=== PATIENT | male | born 1975 | race Two or more races ===

== ENCOUNTER 2021-08-13 11:48 | Inpatient (IN) | payer OTHER, SELFPAY ==
[2021-08-13] VITALS (29 sets, daily range): BP systolic 121–220; BP diastolic 54–121; PULSE 60–122; RESP 12–40; TEMP 36.2–36.4; O2SAT 60–96; BMI 37.0; BMI 37.4
--- NOTE | 2021-08-13 | ECG_ITS ---
Test Reason : AFIB? Blood Pressure : / mmHG Vent. Rate : 108 BPM Atrial Rate : 000 BPM P-R Int : 000 ms QRS Dur : 140 ms QT Int : 388 ms P-R-T Axes : 000 085 -80 degrees QTc Int : 519 ms Atrial fibrillation with rapid ventricular response Non-specific intra-ventricular conduction block Minimal voltage criteria for LVH, may be normal variant ( [place] product ) Nonspecific T wave abnormality Abnormal ECG No previous ECGs available Referred By: Kwan Richter Electronically Signed By:Madi Corado
--- NOTE | ~2021-08-13 | XR_ITS ---
EXAMINATION: XR CHEST CLINICAL INFORMATION: Desaturation. Shortness of breath. COMPARISON: 08/13/2021 chest radiograph. TECHNIQUE: Frontal view of the chest was obtained. FINDINGS: Support devices: Right-sided central venous catheter with tip terminating at the cavoatrial junction. There are persistent bilateral patchy opacities with mild pulmonary vascular prominence. The heart is mildly enlarged. The mediastinal structures are unremarkable. XR/XR chest 1V IMPRESSION: Mild pulmonary vascular prominence with similar appearance, but mild interval improvement in bilateral patchy opacities suggesting improving congestion.
--- NOTE | ~2021-08-13 | XR_ITS ---
EXAMINATION: PORTABLE CHEST 1 VIEW CLINICAL INFORMATION: sob, missed dialysis . COMPARISON: No recent pertinent prior studies are available for comparison. TECHNIQUE: Portable frontal view of the chest was obtained. FINDINGS: Lungs well-expanded. There is central vascular prominence with some indistinctness to the vessels. No significant effusion or pneumothorax. Cardiac silhouette is enlarged with vascular calcification in aorta. Right IJ dialysis catheter tip near the cavoatrial junction. XR/XR chest 1V IMPRESSION: Enlarged cardiac silhouette with central vascular prominence may reflect component of fluid overload in this setting.
[2021-08-13] MEDS: Furosemide 100 MG/10 ML VIAL 80 MG IVPUSH (12:10)
[2021-08-13] MEDS: Nitroglycerin 2 % Oint 1 GM Packet 1 INCH TRANSDERMA (12:11)
--- NOTE | 2021-08-13 12:14 | ED_ITS ---
HPI - Chest Pain General Chief Complaint: Chest Pain Stated Complaint: CP,ABD PAIN,DIZZY,MISSED DIALYSIS THIS AM PER EMS Time Seen by Provider: 08/13/21 12:05 Source: patient and EMS Mode of arrival: EMS Limitations: no limitations History of Present Illness HPI narrative: Patient comes to the emergency room complaining of severe shortness of breath. It started last night. Patient states that he was supposed to go to dialysis today at 06:00. Patient did not go because his transportation right does not have his new cellphone number, and they were unable to coordinate transport. Patient's cousin called EMS, on arrival patient's oxygen saturation was 54% on room air. Patient was put on non-rebreather, oxygen on 15 L approximately 90%. He was also given 325 mg of aspirin. On arrival to the emergency room, patient talking in one-word sentences, significant shortness of breath. Unable to provide much history at this time. Patient complaining of mild chest pressure. Related Data Allergies Allergy/AdvReac Type Severity Reaction Status Date / Time PHILLY Inhibitors Allergy Anaphylaxis Verified 08/13/21 12:19 shellfish derived Allergy Anaphylaxis Verified 08/13/21 12:19 Sulfa (Sulfonamide Allergy Anaphylaxis Verified 08/13/21 12:19 Antibiotics) Review of Systems Review of Systems: Constitutional : No Weight loss, No Fever, No Chills, No Night Sweats, No Fatigue, No Malaise ENT/Mouth : No Hearing loss, No Ear Pain, No Nasal Congestion, No Sinus Pain, No Hoarseness, No sore throat, No Rhinorrhea, No Swallowing Difficulty Eyes: No Eye Pain, No Swelling, No Redness, No Foreign Body, No Discharge, No Vision Changes Cardiovascular : Complaining of chest pressure Respiratory : Complaining of severe shortness of breath, unable to catch breath Gastrointestinal : No Nausea, No Vomiting, No Diarrhea, No Constipation, No abdominal Pain, No Hematochezia, No Melena Genitourinary : no irregular bleeding, No Dysuria, No Urinary Frequency, No Hematuria, No Urinary Incontinence, No Urgency, No Flank Pain, No Urinary Flow Changes, No Hesitancy Musculoskeletal : No joint pain, No Myalgias, No Joint Swelling Skin : No Skin Lesions, No rash Neuro : No Weakness, No Numbness, No Paresthesias, No Loss of Consciousness, No Dizziness, No Headache Psych : No Anxiety/Panic, No Depression, No SI/HI/AH/VH, No Social Issues, Heme/Lymph: No Bruising, No Bleeding,No Lymphadenopathy Endocrine : No Polyuria, No Polydipsia, No Temperature Intolerance [facility] Past Medical History Medical History (Updated 08/13/21 @ 13:07 by Naty Lanza MD) Diabetes End stage renal disease Hypertension Social History Social History Advance Directives: No Advance Directives Information Provided: Yes Physical Exam Vital Signs: Vital Signs: Last Vital Signs Temp 97.2 F 08/13/21 12:00 Pulse 68 08/13/21 12:27 Resp 20 08/13/21 12:27 BP 220/119 H 08/13/21 12:27 Pulse Ox 96 08/13/21 12:27 O2 Del Method 08/13/21 12:27 BMI result Body Mass Index 37.4 Const: Other: Appearance: Alert. Oriented X3. In respiratory distress Eyes: Pupils equal, round and reactive to light. ENT: Pharynx normal. Neck: Normal inspection. Neck supple. No lymph nodes noted. No crepitus CVS: Normal heart rate and rhythm. Pulses normal. Normal S1 and S2 Respiratory: In respiratory distress, saturating 58% on room air, bilateral crackles Abdomen: Soft and nontender. No rigidity. No distention. Skin: Skin warm and dry. Normal skin color. Normal skin turgor. Extremities: +2 pitting edema Neuro: Oriented X 3. No motor deficit. No sensory deficit. Moving all extremities. No slurred speech. CN 2 through 12 grossly intact Psych: calm, cooperative, normal affect Course Course Course Narrative: On arrival, patient was put on CPAP, 60% O2, patient's oxygen saturation 92%. Patient was also given 80 mg of Lasix, patient states he produces small amount of urine, 1 in of nitropaste. Patient feels that slowly he is starting to feel better. We have contacted [facility] for dialysis today. Callback Pending. All the labs are pending I discussed the patient with Dr. Kerr, at this time, all of the labs are pending, but patient needs emergent dialysis. Dr. Tanner has access to the [facility]'s medical records in [facility], patient is known to be noncompliant with dialysis and drink plenty of fluids. I discussed the patient with Dr. Freeman, patient will be admitted to the ICU, dialysis will be done there. Once patient is stable, he will be transferred to the floor Patient's potassium is elevated, patient was given calcium gluconate, albuterol neb treatment. No EKG changes. Patient is currently doing better on CPAP, however his blood pressure is still very elevated, 220 systolic despite having received Lasix and nitro paste and being on CPAP. Patient will be started on nicardipine drip MDM - Chest Pain Lab Data Result diagrams: 08/13/21 12:17 08/13/21 12:17 Labs: Lab Results 08/13/21 08/13/21 08/13/21 Range/Units 12:17 12:17 12:17 WBC 7.9 (4.8-10.8) X10*3/uL RBC 3.03 L (4.60-5.80) X10*6/uL Hgb 9.0 L (14.0-18.0) g/dl Hct 28.8 L (42.0-52.0) % MCV 95.0 (80.0-98.0) fL MCH 29.7 (27.0-33.0) pg MCHC 31.3 (31.0-36.0) g/dl RDW 16.7 H (11.0-16.0) % Plt Count 160 (160-400) X10*3/uL MPV 8.8 L (9.4-12.4) fL Immature Gran % (Auto) 0.9 H (0.0-0.4) % Neut % (Auto) 80.2 H (45-73) % Lymph % (Auto) 8.7 L (20-40) % [place] % (Auto) 6.6 (2-11) % Eos % (Auto) 3.1 (0-4) % Baso % (Auto) 0.5 (0-2) % Lymph # (Auto) 0.7 L (1.2-4.9) X10*3/uL [place] # (Auto) 0.5 (0.1-1.2) X10*3/uL Eos # (Auto) 0.2 (0.0-0.4) X10*3/uL Baso # (Auto) 0.0 (0.0-0.2) X10*3/uL Abs Immat Gran (auto) 0.07 H (0.00-0.03) X10*3/uL Absolute Neuts (auto) 6.3 (2.0-8.3) x10*3/uL Absolute Nucleated RBC 0.020 H (0.0-0.012) X10*3/uL Nucleated RBC % (auto) 0.3 H (0.0-0.2) /100WBC PT (10.0-13.1) SEC INR (0.9-1.1) VBG pH (7.32-7.43) VBG pCO2 mmHg VBG pO2 mmHg VBG HCO3 (22-26) mmol/L VBG O2 Saturation % VBG Base Excess mmol/L Sodium 135 (135-145) mmol/L Potassium 5.5 H (3.3-5.1) mmol/L Chloride 93 L (96-108) mmol/L Carbon Dioxide 27 (22-29) mmol/L Anion Gap 21 H (12-20) BUN 71 H (9-16) mg/dL Creatinine 11.98 H* (0.5-1.4) mg/dL Estim Creat Clear Calc 11.2 Estimated GFR 5 Random Glucose 135 H (60-115) mg/dL Lactic Acid (0.5-2.0) mmol/L Calcium 9.3 (8.4-10.2) mg/dL Magnesium 2.4 (1.6-2.6) mg/dL Total Bilirubin 0.9 (0.0-1.0) mg/dL Direct Bilirubin 0.3 (0.0-0.5) mg/dL AST 20 (5-37) U/L ALT 15 (0-40) U/L Alkaline Phosphatase 89 (39-117) U/L Troponin I High Sens 245.0 H* (<3.5-35.0) ng/L B-Natriuretic Peptide (<100) pg/mL Total Protein 7.5 (6.5-8.0) g/dL Albumin 4.5 (3.5-5.0) g/dL COVID-19 (FREDI) (Negative) COVID-19 Clin Com 08/13/21 08/13/21 08/13/21 Range/Units 12:17 12:17 12:18 WBC (4.8-10.8) X10*3/uL RBC (4.60-5.80) X10*6/uL Hgb (14.0-18.0) g/dl Hct (42.0-52.0) % MCV (80.0-98.0) fL MCH (27.0-33.0) pg MCHC (31.0-36.0) g/dl RDW (11.0-16.0) % Plt Count (160-400) X10*3/uL MPV (9.4-12.4) fL Immature Gran % (Auto) (0.0-0.4) % Neut % (Auto) (45-73) % Lymph % (Auto) (20-40) % [place] % (Auto) (2-11) % Eos % (Auto) (0-4) % Baso % (Auto) (0-2) % Lymph # (Auto) (1.2-4.9) X10*3/uL [place] # (Auto) (0.1-1.2) X10*3/uL Eos # (Auto) (0.0-0.4) X10*3/uL Baso # (Auto) (0.0-0.2) X10*3/uL Abs Immat Gran (auto) (0.00-0.03) X10*3/uL Absolute Neuts (auto) (2.0-8.3) x10*3/uL Absolute Nucleated RBC (0.0-0.012) X10*3/uL Nucleated RBC % (auto) (0.0-0.2) /100WBC PT 16.4 H (10.0-13.1) SEC INR 1.4 H (0.9-1.1) VBG pH (7.32-7.43) VBG pCO2 mmHg VBG pO2 mmHg VBG HCO3 (22-26) mmol/L VBG O2 Saturation % VBG Base Excess mmol/L Sodium (135-145) mmol/L Potassium (3.3-5.1) mmol/L Chloride (96-108) mmol/L Carbon Dioxide (22-29) mmol/L Anion Gap (12-20) BUN (9-16) mg/dL Creatinine (0.5-1.4) mg/dL Estim Creat Clear Calc Estimated GFR Random Glucose (60-115) mg/dL Lactic Acid (0.5-2.0) mmol/L Calcium (8.4-10.2) mg/dL Magnesium (1.6-2.6) mg/dL Total Bilirubin (0.0-1.0) mg/dL Direct Bilirubin (0.0-0.5) mg/dL AST (5-37) U/L ALT (0-40) U/L Alkaline Phosphatase (39-117) U/L Troponin I High Sens (<3.5-35.0) ng/L B-Natriuretic Peptide 3055 H (<100) pg/mL Total Protein (6.5-8.0) g/dL Albumin (3.5-5.0) g/dL COVID-19 (FREDI) Negative (Negative) COVID-19 Clin Com See Note 08/13/21 08/13/21 Range/Units 12:18 12:22 WBC (4.8-10.8) X10*3/uL RBC (4.60-5.80) X10*6/uL Hgb (14.0-18.0) g/dl Hct (42.0-52.0) % MCV (80.0-98.0) fL MCH (27.0-33.0) pg MCHC (31.0-36.0) g/dl RDW (11.0-16.0) % Plt Count (160-400) X10*3/uL MPV (9.4-12.4) fL Immature Gran % (Auto) (0.0-0.4) % Neut % (Auto) (45-73) % Lymph % (Auto) (20-40) % [place] % (Auto) (2-11) % Eos % (Auto) (0-4) % Baso % (Auto) (0-2) % Lymph # (Auto) (1.2-4.9) X10*3/uL [place] # (Auto) (0.1-1.2) X10*3/uL Eos # (Auto) (0.0-0.4) X10*3/uL Baso # (Auto) (0.0-0.2) X10*3/uL Abs Immat Gran (auto) (0.00-0.03) X10*3/uL Absolute Neuts (auto) (2.0-8.3) x10*3/uL Absolute Nucleated RBC (0.0-0.012) X10*3/uL Nucleated RBC % (auto) (0.0-0.2) /100WBC PT (10.0-13.1) SEC INR (0.9-1.1) VBG pH 7.34 (7.32-7.43) VBG pCO2 36 mmHg VBG pO2 174 mmHg VBG HCO3 20 L (22-26) mmol/L VBG O2 Saturation 99.0 % VBG Base Excess -4.8 mmol/L Sodium (135-145) mmol/L Potassium (3.3-5.1) mmol/L Chloride (96-108) mmol/L Carbon Dioxide (22-29) mmol/L Anion Gap (12-20) BUN (9-16) mg/dL Creatinine (0.5-1.4) mg/dL Estim Creat Clear Calc Estimated GFR Random Glucose (60-115) mg/dL Lactic Acid 0.8 (0.5-2.0) mmol/L Calcium (8.4-10.2) mg/dL Magnesium (1.6-2.6) mg/dL Total Bilirubin (0.0-1.0) mg/dL Direct Bilirubin (0.0-0.5) mg/dL AST (5-37) U/L ALT (0-40) U/L Alkaline Phosphatase (39-117) U/L Troponin I High Sens (<3.5-35.0) ng/L B-Natriuretic Peptide (<100) pg/mL Total Protein (6.5-8.0) g/dL Albumin (3.5-5.0) g/dL COVID-19 (FREDI) (Negative) COVID-19 Clin Com Imaging Data Chest x-ray: Radiologist's impression: FINDINGS: Lungs well-expanded. There is central vascular prominence with some indistinctness to the vessels. No significant effusion or pneumothorax. Cardiac silhouette is enlarged with vascular calcification in aorta. Right IJ dialysis catheter tip near the cavoatrial junction. XR/XR chest 1V IMPRESSION: Enlarged cardiac silhouette with central vascular prominence may reflect component of fluid overload in this setting. ? Critical Care Time Critical Care Time Critical Care Time: Yes Total Critical Care Time: 60 Attestation: I have personally provided critical care time. Time includes review of lab data, radiology results, discussion with consultants, and monitoring for potential decompensation. Intervention performed as documented. Discharge Plan Discharge Clinical Impression: Pulmonary edema, End stage renal disease Patient Disposition: Admitted As Inpatient
[2021-08-13] MEDS: Morphine Sulfate 2 MG/ML CARTRIDGE IVPUSH (12:23)
[2021-08-13 12:24] LABS: MANUAL DIFF FLAG NO
[2021-08-13 12:25] LABS: Venous Blood Gas Refer to POC result
[2021-08-13 12:27] LABS: Basophils Percent Auto 0.5 % (0-2); Eosinophils Absolute Auto 0.2 X10*3/uL (0.0-0.4); Eosinophils Percent Auto 3.1 % (0-4); Hematocrit 28.8 % (42.0-52.0); Imm Gran Abs Auto 0.07 X10*3/uL (0.00-0.03); Imm Gran Pct Auto 0.9 % (0.0-0.4); Lymphocytes Absolute Auto 0.7 X10*3/uL (1.2-4.9); Lymphocytes Percent Auto 8.7 % (20-40); Mean Corpuscular HGB Conc 31.3 g/dl (31.0-36.0); Mean Corpuscular Hemoglobin 29.7 pg (27.0-33.0); Mean Platelet Volume 8.8 fL (9.4-12.4); Monocytes Absolute Auto 0.5 X10*3/uL (0.1-1.2); Monocytes Percent Auto 6.6 % (2-11); NRBC Pct Auto 0.3 /100WBC (0.0-0.2); Neutrophils Absolute Auto 6.3 x10*3/uL (2.0-8.3); Neutrophils Percent Auto 80.2 % (45-73); Platelet Count 160 X10*3/uL (160-400); Red Blood Count 3.03 X10*6/uL (4.60-5.80); Red Cell Distribution Width 16.7 % (11.0-16.0); White Blood Count 7.9 X10*3/uL (4.8-10.8)
[2021-08-13 12:28] LABS: VBG Base Excess -4.8 mmol/L; VBG HCO3 20 mmol/L (22-26); VBG pCO2 36 mmHg; VBG pH 7.34 (7.32-7.43); VBG pO2 174 mmHg
[2021-08-13 12:31] LABS: INTERNATIONAL NORM RATIO 1.4 (0.9-1.1); Prothrombin Time 16.4 SEC (10.0-13.1)
[2021-08-13 12:36] LABS: Lactic Acid 0.8 mmol/L (0.5-2.0)
[2021-08-13 12:40] LABS: COVID-19 Test Negative (Negative); IDNOW Serial# 16C4AD1C
[2021-08-13 12:46] LABS: B Type Natriuretic Peptide 3055 pg/mL (<100)
[2021-08-13 12:53] LABS: Alanine Aminotransferase 15 U/L (0-40); Albumin Level 4.5 g/dL (3.5-5.0); Alkaline Phosphatase 89 U/L (39-117); Anion Gap 21 (12-20); Aspartate Amino Transferase 20 U/L (5-37); Bilirubin Direct 0.3 mg/dL (0.0-0.5); Bilirubin Total 0.9 mg/dL (0.0-1.0); Blood Urea Nitrogen 71 mg/dL (9-16); Calcium 9.3 mg/dL (8.4-10.2); Carbon Dioxide 27 mmol/L (22-29); Chloride 93 mmol/L (96-108); Creatinine Clr Calc Pharmacy 11.2; Estimated Glomerular Filt Rate 5; Glucose Random 135 mg/dL (60-115); Magnesium 2.4 mg/dL (1.6-2.6); Potassium 5.5 mmol/L (3.3-5.1); Sodium 135 mmol/L (135-145); Total Protein 7.5 g/dL (6.5-8.0)
[2021-08-13] MEDS: Albuterol Sulfate (0.083%) 2.5 MG/3 ML VIAL.NEB 10 MG INHALE (13:09)
[2021-08-13] MEDS: Calcium Gluconate/NaCl,Iso-Osm 2 GM/100 ML PLAST..BAG IV (13:11)
--- NOTE | 2021-08-13 13:12 | PM.CCHP ---
History of Present Illness Date of Service: 08/13/21 Chief Complaint: Difficulty breathing 46-year-old gentleman with underlying obesity, end-stage renal disease on hemodialysis, hypertension Mrs. Dialysis session today and arrived complain of short of breath in abdominal discomfort. Patient was noted to be in pulmonary edema with significant hypoxia requiring initiation of CPAP support. Also, in hypertensive emergency with mildly elevated troponin level requiring Cardene drip for blood pressure control. Nephrology service was consulted patient will be dialyzed. Patient has been admitted to intensive care unit. Review of Systems Constitutional: Constitutional: Denies daytime sleepiness, Denies excessive sweating, Denies fatigue, Denies fever(s), Denies lethargy, Denies malaise, Denies night sweats, Denies snoring and Denies weight loss Eyes: Eyes: Denies blurry vision and Denies itchy eyes ENT: Denies nasal congestion, Denies post nasal drip, Denies sinus pain, Denies sinus pressure and Denies other ( Thrush) Cardiovascular: Cardiovascular: Denies chest pain, Reports pedal edema, Reports dyspnea, Reports dyspnea on exertion, Denies orthopnea and Denies paroxysmal nocturnal dyspnea Respiratory: Respiratory: Denies cough, Denies hemoptysis, Denies excessive phlegm production, Reports dyspnea, Reports dyspnea on exertion, Denies snoring and Denies wheezing Gastrointestinal: Gastrointestinal: Denies abdominal pain and Denies heartburn Musculoskeletal: Musculoskeletal: Denies myalgias, Denies arthralgias and Denies joint swelling Integumentary/Breasts: Skin/Breast: Denies rash Neurologic: Denies memory loss and Denies seizure-like activity Psychiatric: Psychiatric: Denies abnormal sleep pattern, Denies anxiety and Denies memory loss Endocrine: Endocrine: Denies excessive sweating, Denies fatigue and Denies heat intolerance Hematologic/Lymphatic: Hematologic/Lymphatic: Denies easy bruising Allergic/Immunologic: Allergic/Immunologic: Denies itchy eyes, Denies seasonal rhinorrhea and Denies wheezing PMFSH Past Medical History Medical History (Updated 08/13/21 @ 13:17 by Ryan Villeda MD) Diabetes End stage renal disease Hypertension Social History Social History Advance Directives: No Advance Directives Information Provided: Yes Meds Allergies Allergy/AdvReac Type Severity Reaction Status Date / Time PHILLY Inhibitors Allergy Anaphylaxis Verified 08/13/21 12:19 shellfish derived Allergy Anaphylaxis Verified 08/13/21 12:19 Sulfa (Sulfonamide Allergy Anaphylaxis Verified 08/13/21 12:19 Antibiotics) Active Medications: Current Medications Heparin Sodium (Porcine) (Heparin Sodium,Porcine 5,000 Unit/Ml Vial) 5,000 unit SUBCUT Q8H [facility] Calcium Gluconate (Calcium Gluconate) 2 gm in 100 mls @ 50 mls/hr IV ONCE ONE Stop: 08/13/21 14:57 Nicardipine HCl 25 mg/ Sodium (Chloride) 260 mls @ 0 mls/hr IVCONT .Q0M LEIGH; Protocol Physical Exam Vital Signs: Vital Signs: Last Vital Signs Temp 97.2 F 08/13/21 12:00 Pulse 68 08/13/21 13:09 Resp 17 08/13/21 13:09 BP 220/119 H 08/13/21 12:27 Pulse Ox 96 08/13/21 12:27 O2 Del Method 08/13/21 12:27 BMI result Body Mass Index 37.4 Const: General: no acute distress, alert and awake Nutritional Appearance: obese HEENT: Head: Yes atraumatic Mouth: no other ( thrush) Throat: No postnasal drainage Eyes: General: appearance normal, both eyes and all related structures Sclerae: sclerae normal EOM: EOMs intact bilaterally Neck: Neck: Yes no lymphadenopathy, Yes trachea midline and Yes supple Lymphatic: no lymphadenopathy noted Resp: Effort & Inspection: normal respiratory effort and no respiratory distress Auscultation: clear to auscultation bilaterally Cardio: Rate: regular rate Rhythm: regular rhythm Heart sounds: no gallops, no murmurs and no rubs GI: Palpation (GI): Soft to palpation and Other GI palpation findings present ( Nontender) Auscultation: normal bowel sounds Skin: General skin exam: other ( warm) Rashes: no rashes Extrem: General: No clubbing, No cyanosis and Yes pedal edema (1+ bilateral) Results Labs CBC and Chem 7: 08/13/21 12:17 08/13/21 12:17 Labs: Laboratory Results - last 24 hr 08/13/21 08/13/21 08/13/21 12:17 12:17 12:17 MCV 95.0 MCH 29.7 MCHC 31.3 RDW 16.7 H Plt Count 160 MPV 8.8 L Immature Gran % (Auto) 0.9 H Neut % (Auto) 80.2 H Lymph % (Auto) 8.7 L [place] % (Auto) 6.6 Eos % (Auto) 3.1 Baso % (Auto) 0.5 Lymph # (Auto) 0.7 L [place] # (Auto) 0.5 Eos # (Auto) 0.2 Baso # (Auto) 0.0 Abs Immat Gran (auto) 0.07 H Absolute Neuts (auto) 6.3 Absolute Nucleated RBC 0.020 H Nucleated RBC % (auto) 0.3 H PT INR VBG pH VBG pCO2 VBG pO2 VBG HCO3 VBG O2 Saturation VBG Base Excess Anion Gap 21 H Estim Creat Clear Calc 11.2 Estimated GFR 5 Random Glucose 135 H Lactic Acid Calcium 9.3 Magnesium 2.4 Total Bilirubin 0.9 Direct Bilirubin 0.3 AST 20 ALT 15 Alkaline Phosphatase 89 Troponin I High Sens 245.0 H* B-Natriuretic Peptide Total Protein 7.5 Albumin 4.5 COVID-19 (FREDI) COVID-[employer] 08/13/21 08/13/21 08/13/21 12:17 12:17 12:18 MCV MCH MCHC RDW Plt Count MPV Immature Gran % (Auto) Neut % (Auto) Lymph % (Auto) [place] % (Auto) Eos % (Auto) Baso % (Auto) Lymph # (Auto) [place] # (Auto) Eos # (Auto) Baso # (Auto) Abs Immat Gran (auto) Absolute Neuts (auto) Absolute Nucleated RBC Nucleated RBC % (auto) PT 16.4 H INR 1.4 H VBG pH VBG pCO2 VBG pO2 VBG HCO3 VBG O2 Saturation VBG Base Excess Anion Gap Estim Creat Clear Calc Estimated GFR Random Glucose Lactic Acid Calcium Magnesium Total Bilirubin Direct Bilirubin AST ALT Alkaline Phosphatase Troponin I High Sens B-Natriuretic Peptide 3055 H Total Protein Albumin COVID-19 (FREDI) Negative COVID-[employer] See Note 08/13/21 08/13/21 12:18 12:22 MCV MCH MCHC RDW Plt Count MPV Immature Gran % (Auto) Neut % (Auto) Lymph % (Auto) [place] % (Auto) Eos % (Auto) Baso % (Auto) Lymph # (Auto) [place] # (Auto) Eos # (Auto) Baso # (Auto) Abs Immat Gran (auto) Absolute Neuts (auto) Absolute Nucleated RBC Nucleated RBC % (auto) PT INR VBG pH 7.34 VBG pCO2 36 VBG pO2 174 VBG HCO3 20 L VBG O2 Saturation 99.0 VBG Base Excess -4.8 Anion Gap Estim Creat Clear Calc Estimated GFR Random Glucose Lactic Acid 0.8 Calcium Magnesium Total Bilirubin Direct Bilirubin AST ALT Alkaline Phosphatase Troponin I High Sens B-Natriuretic Peptide Total Protein Albumin COVID-19 (FREDI) COVID-19 Clin Com Imaging Radiologist's Impressions: Impressions Chest X-Ray 08/13/21 12:13 IMPRESSION: Enlarged cardiac silhouette with central vascular prominence may reflect component of fluid overload in this setting. Assessment and Plan (1) Acute respiratory failure with hypoxia: Status: Acute (2) Pulmonary edema: Status: Acute (3) End stage renal disease: Status: Acute (4) Diabetes: Status: Acute (5) Hypertensive emergency: Status: Acute (6) Hyperkalemia: Status: Acute Plan Assessment: 46-year-old gentleman with underlying diabetes mellitus, end-stage renal disease on hemodialysis, hypertension admitted with flash pulmonary edema resulting in acute hypoxic respiratory failure and also hypertensive emergency, now requiring CPAP support. Plan: Neuro: No acute issues. Cardiac: Hypertensive emergency, blood pressure improved on Cardene. Blood pressure goal under 160 systolic. Pulmonary: Acute hypoxic respiratory failure secondary to flash pulmonary edema now requiring CPAP support, continue to titrate off as tolerated, expect to improve after hemodialysis. Renal: End-stage renal disease on hemodialysis patient missing his recent hemodialysis session. Nephrology consulted. Patient to start hemodialysis today. Endo: No acute issues. Underlying diabetes mellitus. GI: No acute issues. ID: No acute issues Heme/Onc: No acute issues. Psych: No acute issues. Miscellaneous: No acute issues. Prophylaxis: Heparin Diet: Diabetic Critical care time spent: 45 minutes
[2021-08-13] MEDS: niCARdipine HCL 25 MG in 0.9 % Sodium Chloride 250 ML 52 MG IVCONT (13:20)
[2021-08-13] MEDS: Heparin Sodium,Porcine 5,000 UNIT/ML VIAL 5000 UNIT SUBCUT ×2 (13:34→21:34)
--- NOTE | 2021-08-13 14:33 | PHA.MEDREC ---
Addendum entered by Kristan Hernandez RPh 08/16/21 16:03: Contact Dr. Marie's office. There medication list had multiple medications that have no been filled recently which included: - Clonidine 0.3 mg patch qweek - Ergocalicerfol 50,000 units Qweek - Hydralaziune 25 mg take 4 tablets TID - Labetalol 200 mg take 2 talet BID - cinacelet 60 mg daily - atorvastatin 80 mg daily - sevelamer 800 mg TID - Lantus 10 units bedtime - bumentatdine 2mg take 2 tab BID The most recently filled meds that were not on provider list include: - carvedilol 12.5 take 2 tab BID Attempted to contact [facility] Medical records to see if patient had a recent discharge summary were medication were updated Original Note: Pharmacy Consult ? Medication Reconciliation Patient could only confirm some of his medications. He stated the only one that would know what medications he is taking is Dr. Marie. Will F/U with provider's office in the AM. Kristan Hernandez, CarlosD
[2021-08-13] MEDS: fentaNYL citrate/PF 100 MCG/2 ML VIAL IVPUSH ×5 (14:44→23:36)
[2021-08-13] MEDS: niCARdipine HCL 25 MG in 0.9 % Sodium Chloride 250 ML 156 MG IVCONT ×2 (16:15→17:53)
--- NOTE | 2021-08-13 16:16 | PM.CNNEP ---
History of Present Illness Reason for Consult Consult date: 08/13/21 Reason for consult: Need for urgent dialysis Chief Complaint Chief complaint: acute hypoxic respiratory failure History of Present Illness Narrative: Forest is a 46 yo AA male well known to our practice with ESRD due to DKD who has had frequent hospitalizations for noncompliance with fluid restriction and dialysis leading to volume overload and accelerated HTN. He is usually hospitalized about 2 times per month at [facility]. He was brought here by his relative for SOB and found to be hypoxic with accelerated HTN. He was brought to the ICU on bipap. Review of Systems Review of Systems Constitutional : No Weight loss, No Fever, No Chills, No Night Sweats, No Fatigue, No Malaise ENT/Mouth : No Hearing loss, No Ear Pain, No Nasal Congestion, No Sinus Pain, No Hoarseness, No sore throat, No Rhinorrhea, No Swallowing Difficulty Eyes: No Eye Pain, No Swelling, No Redness, No Foreign Body, No Discharge, No Vision Changes Cardiovascular : Complaining of chest pressure Respiratory : Complaining of severe shortness of breath, unable to catch breath Gastrointestinal : No Nausea, No Vomiting, No Diarrhea, No Constipation, No abdominal Pain, No Hematochezia, No Melena Genitourinary : no irregular bleeding, No Dysuria, No Urinary Frequency, No Hematuria, No Urinary Incontinence, No Urgency, No Flank Pain, No Urinary Flow Changes, No Hesitancy Musculoskeletal : No joint pain, No Myalgias, No Joint Swelling Skin : No Skin Lesions, No rash Neuro : No Weakness, No Numbness, No Paresthesias, No Loss of Consciousness, No Dizziness, No Headache Psych : No Anxiety/Panic, No Depression, No SI/HI/AH/VH, No Social Issues, Heme/Lymph: No Bruising, No Bleeding,No Lymphadenopathy Endocrine : No Polyuria, No Polydipsia, No Temperature Intolerance Constitutional: Denies daytime sleepiness, Denies excessive sweating, Denies fatigue, Denies fever(s), Denies lethargy, Denies malaise, Denies night sweats, Denies snoring and Denies weight loss Eyes: Denies blurry vision and Denies itchy eyes Denies nasal congestion, Denies post nasal drip, Denies sinus pain, Denies sinus pressure and Denies other ( Thrush) Cardiovascular: Denies chest pain, Reports pedal edema, Reports dyspnea, Reports dyspnea on exertion, Denies orthopnea and Denies paroxysmal nocturnal dyspnea Respiratory: Denies cough, Denies hemoptysis, Denies excessive phlegm production, Reports dyspnea, Reports dyspnea on exertion, Denies snoring and Denies wheezing Gastrointestinal: Denies abdominal pain and Denies heartburn Musculoskeletal: Denies myalgias, Denies arthralgias and Denies joint swelling Skin/Breast: Denies rash Denies memory loss and Denies seizure-like activity Psychiatric: Denies abnormal sleep pattern, Denies anxiety and Denies memory loss Endocrine: Denies excessive sweating, Denies fatigue and Denies heat intolerance Hematologic/Lymphatic: Denies easy bruising Allergic/Immunologic: Denies itchy eyes, Denies seasonal rhinorrhea and Denies wheezing PMFSH Past Medical History Medical History Diabetes End stage renal disease Hypertension Social History Social History Household Members: None Housing: Apartment Do you presently have visiting nurse or other home services: Yes Patient Tobacco Use Status: Current everyday Tobacco user Tobacco use type: Cigarette Cigarettes Per Day: 1 Use of substances other than those prescribed or required for medical reasons: Yes Substance Use Type: Crack/Cocaine and Marijuana Substance Use Frequency: Occasionally Last Used Substance: Weeks (ago) Currently Displaying Signs/Symptoms of Drug Intoxication Withdrawal: No Any prior treatment program specific to substance use: No Advance Directives: No Advance Directives Information Provided: Yes Advance Directives on File: No Do you have thoughts of harming others: None Do you have a plan to hurt others: No Plan Recently lost weight without trying: Unsure Nutrition Risks: No Nutritional Risk Meds Allergies Allergy/AdvReac Type Severity Reaction Status Date / Time PHILLY Inhibitors Allergy Anaphylaxis Verified 08/13/21 12:19 shellfish derived Allergy Anaphylaxis Verified 08/13/21 12:19 Sulfa (Sulfonamide Allergy Anaphylaxis Verified 08/13/21 12:19 Antibiotics) Active Medications: Current Medications Fentanyl (Fentanyl Citrate/Pf 100 Mcg/2 Ml Vial) 100 mcg IVPUSH Q2H PRN; Protocol PRN Reason: Pain, Severe (Pain Scale 7-10) Last Admin: 08/13/21 14:44 Dose: 100 mcg Heparin Sodium (Porcine) (Heparin Sodium,Porcine 5,000 Unit/Ml Vial) 5,000 unit SUBCUT Q8H [facility] Last Admin: 08/13/21 13:34 Dose: 5,000 unit Nicardipine HCl 25 mg/ Sodium (Chloride) 260 mls @ 0 mls/hr IVCONT .Q0M [facility]; Protocol Last Titration: 08/13/21 15:24 Dose: 12.5 mg/hr, 130 mls/hr Insulin Human Lispro (Insulin Lispro 100 Unit/Ml 3 Ml Vial) 0 unit SUBCUT QIDACHS [facility]; Protocol Home Medications Medication Instructions Recorded Confirmed Last Taken Type amiodarone 200 mg tablet 1 tab PO DAILY 08/13/21 08/13/21 Unknown History apixaban 5 mg tablet (Eliquis) 1 tab PO BID 08/13/21 08/13/21 Unknown History budesonide-formoterol HFA 80 2 puff inhalation BID 08/13/21 08/13/21 Unknown History mcg-4.5 mcg/actuation aerosol inhaler (Symbicort) bumetanide 2 mg tablet 2 tab PO BID 08/13/21 Unknown History carvedilol 12.5 mg tablet 2 tab PO BID 08/13/21 Unknown History diphenhydramine HCl 25 mg capsule 1 cap PO TID PRN itch 08/13/21 08/13/21 Unknown History (Banophen) gabapentin 300 mg capsule 1 cap PO TID 08/13/21 08/13/21 Unknown History isosorbide mononitrate 30 mg 3 tab PO QAM 08/13/21 Unknown History tablet,extended release 24 hr nifedipine 90 mg tablet,extended 1 tab PO DAILY 08/13/21 Unknown History release spironolactone 25 mg tablet 1 tab PO DAILY 08/13/21 Unknown History Physical Exam Vital Signs: Last Vital Signs Temp 97.2 F 08/13/21 12:00 Pulse 61 08/13/21 16:00 Resp 12 08/13/21 16:00 BP 158/70 H 08/13/21 16:00 Pulse Ox 91 L 08/13/21 16:00 O2 Del Method 08/13/21 16:00 FiO2 70 08/13/21 16:00 BMI result Body Mass Index 37.0 Const Other: Appearance: Alert. Oriented X3. In respiratory distress Eyes: Pupils equal, round and reactive to light. ENT: Pharynx normal. Neck: Normal inspection. Neck supple. No lymph nodes noted. No crepitus CVS: Normal heart rate and rhythm. Pulses normal. Normal S1 and S2 Respiratory: In respiratory distress, saturating 58% on room air, bilateral crackles Abdomen: Soft and nontender. No rigidity. No distention. Skin: Skin warm and dry. Normal skin color. Normal skin turgor. Extremities: +2 pitting edema Neuro: Oriented X 3. No motor deficit. No sensory deficit. Moving all extremities. No slurred speech. CN 2 through 12 grossly intact Psych: calm, cooperative, normal affect General: no acute distress, alert and awake Nutritional Appearance: obese HEENT Head: Yes atraumatic Mouth: no other ( thrush) Throat: No postnasal drainage Eyes General: appearance normal, both eyes and all related structures Sclerae: sclerae normal EOM: EOMs intact bilaterally Neck Neck: Yes no lymphadenopathy, Yes trachea midline and Yes supple Lymphatic: no lymphadenopathy noted Resp Effort & Inspection: normal respiratory effort and no respiratory distress Auscultation: clear to auscultation bilaterally Cardio Rate: regular rate Rhythm: regular rhythm Heart sounds: no gallops, no murmurs and no rubs GI Palpation (GI): Soft to palpation and Other GI palpation findings present ( Nontender) Auscultation: normal bowel sounds Skin General skin exam: other ( warm) Rashes: no rashes Extrem General: No clubbing, No cyanosis and Yes pedal edema (1+ bilateral) Results Lab Results Result Diagrams: 08/13/21 12:17 08/13/21 12:17 Lab results: Chemistry 08/13/21 12:17 Sodium 135 Potassium 5.5 H Carbon Dioxide 27 BUN 71 H Creatinine 11.98 H* Calcium 9.3 Hematology 08/13/21 12:17 WBC 7.9 Hgb 9.0 L Plt Count 160 Assessment and Plan (1) Acute respiratory failure with hypoxia: Status: Acute (2) Pulmonary edema: Status: Acute (3) End stage renal disease: Status: Acute (4) Diabetes: Status: Acute (5) Hypertensive emergency: Status: Acute (6) Hyperkalemia: Status: Acute Plan Assessment: 46-year-old gentleman with underlying diabetes mellitus, end-stage renal disease on hemodialysis, hypertension admitted with vol overload, pulm edema and accelerated HTN. He needs urgent HD/ultrafiltration. His K is up as well. He is noncompliant with dietary and fluid restrictions despite multiple similar episodes and freq hospitalizations. Plan: Dialysis now with 5 L vol removal goal on 2 K bath Resume all oral antihypertensives and titrate IV nicardipine -bp will improve with vol removal Low K diet instruction Low sodium and fluid restriction instruction Procedures Date of Service Date of Service: 08/13/21
[2021-08-13 16:41] LABS: Troponin-I High Sensitivity 237.2 ng/L (<3.5-35.0)
[2021-08-13 16:57] LABS: Glucose, Whole Blood 83 mg/dL (60-115)
[2021-08-13] MEDS: Dextrose 50 % 25 GM/50 ML SYRINGE IVPUSH (17:13)
--- NOTE | 2021-08-13 18:34 | PC.NURSE ---
ARRIVED FROM ED AT 1353 VIA STRETCHER ON CPAP. CPAP 10 ON 60% - TITRATED BY RT TO 70% FOR 02 > 90%. NICARDIPINE GTT TITRATED TO MAX RATE TO ACHIEVE GOAL OF SPB < 160 - SEE EMAR. CURRENTLY RECEIVING DIALYSIS. PER MD TO REMAIN ON CPAP AND NPO UNTIL POST DIALYSIS. DINNER POC 83 - MD NOTIFIED, ORDERED AND ADMINISTERED D50. PATIENT C/O CHRONIC PAIN TO LOWER BACK 11/19 - TREATED WITH PRN FENTANYL - SEE EMAR.
[2021-08-13] MEDS: niCARdipine HCL 25 MG in 0.9 % Sodium Chloride 250 ML 78 MG IVCONT ×2 (19:47→22:48)
[2021-08-13 21:34] LABS: Glucose, Whole Blood 84 mg/dL (60-115)
[2021-08-13 21:53] LABS: VBG Base Excess 8.5 mmol/L; VBG HCO3 33 mmol/L (22-26); VBG pCO2 49 mmHg; VBG pH 7.44 (7.32-7.43); VBG pO2 54 mmHg
[2021-08-13 22:03] LABS: Venous Blood Gas Refer to POC result
[2021-08-13 22:34] LABS: Anion Gap 17 (12-20); Blood Urea Nitrogen 32 mg/dL (9-16); Calcium 9.2 mg/dL (8.4-10.2); Carbon Dioxide 29 mmol/L (22-29); Chloride 98 mmol/L (96-108); Creatinine Clr Calc Pharmacy 20.6; Estimated Glomerular Filt Rate 9; Glucose Random 87 mg/dL (60-115); Potassium 3.6 mmol/L (3.3-5.1); Sodium 140 mmol/L (135-145)
[2021-08-14] VITALS (31 sets, daily range): BP systolic 114–175; BP diastolic 63–149; PULSE 63–127; RESP 11–22; TEMP 36.7–37.2; O2SAT 88–100; BMI 35.8
[2021-08-14] MEDS: niCARdipine HCL 25 MG in 0.9 % Sodium Chloride 250 ML 104 MG IVCONT ×2 (01:23→04:22)
[2021-08-14] MEDS: fentaNYL citrate/PF 100 MCG/2 ML VIAL IVPUSH ×3 (01:23→07:22)
[2021-08-14] MEDS: Gabapentin 300 MG CAPSULE PO ×4 (01:23→20:43)
[2021-08-14] MEDS: Heparin Sodium,Porcine 5,000 UNIT/ML VIAL 5000 UNIT SUBCUT (04:25)
[2021-08-14 05:23] LABS: MANUAL DIFF FLAG NO
[2021-08-14 05:25] LABS: Basophils Percent Auto 0.3 % (0-2); Eosinophils Absolute Auto 0.4 X10*3/uL (0.0-0.4); Eosinophils Percent Auto 3.9 % (0-4); Hematocrit 27.2 % (42.0-52.0); Hemoglobin 8.4 g/dl (14.0-18.0); Imm Gran Abs Auto 0.03 X10*3/uL (0.00-0.03); Imm Gran Pct Auto 0.3 % (0.0-0.4); Lymphocytes Absolute Auto 0.7 X10*3/uL (1.2-4.9); Lymphocytes Percent Auto 7.7 % (20-40); Mean Corpuscular HGB Conc 30.9 g/dl (31.0-36.0); Mean Corpuscular Hemoglobin 29.7 pg (27.0-33.0); Mean Corpuscular Volume 96.1 fL (80.0-98.0); Mean Platelet Volume 9.2 fL (9.4-12.4); Monocytes Absolute Auto 0.5 X10*3/uL (0.1-1.2); Monocytes Percent Auto 5.3 % (2-11); Neutrophils Absolute Auto 7.6 x10*3/uL (2.0-8.3); Neutrophils Percent Auto 82.5 % (45-73); Platelet Count 151 X10*3/uL (160-400); Red Blood Count 2.83 X10*6/uL (4.60-5.80); Red Cell Distribution Width 16.8 % (11.0-16.0); White Blood Count 9.2 X10*3/uL (4.8-10.8)
[2021-08-14 05:26] LABS: VBG Base Excess 6.2 mmol/L; VBG HCO3 32 mmol/L (22-26); VBG pCO2 53 mmHg; VBG pH 7.38 (7.32-7.43); VBG pO2 68 mmHg
[2021-08-14 05:34] LABS: Venous Blood Gas Refer to POC result
[2021-08-14 06:01] LABS: Anion Gap 15 (12-20); Blood Urea Nitrogen 37 mg/dL (9-16); Calcium 8.9 mg/dL (8.4-10.2); Carbon Dioxide 30 mmol/L (22-29); Chloride 97 mmol/L (96-108); Creatinine Clr Calc Pharmacy 17.5; Estimated Glomerular Filt Rate 8; Glucose Random 106 mg/dL (60-115); Magnesium 2.1 mg/dL (1.6-2.6); Phosphorus 5.4 mg/dL (2.7-4.5); Potassium 4.5 mmol/L (3.3-5.1); Sodium 137 mmol/L (135-145)
[2021-08-14 07:09] LABS: Glucose, Whole Blood 89 mg/dL (60-115)
[2021-08-14] MEDS: niCARdipine HCL 25 MG in 0.9 % Sodium Chloride 250 ML 52 MG IVCONT (07:22)
--- NOTE | 2021-08-14 09:46 | PM.PNNEP ---
Subjective Subjective Date of Service: 08/15/21 Physical Exam Vital Signs: Vital Signs: Last Vital Signs Temp 98.9 F 08/14/21 08:00 Pulse 121 H 08/14/21 09:00 Resp 13 08/14/21 09:00 BP 116/63 08/14/21 09:37 Pulse Ox 93 08/14/21 09:00 O2 Del Method 08/14/21 09:00 O2 Flow Rate 55 08/14/21 09:00 FiO2 80 08/14/21 09:00 BMI result Body Mass Index 35.8 Const: General: alert HEENT: Head: Yes atraumatic Mouth: no other ( thrush) Throat: No postnasal drainage Eyes: General: appearance normal, both eyes and all related structures Sclerae: sclerae normal EOM: EOMs intact bilaterally Neck: Neck: Yes no lymphadenopathy, Yes trachea midline and Yes supple Lymphatic: no lymphadenopathy noted Resp: Effort & Inspection: normal respiratory effort and no respiratory distress Auscultation: clear to auscultation bilaterally Cardio: Rate: regular rate Rhythm: regular rhythm Heart sounds: no gallops, no murmurs and no rubs GI: Palpation (GI): Soft to palpation and Other GI palpation findings present ( Nontender) Auscultation: normal bowel sounds Skin: General skin exam: other ( warm) Rashes: no rashes Extrem: General: No clubbing, No cyanosis and Yes pedal edema (1+ bilateral) Objective Data Labs CBC & Chem 7: 08/15/21 06:00 08/15/21 06:00 Labs: Laboratory Results - last 24 hr 08/13/21 08/13/21 08/13/21 12:17 12:17 12:17 WBC 7.9 RBC 3.03 L Hgb 9.0 L Hct 28.8 L MCV 95.0 MCH 29.7 MCHC 31.3 RDW 16.7 H Plt Count 160 MPV 8.8 L Immature Gran % (Auto) 0.9 H Neut % (Auto) 80.2 H Lymph % (Auto) 8.7 L Butts % (Auto) 6.6 Eos % (Auto) 3.1 Baso % (Auto) 0.5 Lymph # (Auto) 0.7 L Butts # (Auto) 0.5 Eos # (Auto) 0.2 Baso # (Auto) 0.0 Abs Immat Gran (auto) 0.07 H Absolute Neuts (auto) 6.3 Absolute Nucleated RBC 0.020 H Nucleated RBC % (auto) 0.3 H PT INR VBG pH VBG pCO2 VBG pO2 VBG HCO3 VBG O2 Saturation VBG Base Excess Sodium 135 Potassium 5.5 H Chloride 93 L Carbon Dioxide 27 Anion Gap 21 H BUN 71 H Creatinine 11.98 H* Estim Creat Clear Calc 11.2 Estimated GFR 5 POC Glucose Random Glucose 135 H Lactic Acid Calcium 9.3 Phosphorus Magnesium 2.4 Total Bilirubin 0.9 Direct Bilirubin 0.3 AST 20 ALT 15 Alkaline Phosphatase 89 Troponin I High Sens 245.0 H* B-Natriuretic Peptide Total Protein 7.5 Albumin 4.5 COVID-19 (FREDI) COVID-19 [employer] 08/13/21 08/13/21 08/13/21 12:17 12:17 12:18 WBC RBC Hgb Hct MCV MCH MCHC RDW Plt Count MPV Immature Gran % (Auto) Neut % (Auto) Lymph % (Auto) Butts % (Auto) Eos % (Auto) Baso % (Auto) Lymph # (Auto) Butts # (Auto) Eos # (Auto) Baso # (Auto) Abs Immat Gran (auto) Absolute Neuts (auto) Absolute Nucleated RBC Nucleated RBC % (auto) PT 16.4 H INR 1.4 H VBG pH VBG pCO2 VBG pO2 VBG HCO3 VBG O2 Saturation VBG Base Excess Sodium Potassium Chloride Carbon Dioxide Anion Gap BUN Creatinine Estim Creat Clear Calc Estimated GFR POC Glucose Random Glucose Lactic Acid Calcium Phosphorus Magnesium Total Bilirubin Direct Bilirubin AST ALT Alkaline Phosphatase Troponin I High Sens B-Natriuretic Peptide 3055 H Total Protein Albumin COVID-19 (FREDI) Negative COVID-19 [employer] See Note 08/13/21 08/13/21 08/13/21 12:18 12:22 16:05 WBC RBC Hgb Hct MCV MCH MCHC RDW Plt Count MPV Immature Gran % (Auto) Neut % (Auto) Lymph % (Auto) Butts % (Auto) Eos % (Auto) Baso % (Auto) Lymph # (Auto) Butts # (Auto) Eos # (Auto) Baso # (Auto) Abs Immat Gran (auto) Absolute Neuts (auto) Absolute Nucleated RBC Nucleated RBC % (auto) PT INR VBG pH 7.34 VBG pCO2 36 VBG pO2 174 VBG HCO3 20 L VBG O2 Saturation 99.0 VBG Base Excess -4.8 Sodium Potassium Chloride Carbon Dioxide Anion Gap BUN Creatinine Estim Creat Clear Calc Estimated GFR POC Glucose Random Glucose Lactic Acid 0.8 Calcium Phosphorus Magnesium Total Bilirubin Direct Bilirubin AST ALT Alkaline Phosphatase Troponin I High Sens 237.2 H* B-Natriuretic Peptide Total Protein Albumin COVID-19 (FREDI) COVID-19 Clin Com 08/13/21 08/13/21 08/13/21 16:53 21:30 21:45 WBC RBC Hgb Hct MCV MCH MCHC RDW Plt Count MPV Immature Gran % (Auto) Neut % (Auto) Lymph % (Auto) Butts % (Auto) Eos % (Auto) Baso % (Auto) Lymph # (Auto) Butts # (Auto) Eos # (Auto) Baso # (Auto) Abs Immat Gran (auto) Absolute Neuts (auto) Absolute Nucleated RBC Nucleated RBC % (auto) PT INR VBG pH VBG pCO2 VBG pO2 VBG HCO3 VBG O2 Saturation VBG Base Excess Sodium 140 Potassium 3.6 D Chloride 98 Carbon Dioxide 29 Anion Gap 17 BUN 32 H D Creatinine 6.51 H* Estim Creat Clear Calc 20.6 Estimated GFR 9 POC Glucose 83 84 Random Glucose 87 D Lactic Acid Calcium 9.2 Phosphorus Magnesium Total Bilirubin Direct Bilirubin AST ALT Alkaline Phosphatase Troponin I High Sens B-Natriuretic Peptide Total Protein Albumin COVID-19 (FREDI) COVID-19 Clin Com 08/13/21 08/14/21 08/14/21 21:48 05:17 05:17 WBC 9.2 RBC 2.83 L Hgb 8.4 L Hct 27.2 L MCV 96.1 MCH 29.7 MCHC 30.9 L RDW 16.8 H Plt Count 151 L MPV 9.2 L Immature Gran % (Auto) 0.3 Neut % (Auto) 82.5 H Lymph % (Auto) 7.7 L Butts % (Auto) 5.3 Eos % (Auto) 3.9 Baso % (Auto) 0.3 Lymph # (Auto) 0.7 L Butts # (Auto) 0.5 Eos # (Auto) 0.4 Baso # (Auto) 0.0 Abs Immat Gran (auto) 0.03 Absolute Neuts (auto) 7.6 Absolute Nucleated RBC 0.000 Nucleated RBC % (auto) 0.0 PT INR VBG pH 7.44 H VBG pCO2 49 VBG pO2 54 VBG HCO3 33 H VBG O2 Saturation 83.0 VBG Base Excess 8.5 Sodium 137 Potassium 4.5 D Chloride 97 Carbon Dioxide 30 H Anion Gap 15 BUN 37 H Creatinine 7.66 H* Estim Creat Clear Calc 17.5 Estimated GFR 8 POC Glucose Random Glucose 106 Lactic Acid Calcium 8.9 Phosphorus 5.4 H Magnesium 2.1 Total Bilirubin Direct Bilirubin AST ALT Alkaline Phosphatase Troponin I High Sens B-Natriuretic Peptide Total Protein Albumin COVID-19 (FREDI) COVID-19 [employer] 08/14/21 08/14/21 05:22 07:06 WBC RBC Hgb Hct MCV MCH MCHC RDW Plt Count MPV Immature Gran % (Auto) Neut % (Auto) Lymph % (Auto) Butts % (Auto) Eos % (Auto) Baso % (Auto) Lymph # (Auto) Butts # (Auto) Eos # (Auto) Baso # (Auto) Abs Immat Gran (auto) Absolute Neuts (auto) Absolute Nucleated RBC Nucleated RBC % (auto) PT INR VBG pH 7.38 VBG pCO2 53 VBG pO2 68 VBG HCO3 32 H VBG O2 Saturation 91.0 VBG Base Excess 6.2 Sodium Potassium Chloride Carbon Dioxide Anion Gap BUN Creatinine Estim Creat Clear Calc Estimated GFR POC Glucose 89 Random Glucose Lactic Acid Calcium Phosphorus Magnesium Total Bilirubin Direct Bilirubin AST ALT Alkaline Phosphatase Troponin I High Sens B-Natriuretic Peptide Total Protein Albumin COVID-19 (FREDI) COVID-19 [employer] Procedures Date of Service Date of Service: 08/14/21 Assessment & Plan Assessment and plan (1) Acute respiratory failure with hypoxia: Status: Acute (2) Pulmonary edema: Status: Acute (3) End stage renal disease: Status: Acute (4) Diabetes: Status: Acute (5) Hypertensive emergency: Status: Acute (6) Hyperkalemia: Status: Acute Plan 46-year-old gentleman with underlying diabetes mellitus, end-stage renal disease on hemodialysis, hypertension admitted with vol overload, pulm edema and accelerated HTN. He needs urgent HD/ultrafiltration. Plan: UF today HD tomorrow Resume all oral antihypertensives and titrate IV nicardipine -bp will improve with vol removal Low K diet instruction Low sodium and fluid restriction instruction Time Spent With Patient Time: Total time spent is greater than 50% in coordination of care (as documented) at patient's floor/unit and/or counseling patient:
--- NOTE | 2021-08-14 09:47 | MHC.CM.PN ---
Addendum entered by Grace Moreland 08/14/21 13:22: Pt is not active with [facility]: reapproached pt with information. Pt is not certain who his VNA service is but is receptive to broad referrals which have been placed. CM to follow. Original Note: Met with pt to discuss d/c planning: pt resides alone, attends HD M, W, F at [facility] and has [facility] VNA skilled RN visits. HD shuttle transports pt to sessions. Pt sees Dr. Marie and uses a cane and DM management supplies. Pt has a PT-1 transportation contract but has friends that can assist him if needed. Pt states that he will need transportation to his home upon d/c however. HCP reportedly on file with [facility] (where pt usually seeks care) CM to contact for copy. Ute x3: D/C plan: return to home with existing [facility] visits and HD M, W, F
[2021-08-14] MEDS: fentaNYL 50 MCG PATCH.TD72 TRANSDERMA (10:10)
--- NOTE | 2021-08-14 11:15 | P.PNCC_ITS ---
Subjective Subjective Date of Service: 08/14/21 Interval History: 46-year-old gentleman with underlying obesity, end-stage renal disease on hemodialysis, hypertension Mrs. Dialysis session today and arrived complain of short of breath in abdominal discomfort. Patient was noted to be in pulmonary edema with significant hypoxia requiring initiation of CPAP support. Also, in hypertensive emergency with mildly elevated troponin level requiring Cardene drip for blood pressure control. Nephrology service was consulted patient will be dialyzed. Patient has been admitted to intensive care unit. No events overnight. Pulmonary edema and hypoxia improved with dialysis. Titrated off Cardene drip. Critical Care Time (minutes): 0 Physical Exam Vital Signs: Vital Signs: Last Vital Signs Temp 98.9 F 08/14/21 08:00 Pulse 66 08/14/21 10:00 Resp 13 08/14/21 10:00 BP 114/67 08/14/21 10:00 Pulse Ox 100 08/14/21 10:00 O2 Del Method 08/14/21 10:00 O2 Flow Rate 55 08/14/21 10:00 FiO2 80 08/14/21 10:00 BMI result Body Mass Index 35.8 Const: General: no acute distress, alert and awake Nutritional Appearance: obese Eyes: Sclerae: sclerae normal EOM: EOMs intact bilaterally Neck: Neck: Yes no lymphadenopathy, Yes trachea midline and Yes supple Resp: Effort & Inspection: normal respiratory effort and no respiratory distress Auscultation: clear to auscultation bilaterally Cardio: Rate: regular rate Rhythm: regular rhythm Heart sounds: no gallops, no murmurs and no rubs GI: Palpation (GI): Soft to palpation and Other GI palpation findings present ( Nontender) Auscultation: normal bowel sounds Extrem: General: No clubbing, No cyanosis and Yes pedal edema ( Trace bilateral) Objective Data Labs CBC & Chem 7: 08/14/21 05:17 08/14/21 05:17 Labs: Laboratory Results - last 24 hr 08/13/21 08/13/21 08/13/21 12:17 12:17 12:17 WBC 7.9 RBC 3.03 L Hgb 9.0 L Hct 28.8 L MCV 95.0 MCH 29.7 MCHC 31.3 RDW 16.7 H Plt Count 160 MPV 8.8 L Immature Gran % (Auto) 0.9 H Neut % (Auto) 80.2 H Lymph % (Auto) 8.7 L [place] % (Auto) 6.6 Eos % (Auto) 3.1 Baso % (Auto) 0.5 Lymph # (Auto) 0.7 L [place] # (Auto) 0.5 Eos # (Auto) 0.2 Baso # (Auto) 0.0 Abs Immat Gran (auto) 0.07 H Absolute Neuts (auto) 6.3 Absolute Nucleated RBC 0.020 H Nucleated RBC % (auto) 0.3 H PT INR VBG pH VBG pCO2 VBG pO2 VBG HCO3 VBG O2 Saturation VBG Base Excess Sodium 135 Potassium 5.5 H Chloride 93 L Carbon Dioxide 27 Anion Gap 21 H BUN 71 H Creatinine 11.98 H* Estim Creat Clear Calc 11.2 Estimated GFR 5 POC Glucose Random Glucose 135 H Lactic Acid Calcium 9.3 Phosphorus Magnesium 2.4 Total Bilirubin 0.9 Direct Bilirubin 0.3 AST 20 ALT 15 Alkaline Phosphatase 89 Troponin I High Sens 245.0 H* B-Natriuretic Peptide Total Protein 7.5 Albumin 4.5 COVID-19 (FREDI) COVID-19 Clin Com 08/13/21 08/13/21 08/13/21 12:17 12:17 12:18 WBC RBC Hgb Hct MCV MCH MCHC RDW Plt Count MPV Immature Gran % (Auto) Neut % (Auto) Lymph % (Auto) [place] % (Auto) Eos % (Auto) Baso % (Auto) Lymph # (Auto) [place] # (Auto) Eos # (Auto) Baso # (Auto) Abs Immat Gran (auto) Absolute Neuts (auto) Absolute Nucleated RBC Nucleated RBC % (auto) PT 16.4 H INR 1.4 H VBG pH VBG pCO2 VBG pO2 VBG HCO3 VBG O2 Saturation VBG Base Excess Sodium Potassium Chloride Carbon Dioxide Anion Gap BUN Creatinine Estim Creat Clear Calc Estimated GFR POC Glucose Random Glucose Lactic Acid Calcium Phosphorus Magnesium Total Bilirubin Direct Bilirubin AST ALT Alkaline Phosphatase Troponin I High Sens B-Natriuretic Peptide 3055 H Total Protein Albumin COVID-19 ([facility]EDI) Negative COVID-19 [facility] Com See Note 08/13/21 08/13/21 08/13/21 12:18 12:22 16:05 WBC RBC Hgb Hct MCV MCH MCHC RDW Plt Count MPV Immature Gran % (Auto) Neut % (Auto) Lymph % (Auto) [place] % (Auto) Eos % (Auto) Baso % (Auto) Lymph # (Auto) [place] # (Auto) Eos # (Auto) Baso # (Auto) Abs Immat Gran (auto) Absolute Neuts (auto) Absolute Nucleated RBC Nucleated RBC % (auto) PT INR VBG pH 7.34 VBG pCO2 36 VBG pO2 174 VBG HCO3 20 L VBG O2 Saturation 99.0 VBG Base Excess -4.8 Sodium Potassium Chloride Carbon Dioxide Anion Gap BUN Creatinine Estim Creat Clear Calc Estimated GFR POC Glucose Random Glucose Lactic Acid 0.8 Calcium Phosphorus Magnesium Total Bilirubin Direct Bilirubin AST ALT Alkaline Phosphatase Troponin I High Sens 237.2 H* B-Natriuretic Peptide Total Protein Albumin COVID-19 (FREDI) COVID-19 [facility] 08/13/21 08/13/21 08/13/21 16:53 21:30 21:45 WBC RBC Hgb Hct MCV MCH MCHC RDW Plt Count MPV Immature Gran % (Auto) Neut % (Auto) Lymph % (Auto) [place] % (Auto) Eos % (Auto) Baso % (Auto) Lymph # (Auto) [place] # (Auto) Eos # (Auto) Baso # (Auto) Abs Immat Gran (auto) Absolute Neuts (auto) Absolute Nucleated RBC Nucleated RBC % (auto) PT INR VBG pH VBG pCO2 VBG pO2 VBG HCO3 VBG O2 Saturation VBG Base Excess Sodium 140 Potassium 3.6 D Chloride 98 Carbon Dioxide 29 Anion Gap 17 BUN 32 H D Creatinine 6.51 H* Estim Creat Clear Calc 20.6 Estimated GFR 9 POC Glucose 83 84 Random Glucose 87 D Lactic Acid Calcium 9.2 Phosphorus Magnesium Total Bilirubin Direct Bilirubin AST ALT Alkaline Phosphatase Troponin I High Sens B-Natriuretic Peptide Total Protein Albumin COVID-19 (FREDI) COVID-19 Megathread 08/13/21 08/14/21 08/14/21 21:48 05:17 05:17 WBC 9.2 RBC 2.83 L Hgb 8.4 L Hct 27.2 L MCV 96.1 MCH 29.7 MCHC 30.9 L RDW 16.8 H Plt Count 151 L MPV 9.2 L Immature Gran % (Auto) 0.3 Neut % (Auto) 82.5 H Lymph % (Auto) 7.7 L [place] % (Auto) 5.3 Eos % (Auto) 3.9 Baso % (Auto) 0.3 Lymph # (Auto) 0.7 L [place] # (Auto) 0.5 Eos # (Auto) 0.4 Baso # (Auto) 0.0 Abs Immat Gran (auto) 0.03 Absolute Neuts (auto) 7.6 Absolute Nucleated RBC 0.000 Nucleated RBC % (auto) 0.0 PT INR VBG pH 7.44 H VBG pCO2 49 VBG pO2 54 VBG HCO3 33 H VBG O2 Saturation 83.0 VBG Base Excess 8.5 Sodium 137 Potassium 4.5 D Chloride 97 Carbon Dioxide 30 H Anion Gap 15 BUN 37 H Creatinine 7.66 H* Estim Creat Clear Calc 17.5 Estimated GFR 8 POC Glucose Random Glucose 106 Lactic Acid Calcium 8.9 Phosphorus 5.4 H Magnesium 2.1 Total Bilirubin Direct Bilirubin AST ALT Alkaline Phosphatase Troponin I High Sens B-Natriuretic Peptide Total Protein Albumin COVID-19 (FREDI) COVID-19 Megathread 08/14/21 08/14/21 05:22 07:06 WBC RBC Hgb Hct MCV MCH MCHC RDW Plt Count MPV Immature Gran % (Auto) Neut % (Auto) Lymph % (Auto) [place] % (Auto) Eos % (Auto) Baso % (Auto) Lymph # (Auto) [place] # (Auto) Eos # (Auto) Baso # (Auto) Abs Immat Gran (auto) Absolute Neuts (auto) Absolute Nucleated RBC Nucleated RBC % (auto) PT INR VBG pH 7.38 VBG pCO2 53 VBG pO2 68 VBG HCO3 32 H VBG O2 Saturation 91.0 VBG Base Excess 6.2 Sodium Potassium Chloride Carbon Dioxide Anion Gap BUN Creatinine Estim Creat Clear Calc Estimated GFR POC Glucose 89 Random Glucose Lactic Acid Calcium Phosphorus Magnesium Total Bilirubin Direct Bilirubin AST ALT Alkaline Phosphatase Troponin I High Sens B-Natriuretic Peptide Total Protein Albumin COVID-19 (FREDI) COVID-19 Megathread Progress Note: A&P Assessment and plan (1) Afib: Status: Acute (2) Pulmonary edema: Status: Acute (3) Acute respiratory failure with hypoxia: Status: Acute (4) Hypertensive emergency: Status: Acute (5) Hyperkalemia: Status: Acute (6) Diabetes: Status: Acute (7) End stage renal disease: Status: Acute Plan Assessment: 46-year-old gentleman with underlying diabetes mellitus, end-stage renal disease on hemodialysis, hypertension admitted with flash pulmonary edema resulting in acute hypoxic respiratory failure and also hypertensive emergency, now requiring CPAP support. Plan: Neuro: No acute issues. Cardiac: Hypertensive emergency, resolved. Titrated off Cardene. Continue patient home regimen. underlying AFib, continue on anticoagulation and rate control. Pulmonary: Acute hypoxic respiratory failure secondary to flash pulmonary edema initially requiring CPAP support, improved after hemodialysis. Renal: End-stage renal disease on hemodialysis. Nephrology service care appreciated. Endo: No acute issues. Underlying diabetes mellitus. GI: No acute issues. ID: No acute issues Heme/Onc: No acute issues. Psych: No acute issues. Miscellaneous: No acute issues. Prophylaxis: Eliquis Diet: Diabetic Quality Stroke Does the patient have a stroke diagnosis?: No VTE Prior VTE?: No VTE Risk Level:: Medical - moderate - high VTE Device Contraindication: Treatment Not Indicated VTE Drug Contraindication: N/A - Med Ordered
[2021-08-14 11:23] LABS: Glucose, Whole Blood 179 mg/dL (60-115)
[2021-08-14 13:21] LABS: Glucose, Whole Blood 105 mg/dL (60-115)
[2021-08-14] MEDS: Isosorbide Mononitrate 60 MG TAB.ER.24H PO (13:46)
[2021-08-14] MEDS: NIFEdipine ER 30 MG TAB.ER.24 60 MG PO (13:47)
[2021-08-14] MEDS: Amiodarone HCL 200 MG TABLET PO (13:47)
[2021-08-14] MEDS: fentaNYL citrate/PF 100 MCG/2 ML VIAL 50 MCG IVPUSH (16:18)
[2021-08-14 17:01] LABS: Glucose, Whole Blood 102 mg/dL (60-115)
[2021-08-14 20:35] LABS: Glucose, Whole Blood 102 mg/dL (60-115)
[2021-08-14] MEDS: Apixaban 5 MG TABLET PO (20:41)
[2021-08-14] MEDS: diphenhydrAMINE HCL 50 MG/ML VIAL 25 MG IVPUSH (22:31)
[2021-08-14] MEDS: HYDROmorphone HCl 0.5 MG/0.5 ML SYRINGE IVPUSH (22:32)
[2021-08-15] VITALS (11 sets, daily range): BP systolic 161–198; BP diastolic 92–160; PULSE 66–125; RESP 13–26; TEMP 36.6–37.2; O2SAT 89–97; BMI 35.9
[2021-08-15 03:19] LABS: Glucose, Whole Blood 102 mg/dL (60-115)
[2021-08-15] MEDS: NIFEdipine ER 30 MG TAB.ER.24 60 MG PO ×2 (03:47→13:04)
--- NOTE | 2021-08-15 03:56 | PC.NURSE ---
Addendum entered by Grant Kirk RN 08/15/21 06:51: BP REMAINS 198/107..MD UPDATED..PER MD GIVEN ADDITIONAL/REPEAT HYDRALAZINE 5 MG IV Addendum entered by Grant Kirk RN 08/15/21 06:03: BP 198/115--193/104....MD UPDATED...PRN IV HYDRALAZINE ORDERED AND GIVEN 05:58 Addendum entered by Grant Kirk RN 08/15/21 04:14: REMAINS HI JOEL 55% FIO2....SAO2 72% WHEN OFF O2 ALTHOUGH ASYMPTOMATIC...SAO2 95-96% WITH HI JOEL CANNULA IN PLACE Original Note: CARE ASSUMED 23:15...AWAKE..ALERT..VAGUE RESPONSES AT TIMES BUT CO-OPERATIVE..BP 182/106 CURRENTLY..ASYMPTOMATIC..RESPIRATIONS EASY ON HI JOEL CANNULA..DR HOLLINS UPDATED..AM PROCARDIA XL GIVEN NOW PER MD..PATIENT DENIES/OFFERS NO COMPLAINTS
[2021-08-15] MEDS: hydrALAZINE HCl 20 MG/ML VIAL 5 MG IVPUSH ×4 (05:58→23:48)
[2021-08-15 06:29] LABS: MANUAL DIFF FLAG NO
[2021-08-15 06:45] LABS: Basophils Absolute Auto 0.1 X10*3/uL (0.0-0.2); Basophils Percent Auto 0.8 % (0-2); Eosinophils Absolute Auto 0.4 X10*3/uL (0.0-0.4); Eosinophils Percent Auto 6.6 % (0-4); Hematocrit 26.2 % (42.0-52.0); Hemoglobin 8.1 g/dl (14.0-18.0); Imm Gran Abs Auto 0.03 X10*3/uL (0.00-0.03); Imm Gran Pct Auto 0.5 % (0.0-0.4); Lymphocytes Absolute Auto 0.7 X10*3/uL (1.2-4.9); Mean Corpuscular HGB Conc 30.9 g/dl (31.0-36.0); Mean Corpuscular Hemoglobin 29.9 pg (27.0-33.0); Mean Corpuscular Volume 96.7 fL (80.0-98.0); Mean Platelet Volume 9.6 fL (9.4-12.4); Monocytes Absolute Auto 0.5 X10*3/uL (0.1-1.2); Monocytes Percent Auto 7.3 % (2-11); Neutrophils Absolute Auto 4.8 x10*3/uL (2.0-8.3); Neutrophils Percent Auto 73.8 % (45-73); Platelet Count 168 X10*3/uL (160-400); Red Blood Count 2.71 X10*6/uL (4.60-5.80); Red Cell Distribution Width 17.3 % (11.0-16.0); White Blood Count 6.5 X10*3/uL (4.8-10.8)
[2021-08-15 07:04] LABS: Anion Gap 18 (12-20); Blood Urea Nitrogen 52 mg/dL (9-16); Carbon Dioxide 27 mmol/L (22-29); Chloride 93 mmol/L (96-108); Creatinine Clr Calc Pharmacy 13.4; Estimated Glomerular Filt Rate 6; Glucose Random 144 mg/dL (60-115); Magnesium 2.2 mg/dL (1.6-2.6); Phosphorus 7.7 mg/dL (2.7-4.5); Potassium 5.1 mmol/L (3.3-5.1); Sodium 133 mmol/L (135-145)
[2021-08-15 07:21] LABS: Glucose, Whole Blood 113 mg/dL (60-115)
--- NOTE | 2021-08-15 09:35 | P.PNNPD_ITS ---
Subjective Subjective This patient was seen during dialysis. Interval history: 46-year-old gentleman with underlying obesity, end-stage renal disease on hemodialysis, hypertension Mrs. Dialysis session today and arrived complain of short of breath in abdominal discomfort. Patient was noted to be in pulmonary edema with significant hypoxia requiring initiation of CPAP support. Also, in hypertensive emergency with mildly elevated troponin level requiring Cardene drip for blood pressure control. Nephrology service was consulted patient will be dialyzed. Patient has been admitted to intensive care unit. No events overnight. Pulmonary edema and hypoxia improved with dialysis. Titrated off Cardene drip. Physical Exam Vital Signs: Vital Signs: Last Vital Signs Temp 98.8 F 08/15/21 08:00 Pulse 76 08/15/21 08:00 Resp 13 08/15/21 08:00 BP 189/160 H 08/15/21 08:00 Pulse Ox 89 L 08/15/21 08:00 O2 Del Method 08/15/21 08:00 O2 Flow Rate 8 08/14/21 20:00 FiO2 55 08/15/21 05:42 BMI result Body Mass Index 35.9 Const: General: alert HEENT: Head: Yes atraumatic Mouth: no other ( thrush) Throat: No postnasal drainage Eyes: General: appearance normal, both eyes and all related structures Sclerae: sclerae normal EOM: EOMs intact bilaterally Neck: Neck: Yes no lymphadenopathy, Yes trachea midline and Yes supple Lymphatic: no lymphadenopathy noted Resp: Effort & Inspection: normal respiratory effort and no respiratory distress Auscultation: clear to auscultation bilaterally Cardio: Rate: regular rate Rhythm: regular rhythm Heart sounds: no gall ops, no murmurs and no rubs GI: Palpation (GI): Soft to palpation and Other GI palpation findings present ( Nontender) Auscultation: normal bowel sounds Skin: General skin exam: other ( warm) Rashes: no rashes Extrem: General: No clubbing, No cyanosis and Yes pedal edema (1+ bilateral) Assessment & Plan Assessment and plan (1) Acute respiratory failure with hypoxia: Status: Acute (2) Pulmonary edema: Status: Acute (3) End stage renal disease: Status: Acute (4) Diabetes: Status: Acute (5) Hypertensive emergency: Status: Acute (6) Hyperkalemia: Status: Acute Plan 46-year-old gentleman with underlying diabetes mellitus, end-stage renal disease on hemodialysis, hypertension admitted with vol overload, pulm edema and accelerated HTN. He needs urgent HD/ultrafiltration. Plan: HD today goal to remoe 5 L Resume all oral antihypertensives and titrate IV nicardipine -bp will improve with vol removal Low K diet instruction Low sodium and fluid restriction instruction Time Spent With Patient Time: Total time spent is greater than 50% in coordination of care (as documented) at patient's floor/unit and/or counseling patient: Procedures Date of Service Date of Service: 08/15/21
[2021-08-15 11:03] LABS: Glucose, Whole Blood 131 mg/dL (60-115)
--- NOTE | 2021-08-15 11:22 | HO.PM.IMPN ---
Subjective Subjective Date of Service: 08/15/21 Interval History: Stepped down to hospitalist service 08/14/21 Short of breath HD again today No chest pain No headache Review of Systems Review of Systems: Yes all other systems are reviewed and are negative Physical Exam Vital Signs: Vital Signs: Last Vital Signs Temp 98.8 F 08/15/21 08:00 Pulse 76 08/15/21 08:00 Resp 13 08/15/21 08:00 BP 189/160 H 08/15/21 08:00 Pulse Ox 89 L 08/15/21 08:00 O2 Del Method 08/15/21 08:00 O2 Flow Rate 8 08/14/21 20:00 FiO2 55 08/15/21 05:42 BMI result Body Mass Index 35.9 Gen: in no acute distress HEENT: sclera anicteric, moist mucus membranes Neck: supple Lungs: diminished bilaterally Heart: regular rate and rhythm, no murmurs Abd: soft, non-tender, non-distended, obese Ext: 1+ bilateral edema Skin: warm/well-perfused Neuro: alert and oriented x3, no focal findings Psych: appropriate affect Objective Data Active Medications Amiodarone HCl (Amiodarone Hcl 200 Mg Tablet) 200 mg PO DAILY [facility] Last Admin: 08/14/21 13:47 Dose: 200 mg Documented By: DOTTY Apixaban (Apixaban 5 Mg Tablet) 5 mg PO BID [facility] Last Admin: 08/14/21 20:41 Dose: 5 mg Documented By: EVA Dextrose (Dextrose 50 % 25 Gm/50 Ml Syringe) 25 gm IVPUSH Q15M PRN; Protocol PRN Reason: per Hypoglycemia Standing Ord. Last Admin: 08/13/21 17:13 Dose: 25 gm Documented By: PRANAV Comments: POC 83, ON CPAP AND RECEIVING DIALYSIS, GIVEN PER Gabapentin (Gabapentin 300 Mg Capsule) 300 mg PO TID [facility] Last Admin: 08/14/21 20:43 Dose: 300 mg Documented By: EVA Hydralazine HCl (Hydralazine Hcl 20 Mg/Ml Vial) 5 mg IVPUSH Q4H PRN; Protocol PRN Reason: SBP > 160 Last Admin: 08/15/21 06:50 Dose: 5 mg Documented By: NANCY Hydralazine HCl (Hydralazine Hcl 25 Mg Tablet) 25 mg PO TID [facility]; Protocol Insulin Human Lispro (Insulin Lispro 100 Unit/Ml 3 Ml Vial) 0 unit SUBCUT QIDACHS [facility]; Protocol Last Admin: 08/15/21 11:21 Dose: Not Given Documented By: NIKI Non-Admin Reason: No Insulin Coverage Isosorbide Mononitrate (Isosorbide Mononitrate 30 Mg Tab.Er.24h) 90 mg PO DAILY [facility]; Protocol Nifedipine (Nifedipine Er 30 Mg Tab.Er.24) 60 mg PO DAILY [facility]; Protocol Last Admin: 08/15/21 03:47 Dose: 60 mg Documented By: NANCY Labs CBC & Chem 7: 08/15/21 06:00 08/15/21 06:00 Labs: Laboratory Results - last 24 hr 08/14/21 08/14/21 08/14/21 11:19 13:18 16:58 MCV MCH MCHC RDW Plt Count MPV Immature Gran % (Auto) Neut % (Auto) Lymph % (Auto) [place] % (Auto) Eos % (Auto) Baso % (Auto) Lymph # (Auto) [place] # (Auto) Eos # (Auto) Baso # (Auto) Abs Immat Gran (auto) Absolute Neuts (auto) Absolute Nucleated RBC Nucleated RBC % (auto) Anion Gap Estim Creat Clear Calc Estimated GFR POC Glucose 179 H 105 102 Random Glucose Calcium Phosphorus Magnesium 08/14/21 08/15/21 08/15/21 20:32 03:15 06:00 MCV 96.7 MCH 29.9 MCHC 30.9 L RDW 17.3 H Plt Count 168 MPV 9.6 Immature Gran % (Auto) 0.5 H Neut % (Auto) 73.8 H Lymph % (Auto) 11.0 L [place] % (Auto) 7.3 Eos % (Auto) 6.6 H Baso % (Auto) 0.8 Lymph # (Auto) 0.7 L [place] # (Auto) 0.5 Eos # (Auto) 0.4 Baso # (Auto) 0.1 Abs Immat Gran (auto) 0.03 Absolute Neuts (auto) 4.8 Absolute Nucleated RBC 0.000 Nucleated RBC % (auto) 0.0 Anion Gap Estim Creat Clear Calc Estimated GFR POC Glucose 102 102 Random Glucose Calcium Phosphorus Magnesium 08/15/21 08/15/21 08/15/21 06:00 07:17 11:00 MCV MCH MCHC RDW Plt Count MPV Immature Gran % (Auto) Neut % (Auto) Lymph % (Auto) [place] % (Auto) Eos % (Auto) Baso % (Auto) Lymph # (Auto) [place] # (Auto) Eos # (Auto) Baso # (Auto) Abs Immat Gran (auto) Absolute Neuts (auto) Absolute Nucleated RBC Nucleated RBC % (auto) Anion Gap 18 Estim Creat Clear Calc 13.4 Estimated GFR 6 POC Glucose 113 131 H Random Glucose 144 H D Calcium 9.0 Phosphorus 7.7 H Magnesium 2.2 Microbiology Microbiology Results: Microbiology 08/13/21 12:54 Blood Culture - Preliminary Blood - Venous No growth after 24 hours. 08/13/21 12:54 Blood Culture - Preliminary Blood - Venous No growth after 24 hours. Assessment and Plan (1) Pulmonary edema: Status: Acute (2) Acute respiratory failure with hypoxia: Status: Acute Plan hospital d#3 46yo M with ESRD on HD, obesity, DM2 admitted to ICU with acute hypoxic respiratory failure due to flash pulmonary edema requiring CPAP support and emergent HD, also HTN emergency requiring nicardipine gtt stepped down to hospitalist service 08/14/21 # acute hypoxic respiratory failure - suppl O2, wean as tolerated # flash pulmonary edema/volume overload - 5L removed 08/13 and again 08/14; further HD today # HTN emergency - resume nifedipine + Imdur; add hydralazine. HD today. # AF - amiodarone - apixaban # DM2 - denia-dose lispro # VTE ppx: apixaban # dispo: PT consult In my clinical judgment, the patient requires continued hospitalization for the following reasons: respiratory failure, hypervolemia requiring HD Quality Stroke Does the patient have a stroke diagnosis?: No VTE Prior VTE?: No VTE Risk Level:: Medical - moderate - high VTE Device Contraindication: Treatment Not Indicated VTE Drug Contraindication: N/A - Med Ordered
[2021-08-15] MEDS: Isosorbide Mononitrate 30 MG TAB.ER.24H 90 MG PO (13:03)
[2021-08-15] MEDS: Apixaban 5 MG TABLET PO ×2 (13:04→20:32)
[2021-08-15] MEDS: Amiodarone HCL 200 MG TABLET PO (13:04)
[2021-08-15] MEDS: Gabapentin 300 MG CAPSULE PO ×2 (13:04→20:32)
[2021-08-15] MEDS: hydrALAZINE HCl 25 MG TABLET PO ×3 (13:04→21:47)
[2021-08-15 16:22] LABS: Glucose, Whole Blood 93 mg/dL (60-115)
--- NOTE | 2021-08-15 16:42 | PC.NURSE ---
Patient c/o of 10/10 lower back pain. Patient walking around room with cane, playing music on phone. Patient describes pain as same pain he has at home which he takes gabapentin and tylenol for. Patient also report occasional weekly cocaine use, last time used was last week on friday. 50mcg Fentanyl patch in place to left shoulder/upper back. Hot pack placed to lower back without relief. Dr Ferrer notified and lidocaine patch ordered - patient refusing lidocaine patch stating they tried that at [facility] and it does not work . notified.
[2021-08-15 19:47] LABS: Glucose, Whole Blood 131 mg/dL (60-115)
--- NOTE | 2021-08-15 19:58 | PC.NURSE ---
Pt arrived to [facility] 471 17:15. Pt is alert, oriented, ambulates with a cane. Pt on 8L [place], RR 20. Pt provided a dinner tray and ate 100%.
[2021-08-15] MEDS: HYDROmorphone HCl 0.5 MG/0.5 ML SYRINGE IVPUSH (21:47)
[2021-08-16] VITALS (11 sets, daily range): BP systolic 147–201; BP diastolic 72–120; PULSE 70–128; RESP 18–20; TEMP 36.7–37.3; O2SAT 93–99
[2021-08-16] MEDS: carvediloL 3.125 MG TABLET PO ×3 (00:12→20:06)
--- NOTE | 2021-08-16 00:28 | PC.NURSE ---
Patient c/o 10/10 pain in back. Patient given warm pacs, offered lidocaine patch as ordred but denied reporting they don't work. Patient ambulating throughout the room SBP elevated 190's, Patient given bed time medication which included hydralazine. No improvements. MD Yusuf notified of patients symptoms. dialudid 0.5mg given as ordered as well as hydralazine 25mg one time dose. Patient up tp the bathroom around 2250 in Afib RVR in 130-140'. Dr. Corona notified and patient brought back to bed. Order to observe at this time. Patient back to bed reported to oncoming nurse to follow and update MD if there is no change in heart rate.
[2021-08-16] MEDS: Metoprolol Tartrate 5 MG/5 ML VIAL IVPUSH (02:09)
[2021-08-16] MEDS: HYDROmorphone HCl 0.5 MG/0.5 ML SYRINGE IVPUSH (02:12)
--- NOTE | 2021-08-16 02:19 | PC.NURSE ---
Addendum entered by Grant Kirk RN 08/16/21 04:04: HR REMAINED ELEVATED @120'S.. UPDATED..TO TREND...TO CALL MD FOR SUSTAINED HR >130...CONVERTED TO NSR HR 78-80 AT 03:11...BP DOWN TO 147/81... UPDATED Original Note: CARE ASSUMED 23:15...AWAKE..ALERT....RESPIRATIONS EASY WITH O2 9-10 L/M [place] CANNULA..SAO2 92-93%...REMAINS ATRIAL FIB HR 128-138..BP 169/114....PRN HYDRALAZINE 5MG IV 23:50..DR HOLLINS UPDATED R/T HR/BP....COREG 3.125 MG PO GIVEN 00:15 PER ...HR UNCHANGED...BP 157/110 01:50... UPDATED...LOPRESSOR 5MG IV X1 02:08...REMAINS CHRONIC BACK PAIN PER PATIENT..DILAUDID 5MG IV GIVEN PER APR...POULTRY CUTTER AND CLINICAL CO-ORDINATOR UPDATED R/T STATUS..TO MONITOR BP/HR RESPONSE
[2021-08-16 07:09] LABS: Glucose, Whole Blood 122 mg/dL (60-115)
[2021-08-16 07:10] LABS: VBG Base Excess -1.3 mmol/L; VBG HCO3 25 mmol/L (22-26); VBG pCO2 54 mmHg; VBG pH 7.28 (7.32-7.43); VBG pO2 44 mmHg
[2021-08-16 07:11] LABS: Venous Blood Gas Refer to POC result
[2021-08-16 07:34] LABS: B Type Natriuretic Peptide 1608 pg/mL (<100)
[2021-08-16 07:39] LABS: Anion Gap 18 (12-20); Blood Urea Nitrogen 44 mg/dL (9-16); Carbon Dioxide 21 mmol/L (22-29); Chloride 97 mmol/L (96-108); Estimated Glomerular Filt Rate 7; Glucose Random 114 mg/dL (60-115); Potassium 5.9 mmol/L (3.3-5.1); Sodium 130 mmol/L (135-145)
[2021-08-16] MEDS: Naloxone HCl 0.4 MG/ML VIAL IVPUSH (09:30)
[2021-08-16 09:35] LABS: ABG Base Excess -8.2 mmol/L; ABG HCO3 19 mmol/L (22-26); ABG pCO2 46 mmHg (32-45); ABG pH 7.22 (7.35-7.45); ABG pO2 64 mmHg (83-108)
--- NOTE | 2021-08-16 10:42 | PC.NURSE ---
Patient noted to have labored breathing, confusion, and difficulty staying awake when asking patient questions. Respiratory rate 12, 02 78-84% on 11L [facility]. BP 182/79 HR 85. MD notifed of change in respiratory and mental status. MD at bedside to evaluate patient. Respiratory at bedside. New orders for ABGS, CPAP, and chest xray. Removed fentanyl patch found on left upper shoulder. MD order to give 0.4mg IV narcan. After narcan administration patient alert and oriented, stating what are you doing to me . Chest x ray pending.
--- NOTE | 2021-08-16 11:12 | W.PM.DNNEP ---
Subjective Subjective This patient was seen during dialysis. Interval history: Still with Short of breath HD again today No chest pain No headache Physical Exam Vital Signs: Vital Signs: Last Vital Signs Temp 98.5 F 08/16/21 07:26 Pulse 75 08/16/21 07:26 Resp 20 08/16/21 07:26 BP 198/120 H 08/16/21 07:26 Pulse Ox 96 08/16/21 07:26 O2 Del Method 08/16/21 07:26 O2 Flow Rate 11 08/16/21 07:26 FiO2 55 08/15/21 05:42 BMI result Body Mass Index 35.9 Const: General: alert HEENT: Head: Yes atraumatic Mouth: no other ( thrush) Throat: No postnasal drainage Eyes: General: appearance normal, both eyes and all related structures Sclerae: sclerae normal EOM: EOMs intact bilaterally Neck: Neck: Yes no lymphadenopathy, Yes trachea midline and Yes supple Lymphatic: no lymphadenopathy noted Resp: Effort & Inspection: normal respiratory effort and no respiratory distress Auscultation: clear to auscultation bilaterally Cardio: Rate: regular rate Rhythm: regular rhythm Heart sounds: no gallops, no murmurs and no rubs GI: Palpation (GI): Soft to palpation and Other GI palpation findings present ( Nontender) Auscultation: normal bowel sounds Skin: General skin exam: other ( warm) Rashes: no rashes Extrem: General: No clubbing, No cyanosis and Yes pedal edema (1+ bilateral) Assessment & Plan Assessment and plan (1) Acute respiratory failure with hypoxia: Status: Acute (2) Pulmonary edema: Status: Acute (3) End stage renal disease: Status: Acute (4) Diabetes: Status: Acute (5) Hypertensive emergency: Status: Acute (6) Hyperkalemia: Status: Acute Plan 46-year-old gentleman with underlying diabetes mellitus, end-stage renal disease on hemodialysis, hypertension admitted with vol overload, pulm edema and accelerated HTN. He needs urgent HD/ultrafiltration. Plan: HD today goal to remove 5 L Optimize BP ;Agree with current meds. Increase Hydralazine to 100 mg TID Can increase Coreg Low K diet instruction Low sodium and fluid restriction instruction Time Spent With Patient Time: Total time spent is greater than 50% in coordination of care (as documented) at patient's floor/unit and/or counseling patient: Procedures Date of Service Date of Service: 08/16/21
[2021-08-16 11:15] LABS: Glucose, Whole Blood 116 mg/dL (60-115)
--- NOTE | 2021-08-16 11:50 | P.PNIM_ITS ---
Subjective Subjective Date of Service: 08/16/21 Interval History: Somnolent this AM. Had received IV hydromorphone overnight. Also had visitors yesterday. Woke up with naloxone. To HD today. Review of Systems Review of Systems: Yes Unobtainable due to mental status Physical Exam Vital Signs: Vital Signs: Last Vital Signs Temp 98.5 F 08/16/21 07:26 Pulse 75 08/16/21 07:26 Resp 20 08/16/21 07:26 BP 198/120 H 08/16/21 07:26 Pulse Ox 96 08/16/21 07:26 O2 Del Method 08/16/21 07:26 O2 Flow Rate 11 08/16/21 07:26 FiO2 55 08/15/21 05:42 BMI result Body Mass Index 35.9 Gen: somnolent but arousable HEENT: sclera anicteric, moist mucus membranes Neck: supple Lungs: diminished bilaterally Heart: regular rate and rhythm, no murmurs Abd: soft, non-tender, non-distended, obese Ext: 1+ bilateral edema Skin: warm/well-perfused Neuro: somnolent but arousable Objective Data Active Medications Amiodarone HCl (Amiodarone Hcl 200 Mg Tablet) 200 mg PO DAILY [facility] Last Admin: 08/15/21 13:04 Dose: 200 mg Documented By: NIKI Apixaban (Apixaban 5 Mg Tablet) 5 mg PO BID [facility] Last Admin: 08/15/21 20:32 Dose: 5 mg Documented By: ALBERTO Carvedilol (Carvedilol 3.125 Mg Tablet) 3.125 mg PO BID [facility]; Protocol Last Admin: 08/16/21 00:12 Dose: 3.125 mg Documented By: NANCY Dextrose (Dextrose 50 % 25 Gm/50 Ml Syringe) 25 gm IVPUSH Q15M PRN; Protocol PRN Reason: per Hypoglycemia Standing Ord. Last Admin: 08/13/21 17:13 Dose: 25 gm Documented By: PRANAV Comments: POC 83, ON CPAP AND RECEIVING DIALYSIS, GIVEN PER Gabapentin (Gabapentin 300 Mg Capsule) 300 mg PO TID [facility] Last Admin: 08/15/21 20:32 Dose: 300 mg Documented By: ALBERTO Hydralazine HCl (Hydralazine Hcl 20 Mg/Ml Vial) 5 mg IVPUSH Q4H PRN; Protocol PRN Reason: SBP > 160 Last Admin: 08/15/21 23:48 Dose: 5 mg Documented By: NANCY Hydralazine HCl (Hydralazine Hcl 50 Mg Tablet) 50 mg PO TID [facility]; Protocol Hydromorphone HCl (Hydromorphone Hcl 0.5 Mg/0.5 Ml Syringe) 0.5 mg IVPUSH Q4H PRN; Protocol PRN Reason: Breakthrough Pain Last Admin: 08/16/21 02:12 Dose: 0.5 mg Documented By: NANCY Diphenhydramine HCl 25 mg/ (Sodium Chloride) 50.5 mls @ 200 mls/hr IV ONCE [facility] Last Infusion: 08/16/21 02:06 Dose: 0 mls/hr Documented By: NANCY Insulin Human Lispro (Insulin Lispro 100 Unit/Ml 3 Ml Vial) 0 unit SUBCUT QIDACHS [facility]; Protocol Last Admin: 08/16/21 11:34 Dose: Not Given Documented By: DEYA Non-Admin Reason: No Insulin Coverage Isosorbide Mononitrate (Isosorbide Mononitrate 30 Mg Tab.Er.24h) 90 mg PO DAILY [facility]; Protocol Last Admin: 08/15/21 13:03 Dose: 90 mg Documented By: NIKI Lidocaine (Lidocaine 4 % Patch Adh..Patch) 1 patch TRANSDERMA DAILY [facility]; Protocol Last Admin: 08/15/21 16:42 Dose: Not Given Documented By: NIKI Non-Admin Reason: Patient Refused Nifedipine (Nifedipine Er 30 Mg Tab.Er.24) 90 mg PO DAILY [facility]; Protocol Labs CBC & Chem 7: 08/15/21 06:00 08/16/21 07:00 Labs: Laboratory Results - last 24 hr 08/15/21 08/15/21 08/16/21 16:19 19:44 07:00 O2 Saturation ABG pH at Pt Temp ABG pCO2 at Pt Temp ABG pO2 at Pt Temp ABG HCO3 ABG Base Excess (Actual) VBG pH VBG pCO2 VBG pO2 VBG HCO3 VBG O2 Saturation VBG Base Excess Anion Gap Estim Creat Clear Calc Estimated GFR POC Glucose 93 131 H Random Glucose Calcium B-Natriuretic Peptide 1608 H 08/16/21 08/16/21 08/16/21 07:00 07:01 07:06 O2 Saturation ABG pH at Pt Temp ABG pCO2 at Pt Temp ABG pO2 at Pt Temp ABG HCO3 ABG Base Excess (Actual) VBG pH 7.28 L VBG pCO2 54 VBG pO2 44 VBG HCO3 25 VBG O2 Saturation 68.0 VBG Base Excess -1.3 Anion Gap 18 Estim Creat Clear Calc 16.0 Estimated GFR 7 POC Glucose 122 H Random Glucose 114 Calcium 9.0 B-Natriuretic Peptide 08/16/21 08/16/21 09:31 11:10 O2 Saturation 87.0 ABG pH at Pt Temp 7.22 L ABG pCO2 at Pt Temp 46 H ABG pO2 at Pt Temp 64 L ABG HCO3 19 L ABG Base Excess (Actual) -8.2 VBG pH VBG pCO2 VBG pO2 VBG HCO3 VBG O2 Saturation VBG Base Excess Anion Gap Estim Creat Clear Calc Estimated GFR POC Glucose 116 H Random Glucose Calcium B-Natriuretic Peptide Microbiology Microbiology Results: Microbiology 08/13/21 12:54 Blood Culture - Preliminary Blood - Venous No growth after 48 hours. 08/13/21 12:54 Blood Culture - Preliminary Blood - Venous No growth after 48 hours. Assessment and Plan (1) Pulmonary edema: Status: Acute (2) Acute respiratory failure with hypoxia: Status: Acute Plan hospital d#4 46yo M with ESRD on HD, obesity, DM2 admitted to ICU with acute hypoxic respiratory failure due to flash pulmonary edema requiring CPAP support and emergent HD, also HTN emergency requiring nicardipine gtt stepped down to hospitalist service 08/14/21 # toxic-metabolic encephalopathy - suspected due to opioids- improved with naloxone. Addiction Medicine consult. # acute hypoxic respiratory failure - suppl O2, wean as tolerated # flash pulmonary edema/volume overload - 5L removed 08/13, 08/14, 08/15, and again today; Nepho following # hyperK - 1 dose Lokelma and HD today; recheck BMP tomorrow # HTN emergency - increase nifedipine, continue Imdur, increase hydralazine, started carvedilol; HD today # AF - amiodarone - apixaban # DM2 - denia-dose lispro # VTE ppx: apixaban # dispo: PT consult In my clinical judgment, the patient requires continued hospitalization for the following reasons: respiratory failure, hypervolemia requiring HD Quality Stroke Does the patient have a stroke diagnosis?: No VTE Prior VTE?: No VTE Risk Level:: Medical - moderate - high VTE Device Contraindication: Treatment Not Indicated VTE Drug Contraindication: N/A - Med Ordered
--- NOTE | 2021-08-16 12:54 | PC.NURSE ---
Addendum entered by Janice Mccullough RN 08/16/21 13:18: Patient alert and oriented x 3. Original Note: Patient refusing bed alarm, ambulating in room with cane. Patient refusing to keep NC in place. O2 desats to mid 70s on room air. Continuously educated and reminded of importance of 02. Camera at bedside.
[2021-08-16] MEDS: Apixaban 5 MG TABLET PO ×2 (13:01→20:06)
[2021-08-16] MEDS: Sodium Zirconium Cyclosilicate 10 GM POWD.PACK PO (13:01)
[2021-08-16] MEDS: Isosorbide Mononitrate 30 MG TAB.ER.24H 90 MG PO (13:01)
[2021-08-16] MEDS: hydrALAZINE HCl 50 MG TABLET PO (13:01)
[2021-08-16] MEDS: NIFEdipine ER 30 MG TAB.ER.24 90 MG PO (13:01)
[2021-08-16] MEDS: Amiodarone HCL 200 MG TABLET PO (13:02)
[2021-08-16] MEDS: Lidocaine 4 % Patch ADH..PATCH 1 PATCH TRANSDERMA (13:02)
[2021-08-16] MEDS: Gabapentin 300 MG CAPSULE PO ×2 (13:02→20:05)
--- NOTE | 2021-08-16 15:11 | MHC.RECOVRN ---
Met with pt in 471 after consult placed to Addiction Medicine to discuss substance use. Pt in bed, somnolent but arousable to voice. Pt was not aware he received Narcan this morning. Pt reports receiving Narcan in the past x 2, however, is unsure why. Pt reports he uses cocaine, 1 gram, [place], once in a blue. Reports hx occaisonal Percocet use, not current. Pt denies ever experiencing withdrawal from opiates. Pt has not been to [facility] tx other than in [facility]. Pt reports being incarcerated x 16 years and was released a few years ago. Pt reports using cocaine to feel alright prior to coming to the hospital. Pt denies opiate/fentanyl use. Pt was educated regarding prevalence of fentanyl in other substances including cocaine and pressed pills. Discussed risks associated with overdose, pt denies questions or concerns at this time. Pt has Narcan at home. Discussed with Katerine Mascorro APRN. Recovery Support available as needed.
[2021-08-16] MEDS: hydrALAZINE HCl 50 MG TABLET 100 MG PO ×2 (15:49→20:05)
[2021-08-16] MEDS: Cyclobenzaprine HCl 10 MG TABLET PO (15:49)
[2021-08-16 16:04] LABS: Glucose, Whole Blood 110 mg/dL (60-115)
--- NOTE | 2021-08-16 17:47 | PM.EVENT ---
Event Note Date of Service: 08/16/21 Event Note: Addiction consult Please see Recovery Support RN note
[2021-08-16 19:57] LABS: Glucose, Whole Blood 132 mg/dL (60-115)
[2021-08-16 20:43] LABS: ABG Refer to POC result
[2021-08-17] MEDS: hydrALAZINE HCl 20 MG/ML VIAL 5 MG IVPUSH (00:23)
[2021-08-17] MEDS: Cyclobenzaprine HCl 10 MG TABLET PO ×3 (00:24→18:46)
--- NOTE | 2021-08-17 01:22 | PC.NURSE ---
Patient not compliant with wearing oxygen continuously. Patient was educated on adequate oxygenation and given portable tank as well. Overnight hospitalist made aware
[2021-08-17] MEDS: oxyCODONE HCl Immed Release 5 MG TABLET PO ×2 (01:39→22:26)
[2021-08-17 04:00] VITALS: BP 157/104; PULSE 84; RESP 18; TEMP 36.4; O2SAT 92
[2021-08-17 07:42] LABS: Anion Gap 22 (12-20); Blood Urea Nitrogen 73 mg/dL (9-16); Calcium 9.1 mg/dL (8.4-10.2); Carbon Dioxide 18 mmol/L (22-29); Chloride 94 mmol/L (96-108); Creatinine Clr Calc Pharmacy 11.9; Estimated Glomerular Filt Rate 5; Glucose Random 113 mg/dL (60-115); Potassium 5.9 mmol/L (3.3-5.1); Sodium 128 mmol/L (135-145)
[2021-08-17 07:44] LABS: Glucose, Whole Blood 101 mg/dL (60-115)
[2021-08-17 08:00] VITALS: BP 197/97; PULSE 82; RESP 18; TEMP 37.1; O2SAT 97
[2021-08-17] MEDS: Isosorbide Mononitrate 30 MG TAB.ER.24H 90 MG PO (08:52)
[2021-08-17] MEDS: NIFEdipine ER 30 MG TAB.ER.24 90 MG PO (08:53)
[2021-08-17] MEDS: carvediloL 3.125 MG TABLET PO (08:53)
[2021-08-17] MEDS: Gabapentin 300 MG CAPSULE PO ×3 (08:53→20:37)
[2021-08-17] MEDS: Amiodarone HCL 200 MG TABLET PO (08:54)
[2021-08-17] MEDS: hydrALAZINE HCl 50 MG TABLET 100 MG PO ×3 (08:54→20:38)
[2021-08-17] MEDS: Apixaban 5 MG TABLET PO ×2 (08:54→20:38)
--- NOTE | 2021-08-17 09:23 | PM.PNNEP ---
Subjective Subjective Date of Service: 08/17/21 Interval history: Somnolent this AM. Had received IV hydromorphone overnight. Also had visitors yesterday. Woke up with naloxone. To HD today. Physical Exam Vital Signs: Vital Signs: Last Vital Signs Temp 98.7 F 08/17/21 08:00 Pulse 82 08/17/21 08:00 Resp 18 08/17/21 08:00 BP 197/97 H 08/17/21 08:00 Pulse Ox 97 08/17/21 08:00 O2 Del Method 08/17/21 08:00 O2 Flow Rate 10 08/17/21 08:00 FiO2 55 08/15/21 05:42 BMI result Body Mass Index 35.9 Const: Other: Appearance: Alert. Oriented X3. In respiratory distress Eyes: Pupils equal, round and reactive to light. ENT: Pharynx normal. Neck: Normal inspection. Neck supple. No lymph nodes noted. No crepitus CVS: Normal heart rate and rhythm. Pulses normal. Normal S1 and S2 Respiratory: In respiratory distress, saturating 58% on room air, bilateral crackles Abdomen: Soft and nontender. No rigidity. No distention. Skin: Skin warm and dry. Normal skin color. Normal skin turgor. Extremities: +2 pitting edema Neuro: Oriented X 3. No motor deficit. No sensory deficit. Moving all extremities. No slurred speech. CN 2 through 12 grossly intact Psych: calm, cooperative, normal affect General: no acute distress, alert and awake Nutritional Appearance: obese HEENT: Head: Yes atraumatic Mouth: no other ( thrush) Throat: No postnasal drainage Eyes: General: appearance normal, both eyes and all related structures Sclerae: sclerae normal EOM: EOMs intact bilaterally Neck: Neck: Yes no lymphadenopathy, Yes trachea midline and Yes supple Lymphatic: no lymphadenopathy noted Resp: Effort & Inspection: normal respiratory effort and no respiratory distress Auscultation: clear to auscultation bilaterally Cardio: Rate: regular rate Rhythm: regular rhythm Heart sounds: no gallops, no murmurs and no rubs GI: Palpation (GI): Soft to palpation and Other GI palpation findings present ( Nontender) Auscultation: normal bowel sounds Skin: General skin exam: other ( warm) Rashes: no rashes Extrem: General: No clubbing, No cyanosis and Yes pedal edema (1+ bilateral) Objective Data Labs CBC & Chem 7: 08/15/21 06:00 08/17/21 07:02 Labs: Laboratory Results - last 24 hr 08/16/21 08/16/21 08/16/21 09:31 11:10 16:01 O2 Saturation 87.0 ABG pH at Pt Temp 7.22 L ABG pCO2 at Pt Temp 46 H ABG pO2 at Pt Temp 64 L ABG HCO3 19 L ABG Base Excess (Actual) -8.2 Sodium Potassium Chloride Carbon Dioxide Anion Gap BUN Creatinine Estim Creat Clear Calc Estimated GFR POC Glucose 116 H 110 Random Glucose Calcium 08/16/21 08/17/21 08/17/21 19:51 07:02 07:35 O2 Saturation ABG pH at Pt Temp ABG pCO2 at Pt Temp ABG pO2 at Pt Temp ABG HCO3 ABG Base Excess (Actual) Sodium 128 L Potassium 5.9 H Chloride 94 L Carbon Dioxide 18 L Anion Gap 22 H BUN 73 H D Creatinine 11.08 H* Estim Creat Clear Calc 11.9 Estimated GFR 5 POC Glucose 132 H 101 Random Glucose 113 Calcium 9.1 Microbiology Microbiology Results: Microbiology 08/13/21 12:54 Blood - Venous Blood Culture - Preliminary No growth after 48 hours. 08/13/21 12:54 Blood - Venous Blood Culture - Preliminary No growth after 48 hours. Procedures Date of Service Date of Service: 08/17/21 Assessment & Plan Assessment and plan (1) Pulmonary edema: Status: Acute (2) Acute respiratory failure with hypoxia: Status: Acute Plan hospital d#4 46yo M with ESRD on HD, obesity, DM2 admitted to ICU with acute hypoxic respiratory failure due to flash pulmonary edema requiring CPAP support and emergent HD, also HTN emergency requiring nicardipine gtt stepped down to hospitalist service 08/14/21 # acute hypoxic respiratory failure - suppl O2, wean as tolerated # flash pulmonary edema/volume overload - 5L removed 08/13, 08/14, 08/15,08/16 k STILL HIGH WILL DO DIALYSIS AGAIN TODAY Time Spent With Patient Time: Total time spent is greater than 50% in coordination of care (as documented) at patient's floor/unit and/or counseling patient: Progress Note: Quality Stroke Does the patient have a stroke diagnosis?: No
--- NOTE | 2021-08-17 11:30 | P.PNIM_ITS ---
Subjective Subjective Date of Service: 08/17/21 Interval History: f/u on ESRD, High K Interval history: K is still high, BP very high Review of Systems no sob no fever no chest pain Physical Exam Vital Signs: Vital Signs: Last Vital Signs Temp 98.7 F 08/17/21 08:00 Pulse 82 08/17/21 08:00 Resp 18 08/17/21 08:00 BP 197/97 H 08/17/21 08:00 Pulse Ox 97 08/17/21 08:00 O2 Del Method 08/17/21 08:00 O2 Flow Rate 10 08/17/21 08:00 FiO2 55 08/15/21 05:42 BMI result Body Mass Index 35.9 Const: Other: Gen: somnolent but arousable HEENT: sclera anicteric, moist mucus membranes Neck: supple Lungs: diminished bilaterally Heart: regular rate and rhythm, no murmurs Abd: soft, non-tender, non-distended, obese Ext: 1+ bilateral edema Skin: warm/well-perfused Neuro: somnolent but arousable Objective Data Active Medications Amiodarone HCl (Amiodarone Hcl 200 Mg Tablet) 200 mg PO DAILY [facility] Last Admin: 08/17/21 08:54 Dose: 200 mg Documented By: STEPHEN Apixaban (Apixaban 5 Mg Tablet) 5 mg PO BID [facility] Last Admin: 08/17/21 08:54 Dose: 5 mg Documented By: STEPHEN Carvedilol (Carvedilol 3.125 Mg Tablet) 6.25 mg PO BID [facility]; Protocol Cyclobenzaprine HCl (Cyclobenzaprine Hcl 10 Mg Tablet) 10 mg PO TID PRN PRN Reason: back pain Last Admin: 08/17/21 08:54 Dose: 10 mg Documented By: STEPHEN Dextrose (Dextrose 50 % 25 Gm/50 Ml Syringe) 25 gm IVPUSH Q15M PRN; Protocol PRN Reason: per Hypoglycemia Standing Ord. Last Admin: 08/13/21 17:13 Dose: 25 gm Documented By: PRANAV Comments: POC 83, ON CPAP AND RECEIVING DIALYSIS, GIVEN PER Gabapentin (Gabapentin 300 Mg Capsule) 300 mg PO TID [facility] Last Admin: 08/17/21 08:53 Dose: 300 mg Documented By: STEPHEN Hydralazine HCl (Hydralazine Hcl 20 Mg/Ml Vial) 5 mg IVPUSH Q4H PRN; Protocol PRN Reason: SBP > 160 Last Admin: 08/17/21 00:23 Dose: 5 mg Documented By: PADMINI Hydralazine HCl (Hydralazine Hcl 50 Mg Tablet) 100 mg PO TID [facility]; Protocol Last Admin: 08/17/21 08:54 Dose: 100 mg Documented By: STEPHEN Diphenhydramine HCl 25 mg/ (Sodium Chloride) 50.5 mls @ 200 mls/hr IV ONCE [facility] Last Infusion: 08/16/21 02:06 Dose: 0 mls/hr Documented By: NANCY Insulin Human Lispro (Insulin Lispro 100 Unit/Ml 3 Ml Vial) 0 unit SUBCUT QIDACHS [facility]; Protocol Last Admin: 08/17/21 07:45 Dose: Not Given Documented By: STEPHEN Non-Admin Reason: No Insulin Coverage Isosorbide Mononitrate (Isosorbide Mononitrate 30 Mg Tab.Er.24h) 90 mg PO DAILY [facility]; Protocol Last Admin: 08/17/21 08:52 Dose: 90 mg Documented By: STEPHEN Lidocaine (Lidocaine 4 % Patch Adh..Patch) 1 patch TRANSDERMA DAILY [facility]; Protocol Last Admin: 08/17/21 08:57 Dose: Not Given Documented By: STEPHEN Non-Admin Reason: Patient Refused Nifedipine (Nifedipine Er 30 Mg Tab.Er.24) 90 mg PO DAILY [facility]; Protocol Last Admin: 08/17/21 08:53 Dose: 90 mg Documented By: STEPHEN Labs CBC & Chem 7: 08/15/21 06:00 08/17/21 07:02 Labs: Laboratory Results - last 24 hr 08/16/21 08/16/21 08/17/21 16:01 19:51 07:02 Anion Gap 22 H Estim Creat Clear Calc 11.9 Estimated GFR 5 POC Glucose 110 132 H Random Glucose 113 Calcium 9.1 08/17/21 07:35 Anion Gap Estim Creat Clear Calc Estimated GFR POC Glucose 101 Random Glucose Calcium Assessment and Plan (1) Pulmonary edema: Status: Acute (2) Acute respiratory failure with hypoxia: Status: Acute Plan hospital d#5 46yo M with ESRD on HD, obesity, DM2 admitted to ICU with acute hypoxic respiratory failure due to flash pulmonary edema requiring CPAP support and emergent HD, also HTN emergency requiring nicardipine gtt stepped down to hospitalist service 08/14/21 # toxic-metabolic encephalopathy - suspected due to opioids and possible uremia- improved with naloxone. Addiction Medicine following # acute hypoxic respiratory failure from fluid overload and possible hypoventilation - suppl O2, wean as tolerated # flash pulmonary edema/volume overload - 5L removed 08/13, 08/14, 08/15, 08/16 and again today; Nepho following # hyperK 5.9, dialysis today, Lokelma HD today; recheck BMP tomorrow # HTN emergency - increase nifedipine, continue Imdur, hydralazine, started carvedilol; Maybe minoxidil as last resort # AF, probable chronic - amiodarone - apixaban # DM2 - denia-dose lispro # VTE ppx: apixaban # dispo: PT consult In my clinical judgment, the patient requires continued hospitalization for the following reasons: respiratory failure, hypervolemia requiring HD Quality Stroke Does the patient have a stroke diagnosis?: No VTE Prior VTE?: No VTE Risk Level:: Medical - moderate - high VTE Device Contraindication: Treatment Not Indicated VTE Drug Contraindication: N/A - Med Ordered
--- NOTE | 2021-08-17 12:03 | MHC.CM.PN ---
pt not dcd ready due to respiratory failure hypovolemia,and hd
[2021-08-17 15:13] VITALS: BP 172/99; PULSE 125; RESP 18; TEMP 36.7; O2SAT 90
[2021-08-17 15:32] LABS: Glucose, Whole Blood 101 mg/dL (60-115)
[2021-08-17] MEDS: Sodium Zirconium Cyclosilicate 10 GM POWD.PACK PO (16:02)
[2021-08-17] MEDS: dilTIAZem HCL 50 MG/10 ML VIAL 10 MG IVPUSH (16:25)
[2021-08-17] MEDS: dilTIAZem HCL 125 MG in 0.9 % Sodium Chloride 100 ML 10 MG IVCONT (16:26)
--- NOTE | 2021-08-17 18:06 | PC.NURSE ---
Addendum entered by Loretta Poole RN 08/17/21 18:44: @ 1014 patient converted to sinus rhythm. Dr. Chase notified and stalin butler. Original Note: @ 1230, patient converted to Afib HR 130's. Patient in dialysis. Assessed patient. Dozing on and off but denies chest pain or other cardiac symptoms. Dr. Chase notified. No new orders. Patient returned from dialysis. BP 172/99. HR 120's-140's AFib. Dr. Chase ordered cardizem bolus and drip. Drip started at 10ml/hr per order. HR 100's-120's at present.
[2021-08-17 19:20] VITALS: BP 183/85; PULSE 78; RESP 18; TEMP 36.3; O2SAT 94
[2021-08-17 19:50] LABS: Glucose, Whole Blood 135 mg/dL (60-115)
[2021-08-17] MEDS: carvediloL 3.125 MG TABLET 6.25 MG PO (20:37)
[2021-08-17 22:59] VITALS: BP 127/87; PULSE 71; RESP 18; TEMP 36.7; O2SAT 90
[2021-08-18 03:42] VITALS: PULSE 75; RESP 17; TEMP 36.9; O2SAT 89
[2021-08-18] MEDS: hydrALAZINE HCl 20 MG/ML VIAL 5 MG IVPUSH ×2 (06:02→14:47)
[2021-08-18 07:25] VITALS: BP 198/100; PULSE 78; RESP 18; TEMP 36.4; O2SAT 95
[2021-08-18 07:39] LABS: Glucose, Whole Blood 96 mg/dL (60-115)
[2021-08-18] MEDS: NIFEdipine ER 30 MG TAB.ER.24 90 MG PO (08:10)
[2021-08-18] MEDS: Isosorbide Mononitrate 30 MG TAB.ER.24H 90 MG PO (08:10)
[2021-08-18] MEDS: Apixaban 5 MG TABLET PO (08:10)
[2021-08-18] MEDS: carvediloL 3.125 MG TABLET 6.25 MG PO (08:11)
[2021-08-18] MEDS: Amiodarone HCL 200 MG TABLET PO (08:11)
[2021-08-18] MEDS: hydrALAZINE HCl 50 MG TABLET 100 MG PO ×2 (08:11→14:47)
[2021-08-18] MEDS: Gabapentin 300 MG CAPSULE PO ×2 (08:12→14:47)
--- NOTE | 2021-08-18 08:13 | P.PNNP_ITS ---
Subjective Subjective Date of Service: 08/18/21 Interval history: f/u on ESRD, High K Interval history: K is still high, BP very high Physical Exam Vital Signs: Vital Signs: Last Vital Signs Temp 97.6 F 08/18/21 07:25 Pulse 78 08/18/21 07:25 Resp 18 08/18/21 07:25 BP 198/100 H 08/18/21 07:25 Pulse Ox 95 08/18/21 07:25 O2 Del Method 08/18/21 07:25 O2 Flow Rate 5 08/18/21 07:25 FiO2 55 08/15/21 05:42 BMI result Body Mass Index 35.9 Const: Other: Gen: somnolent but arousable HEENT: sclera anicteric, moist mucus membranes Neck: supple Lungs: diminished bilaterally Heart: regular rate and rhythm, no murmurs Abd: soft, non-tender, non-distended, obese Ext: 1+ bilateral edema Skin: warm/well-perfused Neuro: somnolent but arousable General: no acute distress, alert and awake Nutritional Appearance: obese HEENT: Head: Yes atraumatic Mouth: no other ( thrush) Throat: No postnasal drainage Eyes: General: appearance normal, both eyes and all related structures Sclerae: sclerae normal EOM: EOMs intact bilaterally Neck: Neck: Yes no lymphadenopathy, Yes trachea midline and Yes supple Lymphatic: no lymphadenopathy noted Resp: Effort & Inspection: normal respiratory effort and no respiratory distress Auscultation: clear to auscultation bilaterally Cardio: Rate: regular rate Rhythm: regular rhythm Heart sounds: no gallops, no murmurs and no rubs GI: Palpation (GI): Soft to palpation and Other GI palpation findings present ( Nontender) Auscultation: normal bowel sounds Skin: General skin exam: other ( warm) Rashes: no rashes Extrem: General: No clubbing, No cyanosis and Yes pedal edema (1+ bilateral) Objective Data Labs CBC & Chem 7: 08/15/21 06:00 08/17/21 07:02 Labs: Laboratory Results - last 24 hr 08/17/21 08/17/21 08/18/21 15:29 19:45 07:27 POC Glucose 101 135 H 96 Microbiology Microbiology Results: Microbiology 08/13/21 12:54 Blood - Venous Blood Culture - Preliminary No growth after 48 hours. 08/13/21 12:54 Blood - Venous Blood Culture - Preliminary No growth after 48 hours. Procedures Date of Service Date of Service: 08/18/21 Assessment & Plan Assessment and plan (1) Pulmonary edema: Status: Acute (2) Acute respiratory failure with hypoxia: Status: Acute Plan hospital d#5 46yo M with ESRD on HD, obesity, DM2 admitted to ICU with acute hypoxic respiratory failure due to flash pulmonary edema requiring CPAP support and emergent HD, also HTN emergency requiring nicardipine gtt stepped down to hospitalist service 08/14/21 # toxic-metabolic encephalopathy - suspected due to opioids and possible uremia- improved with naloxone. Addiction Medicine following # acute hypoxic respiratory failure from fluid overload and possible hypoventilation - suppl O2, wean as tolerated # flash pulmonary edema/volume overload - 5L removed 08/13, 08/14, 08/15, 08/16 and again today; Nepho following # hyperK 5.9, dialysis today, Lokelma HD today; recheck BMP tomorrow # HTN emergency - increase nifedipine, continue Imdur, hydralazine, started carvedilol; Maybe minoxidil as last resort # AF, probable chronic - amiodarone - apixaban # DM2 - denia-dose lispro # VTE ppx: apixaban # dispo: PT consult did well with dialysis yesterday ready to be d/c will go to his OP dialysis in [facility] friday Time Spent With Patient Time: Total time spent is greater than 50% in coordination of care (as documented) at patient's floor/unit and/or counseling patient: Progress Note: Quality Stroke Does the patient have a stroke diagnosis?: No
[2021-08-18] MEDS: Lidocaine 4 % Patch ADH..PATCH 1 PATCH TRANSDERMA (08:14)
[2021-08-18] MEDS: Cyclobenzaprine HCl 10 MG TABLET PO ×2 (08:17→17:54)
[2021-08-18 09:30] VITALS: BP 186/92
[2021-08-18 11:14] LABS: Glucose, Whole Blood 123 mg/dL (60-115)
[2021-08-18 11:15] VITALS: RESP 19
[2021-08-18] MEDS: oxyCODONE HCl Immed Release 5 MG TABLET PO ×2 (11:17→17:54)
[2021-08-18 11:24] VITALS: BP 189/84; PULSE 68; RESP 19; TEMP 36.6; O2SAT 98
--- NOTE | 2021-08-18 11:41 | PM.CNCAR ---
History of Present Illness History of Present Illness Date of Service: 08/18/21 Requesting physician: Bob Chase Chief complaint: acute hypoxic respiratory failure, PAF Narrative: 46-year-old gentleman who presented with flash pulmonary edema due to hypertensive emergency. This was in the setting of missing hemodialysis. He was in the intensive care unit and has been stepped down to enter care. He is denying chest pain or shortness of breath. His only complaint is lower back pain. He is asking for some pain medication or treatment for that. He had episode of atrial fibrillation while he was in the intensive care unit. He has converted back to sinus rhythm at this stage. He was started on amiodarone in the intensive care unit. He is also on Eliquis. Overall feeling good other than low back pain. [facility] Past Medical History Medical History (Updated 08/14/21 @ 11:22 by Ryan Villeda MD) Afib Diabetes End stage renal disease Hypertension Social History Social History Household Members: None Housing: Apartment Do you presently have visiting nurse or other home services: Yes Patient Tobacco Use Status: Current everyday Tobacco user Tobacco use type: Cigarette Cigarettes Per Day: 1 Use of substances other than those prescribed or required for medical reasons: Yes Substance Use Type: Crack/Cocaine and Marijuana Substance Use Frequency: Occasionally Last Used Substance: Weeks (ago) Currently Displaying Signs/Symptoms of Drug Intoxication Withdrawal: No Any prior treatment program specific to substance use: No Advance Directives: No Advance Directives Information Provided: Yes Advance Directives on File: No Do you have thoughts of harming others: None Do you have a plan to hurt others: No Plan Recently lost weight without trying: Unsure Nutrition Risks: No Nutritional Risk service: No Current occupational status: disabled Meds Allergies Allergy/AdvReac Type Severity Reaction Status Date / Time PHILLY Inhibitors Allergy Anaphylaxis Verified 08/13/21 12:19 shellfish derived Allergy Anaphylaxis Verified 08/13/21 12:19 Sulfa (Sulfonamide Allergy Anaphylaxis Verified 08/13/21 12:19 Antibiotics) Active Medications: Current Medications Amiodarone HCl (Amiodarone Hcl 200 Mg Tablet) 200 mg PO DAILY [facility] Last Admin: 08/18/21 08:11 Dose: 200 mg Apixaban (Apixaban 5 Mg Tablet) 5 mg PO BID [facility] Last Admin: 08/18/21 08:10 Dose: 5 mg Carvedilol (Carvedilol 3.125 Mg Tablet) 6.25 mg PO BID LEIGH; Protocol Last Admin: 08/18/21 08:11 Dose: 6.25 mg Cyclobenzaprine HCl (Cyclobenzaprine Hcl 10 Mg Tablet) 10 mg PO TID PRN PRN Reason: back pain Last Admin: 08/18/21 08:17 Dose: 10 mg Dextrose (Dextrose 50 % 25 Gm/50 Ml Syringe) 25 gm IVPUSH Q15M PRN; Protocol PRN Reason: per Hypoglycemia Standing Ord. Last Admin: 08/13/21 17:13 Dose: 25 gm Gabapentin (Gabapentin 300 Mg Capsule) 300 mg PO TID LEIGH Last Admin: 08/18/21 08:12 Dose: 300 mg Hydralazine HCl (Hydralazine Hcl 20 Mg/Ml Vial) 5 mg IVPUSH Q4H PRN; Protocol PRN Reason: SBP > 160 Last Admin: 08/18/21 06:02 Dose: 5 mg Hydralazine HCl (Hydralazine Hcl 50 Mg Tablet) 100 mg PO TID LEIGH; Protocol Last Admin: 08/18/21 08:11 Dose: 100 mg Diphenhydramine HCl 25 mg/ (Sodium Chloride) 50.5 mls @ 200 mls/hr IV ONCE LEIGH Last Infusion: 08/16/21 02:06 Dose: Infused Diltiazem HCl 125 mg/ Sodium (Chloride) 125 mls @ 0 mls/hr IVCONT .Q0M LEIGH; Protocol Last Titration: 08/17/21 18:44 Dose: Infused Insulin Human Lispro (Insulin Lispro 100 Unit/Ml 3 Ml Vial) 0 unit SUBCUT QIDACHS [facility]; Protocol Last Admin: 08/18/21 11:16 Dose: Not Given Isosorbide Mononitrate (Isosorbide Mononitrate 30 Mg Tab.Er.24h) 90 mg PO DAILY [facility]; Protocol Last Admin: 08/18/21 08:10 Dose: 90 mg Lidocaine (Lidocaine 4 % Patch Adh..Patch) 1 patch TRANSDERMA DAILY [facility]; Protocol Last Admin: 08/18/21 08:14 Dose: 1 patch Nifedipine (Nifedipine Er 30 Mg Tab.Er.24) 90 mg PO DAILY [facility]; Protocol Last Admin: 08/18/21 08:10 Dose: 90 mg Oxycodone HCl (Oxycodone Hcl Immed Release 5 Mg Tablet) 5 mg PO Q6H PRN PRN Reason: Pain, Moderate (Pain Scale 4-6 Last Admin: 08/18/21 11:17 Dose: 5 mg Home Medications Medication Instructions Recorded Confirmed Last Taken Type amiodarone 200 mg tablet 1 tab PO DAILY 08/13/21 08/13/21 Unknown History apixaban 5 mg tablet (Eliquis) 1 tab PO BID 08/13/21 08/13/21 Unknown History budesonide-formoterol HFA 80 2 puff inhalation BID 08/13/21 08/13/21 Unknown History mcg-4.5 mcg/actuation aerosol inhaler (Symbicort) bumetanide 2 mg tablet 2 tab PO BID 08/13/21 08/16/21 Unknown History carvedilol 12.5 mg tablet 2 tab PO BID 08/13/21 Unknown History diphenhydramine HCl 25 mg capsule 1 cap PO TID PRN itch 08/13/21 08/13/21 Unknown History (Banophen) gabapentin 300 mg capsule 1 cap PO TID 08/13/21 08/13/21 Unknown History isosorbide mononitrate 30 mg 3 tab PO QAM 08/13/21 08/16/21 Unknown History tablet,extended release 24 hr nifedipine 90 mg tablet,extended 1 tab PO DAILY 08/13/21 08/16/21 Unknown History release spironolactone 25 mg tablet 1 tab PO DAILY 08/13/21 08/16/21 Unknown History Physical Exam Vital Signs: Vital Signs: Last Vital Signs Temp 97.9 F 08/18/21 11:24 Pulse 68 08/18/21 11:24 Resp 19 08/18/21 11:24 BP 189/84 H 08/18/21 11:24 Pulse Ox 98 08/18/21 11:24 O2 Del Method 08/18/21 11:24 O2 Flow Rate 5 08/18/21 11:24 FiO2 55 08/15/21 05:42 BMI result Body Mass Index 35.9 GENERAL APPEARANCE: in no acute distress, pleasant. NECK: no carotid bruit, no jugular venous distention. SKIN: no suspicious lesions, warm and dry. HEART: no murmurs, regular rate and rhythm. LUNGS: clear to auscultation bilaterally. ABDOMEN: soft, nontender. EXTREMITIES: no edema. PERIPHERAL PULSES: equal. NEUROLOGIC: No gross deficits, AAO X 3 Objective Labs and Meds Result diagrams: 08/15/21 06:00 08/17/21 07:02 Lab results: Laboratory Results - last 24 hr 08/17/21 08/17/21 08/18/21 15:29 19:45 07:27 POC Glucose 101 135 H 96 08/18/21 10:55 POC Glucose 123 H Assessment and Plan (1) Afib: Status: Acute Plan 46-year-old gentleman with end-stage renal disease on hemodialysis who missed hemodialysis and presented with elevated blood pressures and pulmonary edema. He was dialyzed in the intensive care unit and has been transferred entry care. He had episodes of paroxysmal atrial fibrillation while he was in the intensive care unit. This was treated with amiodarone. He is on Eliquis. I think amiodarone can be discontinued. He will need echocardiography to assess LV for any structural issues due to uncontrolled blood pressure. Agree with anticoagulation. Blood pressure is elevated and will need medication titration. Thank you for allowing me to participate in the care of your patient. Please feel free to contact me if you have any questions. Procedures Date of Service Date of Service: 08/18/21
--- NOTE | 2021-08-18 12:00 | HO.PM.IMPN ---
Subjective Subjective Date of Service: 08/18/21 Interval History: f/u on ESRD, High K Interval history: BP remains very high, no headach, no sob, no confusion. Review of Systems no sob no fever no chest pain Physical Exam Vital Signs: Vital Signs: Last Vital Signs Temp 97.9 F 08/18/21 11:24 Pulse 68 08/18/21 11:24 Resp 19 08/18/21 11:24 BP 189/84 H 08/18/21 11:24 Pulse Ox 98 08/18/21 11:24 O2 Del Method 08/18/21 11:24 O2 Flow Rate 5 08/18/21 11:24 FiO2 55 08/15/21 05:42 BMI result Body Mass Index 35.9 Const: Other: Gen: somnolent but arousable HEENT: sclera anicteric, moist mucus membranes Neck: supple Lungs: diminished bilaterally Heart: regular rate and rhythm, no murmurs Abd: soft, non-tender, non-distended, obese Ext: 1+ bilateral edema Skin: warm/well-perfused Neuro: somnolent but arousable Objective Data Active Medications Amiodarone HCl (Amiodarone Hcl 200 Mg Tablet) 200 mg PO DAILY [facility] Last Admin: 08/18/21 08:11 Dose: 200 mg Documented By: ANNE Apixaban (Apixaban 5 Mg Tablet) 5 mg PO BID [facility] Last Admin: 08/18/21 08:10 Dose: 5 mg Documented By: ANNE Carvedilol (Carvedilol 3.125 Mg Tablet) 6.25 mg PO BID [facility]; Protocol Last Admin: 08/18/21 08:11 Dose: 6.25 mg Documented By: ANNE Cyclobenzaprine HCl (Cyclobenzaprine Hcl 10 Mg Tablet) 10 mg PO TID PRN PRN Reason: back pain Last Admin: 08/18/21 08:17 Dose: 10 mg Documented By: ANNE Dextrose (Dextrose 50 % 25 Gm/50 Ml Syringe) 25 gm IVPUSH Q15M PRN; Protocol PRN Reason: per Hypoglycemia Standing Ord. Last Admin: 08/13/21 17:13 Dose: 25 gm Documented By: PRANAV Comments: POC 83, ON CPAP AND RECEIVING DIALYSIS, GIVEN PER Gabapentin (Gabapentin 300 Mg Capsule) 300 mg PO TID [facility] Last Admin: 08/18/21 08:12 Dose: 300 mg Documented By: ANNE Hydralazine HCl (Hydralazine Hcl 20 Mg/Ml Vial) 5 mg IVPUSH Q4H PRN; Protocol PRN Reason: SBP > 160 Last Admin: 08/18/21 06:02 Dose: 5 mg Documented By: ANTOIC Hydralazine HCl (Hydralazine Hcl 50 Mg Tablet) 100 mg PO TID [facility]; Protocol Last Admin: 08/18/21 08:11 Dose: 100 mg Documented By: ANNE Diphenhydramine HCl 25 mg/ (Sodium Chloride) 50.5 mls @ 200 mls/hr IV ONCE LEIGH Last Infusion: 08/16/21 02:06 Dose: 0 mls/hr Documented By: NANCY Diltiazem HCl 125 mg/ Sodium (Chloride) 125 mls @ 0 mls/hr IVCONT .Q0M [facility]; Protocol Last Titration: 08/17/21 18:44 Dose: 0 mg/hr, 0 mls/hr Documented By: STEPHEN Insulin Human Lispro (Insulin Lispro 100 Unit/Ml 3 Ml Vial) 0 unit SUBCUT QIDACHS [facility]; Protocol Last Admin: 08/18/21 11:16 Dose: Not Given Documented By: TAMI Non-Admin Reason: No Insulin Coverage Isosorbide Mononitrate (Isosorbide Mononitrate 30 Mg Tab.Er.24h) 90 mg PO DAILY [facility]; Protocol Last Admin: 08/18/21 08:10 Dose: 90 mg Documented By: ANNE Lidocaine (Lidocaine 4 % Patch Adh..Patch) 1 patch TRANSDERMA DAILY [facility]; Protocol Last Admin: 08/18/21 08:14 Dose: 1 patch Documented By: ANNE Nifedipine (Nifedipine Er 30 Mg Tab.Er.24) 90 mg PO DAILY [facility]; Protocol Last Admin: 08/18/21 08:10 Dose: 90 mg Documented By: ANNE Oxycodone HCl (Oxycodone Hcl Immed Release 5 Mg Tablet) 5 mg PO Q6H PRN PRN Reason: Pain, Moderate (Pain Scale 4-6 Last Admin: 08/18/21 11:17 Dose: 5 mg Documented By: TAMI Labs CBC & Chem 7: 08/15/21 06:00 08/17/21 07:02 Labs: Laboratory Results - last 24 hr 08/17/21 08/17/21 08/18/21 15:29 19:45 07:27 POC Glucose 101 135 H 96 08/18/21 10:55 POC Glucose 123 H Assessment and Plan (1) Pulmonary edema: Status: Acute (2) Acute respiratory failure with hypoxia: Status: Acute Plan hospital d#6 46yo M with ESRD on HD, obesity, DM2 admitted to ICU with acute hypoxic respiratory failure due to flash pulmonary edema requiring CPAP support and emergent HD, also HTN emergency requiring nicardipine gtt stepped down to hospitalist service 08/14/21 # toxic-metabolic encephalopathy - suspected due to opioids and possible uremia--he is completly lucid now # acute hypoxic respiratory failure from fluid overload and possible hypoventilation - suppl O2, wean as tolerated--getting better # flash pulmonary edema/volume overload - 5L removed 08/13, 08/14, 08/15, 08/17 # hyperK 5.9 yesterday before dialysis -next dialysis friday # HTN emergency, BP remsins alexis despite multipel meds: nifedipine 90, continue Imdur 90 qd, hydralazine 100 tid, carvedilol 6.25 bid; Nephrology to assist in further management # AF, probable chronic - amiodarone - apixaban # DM2 - denia-dose lispro # VTE ppx: apixaban # dispo: PT consult In my clinical judgment, the patient requires continued hospitalization for the following reasons: respiratory failure, hypervolemia requiring HD Quality Stroke Does the patient have a stroke diagnosis?: No VTE Prior VTE?: No VTE Risk Level:: Medical - moderate - high VTE Device Contraindication: Treatment Not Indicated VTE Drug Contraindication: N/A - Med Ordered
--- NOTE | 2021-08-18 14:07 | PC.NURSE ---
Pt removed heart monitor 13:30 in bathroom. Pt told he cannot take a shower due to high K+ level and he must wear tele monitor per MD orders. Pt entered shower and is noncompliant. Pt uncooperative with RN and COUNTER [employer]. MD to bedside
[2021-08-18 14:46] VITALS: BP 174/92; RESP 17; O2SAT 92
--- NOTE | 2021-08-18 15:19 | P.DS_ITS ---
DS: Providers Provider Date of Service: 08/18/21 Date of admission: 08/13/21 13:04 Primary care physician: Unknown Physician Consults: 08/16/21 10:10 Addiction Medicine Routine Consulting Provider: Katerine Mascorro Reason for consultation: suspected occult opioid abuse 08/17/21 16:02 Consult to Cardiology Routine Consulting Provider: Madi Corado Reason for consultation: FIB with RVR DS: Diagnosis Discharge Diagnosis (1) Pulmonary edema: Status: Acute (2) Acute respiratory failure with hypoxia: Status: Acute DS: Summary Hospital Course Hospital Course: Chief Complaint: Difficulty breathing 46-year-old gentleman with underlying obesity, end-stage renal disease on hemodialysis, hypertension Mrs. Dialysis session today and arrived complain of short of breath in abdominal discomfort.? Patient was noted to be in pulmonary edema with significant hypoxia requiring initiation of CPAP support.? Also, in hypertensive emergency with mildly elevated troponin level requiring Cardene drip for blood pressure control.? Nephrology service was consulted patient will be dialyzed.? Patient has been admitted to intensive care unit. Hospital course: He presented with sob, confusion, hypertension emergency and pulmonary edema, acute hypoxic respiratory failure and hyperkalemia. He was initially admitted throught ICU where he required emergent dialysis and later transfer to the medical where had has continued to improved following multiple dialysis sections... He mental status has returned to baseline and is completly lucid, fluid overload with assocated acute hypoxic respariatory failure have much improved--he has been on as much as 10 liters by nasal canula and presently on room air 91 to 93 and breathing comofortable.. His blood pressure has continued to be mostly very high but has come down presently at 174/92 additional med adjustment have been sought through Nephrology but not yet resolved. Hydralazine 100 mg tid has been added to his med list. He had brief episodes of afib that have been resolved and presently in sinus. Cardiology saw him and recommends stopping amio. 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 He is adamant that he has no one else to get her daughter and that he feels fine and will go to his schedule on [address] He is aware that we do not wish for him to be discharge at this time.. He understands that by leave AMA he risks his health and can lead to premature . He accepts the risks and ..was able to repeat back in his own words..This conversation was witnessed by patient's RN..Case managment spoke to him separately as well and found that he was lucid Time Spent with Patient Time attestation: Total time spent providing and/or coordinating discharge services: Discharge coordination time: Greater than 30 minutes Quality: Safe Use of Opioids Does Pt have an Active Cancer Diagnosis on the Problem List?: No Quality: Stroke Does the patient have a stroke diagnosis?: No Physical Exam Vital Signs: Vital Signs: Last Vital Signs Temp 97.9 F 08/18/21 11:24 Pulse 68 08/18/21 11:24 Resp 17 08/18/21 14:46 BP 174/92 H 08/18/21 14:46 Pulse Ox 92 08/18/21 14:46 O2 Del Method 08/18/21 14:46 O2 Flow Rate 5 08/18/21 11:24 FiO2 55 08/15/21 05:42 BMI result Body Mass Index 35.9 DS: Data Data Completed and Pending Labs on day of discharge: Laboratory Results - last 24 hr 08/17/21 08/17/21 08/18/21 15:29 19:45 07:27 POC Glucose 101 135 H 96 08/18/21 10:55 POC Glucose 123 H Discharge Plan Discharge Anticipated Discharge Date/Time: 08/18/21 15:02 Patient Disposition: Left Against Medical Advice Discharge Diagnosis: Encephalopathy, Referrals: Physician,Unknown J [Primary Care Provider] - 1 Week Discharge Medications: New hydralazine 50 mg Tablet 100 mg PO TID Qty: 90 0RF Protocol: Hold for SBP< HOLD for SBP < : 90 Continued carvedilol 12.5 mg tablet 2 tab PO BID nifedipine 90 mg tablet extended release 1 tab PO DAILY isosorbide mononitrate 30 mg tablet extended release 24 hr 3 tab PO QAM diphenhydramine HCl [Banophen] 25 mg capsule 1 cap PO TID PRN (Reason: itch) gabapentin 300 mg capsule 1 cap PO TID budesonide-formoterol [Symbicort] 80-4.5 mcg/actuation HFA aerosol inhaler 2 puff inhalation BID Eliquis 5 mg tablet 1 tab PO BID Discontinued bumetanide 2 mg tablet 2 tab PO BID amiodarone 200 mg tablet 1 tab PO DAILY spironolactone 25 mg tablet 1 tab PO DAILY Discharge Orders: Discharge Order (Routine); Ordered 08/18/21 Ordered By: Bob Chase Diet: Advance to usual diet Care Plan Goals: prevent rehospitalization f Health Concerns: Difficult to control high blood pressure Plan of Treatment: Take all your medication as directed and follow up with your Doctor in a week stop taking Aldactone, amiodarone and Bumetadine Follow up with Dialysis on Friday You understand you are leaving against medical advise and asume full responsibility for your health. You may return to the hospital at any time, especially with any change in your condition. Assessment: As Discharge Date/Time: 08/18/21 18:00
--- NOTE | 2021-08-18 15:41 | MHC.CM.PN ---
per md pt may leave ama pts dgter that is 17 needs to be picked up at [facility] at 9 pm pt goes to [facility] per pt he has a vna he could not remember thge name of warren mccain he has made arrangements with a friend to drive him to the airport to get his dgter taxi voucher given to silvana pts nurse in case he does leave [place] considering a psych eval for competencey
[2021-08-18 15:56] LABS: Anion Gap 21 (12-20); Blood Urea Nitrogen 63 mg/dL (9-16); Calcium 9.2 mg/dL (8.4-10.2); Carbon Dioxide 20 mmol/L (22-29); Chloride 93 mmol/L (96-108); Creatinine Clr Calc Pharmacy 13.4; Estimated Glomerular Filt Rate 6; Glucose Random 115 mg/dL (60-115); Potassium 5.3 mmol/L (3.3-5.1); Sodium 129 mmol/L (135-145)
[2021-08-18 16:14] LABS: Glucose, Whole Blood 119 mg/dL (60-115)
--- NOTE | 2021-08-18 20:02 | PC.NURSE ---
Pt states he is leaving AMA to cotton picker daughter from the airport. MD made aware and spoke to patient at bedside. Pt deemed A+Ox4, can make decisions. Pt given instructions and explained risk of leaving AMA. Pt provided taxi voucher by case aide. Pt ambulated to front door of building with all personal belongings. Pt states he will go to dialysis on Friday and take BP control medications.
== END 2021-08-18 18:00 | disposition left against medical advice (07) | DRG 470 ==
LOC: HO.ED 13:09 → HO.EDOVER 13:29 → HO.ICU 13:45 → HO.IMC 08-15 15:41
PROVIDERS: Family Medicine; Internal Medicine; Registered Nurse Community Health; Admitting Provider Internal Medicine Pulmonary Disease; Emergency Provider Emergency Medicine; PCP Internal Medicine Endocrinology, Diabetes & Metabolism; Visit Provider Internal Medicine
DX: I12.0 Hypertensive chronic kidney disease with stage 5 chronic kidney disease or end stage renal disease (principal); J96.01 Acute respiratory failure with hypoxia; G92.8 Other toxic encephalopathy; N18.6 End stage renal disease; I48.20 Chronic atrial fibrillation, unspecified; E11.22 Type 2 diabetes mellitus with diabetic chronic kidney disease; F17.210 Nicotine dependence, cigarettes, uncomplicated; I16.1 Hypertensive emergency; Z71.6 Tobacco abuse counseling; E87.5 Hyperkalemia; Z91.19 Patient's noncompliance with other medical treatment and regimen; Z20.822 Contact with and (suspected) exposure to COVID-19; Z99.2 Dependence on renal dialysis; Z91.013 Allergy to seafood; Z88.2 Allergy status to sulfonamides; Z88.8 Allergy status to other drugs, medicaments and biological substances; Z79.01 Long term (current) use of anticoagulants; Z79.899 Other long term (current) drug therapy
CPT/HCPCS: 36415; 36600; 71045; 80048; 80076; 82803; 82947; 83605; 83735; 83880; 84100; 84484; 85025; 85610; 87040; 87635; 90999; 93005; 94640; 94660; 94664; 96365; 96366; 96375; 99285; J0610; J1170; J1200; J1940; J2270; J3010

== ENCOUNTER 2022-04-07 21:32 | Inpatient (IN) | payer OTHER, SELFPAY ==
--- NOTE | 2022-04-07 | ECG_ITS ---
Test Reason : CHEST PAIN Blood Pressure : / mmHG Vent. Rate : 089 BPM Atrial Rate : 214 BPM P-R Int : 000 ms QRS Dur : 126 ms QT Int : 428 ms P-R-T Axes : 000 010 186 degrees QTc Int : 520 ms Atrial flutter with variable A-V block Left ventricular hypertrophy with QRS widening and repolarization abnormality ( Edwardo product ) Abnormal ECG When compared with ECG of 13-AUG-2021 23:35, Atrial flutter has replaced Atrial fibrillation QRS duration has decreased ST elevation has replaced ST depression in Inferior leads Inverted T waves have replaced nonspecific T wave abnormality in Inferior leads Referred By: Generic ED Physician Electronically Signed By:REMBERTO TILLMAN MD
--- NOTE | ~2022-04-07 | CT_ITS ---
EXAMINATION: CT ABDOMEN AND PELVIS WITHOUT CONTRAST CLINICAL INFORMATION: Right upper quadrant pain. Cholecystostomy catheter in place COMPARISON: None TECHNIQUE: Multidetector volumetric imaging was performed from the superior aspect of the liver through the pubic symphysis. Sagittal and coronal reformatted images were obtained on the technologist's workstation. This CT examination was performed using dose optimization techniques as appropriate, variously including the following: *Automated exposure control *Adjustment of mA and/or kV according to patient size (this includes techniques or standardized protocols for targeted exams where dose is matched to indication/reason for exam; i.e. extremities or head) *Use of iterative reconstruction technique DLP: 723 mGy-cm FINDINGS: LUNG BASES: The heart is enlarged. Lung bases are clear without infiltrates or effusions. LIVER, GALLBLADDER, AND BILIARY TREE: The liver is enlarged measuring 22.5 cm in cephalocaudad dimension and demonstrates attenuation consistent with hepatic steatosis. Scattered punctate calcifications are seen in the liver, possibly granulomas. No focal hepatic lesion or biliary ductal dilatation is present. A cholecystostomy tube is in place. The gallbladder is contracted without obvious pericholecystic inflammatory changes. PANCREAS: Unremarkable. SPLEEN: Spleen is enlarged at 15.5 cm. ADRENAL GLANDS: Unremarkable. KIDNEYS AND URETERS: The kidneys are normal in size, shape, and attenuation. No hydronephrosis, hydroureter, or calculi seen. No perinephric stranding. BLADDER: Unremarkable. GASTROINTESTINAL TRACT: The small and large bowel are unremarkable. The appendix is unremarkable. ABDOMINAL WALL: Moderate sized periumbilical hernia seen containing only fat. There is some mild inflammatory changes seen within the fat. LYMPH NODES: No retroperitoneal lymphadenopathy. VASCULAR: Marked vascular calcifications are seen in nearly all vessels. There is a aneurysm/pseudoaneurysm involving the right common femoral artery measuring 3.4 x 2.2 x 4.2 cm. PELVIC VISCERA: Unremarkable. OSSEOUS STRUCTURES: Unremarkable. CT/CT abdomen pelvis wo IV con IMPRESSION: 1. Cholecystostomy tube in place with no evidence of leak or malfunction. 2. Enlarged fatty liver with associated splenomegaly. 3. Umbilical hernia containing only fat. 4. 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 Vascular consultation is recommended. 5. Other incidental findings as described above. Fleischner guidelines were followed.
--- NOTE | ~2022-04-07 | FL_ITS ---
EXAMINATION: XR FLUOROSCOPY CLINICAL INFORMATION: Percutaneous cholecystostomy tube. Check cystic duct patency. COMPARISON: None TECHNIQUE: Following explaining fluoroscopy-guided cholecystostomy tube check procedure, benefits and risk a written consent was obtained. The right upper quadrant cholecystostomy tube was accessed. The catheter site was cleaned in antiseptic manner. 20 mL of nonionic contrast was then injected under fluoroscopy and dynamic images were obtained. Patient tolerated procedure extremely well. FINDINGS: There are multiple filling defects seen in the gallbladder consistent with stones. The cystic duct is patent however there is a stone sitting in the neck of the gallbladder and likely in the proximal cystic duct. The CBD is opacified without any distention or intraluminal filling defect. FLUOROSCOPY TIME: 1.1 minute DOSE AREA PRODUCT: 29.034 uGy-m2 (microgray-meter squared) FL/FL fluoroscopy <1hr IMPRESSION: Multiple filling defects consistent with gallstones. There is impacted stone in neck of the gallbladder and proximal cystic duct. The cystic duct is patent. The CBD is patent and normal caliber.
--- NOTE | ~2022-04-07 | US_ITS ---
EXAMINATION: ULTRASOUND ARTERIAL DUPLEX, RIGHT LOWER EXTREMITY CLINICAL INFORMATION: Right common femoral artery pseudoaneurysm COMPARISON: Noncontrast CT of the abdomen pelvis from 04/07/2022 TECHNIQUE: Duplex Doppler ultrasound evaluation of the right lower extremity FINDINGS: The right common femoral artery demonstrates diffuse atherosclerotic wall calcifications. There is a focal [place] pseudoaneurysm arising from the right common femoral artery. The neck of the pseudoaneurysm measures a diameter of 0.9 cm. The pseudoaneurysm sac measures 2.2 x 2.0 cm. Patent color flow seen within the pseudoaneurysm sac with antegrade and retrograde flow. The hopi common femoral artery is dilated measuring diameter 1.8 cm above the pseudoaneurysm and a 1.4 cm below the pseudoaneurysm US/US arterial duplex LE RT IMPRESSION: [place] pseudoaneurysm sac arising from the right common femoral artery as described above
--- NOTE | ~2022-04-07 | XR_ITS ---
EXAMINATION: XR CHEST CLINICAL INFORMATION: Cough COMPARISON: 08/16/2021 TECHNIQUE: 2 views of the chest were obtained. FINDINGS: Lung volumes are symmetric. There is prominence of the central vasculature suggesting a degree of congestion, without overt edema. Subtle patchy left lower lobe opacity cannot be excluded. No evidence of pneumothorax or pleural effusion. Cardiac silhouette appears mildly enlarged for technique. Calcification is present at the aortic arch. No acute osseous findings are seen. XR/XR chest 2V IMPRESSION: Central vascular congestion without overt edema. Subtle patchy left lower lobe opacity cannot be excluded. Enlarged cardiac silhouette.
[2022-04-07 21:43] VITALS: BP 180/128; PULSE 100; O2SAT 96; BMI 30.8
[2022-04-07 21:46] VITALS: BP 177/128; PULSE 93; RESP 28; TEMP 36.4; O2SAT 96
[2022-04-07 22:14] LABS: MANUAL DIFF FLAG NO
[2022-04-07 22:16] LABS: Basophils Absolute Auto 0.1 X10*3/uL (0.0-0.2); Basophils Percent Auto 1.2 % (0-2); Eosinophils Absolute Auto 0.2 X10*3/uL (0.0-0.4); Eosinophils Percent Auto 4.1 % (0-4); Hematocrit 35.2 % (42.0-52.0); Imm Gran Abs Auto 0.02 X10*3/uL (0.00-0.03); Imm Gran Pct Auto 0.4 % (0.0-0.4); Lymphocytes Absolute Auto 0.9 X10*3/uL (1.2-4.9); Lymphocytes Percent Auto 17.5 % (20-40); Mean Corpuscular HGB Conc 31.3 g/dl (31.0-36.0); Mean Corpuscular Hemoglobin 27.8 pg (27.0-33.0); Mean Corpuscular Volume 88.9 fL (80.0-98.0); Mean Platelet Volume 10.6 fL (9.4-12.4); Monocytes Absolute Auto 0.4 X10*3/uL (0.1-1.2); Monocytes Percent Auto 8.3 % (2-11); Neutrophils Absolute Auto 3.4 x10*3/uL (2.0-8.3); Neutrophils Percent Auto 68.5 % (45-73); Platelet Count 162 X10*3/uL (160-400); Red Blood Count 3.96 X10*6/uL (4.60-5.80); Red Cell Distribution Width 19.5 % (11.0-16.0); White Blood Count 4.9 X10*3/uL (4.8-10.8)
[2022-04-07 22:23] LABS: INTERNATIONAL NORM RATIO 1.6 (0.9-1.1); Prothrombin Time 18.2 SEC (10.0-13.1)
--- NOTE | 2022-04-07 22:35 | ED_ITS ---
HPI - Chest Pain General Chief Complaint: Chest Pain Stated Complaint: cp Time Seen by Provider: 04/07/22 22:24 Source: patient Mode of arrival: EMS History of Present Illness HPI narrative: 46-year-old male ESR D, on anticoagulation, gets dialysis Friday/Friday/Friday/Friday, went to dialysis on Friday and now presents via EMS with complaints of multiple and consult episodes of nausea and vomiting that began with right upper quadrant pain for 3 days. He reports chills, an inability to sleep and an inability to take his regularly scheduled medications. He denies any alcohol or drug use and states that he was at [facility] and had a drain put in for an infection of his gallbladder. Related Data Home Medications Medication Instructions Recorded Confirmed amiodarone 200 mg tablet 1 tab PO DAILY 08/13/21 08/13/21 apixaban 5 mg tablet (Eliquis) 1 tab PO BID 08/13/21 08/13/21 budesonide-formoterol HFA 80 2 puff inhalation BID 08/13/21 08/13/21 mcg-4.5 mcg/actuation aerosol inhaler (Symbicort) bumetanide 2 mg tablet 2 tab PO BID 08/13/21 08/16/21 carvedilol 12.5 mg tablet 2 tab PO BID 08/13/21 diphenhydramine HCl 25 mg capsule 1 cap PO TID PRN itch 08/13/21 08/13/21 (Banophen) gabapentin 300 mg capsule 1 cap PO TID 08/13/21 08/13/21 isosorbide mononitrate 30 mg 3 tab PO QAM 08/13/21 08/16/21 tablet,extended release 24 hr nifedipine 90 mg tablet,extended 1 tab PO DAILY 08/13/21 08/16/21 release spironolactone 25 mg tablet 1 tab PO DAILY 08/13/21 08/16/21 Allergies Allergy/AdvReac Type Severity Reaction Status Date / Time PHILLY Inhibitors Allergy Anaphylaxis Verified 08/13/21 12:19 shellfish derived Allergy Anaphylaxis Verified 08/13/21 12:19 Sulfa (Sulfonamide Allergy Anaphylaxis Verified 08/13/21 12:19 Antibiotics) Review of Systems Review of Systems: Pertinent positives and negatives as stated in HPI PMFSH Past Medical History Source: nursing notes reviewed Medical History Afib Diabetes End stage renal disease Hyperkalemia Hypertension Social History Social History Household Members: None Housing: Apartment Do you presently have visiting nurse or other home services: Yes Alcohol intake: never Patient Tobacco Use Status: Current everyday Tobacco user Tobacco use type: Cigarette Cigarettes Per Day: 1 Smoked in Last 30 Days: Yes Use of substances other than those prescribed or required for medical reasons: No Substance Use Type: Crack/Cocaine and Marijuana Advance Directives: No Advance Directives Information Provided: Yes service: No Current occupational status: disabled Physical Exam Vital Signs: Vital Signs: Last Vital Signs Temp 97.9 F 04/08/22 00:00 Pulse 96 04/08/22 00:00 Resp 22 H 04/08/22 00:00 BP 144/102 H 04/08/22 00:00 Pulse Ox 95 04/08/22 00:00 O2 Del Method 04/08/22 00:00 BMI result Body Mass Index 30.8 VITAL SIGNS: Reviewed. GENERAL: Well developed, well nourished, in moderate distress. HEAD: Normocephalic/atraumatic EYES: PERRLA, EOMI LUNGS: Normal breath sounds, no tachypnea/wheeze/rhonchi/rales SpO2<96> CARDIOVASCULAR: Regular rate and rhythm without noted murmurs, no JVD or lower extremity edema. ABDOMEN: Soft, non-tender, non-distended with bowel sounds. Drain to right upper quadrant with yellowish effluent appears to be patent MUSCULOSKELETAL: No tenderness, deformities, or effusions noted on gross inspection. EXTREMITIES: No cyanosis, clubbing or edema;LUE: There is a fistula to the forearm with a thrill and bruit present. SKIN: Inspection of the skin reveals no rashes NEUROLOGIC: Alert and oriented x 4. Strength and sensation to light touch were grossly intact x 4. Medications Administered Discontinued Medications Generic Name Dose Route Start Last Admin Trade Name Freq PRN Reason Stop Dose Admin Amlodipine Besylate 10 mg 04/07/22 23:50 04/08/22 00:03 Amlodipine Besylate 10 Mg Tablet PO 04/07/22 23:51 10 mg ONCE ONE Administration Protocol Bumetanide 1 mg 04/07/22 22:48 04/07/22 23:03 Bumetanide 1 Mg/4 Ml Vial IVPUSH 04/07/22 22:49 1 mg ONCE ONE Administration Protocol Fentanyl 25 mcg 04/07/22 22:33 04/07/22 22:50 Fentanyl Citrate/Pf 100 Mcg/2 Ml Vial IVPUSH 04/07/22 22:34 25 mcg ONCE ONE Administration Protocol Hydromorphone HCl 0.25 mg 04/07/22 23:03 04/07/22 23:29 Hydromorphone Hcl 0.5 Mg/0.5 Ml Syringe IVPUSH 04/07/22 23:04 0.25 mg ONCE ONE Administration Protocol Cefepime HCl 2 gm/ Sodium 50 mls @ 100 mls/hr 04/07/22 22:49 04/07/22 23:35 Chloride IV 04/07/22 23:18 Infused ONCE ONE Infusion Ondansetron HCl 4 mg 04/07/22 22:09 04/07/22 22:51 Ondansetron Hcl 4 Mg/2 Ml Vial IVPUSH 04/07/22 22:10 4 mg ONCE ONE Administration Medical Decision Making Medical Decision Making MDM Narrative: 46-year-old male with suspected ongoing gallbladder issues that have precipitated multiple episodes of nausea and vomiting with an inability to take his medications for blood pressure, heart rate control. He denies any chest pain and is primarily concerned with the right upper quadrant pain with nausea and vomiting. [id number]: On review of patient's discharge paperwork from [facility] dated 03/28/2022 patient had VNA set up for home visits, also patient had an up size his cholecystostomy tube during that admission and it was exchanged on 03/26/2022 and has follow-up arranged with Interventional Radiology. In addition, patient is scheduled to complete 6 weeks of antibiotics as per Infectious Disease recommendations and these will be administered post dialysis session. On review of documentation it is documented that this was discussed with the nephrology team and they confirmed the vancomycin will be administered after dialysis sessions with an end date for antibiotics of 05/12/2022. After review of all investigations, patient continues to have pain despite being provided with pain medication and does have both clinical and objective findings to support CHF exacerbation. I did discuss this case with the inpatient hospitalist who accepts admission. Patient has been informed of all results and findings. Differential Diagnosis Differential Diagnoses: The differential diagnosis associated with the presentation includes Please see the discussion above Consult Healthcare Provider Management of the patient was discussed with: Hospitalist [id number]: I discussed the case with the inpatient hospitalist Lab Data MDM Lab Attestation statement: I reviewed the patient's lab results. Please see the discussion above 04/07/22 22:07 04/07/22 22:07 Labs: Lab Results 04/07/22 04/07/22 04/07/22 Range/Units 22:07 22:07 22:07 WBC 4.9 (4.8-10.8) X10*3/uL RBC 3.96 L D (4.60-5.80) X10*6/uL Hgb 11.0 L D (14.0-18.0) g/dl Hct 35.2 L D (42.0-52.0) % MCV 88.9 (80.0-98.0) fL MCH 27.8 (27.0-33.0) pg MCHC 31.3 (31.0-36.0) g/dl RDW 19.5 H (11.0-16.0) % Plt Count 162 (160-400) X10*3/uL MPV 10.6 (9.4-12.4) fL Immature Gran % (Auto) 0.4 (0.0-0.4) % Neut % (Auto) 68.5 (45-73) % Lymph % (Auto) 17.5 L (20-40) % Nance % (Auto) 8.3 (2-11) % Eos % (Auto) 4.1 H (0-4) % Baso % (Auto) 1.2 (0-2) % Lymph # (Auto) 0.9 L (1.2-4.9) X10*3/uL Nance # (Auto) 0.4 (0.1-1.2) X10*3/uL Eos # (Auto) 0.2 (0.0-0.4) X10*3/uL Baso # (Auto) 0.1 (0.0-0.2) X10*3/uL Abs Immat Gran (auto) 0.02 (0.00-0.03) X10*3/uL Absolute Neuts (auto) 3.4 (2.0-8.3) x10*3/uL Absolute Nucleated RBC 0.000 (0.0-0.012) X10*3/uL Nucleated RBC % (auto) 0.0 (0.0-0.2) /100WBC PT (10.0-13.1) SEC INR (0.9-1.1) Sodium 138 (135-145) mmol/L Potassium 4.8 (3.3-5.1) mmol/L Chloride 100 (96-108) mmol/L Carbon Dioxide 25 (22-29) mmol/L Anion Gap 18 (12-20) BUN 33 H (9-16) mg/dL Creatinine 7.92 H* (0.5-1.4) mg/dL Estim Creat Clear Calc 15.4 Estimated GFR 7 Random Glucose 115 (60-115) mg/dL Lactic Acid (0.5-2.0) mmol/L Calcium 9.5 (8.4-10.2) mg/dL Magnesium 2.4 (1.6-2.6) mg/dL Total Bilirubin 0.7 (0.0-1.0) mg/dL Direct Bilirubin < 0.2 (0.0-0.5) mg/dL AST 43 H (5-37) U/L ALT 22 (0-40) U/L Alkaline Phosphatase 164 H (39-117) U/L Troponin I High Sens 140.9 H* (<3.5-35.0) ng/L B-Natriuretic Peptide (<100) pg/mL Total Protein 7.3 (6.5-8.0) g/dL Albumin 4.0 (3.5-5.0) g/dL Lipase 60 (8-78) U/L Ethyl Alcohol < 10 mg/dL COVID-19 (FREDI) (Negative) COVID-19 Clin Com 04/07/22 04/07/22 04/07/22 Range/Units 22:07 22:10 22:10 WBC (4.8-10.8) X10*3/uL RBC (4.60-5.80) X10*6/uL Hgb (14.0-18.0) g/dl Hct (42.0-52.0) % MCV (80.0-98.0) fL MCH (27.0-33.0) pg MCHC (31.0-36.0) g/dl RDW (11.0-16.0) % Plt Count (160-400) X10*3/uL MPV (9.4-12.4) fL Immature Gran % (Auto) (0.0-0.4) % Neut % (Auto) (45-73) % Lymph % (Auto) (20-40) % Nance % (Auto) (2-11) % Eos % (Auto) (0-4) % Baso % (Auto) (0-2) % Lymph # (Auto) (1.2-4.9) X10*3/uL Nance # (Auto) (0.1-1.2) X10*3/uL Eos # (Auto) (0.0-0.4) X10*3/uL Baso # (Auto) (0.0-0.2) X10*3/uL Abs Immat Gran (auto) (0.00-0.03) X10*3/uL Absolute Neuts (auto) (2.0-8.3) x10*3/uL Absolute Nucleated RBC (0.0-0.012) X10*3/uL Nucleated RBC % (auto) (0.0-0.2) /100WBC PT 18.2 H (10.0-13.1) SEC INR 1.6 H (0.9-1.1) Sodium (135-145) mmol/L Potassium (3.3-5.1) mmol/L Chloride (96-108) mmol/L Carbon Dioxide (22-29) mmol/L Anion Gap (12-20) BUN (9-16) mg/dL Creatinine (0.5-1.4) mg/dL Estim Creat Clear Calc Estimated GFR Random Glucose (60-115) mg/dL Lactic Acid (0.5-2.0) mmol/L Calcium (8.4-10.2) mg/dL Magnesium (1.6-2.6) mg/dL Total Bilirubin (0.0-1.0) mg/dL Direct Bilirubin (0.0-0.5) mg/dL AST (5-37) U/L ALT (0-40) U/L Alkaline Phosphatase (39-117) U/L Troponin I High Sens (<3.5-35.0) ng/L B-Natriuretic Peptide 4120 H (<100) pg/mL Total Protein (6.5-8.0) g/dL Albumin (3.5-5.0) g/dL Lipase (8-78) U/L Ethyl Alcohol mg/dL COVID-19 (FREDI) Negative (Negative) COVID-19 Clin Com See Note 04/07/22 Range/Units 22:44 WBC (4.8-10.8) X10*3/uL RBC (4.60-5.80) X10*6/uL Hgb (14.0-18.0) g/dl Hct (42.0-52.0) % MCV (80.0-98.0) fL MCH (27.0-33.0) pg MCHC (31.0-36.0) g/dl RDW (11.0-16.0) % Plt Count (160-400) X10*3/uL MPV (9.4-12.4) fL Immature Gran % (Auto) (0.0-0.4) % Neut % (Auto) (45-73) % Lymph % (Auto) (20-40) % Nance % (Auto) (2-11) % Eos % (Auto) (0-4) % Baso % (Auto) (0-2) % Lymph # (Auto) (1.2-4.9) X10*3/uL Nance # (Auto) (0.1-1.2) X10*3/uL Eos # (Auto) (0.0-0.4) X10*3/uL Baso # (Auto) (0.0-0.2) X10*3/uL Abs Immat Gran (auto) (0.00-0.03) X10*3/uL Absolute Neuts (auto) (2.0-8.3) x10*3/uL Absolute Nucleated RBC (0.0-0.012) X10*3/uL Nucleated RBC % (auto) (0.0-0.2) /100WBC PT (10.0-13.1) SEC INR (0.9-1.1) Sodium (135-145) mmol/L Potassium (3.3-5.1) mmol/L Chloride (96-108) mmol/L Carbon Dioxide (22-29) mmol/L Anion Gap (12-20) BUN (9-16) mg/dL Creatinine (0.5-1.4) mg/dL Estim Creat Clear Calc Estimated GFR Random Glucose (60-115) mg/dL Lactic Acid 0.8 (0.5-2.0) mmol/L Calcium (8.4-10.2) mg/dL Magnesium (1.6-2.6) mg/dL Total Bilirubin (0.0-1.0) mg/dL Direct Bilirubin (0.0-0.5) mg/dL AST (5-37) U/L ALT (0-40) U/L Alkaline Phosphatase (39-117) U/L Troponin I High Sens (<3.5-35.0) ng/L B-Natriuretic Peptide (<100) pg/mL Total Protein (6.5-8.0) g/dL Albumin (3.5-5.0) g/dL Lipase (8-78) U/L Ethyl Alcohol mg/dL COVID-19 (FREDI) (Negative) COVID-19 Clin Com Independent Interpretation I performed an independent interpretation of an: EKG Interpretation: Atrial flutter with variable block, HR-89, no STEMI, but noted ST depressions in the lateral leads that are unable to be validated as baseline due to inability to access prior EKGs. Radiology Impression Radiologist Impression: My interpretation is in agreement with radiology's impression of the imaging study. External Record Review External record reviewed: Inpatient record, Outpatient record, Prior outpatient labs and Outside ED record Chronic Conditions Patient?s care impacted by: Hypertension and Other ESRD, atrial flutter Critical Care Time Critical Care Time Critical Care Time: Yes Total Critical Care Time: 60 Attestation: I personally attest to this time spent taking care of the patient. Discharge Plan Discharge Clinical Impression: Abdominal pain, CHF exacerbation Patient Disposition: Admitted As Inpatient Prescriptions: No Action carvedilol 12.5 mg tablet 2 tab PO BID bumetanide 2 mg tablet 2 tab PO BID nifedipine 90 mg tablet extended release 1 tab PO DAILY amiodarone 200 mg tablet 1 tab PO DAILY isosorbide mononitrate 30 mg tablet extended release 24 hr 3 tab PO QAM spironolactone 25 mg tablet 1 tab PO DAILY diphenhydramine HCl [Banophen] 25 mg capsule 1 cap PO TID PRN (Reason: itch) gabapentin 300 mg capsule 1 cap PO TID budesonide-formoterol [Symbicort] 80-4.5 mcg/actuation HFA aerosol inhaler 2 puff inhalation BID Eliquis 5 mg tablet 1 tab PO BID
[2022-04-07 22:44] VITALS: BP 164/123; PULSE 95; RESP 17; O2SAT 95
[2022-04-07 22:44] LABS: COVID-19 Test Negative (Negative); IDNOW Serial# 9DB6401D
[2022-04-07 22:45] LABS: B Type Natriuretic Peptide 4120 pg/mL (<100)
--- NOTE | 2022-04-07 22:45 | MHC.EDTECH ---
[facility] called at [phone] for records per ,awaiting fax at this time.
[2022-04-07 22:46] LABS: Troponin-I High Sensitivity 140.9 ng/L (<3.5-35.0)
[2022-04-07 22:48] LABS: Alanine Aminotransferase 22 U/L (0-40); Alkaline Phosphatase 164 U/L (39-117); Anion Gap 18 (12-20); Aspartate Amino Transferase 43 U/L (5-37); Bilirubin Direct < 0.2 mg/dL (0.0-0.5); Bilirubin Total 0.7 mg/dL (0.0-1.0); Blood Urea Nitrogen 33 mg/dL (9-16); Calcium 9.5 mg/dL (8.4-10.2); Carbon Dioxide 25 mmol/L (22-29); Chloride 100 mmol/L (96-108); Creatinine Clr Calc Pharmacy 15.4; Estimated Glomerular Filt Rate 7; Ethanol < 10 mg/dL; Glucose Random 115 mg/dL (60-115); Lipase 60 U/L (8-78); Potassium 4.8 mmol/L (3.3-5.1); Sodium 138 mmol/L (135-145); Total Protein 7.3 g/dL (6.5-8.0)
[2022-04-07 22:50] VITALS: RESP 16
[2022-04-07] MEDS: fentaNYL citrate/PF 100 MCG/2 ML VIAL 25 MCG IVPUSH (22:50)
[2022-04-07] MEDS: ondansetron HCL 4 MG/2 ML VIAL IVPUSH (22:51)
[2022-04-07 23:01] LABS: Lactic Acid 0.8 mmol/L (0.5-2.0)
[2022-04-07] MEDS: cefEPime HCl 2 GM in 0.9 % Sodium Chloride 50 ML IV (23:02)
[2022-04-07] MEDS: Bumetanide 1 MG/4 ML VIAL IVPUSH (23:03)
[2022-04-07 23:13] LABS: Magnesium 2.4 mg/dL (1.6-2.6)
[2022-04-07 23:29] VITALS: RESP 20
[2022-04-07] MEDS: HYDROmorphone HCl 0.5 MG/0.5 ML SYRINGE 0.25 MG IVPUSH (23:29)
[2022-04-07 23:32] VITALS: PULSE 98; RESP 20
--- NOTE | 2022-04-07 23:54 | MHC.EDTECH ---
lactic and blood cultures were drawn and a duplicate set ordered for both. RN aware.
[2022-04-08] VITALS (11 sets, daily range): BP systolic 144–178; BP diastolic 72–108; PULSE 91–99; RESP 13–22; TEMP 36.2–37; O2SAT 95–98; BMI 30.8
[2022-04-08] MEDS: amLODIPine Besylate 10 MG TABLET PO (00:03)
--- NOTE | 2022-04-08 00:07 | PC.NURSE ---
Nursing Assessment: Pt is hypertensive, afibrile, 95 % on room air. PT is connected to the monitor and it shows a-flutter HR 97, provider has been notified. Pt is standing up due to is in excruciating pain 9/10 while sitting. Pt's IV was inserted 20g, on his right hand due to pt has a Fistule on his left arm. This nurse posted a sign no BP or Blood drawn at his left arm. Pt's lung sound on his lower lobes were diminished and upper clear sound. PT bowel sound throughout bilaterally all quadrants hyperactive sound. Pt has diarrhea and vomiting for 4 days. Pt has a hernia on his umbilical. Pt has a gallbladder drainage and he reports that [place] [facility] [place] has pitting edema +2 bilaterally on his ankle. + skin turgor. Pt is a/o x4 and normal neuro assessment. This nurse did an EKG, IV, Labs were drawn and reported the finding to the MD. will continue to monitor.
--- NOTE | 2022-04-08 01:09 | PM.IMHP ---
History of Present Illness Date of Service: 04/08/22 Chief Complaint: abd pain This is a 46-year-old male past medical history of hypertension, diabetes, congestive heart failure, ESRD on dialysis Friday and Friday, status post cholecystostomy tube who comes into the hospital with complaints of severe right upper quadrant abdominal pain nausea and vomiting for the past 3 days. The pain is 10/10, constant, nonradiating, he ran out of his Dilaudid pain medication. Patient had a cholecystostomy placed at [facility] earlier in the month, he had an upsize of his cholecystostomy tube on 03/28, and VNA was set up for him at home. He has a follow-up arranged with Interventional Radiology at [facility], and he was given 6 weeks of antibiotics per Infectious Disease recommendation usually administers post dialysis. Patient to be on vancomycin administer after each dialysis session to be completed on 05/12/2022. Patient is also complaining of shortness of breath, orthopnea, PND, as well as lower extremity edema. Patient reports compliance with dialysis. Patient is on Bumex and reports taking it. He denies any urinary symptoms, no headache or change in vision, no weakness numbness or tingling. 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, Chest x-ray shows vascular congestion left lower lobe opacity cannot being excluded Review of Systems Review of Systems: Yes all other systems are reviewed and are negative [facility] Medical History Afib Diabetes End stage renal disease Hyperkalemia Hypertension Social History Household Members: None Housing: Apartment Do you presently have visiting nurse or other home services: Yes Alcohol intake: never Patient Tobacco Use Status: Current everyday Tobacco user Tobacco use type: Cigarette Cigarettes Per Day: 1 Smoked in Last 30 Days: Yes Use of substances other than those prescribed or required for medical reasons: No Substance Use Type: Crack/Cocaine and Marijuana Advance Directives: No Advance Directives Information Provided: Yes Nutrition Risks: Acute nausea or vomiting x1 week and Binging/Purging service: No Current occupational status: disabled Meds Allergies Allergy/AdvReac Type Severity Reaction Status Date / Time PHILLY Inhibitors Allergy Anaphylaxis Verified 08/13/21 12:19 shellfish derived Allergy Anaphylaxis Verified 08/13/21 12:19 Sulfa (Sulfonamide Allergy Anaphylaxis Verified 08/13/21 12:19 Antibiotics) Home Medications Medication Instructions Recorded Confirmed Last Taken Type amiodarone 200 mg tablet 1 tab PO DAILY 08/13/21 04/08/22 Unknown History apixaban 5 mg tablet (Eliquis) 1 tab PO BID 08/13/21 04/08/22 Unknown History budesonide-formoterol HFA 80 2 puff inhalation BID 08/13/21 04/08/22 Unknown History mcg-4.5 mcg/actuation aerosol inhaler (Symbicort) bumetanide 2 mg tablet 2 tab PO BID 08/13/21 04/08/22 Unknown History carvedilol 12.5 mg tablet 2 tab PO BID 08/13/21 04/08/22 Unknown History diphenhydramine HCl 25 mg capsule 1 cap PO TID PRN itch 08/13/21 04/08/22 Unknown History (Banophen) gabapentin 300 mg capsule 1 cap PO TID 08/13/21 04/08/22 Unknown History isosorbide mononitrate 30 mg 3 tab PO QAM 08/13/21 04/08/22 Unknown History tablet,extended release 24 hr nifedipine 90 mg tablet,extended 1 tab PO DAILY 08/13/21 04/08/22 Unknown History release spironolactone 25 mg tablet 1 tab PO DAILY 08/13/21 04/08/22 Unknown History Physical Exam Vital Signs and Narrative: Vital Signs: Last Vital Signs Temp 97.9 F 04/08/22 00:00 Pulse 96 04/08/22 00:00 Resp 22 H 04/08/22 00:00 BP 144/102 H 04/08/22 00:00 Pulse Ox 95 04/08/22 00:00 O2 Del Method 04/08/22 00:00 BMI result Body Mass Index 30.8 Const: Other: Patient sitting at the edge of the bed, appears ill, H2O over, General: cooperative and no acute distress Orientation/consciousness: patient oriented x3 Eyes: General: appearance normal, both eyes and all related structures Resp: Other: Crackles bilaterally Effort & Inspection: normal respiratory effort Auscultation: clear to auscultation bilaterally Cardio: Rate: regular rate Rhythm: regular rhythm GI: Palpation (GI): Soft to palpation Auscultation: normal bowel sounds Skin: General skin exam: no rashes or lesions noted Neuro: General: patient oriented x3 Cognition (Neuro): normal cognition Extrem: Other: 2+ lower extremity edema bilaterally General: Yes normal to inspection Results Labs 04/07/22 22:07 04/07/22 22:07 Labs: Laboratory Results - last 24 hr 04/07/22 04/07/22 04/07/22 22:07 22:07 22:07 MCV 88.9 MCH 27.8 MCHC 31.3 RDW 19.5 H Plt Count 162 MPV 10.6 Immature Gran % (Auto) 0.4 Neut % (Auto) 68.5 Lymph % (Auto) 17.5 L [place] % (Auto) 8.3 Eos % (Auto) 4.1 H Baso % (Auto) 1.2 Lymph # (Auto) 0.9 L [place] # (Auto) 0.4 Eos # (Auto) 0.2 Baso # (Auto) 0.1 Abs Immat Gran (auto) 0.02 Absolute Neuts (auto) 3.4 Absolute Nucleated RBC 0.000 Nucleated RBC % (auto) 0.0 PT INR Anion Gap 18 Estim Creat Clear Calc 15.4 Estimated GFR 7 Random Glucose 115 Lactic Acid Calcium 9.5 Magnesium 2.4 Total Bilirubin 0.7 Direct Bilirubin < 0.2 AST 43 H ALT 22 Alkaline Phosphatase 164 H Troponin I High Sens 140.9 H* B-Natriuretic Peptide Total Protein 7.3 Albumin 4.0 Lipase 60 Ethyl Alcohol < 10 COVID-19 (FREDI) COVID-19 Clin Com 04/07/22 04/07/22 04/07/22 22:07 22:10 22:10 MCV MCH MCHC RDW Plt Count MPV Immature Gran % (Auto) Neut % (Auto) Lymph % (Auto) [place] % (Auto) Eos % (Auto) Baso % (Auto) Lymph # (Auto) [place] # (Auto) Eos # (Auto) Baso # (Auto) Abs Immat Gran (auto) Absolute Neuts (auto) Absolute Nucleated RBC Nucleated RBC % (auto) PT 18.2 H INR 1.6 H Anion Gap Estim Creat Clear Calc Estimated GFR Random Glucose Lactic Acid Calcium Magnesium Total Bilirubin Direct Bilirubin AST ALT Alkaline Phosphatase Troponin I High Sens B-Natriuretic Peptide 4120 H Total Protein Albumin Lipase Ethyl Alcohol COVID-19 (FREDI) Negative COVID-19 Clin Com See Note 04/07/22 22:44 MCV MCH MCHC RDW Plt Count MPV Immature Gran % (Auto) Neut % (Auto) Lymph % (Auto) [place] % (Auto) Eos % (Auto) Baso % (Auto) Lymph # (Auto) [place] # (Auto) Eos # (Auto) Baso # (Auto) Abs Immat Gran (auto) Absolute Neuts (auto) Absolute Nucleated RBC Nucleated RBC % (auto) PT INR Anion Gap Estim Creat Clear Calc Estimated GFR Random Glucose Lactic Acid 0.8 Calcium Magnesium Total Bilirubin Direct Bilirubin AST ALT Alkaline Phosphatase Troponin I High Sens B-Natriuretic Peptide Total Protein Albumin Lipase Ethyl Alcohol COVID-19 (FREDI) COVID-19 Clin Com Imaging Radiologist's Impressions: Impressions Chest X-Ray 04/07/22 23:46 IMPRESSION: Central vascular congestion without overt edema. Subtle patchy left lower lobe opacity cannot be excluded. Enlarged cardiac silhouette. Abdomen/Pelvis CT 04/07/22 23:58 IMPRESSION: 1. Cholecystostomy tube in place with no evidence of leak or malfunction. 2. Enlarged fatty liver with associated splenomegaly. 3. Umbilical hernia containing only fat. 4. 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 Vascular consultation is recommended. 5. Other incidental findings as described above. Fleischner guidelines were followed. Assessment and Plan (1) Abdominal pain: Status: Acute (2) Acute cholecystitis: Status: Acute (3) CHF exacerbation: Status: Acute Plan This is a 46-year-old male past medical history of CHF unknown underlying cause, AFib, diabetes, hypertension with recent cholecystitis status post cholecystostomy tube comes to the hospital with complaints of severe abdominal pain as well as shortness of breath # abdominal pain - likely due to the cholecystostomy tube, patient ran out of his pain medication about 3 days ago - no evidence of blockage of the tube on abdominal CT or malfunction - will continue his schedule vancomycin with dialysis session, pain control # acute cholecystitis - status post cholecystostomy tube likely due to his high surgical risk - continue vancomycin with dialysis session # CHF exacerbation - has significantly elevated BNP - reports compliance with dialysis - will resume dialysis, switch Bumex to IV, - strict I&O, daily weight, low-sodium diet # left lobe infiltrate on CT - possibly pneumonia - will include Zosyn to cover - follow cultures # diabetes - diabetic diet - low-dose sliding scale insulin # hypertension - elevated - continue home antihypertensives # AFib - continue Eliquis, carvedilol DVT prophylaxis: Eliquis Given patient's extensive acute issues as above patient will require minimum 2 night inpatient hospital stay for further management and monitoring Time Spent With Patient Time: Total time managing care of this patient today ____ minutes. Quality Stroke Does the patient have a stroke diagnosis?: No VTE Prior VTE?: No VTE Risk Level:: Medical - moderate - high VTE Device Contraindication: Treatment Not Indicated VTE Drug Contraindication: N/A - Med Ordered
[2022-04-08] MEDS: Heparin Sodium,Porcine 5,000 UNIT/ML VIAL 5000 UNIT SUBCUT (01:43)
[2022-04-08] MEDS: Bumetanide 1 MG/4 ML VIAL IVPUSH ×3 (01:44→18:39)
[2022-04-08] MEDS: HYDROmorphone HCl 0.5 MG/0.5 ML SYRINGE IVPUSH ×6 (01:44→23:15)
[2022-04-08 01:47] LABS: Troponin-I High Sensitivity 120.1 ng/L (<3.5-35.0)
--- NOTE | 2022-04-08 02:16 | PC.NURSE ---
Pt' s re-assessment for pain and reports he still in pain 11/19, meds were given. This nurse placed 2L NC due to pt O2 was dropping to 89%. Med rec were completed. Will continue to monitor.
--- NOTE | 2022-04-08 02:40 | PC.NURSE ---
Pt went to the Ct Scan, pt was ambulating with steady gait. Pt did not appear to be in excruciating pain.
[2022-04-08] MEDS: Acetaminophen 325 MG TABLET 650 MG PO ×2 (04:23→13:22)
[2022-04-08] MEDS: ondansetron HCL 4 MG/2 ML VIAL IVPUSH (05:54)
[2022-04-08 06:00] LABS: MANUAL DIFF FLAG NO
[2022-04-08 06:25] LABS: Alanine Aminotransferase 20 U/L (0-40); Albumin Level 4.1 g/dL (3.5-5.0); Alkaline Phosphatase 157 U/L (39-117); Anion Gap 20 (12-20); Aspartate Amino Transferase 24 U/L (5-37); Bilirubin Total 0.8 mg/dL (0.0-1.0); Blood Urea Nitrogen 37 mg/dL (9-16); Calcium 9.7 mg/dL (8.4-10.2); Carbon Dioxide 26 mmol/L (22-29); Chloride 97 mmol/L (96-108); Estimated Glomerular Filt Rate 7; Glucose Random 92 mg/dL (60-115); Sodium 139 mmol/L (135-145); Total Protein 7.1 g/dL (6.5-8.0)
[2022-04-08 06:28] LABS: Basophils Absolute Auto 0.1 X10*3/uL (0.0-0.2); Basophils Percent Auto 1.3 % (0-2); Eosinophils Absolute Auto 0.3 X10*3/uL (0.0-0.4); Eosinophils Percent Auto 5.3 % (0-4); Hematocrit 35.5 % (42.0-52.0); Hemoglobin 10.9 g/dl (14.0-18.0); Imm Gran Abs Auto 0.01 X10*3/uL (0.00-0.03); Imm Gran Pct Auto 0.2 % (0.0-0.4); Lymphocytes Absolute Auto 1.1 X10*3/uL (1.2-4.9); Lymphocytes Percent Auto 20.7 % (20-40); Mean Corpuscular HGB Conc 30.7 g/dl (31.0-36.0); Mean Corpuscular Hemoglobin 26.7 pg (27.0-33.0); Mean Platelet Volume 10.6 fL (9.4-12.4); Monocytes Absolute Auto 0.4 X10*3/uL (0.1-1.2); Monocytes Percent Auto 7.7 % (2-11); Neutrophils Absolute Auto 3.4 x10*3/uL (2.0-8.3); Neutrophils Percent Auto 64.8 % (45-73); Platelet Count 155 X10*3/uL (160-400); Red Blood Count 4.08 X10*6/uL (4.60-5.80); Red Cell Distribution Width 19.6 % (11.0-16.0); White Blood Count 5.3 X10*3/uL (4.8-10.8)
--- NOTE | 2022-04-08 06:44 | PHA.PROG ---
Admission Date/Time: April 08, 2022 01:05 Indication: acute cholecystitis Weight in k.862 kg Adjusted body weight in K.685 KG [place] body weight in K.2 Obesity Dosing Indication % IBW: 132% Serum Creatinine - Last 168 Hours 04/07/22 04/08/22 22:07 05:55 Creatinine 7.92 H* 8.71 H* Estimated CrCl and GFR - Last 168 Hours 04/07/22 04/08/22 22:07 05:55 Estim Creat Clear Calc 15.4 14.0 Estimated GFR 7 7 Vancomycin Loading Dose: 1500 mg Current Vancomycin Dosing Regimen: dose by post diaylsis level Date and Time for next Vancomycin Level to be drawn: post next dialysis session Pharmacist Comments on Vancomycin Plan: Patient receives dialysis [facility] at home. Next dialysis time is not yet schedule. Will follow inpatient dialysis to schedule next level and dose Patient will received vanco 1500 mg loading dose now. Kristan Hernandez PharmD Vancomycin dosing will take advantage of [employer] as a clinical decision support tool that uses Bayesian modeling to calculate individual patient's pharmacokinetic parameters and forecast the patient's drug concentration time course with the target goal AUC 24 range of 400 - 600 mg/L/hr.
[2022-04-08] MEDS: Piperacillin Sodium/Tazobactam 3.375 GM in 0.9 % Sodium Chloride 50 ML IV ×3 (06:45→19:35)
--- NOTE | 2022-04-08 06:49 | PC.NURSE ---
Pt is hypertensive, a flutter on the monitor. Pt abx are running as order. Food has been given and clear diet only.
[2022-04-08] MEDS: vancomycin HCL 1,500 MG in 0.9 % Sodium Chloride 500 ML 333.33 MG IV (07:21)
[2022-04-08] MEDS: carvediloL 12.5 MG TABLET 25 MG PO ×2 (09:15→20:26)
[2022-04-08] MEDS: Amiodarone HCL 200 MG TABLET PO (09:16)
[2022-04-08] MEDS: Gabapentin 300 MG CAPSULE PO ×2 (09:16→20:26)
[2022-04-08] MEDS: Apixaban 5 MG TABLET PO (09:16)
[2022-04-08] MEDS: Spironolactone 25 MG TABLET PO (09:45)
--- NOTE | 2022-04-08 10:17 | MHC.CM.PN ---
Attempted to meet with patient in regards to discharge planning. Patient is currently sleeping. No family present. Will attempt to meet again. Continue to monitor for d/c needs.
[2022-04-08] MEDS: Digoxin 0.125 MG TABLET 0.0625 MG PO (10:46)
[2022-04-08] MEDS: Fluticasone/Vilanterol 100/25 BLST.W.DEV 1 PUFF INHALE (10:49)
[2022-04-08] MEDS: Sevelamer Carbonate Tablet 800 MG TABLET 2400 MG PO ×2 (10:50→20:26)
--- NOTE | 2022-04-08 11:18 | PM.EVENT ---
Event Note Date of Service: 04/08/22 Event Note: I personally saw and examined the patient this morning and reviewed meds, he presented with abdominal pain that is old related to cholecystitis s/p cholecystotomy with tube in place and repoertedly ran out of pain meds, no evidence of acute issues, he gets Abx following dialysis, A/P today as outlined in H and P from this morning, vascular consult for commom fem aneurysm Time Spent With Patient Time: Total time managing care of this patient today ____ minutes.
[2022-04-08] MEDS: cloNIDine 0.3 MG PATCH.TDWK TRANSDERMA (11:19)
--- NOTE | 2022-04-08 11:39 | P.CONGS_ITS ---
History of Present Illness Consult details Consult date: 04/08/22 Narrative: very pleasant 46-year-old gentleman with a history of end-stage renal disease, diabetes and hypertension presents for evaluation of abdominal pain. Upon workup and CT scan he was found to have a right femoral pseudoaneurysm. He reports that a few months back he had a Mahurkar catheter placed in that right f emoral region. He has no prior history of cardiac catheterization from that site. It was noted on CT scan. He denies any pain or discomfort. He did recall that he did have a fair amount of bruising around that site in the past. He is being maintained on Eliquis. He now presents for vascular evaluation. Review of Systems Review of Systems: Yes all other systems are reviewed and are negative Constitutional: Constitutional: Reports no additional constitutional complaints ENT: Reports Normal hearing present Cardiovascular: Cardiovascular: Denies chest pain, Denies chest pain at rest, Denies chest pain with activity and Denies pedal edema Respiratory: Respiratory: Denies cough Gastrointestinal: Gastrointestinal: Denies abdominal pain Musculoskeletal: Musculoskeletal: Denies abnormal gait, Denies muscle cramps and Denies radiating pain into limb Integumentary/Breasts: Skin/Breast: Denies skin ulcer and Denies wounds Neurologic: Reports Normal hearing present and Denies abnormal gait Psychiatric: Psychiatric: Reports no additional psychiatric complaints PMFSH Past Medical History Medical History Afib Diabetes End stage renal disease Hyperkalemia Hypertension Social History Social History Household Members: None Housing: Apartment Do you presently have visiting nurse or other home services: Yes Alcohol intake: never Patient Tobacco Use Status: Current everyday Tobacco user Tobacco use type: Cigarette Cigarettes Per Day: 1 Smoked in Last 30 Days: Yes Use of substances other than those prescribed or required for medical reasons: No Substance Use Type: Crack/Cocaine and Marijuana Advance Directives: Yes Advance Directives on File: Yes Advance Directives Date on File: 04/08/22 Nutrition Risks: Acute nausea or vomiting x1 week and Binging/Purging service: No Current occupational status: disabled Meds Allergies Allergy/AdvReac Type Severity Reaction Status Date / Time PHILLY Inhibitors Allergy Anaphylaxis Verified 08/13/21 12:19 shellfish derived Allergy Anaphylaxis Verified 08/13/21 12:19 Sulfa (Sulfonamide Allergy Anaphylaxis Verified 08/13/21 12:19 Antibiotics) Active Medications: Current Medications Acetaminophen (Acetaminophen 325 Mg Tablet) 650 mg PO Q6H PRN PRN Reason: Pain, Mild (Pain Scale 1-3) Last Admin: 04/08/22 04:23 Dose: 650 mg Amiodarone HCl (Amiodarone Hcl 200 Mg Tablet) 200 mg PO DAILY [facility] Last Admin: 04/08/22 09:16 Dose: 200 mg Apixaban (Apixaban 5 Mg Tablet) 5 mg PO BID [facility] Last Admin: 04/08/22 09:16 Dose: 5 mg Bumetanide (Bumetanide 1 Mg/4 Ml Vial) 1 mg IVPUSH BID@0900,1700 [facility]; Protocol Last Admin: 04/08/22 09:17 Dose: 1 mg Bumetanide (Bumetanide 1 Mg Tablet) 4 mg PO BID [facility]; Protocol Last Admin: 04/08/22 10:45 Dose: Not Given Carvedilol (Carvedilol 12.5 Mg Tablet) 25 mg PO BID [facility]; Protocol Last Admin: 04/08/22 09:15 Dose: 25 mg Clonidine (Clonidine 0.3 Mg Patch.Tdwk) 0.3 mg TRANSDERMA MO [facility]; Protocol Last Admin: 04/08/22 11:19 Dose: 0.3 mg Digoxin (Digoxin 0.125 Mg Tablet) 0.0625 mg PO DAILY [facility] Last Admin: 04/08/22 10:46 Dose: 0.0625 mg Diphenhydramine HCl (Diphenhydramine Hcl 25 Mg Capsule) 25 mg PO TID PRN PRN Reason: itch Docusate Sodium (Docusate Sodium 100 Mg Capsule) 100 mg PO DAILY PRN PRN Reason: Constipation Fluticasone/Vilanterol (Fluticasone/Vilanterol 100/25 Blst.W.Dev) 1 puff INHALE RDAILY [facility] Last Admin: 04/08/22 10:49 Dose: 1 puff Gabapentin (Gabapentin 300 Mg Capsule) 300 mg PO TID [facility] Last Admin: 04/08/22 09:16 Dose: 300 mg Hydromorphone HCl (Hydromorphone Hcl 0.5 Mg/0.5 Ml Syringe) 0.5 mg IVPUSH Q4H PRN; Protocol PRN Reason: Pain, Severe (Pain Scale 7-10) Last Admin: 04/08/22 09:45 Dose: 0.5 mg Piperacillin Sod/Tazobactam (Sod 3.375 gm/ Sodium Chloride) 50 mls @ 100 mls/hr IV Q6H [facility] Last Infusion: 04/08/22 07:20 Dose: Infused Vancomycin HCl 500 mg/ Sodium (Chloride) 110 mls @ 110 mls/hr IV MoWeFrSa@1800 ONE Stop: 04/08/22 18:59 Isosorbide Mononitrate (Isosorbide Mononitrate 30 Mg Tab.Er.24h) 90 mg PO DAILY [facility]; Protocol Ondansetron HCl (Ondansetron Hcl 4 Mg/2 Ml Vial) 4 mg IVPUSH Q8H PRN PRN Reason: Nausea and Vomiting Last Admin: 04/08/22 05:54 Dose: 4 mg Pharmacy Consult (Consult Rx Vancomycin Dosing) 1 each MISCELLANE DAILY PRN PRN Reason: Consult order Sevelamer Carbonate (Sevelamer Carbonate Tablet 800 Mg Tablet) 2,400 mg PO TID [facility] Last Admin: 04/08/22 10:50 Dose: 2,400 mg Sodium Chloride (0.9 % Sodium Chloride Flush 3 Ml Syringe) [facility] Admin: 04/08/22 07:27 Dose: Not Given Spironolactone (Spironolactone 25 Mg Tablet) 25 mg PO DAILY [facility]; Protocol Last Admin: 04/08/22 09:45 Dose: 25 mg Home Medications Medication Instructions Recorded Confirmed Last Taken Type amiodarone 200 mg tablet 1 tab PO DAILY 08/13/21 04/08/22 Unknown History apixaban 5 mg tablet (Eliquis) 1 tab PO BID 08/13/21 04/08/22 Unknown History budesonide-formoterol HFA 80 2 puff inhalation BID 08/13/21 04/08/22 Unknown Hi story mcg-4.5 mcg/actuation aerosol inhaler (Symbicort) bumetanide 2 mg tablet 2 tab PO BID 08/13/21 04/08/22 Unknown History carvedilol 12.5 mg tablet 2 tab PO BID 08/13/21 04/08/22 Unknown History diphenhydramine HCl 25 mg capsule 1 cap PO TID PRN itch 08/13/21 04/08/22 Unknown History (Banophen) gabapentin 300 mg capsule 1 cap PO TID 08/13/21 04/08/22 Unknown History isosorbide mononitrate 30 mg 3 tab PO QAM 08/13/21 04/08/22 Unknown History tablet,extended release 24 hr spironolactone 25 mg tablet 1 tab PO DAILY 08/13/21 04/08/22 Unknown History clonidine 0.3 mg/24 hr weekly 1 patch topical MO 04/08/22 04/08/22 Unknown History transdermal patch digoxin 125 mcg (0.125 mg) tablet 0.5 tab PO DAILY 04/08/22 04/08/22 Unknown History sevelamer carbonate 800 mg tablet 3 tab PO TID 04/08/22 04/08/22 Unknown History Physical Exam Vital Signs: Vital Signs: Last Vital Signs Temp 97.9 F 04/08/22 10:02 Pulse 92 04/08/22 10:02 Resp 19 04/08/22 10:02 BP 153/101 H 04/08/22 10:02 Pulse Ox 95 04/08/22 10:02 O2 Del Method 04/08/22 10:02 O2 Flow Rate 1.5 04/08/22 10:02 BMI result Body Mass Index 30.8 Const: General: cooperative, healthy appearing and comfortable Orientation/consciousness: oriented to person, oriented to place and oriented to time HEENT: Head: Yes normal to inspection Neck: Neck: Yes normal visual inspection Carotids: no bruits Chest: Chest palpation & inspection: normal inspection of the chest Resp: Effort & Inspection: normal respiratory effort and able to speak in c omplete sentences Auscultation: clear to auscultation bilaterally, no aircraft armorer ckles, no rales, no rhonchi and no wheezes Cardio: Other: Prominent right femoral pulse Rate: regular rate Rhythm: regular rhythm Heart sounds: S1 normal heart sound present and S2 normal heart sound present Bruits: no carotid bruits Peripheral pulses: Peripheral pulses 2+ throughout GI: Inspection: Yes normal to inspection Skin: Wounds: no wounds Hair: normal Neuro: General: oriented to person, oriented to place and oriented to time Cranial nerves: Yes CN's II-XII intact bilaterally and Yes Normal hearing present Cognition (Neuro): normal cognition Motor exam (neuro): 5/5 motor strength present throughout Extrem: Other: venous exam: No significant superficial varicosities or spider telangiectasias, minimal edema General: No clubbing, No cyanosis and No edema Psych: Appearance: grossly normal Mental Status: mental status grossly normal Speech and movement: Normal speech and movement present Results Labs 04/08/22 05:55 04/08/22 05:55 Labs: Abnormal lab results 04/07/22 04/07/22 04/07/22 Range/Units 22:07 22:07 22:07 RBC 3.96 L D (4.60-5.80) X10*6/uL Hgb 11.0 L D (14.0-18.0) g/dl Hct 35.2 L D (42.0-52.0) % MCH (27.0-33.0) pg MCHC (31.0-36.0) g/dl RDW 19.5 H (11.0-16.0) % Plt Count (160-400) X10*3/uL Lymph % (Auto) 17.5 L (20-40) % Eos % (Auto) 4.1 H (0-4) % Lymph # (Auto) 0.9 L (1.2-4.9) X10*3/uL PT (10.0-13.1) SEC INR (0.9-1.1) BUN 33 H (9-16) mg/dL Creatinine 7.92 H* (0.5-1.4) mg/dL AST 43 H (5-37) U/L Alkaline Phosphatase 164 H (39-117) U/L Troponin I High Sens 140.9 H* (<3.5-35.0) ng/L B-Natriuretic Peptide (<100) pg/mL 04/07/22 04/07/22 04/08/22 Range/Units 22:10 22:10 01:09 RBC (4.60-5.80) X10*6/uL Hgb (14.0-18.0) g/dl Hct (42.0-52.0) % MCH (27.0-33.0) pg MCHC (31.0-36.0) g/dl RDW (11.0-16.0) % Plt Count (160-400) X10*3/uL Lymph % (Auto) (20-40) % Eos % (Auto) (0-4) % Lymph # (Auto) (1.2-4.9) X10*3/uL PT 18.2 H (10.0-13.1) SEC INR 1.6 H (0.9-1.1) BUN (9-16) mg/dL Creatinine (0.5-1.4) mg/dL AST (5-37) U/L Alkaline Phosphatase (39-117) U/L Troponin I High Sens 120.1 H* (<3.5-35.0) ng/L B-Natriuretic Peptide 4120 H (<100) pg/mL 04/08/22 04/08/22 Range/Units 05:55 05:55 RBC 4.08 L (4.60-5.80) X10*6/uL Hgb 10.9 L (14.0-18.0) g/dl Hct 35.5 L (42.0-52.0) % MCH 26.7 L (27.0-33.0) pg MCHC 30.7 L (31.0-36.0) g/dl RDW 19.6 H (11.0-16.0) % Plt Count 155 L (160-400) X10*3/uL Lymph % (Auto) (20-40) % Eos % (Auto) 5.3 H (0-4) % Lymph # (Auto) 1.1 L (1.2-4.9) X10*3/uL PT (10.0-13.1) SEC INR (0.9-1.1) BUN 37 H (9-16) mg/dL Creatinine 8.71 H* (0.5-1.4) mg/dL AST (5-37) U/L Alkaline Phosphatase 157 H (39-117) U/L Troponin I High Sens (<3.5-35.0) ng/L B-Natriuretic Peptide (<100) pg/mL Short CBC 04/07/22 04/08/22 Range/Units 22:07 05:55 WBC 4.9 5.3 (4.8-10.8) X10*3/uL Hgb 11.0 L D 10.9 L (14.0-18.0) g/dl Hct 35.2 L D 35.5 L (42.0-52.0) % Plt Count 162 155 L (160-400) X10*3/uL BMP 04/07/22 04/08/22 22:07 05:55 Sodium 138 139 Potassium 4.8 4.0 Chloride 100 97 Carbon Dioxide 25 26 BUN 33 H 37 H Creatinine 7.92 H* 8.71 H* Calcium 9.5 9.7 Liver Function 04/07/22 04/08/22 Range/Units 22:07 05:55 Total Bilirubin 0.7 0.8 (0.0-1.0) mg/dL Direct Bilirubin < 0.2 (0.0-0.5) mg/dL AST 43 H 24 (5-37) U/L ALT 22 20 (0-40) U/L Alkaline Phosphatase 164 H 157 H (39-117) U/L Albumin 4.0 4.1 (3.5-5.0) g/dL All other labs normal. Assessment and Plan (1) Femoral artery pseudo-aneurysm, right: Status: Acute Plan in short patient has a right femoral pseudoaneurysm. It measures approximately 4.2 cm. Appears to be stable at the current time. I will obtain ultrasound imaging. The size of this does warrant repair. We will have to also obtain cardiac risk stratification prior to this. Will order this. Thank you for allowing us to assist in care. We will monitor closely with you. Time Spent With Patient Time: Total time managing care of this patient today ____ minutes. Procedures Date of Service Date of Service: 04/08/22
--- NOTE | 2022-04-08 13:02 | PC.NURSE ---
dr. curtis at bedside, pt aware of plan of care.
[2022-04-08] MEDS: diphenhydrAMINE HCL 25 MG CAPSULE PO (13:59)
--- NOTE | 2022-04-08 14:03 | PC.NURSE ---
pt placed on a telepack and transported to dialysis.
--- NOTE | 2022-04-08 14:18 | PC.NURSE ---
PT TO DIALYSIS
[2022-04-08] MEDS: 0.9 % Sodium Chloride Flush 3 ML SYRINGE IVFLUSH (18:42)
[2022-04-08 20:21] LABS: Glucose, Whole Blood 150 mg/dL (60-115)
[2022-04-08] MEDS: HYDROmorphone HCl 1 MG/ML SYRINGE IVPUSH (21:01)
[2022-04-08 21:34] LABS: Vancomycin Random 29.4 mcg/mL (15-20)
[2022-04-09] VITALS (9 sets, daily range): BP systolic 136–168; BP diastolic 72–97; PULSE 54–108; RESP 16–20; TEMP 36.6–37.1; O2SAT 93–98
[2022-04-09] MEDS: 0.9 % Sodium Chloride Flush 3 ML SYRINGE IVFLUSH ×3 (02:22→14:14)
[2022-04-09] MEDS: Piperacillin Sodium/Tazobactam 3.375 GM in 0.9 % Sodium Chloride 50 ML IV ×4 (02:22→18:14)
[2022-04-09] MEDS: HYDROmorphone HCl 0.5 MG/0.5 ML SYRINGE IVPUSH ×4 (04:44→21:48)
--- NOTE | 2022-04-09 05:35 | CONS_ITS ---
DATE OF SERVICE: REASON FOR CONSULTATION: Asked to see patient to assist in evaluation and management of patient's dialysis needs. HISTORY OF PRESENT ILLNESS: In summary, the patient is a 46-year-old ESRD patient, well known to me, gets dialysis at dialysis center and presented to the hospital with abdominal pain. He normally gets dialysis Friday, Friday, Friday via dialysis unit, occasional extra ultrafiltration . He has had multiple and multiple hospitalizations at [facility] with episodes of fluid overload as well as an episode of acute cholecystitis and had a cholecystostomy tube placed. The patient now presents to [place] [facility] complaining of abdominal pain, nausea, and vomiting. He has been getting IV vancomycin for an episode of I believe line sepsis. He currently has an AV fistula that is working. 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 He is being seen by Vascular to see if it needs to be surgically repaired. The patient has a history of fluid noncompliance with excessive weight gains at times. PAST MEDICAL HISTORY: Known for ESRD, diabetes, hyperlipidemia, hyperkalemia, hypertension, atrial fibrillation, the cholecystostomy tube in place and now pseudoaneurysm. He did have previous temporary dialysis catheters placed in the past. I believe [facility] Vascular Team knew he had a pseudoaneurysm records in details. Unclear what size of the pseudoaneurysm in the past and why he was not surgically treated by IR previously. MEDICATIONS: On admission noted in the admitting notes. Current medications in the APR. ALLERGIES: HE HAS MULTIPLE MEDICATION ALLERGIES LISTED. PHYSICAL EXAMINATION: VITAL SIGNS: Blood pressure 140/90 with a heart rate in the 90s, afebrile. HEENT: Head is atraumatic and normocephalic. NECK: Supple. Mucous membranes moist. LUNGS: Breath sounds bilaterally diminished at the bases. CARDIAC: Regular rate and rhythm. ABDOMEN: Tender diffusely. No rebound tenderness. EXTREMITIES: With trace edema. LABORATORY DATA: Hemoglobin 10.9, hematocrit 35.5, white blood cell count 5.3. Sodium 139, potassium 4, chloride 97, bicarb 26. IMPRESSION: THIS IS A 46-YEAR-OLD NONCOMPLIANT END-STAGE RENAL DISEASE PATIENT ADMITTED WITH ABDOMINAL PAIN, NOTED TO HAVE A PSEUDOANEURYSM IN THE FEMORAL ARTERY. 1. End-stage renal disease with dialysis today, keep him on Friday, Friday, Friday schedule. 2. Abdominal pain. This could be further evaluated and controlled with pain medications. 3. Pseudoaneurysm. He is being evaluated by Vascular, see about surgical intervention. 4. History of fluid overload and noncompliance. Actually, his fluid status looks pretty good today. RECOMMENDATION: At this time include dialysis today, keep him on Friday, Friday, Friday schedule. Vascular evaluation for severe aneurysm. Continued treatment and evaluation of his ongoing abdominal pain. We will follow the patient with the team. MD KIRK Mobley/THIAGO / [id number]
--- NOTE | 2022-04-09 05:40 | MHC.PIE ---
P.PAIN I.PT COMPLAIN OF RIGHT QUAD PAIN AFTER RECEIVING PRN IV DILAUDID 0.5MG.STATES IT'S NOT ENOUGH PAIN MED.DR AMIN NOTIFIED.ORDER FOR DILAUDID 1MG IV X 1 GIVEN.PT UPDATED AND MED GIVEN. E.PT STATES EXTRA PAIN MED WAS EFFECTIVE,WILL CONT TO MONITOR.
[2022-04-09] MEDS: HYDROmorphone HCl 1 MG/ML SYRINGE IVPUSH (06:10)
[2022-04-09 07:23] LABS: Glucose, Whole Blood 115 mg/dL (60-115)
[2022-04-09] MEDS: Fluticasone/Vilanterol 100/25 BLST.W.DEV 1 PUFF INHALE (07:57)
[2022-04-09] MEDS: Bumetanide 1 MG/4 ML VIAL IVPUSH ×2 (08:55→16:33)
[2022-04-09] MEDS: Isosorbide Mononitrate 30 MG TAB.ER.24H 90 MG PO (08:55)
[2022-04-09] MEDS: Gabapentin 300 MG CAPSULE PO ×3 (08:56→21:42)
[2022-04-09] MEDS: carvediloL 12.5 MG TABLET 25 MG PO ×2 (08:56→21:42)
[2022-04-09] MEDS: Sevelamer Carbonate Tablet 800 MG TABLET 2400 MG PO ×3 (08:56→21:42)
[2022-04-09] MEDS: Digoxin 0.125 MG TABLET 0.0625 MG PO (08:56)
[2022-04-09] MEDS: Spironolactone 25 MG TABLET PO (08:56)
[2022-04-09] MEDS: Amiodarone HCL 200 MG TABLET PO (08:56)
[2022-04-09 11:03] LABS: Glucose, Whole Blood 96 mg/dL (60-115)
--- NOTE | 2022-04-09 11:04 | PM.CNCAR ---
History of Present Illness History of Present Illness Date of Service: 04/09/22 Requesting physician: [facility] Consult reason: other (Elevated BNP) Chief complaint: CHF, intractable pain Narrative: I was consulted to see Derek in cardiology consultation today for possible congestive heart failure. Was admitted to the hospital with significant right upper quadrant discomfort with recent hospitalization at [facility] for acute cholecystitis for which she underwent percutaneous cholecystostomy. He ran out of his Dilaudid as per the chart and came in with intractable pain and right upper quadrant. He had no cardiac symptoms. He was dialyzed yesterday. Was noted to have significantly elevated BNP in the 4000 range and was given IV diuretics. He denies any clear orthopnea, abdominal distention, leg edema. Denies any shortness of breath. He said he had in the last year and half admission to the hospital with pulmonary edema at [facility]. Echocardiogram done on March 26 had shown normal LV systolic function with severe LVH with echodensity on the posterior mitral leaflet with eccentric mitral regurgitation consistent with perforated leaflet. Patient said he had infection in his blood stream related to dialysis catheter in the last few months. Currently has no signs or symptoms of infection. He has been admitted for abdominal pain. He was also incidentally noted to have large pseudoaneurysm of the right femoral artery. He denies any chest pain. His blood pressure this morning is control but generally elevated. He has end-stage renal disease related to diabetes and hypertension and has family history of end-stage renal disease. He is on dialysis, Friday and Friday. Review of Systems Constitutional: Constitutional: Reports no additional constitutional complaints Cardiovascular: Cardiovascular: Reports no additional cardiovascular complaints Respiratory: Respiratory: Reports no additional respiratory complaints Gastrointestinal: Gastrointestinal: Reports abdominal pain Musculoskeletal: Musculoskeletal: Reports no additional musculoskeletal complaints Neurologic: Reports system reviewed and no additional complaints, except as documented Psychiatric: Psychiatric: Reports no additional psychiatric complaints Endocrine: Endocrine: Reports no additional endocrine complaints [facility] Past Medical History Medical History Afib Diabetes End stage renal disease Hyperkalemia Hypertension Social History Social History Household Members: None Housing: Other Housing Other:: motel Do you presently have visiting nurse or other home services: No Alcohol intake: never Patient Tobacco Use Status: Current someday Tobacco user Tobacco use type: Cigarette Cigarettes Per Day: 2 e-Cigarette/Vaping Use: Never Used Second Hand Smoke Exposure: No Substance Use Type: Crack/Cocaine and Marijuana Advance Directives Date on File: 04/08/22 service: No Current occupational status: disabled Meds Allergies Allergy/AdvReac Type Severity Reaction Status Date / Time PHILLY Inhibitors Allergy Anaphylaxis Verified 08/13/21 12:19 shellfish derived Allergy Anaphylaxis Verified 08/13/21 12:19 Sulfa (Sulfonamide Allergy Anaphylaxis Verified 08/13/21 12:19 Antibiotics) Active Medications: Current Medications Acetaminophen (Acetaminophen 325 Mg Tablet) 650 mg PO Q6H PRN PRN Reason: Pain, Mild (Pain Scale 1-3) Last Admin: 04/08/22 13:22 Dose: 650 mg Amiodarone HCl (Amiodarone Hcl 200 Mg Tablet) 200 mg PO DAILY [facility] Last Admin: 04/09/22 08:56 Dose: 200 mg Bumetanide (Bumetanide 1 Mg/4 Ml Vial) 1 mg IVPUSH BID@0900,1700 [facility]; Protocol Last Admin: 04/09/22 08:55 Dose: 1 mg Bumetanide (Bumetanide 1 Mg Tablet) 4 mg PO BID [facility]; Protocol Last Admin: 04/08/22 10:45 Dose: Not Given Carvedilol (Carvedilol 12.5 Mg Tablet) 25 mg PO BID [facility]; Protocol Last Admin: 04/09/22 08:56 Dose: 25 mg Clonidine (Clonidine 0.3 Mg Patch.Tdwk) 0.3 mg TRANSDERMA MO [facility]; Protocol Last Admin: 04/08/22 11:19 Dose: 0.3 mg Digoxin (Digoxin 0.125 Mg Tablet) 0.0625 mg PO DAILY [facility] Last Admin: 04/09/22 08:56 Dose: 0.0625 mg Diphenhydramine HCl (Diphenhydramine Hcl 25 Mg Capsule) 25 mg PO TID PRN PRN Reason: itch Last Admin: 04/08/22 13:59 Dose: 25 mg Docusate Sodium (Docusate Sodium 100 Mg Capsule) 100 mg PO DAILY PRN PRN Reason: Constipation Fluticasone/Vilanterol (Fluticasone/Vilanterol 100/25 Blst.W.Dev) 1 puff INHALE RDAILY [facility] Last Admin: 04/09/22 07:57 Dose: 1 puff Gabapentin (Gabapentin 300 Mg Capsule) 300 mg PO TID [facility] Last Admin: 04/09/22 08:56 Dose: 300 mg Hydromorphone HCl (Hydromorphone Hcl 0.5 Mg/0.5 Ml Syringe) 0.5 mg IVPUSH Q4H PRN; Protocol PRN Reason: Pain, Severe (Pain Scale 7-10) Last Admin: 04/09/22 04:44 Dose: 0.5 mg Piperacillin Sod/Tazobactam (Sod 3.375 gm/ Sodium Chloride) 50 mls @ 100 mls/hr IV Q6H [facility] Last Infusion: 04/09/22 07:27 Dose: Infused Vancomycin HCl 500 mg/ Sodium (Chloride) 110 mls @ 110 mls/hr IV MoWeFrSa@1800 ONE Stop: 04/08/22 18:59 Isosorbide Mononitrate (Isosorbide Mononitrate 30 Mg Tab.Er.24h) 90 mg PO DAILY [facility]; Protocol Last Admin: 04/09/22 08:55 Dose: 90 mg Ondansetron HCl (Ondansetron Hcl 4 Mg/2 Ml Vial) 4 mg IVPUSH Q8H PRN PRN Reason: Nausea and Vomiting Last Admin: 04/08/22 05:54 Dose: 4 mg Pharmacy Consult (Consult Rx Vancomycin Dosing) 1 each MISCELLANE DAILY PRN PRN Reason: Consult order Sevelamer Carbonate (Sevelamer Carbonate Tablet 800 Mg Tablet) 2,400 mg PO TID [facility] Last Admin: 04/09/22 08:56 Dose: 2,400 mg Sodium Chloride (0.9 % Sodium Chloride Flush 3 Ml Syringe) [facility] Last Admin: 04/09/22 09:00 Dose: 3 ml Spironolactone (Spironolactone 25 Mg Tablet) 25 mg PO DAILY [facility]; Protocol Last Admin: 04/09/22 08:56 Dose: 25 mg Home Medications Medication Instructions Recorded Confirmed Last Taken Type amiodarone 200 mg tablet 1 tab PO DAILY 08/13/21 04/08/22 Unknown History apixaban 5 mg tablet (Eliquis) 1 tab PO BID 08/13/21 04/08/22 Unknown History budesonide-formoterol HFA 80 2 puff inhalation BID 08/13/21 04/08/22 Unknown History mcg-4.5 mcg/actuation aerosol inhaler (Symbicort) bumetanide 2 mg tablet 2 tab PO BID 08/13/21 04/08/22 Unknown History carvedilol 12.5 mg tablet 2 tab PO BID 08/13/21 04/08/22 Unknown History diphenhydramine HCl 25 mg capsule 1 cap PO TID PRN itch 08/13/21 04/08/22 Unknown History (Banophen) gabapentin 300 mg capsule 1 cap PO TID 08/13/21 04/08/22 Unknown History isosorbide mononitrate 30 mg 3 tab PO QAM 08/13/21 04/08/22 Unknown History tablet,extended release 24 hr spironolactone 25 mg tablet 1 tab PO DAILY 08/13/21 04/08/22 Unknown History clonidine 0.3 mg/24 hr weekly 1 patch topical MO 04/08/22 04/08/22 Unknown History transdermal patch digoxin 125 mcg (0.125 mg) tablet 0.5 tab PO DAILY 04/08/22 04/08/22 Unknown History sevelamer carbonate 800 mg tablet 3 tab PO TID 04/08/22 04/08/22 Unknown History Physical Exam Vital Signs: Vital Signs: Last Vital Signs Temp 98.2 F 04/09/22 10:46 Pulse 108 H 04/09/22 10:46 Resp 20 04/09/22 10:46 BP 136/79 04/09/22 10:46 Pulse Ox 97 04/09/22 10:46 O2 Del Method 04/09/22 10:46 O2 Flow Rate 2 04/09/22 04:00 BMI result Body Mass Index 30.8 Const: General: cooperative, comfortable, no acute distress, alert and awake Nutritional Appearance: overweight Orientation/consciousness: patient oriented x3 Limitations: no limitations HEENT: Head: Yes normocephalic and Yes atraumatic Neck: Neck: Yes trachea midline, Yes supple and Yes no JVD Resp: Effort & Inspection: normal respiratory effort Auscultation: clear to auscultation bilaterally Cardio: Jugular venous distension: no JVD Rate: regular rate Rhythm: abnormal rhythm irregularly irregular Heart sounds: S1 normal heart sound present, S2 normal heart sound present, no click, no gallops and Murmur heart sound present systolic holo, harsh, at the apex and at the left sternal border GI: Auscultation: normal bowel sounds Skin: General skin exam: no rashes or lesions noted Neuro: General: patient oriented x3 and no focal motor deficits Extrem: General: Yes no clubbing, cyanosis or edema Objective Labs and Meds 04/08/22 05:55 04/08/22 05:55 Lab results: Laboratory Results - last 24 hr 04/08/22 04/08/22 04/09/22 20:18 20:36 07:15 POC Glucose 150 H 115 Random Vancomycin 29.4 H* 04/09/22 10:50 POC Glucose 96 Random Vancomycin Imaging Radiologist's impression: Impressions Duplex Scan Lower Extremity Artery 04/08/22 12:25 IMPRESSION: [place] pseudoaneurysm sac arising from the right common femoral artery as described above Assessment and Plan (1) Elevated brain natriuretic peptide (BNP) level: Status: Acute Patient with significant elevated BNP without any evidence of overt heart failure clinically at this point in time, most likely related to underlying structural heart disease severe LVH and significant left atrial enlargement, persistent atrial flutter and possible significant mitral regurgitation in the setting of reduced clearance due to end-stage renal disease. Her all think he requires IV diuretics. Will continue to maintain dry weight with hemodialysis sessions. He does appear to have significant mitral regurgitation by clinical exam possibly related to prior endocarditis and perforated leaflets. Would suggest an echocardiogram to assess for the same. He is on all cardiac medications including Aldactone therapy for heart failure. 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 Will continue to follow with them as well as Nephrology. Better control blood pressure is indicated. Will consider addition of hydralazine for better blood pressure control. (2) Atrial flutter: Status: Acute Persistent atrial flutter with rate control on triple therapy with carvedilol, amiodarone as well as digoxin. Not sure as to use of digoxin in him given and she renal disease as well as use of amiodarone with high likelihood of digoxin toxicity. Advised to follow-up with his landscaping and groundskeeping laborer. He should also be on oral anticoagulation therapy given his structural atrial fibrillation and high risk for thromboembolic complication. Will consider warfarin therapy with target INR between 2 and 3. He has significant left atrial enlargement by echocardiogram from [facility] are not sure of rhythm control would be possible. Advise as outpatient to follow-up with his own landscaping and groundskeeping laborer. (3) Hypertensive heart disease: Status: Acute Significant hypertensive heart disease by last echocardiogram from [facility]. Blood pressure is still appears to be not very well control. Will consider addition of hydralazine for blood pressure control. Discussed with the project about the same. Will review the echocardiogram if necessary will continue to follow with you. Time Spent With Patient Time: Total time managing care of this patient today ____ minutes. Procedures Date of Service Date of Service: 04/09/22
--- NOTE | 2022-04-09 11:28 | P.PNIM_ITS ---
Subjective Subjective Date of Service: 04/09/22 Interval History: f/u on some abdominal pain interval history still complaint of ain Physical Exam Vital Signs: Vital Signs: Last Vital Signs Temp 98.2 F 04/09/22 10:46 Pulse 108 H 04/09/22 10:46 Resp 16 04/09/22 11:07 BP 136/79 04/09/22 10:46 Pulse Ox 97 04/09/22 10:46 O2 Del Method 04/09/22 10:46 O2 Flow Rate 2 04/09/22 04:00 BMI result Body Mass Index 30.8 Objective Data Active Medications Acetaminophen (Acetaminophen 325 Mg Tablet) 650 mg PO Q6H PRN PRN Reason: Pain, Mild (Pain Scale 1-3) Last Admin: 04/08/22 13:22 Dose: 650 mg Documented By: MARYAM Amiodarone HCl (Amiodarone Hcl 200 Mg Tablet) 200 mg PO DAILY [facility] Last Admin: 04/09/22 08:56 Dose: 200 mg Documented By: SUJIT Bumetanide (Bumetanide 1 Mg/4 Ml Vial) 1 mg IVPUSH BID@0900,1700 [facility]; Protocol Last Admin: 04/09/22 08:55 Dose: 1 mg Documented By: SUJIT Bumetanide (Bumetanide 1 Mg Tablet) 4 mg PO BID [facility]; Protocol Last Admin: 04/08/22 10:45 Dose: Not Given Documented By: MARYAM Non-Admin Reason: Duplicate Order Carvedilol (Carvedilol 12.5 Mg Tablet) 25 mg PO BID [facility]; Protocol Last Admin: 04/09/22 08:56 Dose: 25 mg Documented By: SUJIT Clonidine (Clonidine 0.3 Mg Patch.Tdwk) 0.3 mg TRANSDERMA MO [facility]; Protocol Last Admin: 04/08/22 11:19 Dose: 0.3 mg Documented By: MARYAM Digoxin (Digoxin 0.125 Mg Tablet) 0.0625 mg PO DAILY [facility] Last Admin: 04/09/22 08:56 Dose: 0.0625 mg Documented By: SUJIT Diphenhydramine HCl (Diphenhydramine Hcl 25 Mg Capsule) 25 mg PO TID PRN PRN Reason: itch Last Admin: 04/08/22 13:59 Dose: 25 mg Documented By: MARYAM Docusate Sodium (Docusate Sodium 100 Mg Capsule) 100 mg PO DAILY PRN PRN Reason: Constipation Fluticasone/Vilanterol (Fluticasone/Vilanterol 100/25 Blst.W.Dev) 1 puff INHALE RDAILY [facility] Last Admin: 04/09/22 07:57 Dose: 1 puff Documented By: JOE Gabapentin (Gabapentin 300 Mg Capsule) 300 mg PO TID [facility] Last Admin: 04/09/22 08:56 Dose: 300 mg Documented By: SUJIT Hydromorphone HCl (Hydromorphone Hcl 0.5 Mg/0.5 Ml Syringe) 0.5 mg IVPUSH Q4H PRN; Protocol PRN Reason: Pain, Severe (Pain Scale 7-10) Last Admin: 04/09/22 11:07 Dose: 0.5 mg Documented By: SUJIT Piperacillin Sod/Tazobactam (Sod 3.375 gm/ Sodium Chloride) 50 mls @ 100 mls/hr IV Q6H [facility] Last Infusion: 04/09/22 07:27 Dose: 0 mls/hr Documented By: SHELL Vancomycin HCl 500 mg/ Sodium (Chloride) 110 mls @ 110 mls/hr IV MoWeFrSa@1800 ONE Stop: 04/08/22 18:59 Isosorbide Mononitrate (Isosorbide Mononitrate 30 Mg Tab.Er.24h) 90 mg PO DAILY [facility]; Protocol Last Admin: 04/09/22 08:55 Dose: 90 mg Documented By: SUJIT Ondansetron HCl (Ondansetron Hcl 4 Mg/2 Ml Vial) 4 mg IVPUSH Q8H PRN PRN Reason: Nausea and Vomiting Last Admin: 04/08/22 05:54 Dose: 4 mg Documented By: JOSEPH Pharmacy Consult (Consult Rx Vancomycin Dosing) 1 each MISCELLANE DAILY PRN PRN Reason: Consult order Sevelamer Carbonate (Sevelamer Carbonate Tablet 800 Mg Tablet) 2,400 mg PO TID [facility] Last Admin: 04/09/22 08:56 Dose: 2,400 mg Documented By: SUJIT Sodium Chloride (0.9 % Sodium Chloride Flush 3 Ml Syringe) 3 ml IVFLUSH QSHIFT [facility] Last Admin: 04/09/22 09:00 Dose: 3 ml Documented By: SUJIT Spironolactone (Spironolactone 25 Mg Tablet) 25 mg PO DAILY [facility]; Protocol Last Admin: 04/09/22 08:56 Dose: 25 mg Documented By: SUJIT Labs 04/08/22 05:55 04/08/22 05:55 Labs: Laboratory Results - last 24 hr 04/08/22 04/08/22 04/09/22 20:18 20:36 07:15 POC Glucose 150 H 115 Random Vancomycin 29.4 H* 04/09/22 10:50 POC Glucose 96 Random Vancomycin Microbiology Microbiology Results: Microbiology 04/07/22 22:44 Blood Culture - Preliminary Blood - Venous No growth after 24 hours. 04/07/22 22:44 Blood Culture - Preliminary Blood - Venous No growth after 24 hours. Assessment and Plan (1) Hypertensive heart disease: Status: Acute (2) Atrial flutter: Status: Acute Plan 46-year-old male past medical history of CHF unknown underlying cause, AFib, diabetes, hypertension with recent cholecystitis status post cholecystostomy tube comes to the hospital with complaints of severe abdominal pain as well as shortness of breath # abdominal pain - likely due to the cholecystostomy tube, patient ran out of his pain medication about 3 days ago - no evidence of blockage of the tube on abdominal CT or malfunction - will continue his schedule vancomycin with dialysis session, pain control # acute cholecystitis - status post cholecystostomy tube likely due to his high surgical risk - continue vancomycin with dialysis session # CHF exacerbation--no exacerbation # left lobe infiltrate on CT - possibly pneumonia - Zosyn to cover - follow cultures # diabetes - diabetic diet - low-dose sliding scale insulin # hypertension - elevated - continue home antihypertensives # AFib - continue Eliquis, carvedilol #?right femoral pseudoaneurysm--will need intervention, Dr. Monae will arrange it #chronic pain.. [employer] A[employer]LYST review show that patient get prescribed pain med rather frequent and raises concern of aberang drug seeking behavior ERSD--dialysis per neprho DVT prophylaxis: Eliquis Time Spent With Patient Time: Total time managing care of this patient today ____ minutes. Quality Stroke Does the patient have a stroke diagnosis?: No VTE Prior VTE?: No VTE Risk Level:: Medical - moderate - high VTE Device Contraindication: Treatment Not Indicated VTE Drug Contraindication: N/A - Med Ordered
--- NOTE | 2022-04-09 11:32 | PC.NURSE ---
Patient is refusing bed alarm. Red socks/ bracelet are in place. instructed pt to use call finch before getting out of bed. Patient agreed. Will continue to monitor
--- NOTE | 2022-04-09 12:11 | MHC.CM.PN ---
MALE 46 DX CHF INTRACTABLE PAIN. He lives alone. Independent with adls. He uses a cane. Vax x3. HCP on file. He states that his PCP is Marco Antonio Carreno. He believes that [facility] is the [facility] in place. A referral has been sent. Patient will need to take the [facility] shuttle home at discharge.
[2022-04-09] MEDS: ondansetron HCL 4 MG/2 ML VIAL IVPUSH (13:41)
--- NOTE | 2022-04-09 14:48 | HO.VASCPN ---
Subjective Subjective Date of Service: 04/09/22 Patient reports: still having pain Interval history: Complex 46-year-old gentleman presents for follow-up evaluation regarding right groin pseudoaneurysm. Apparently this is a known pseudoaneurysm. We have obtained CT imaging along with arterial ultrasound. Continues to report generalized pain more so on the right upper quadrant of the abdomen and right flank. He now presents for routine vascular follow-up. Physical Exam Vital Signs: Vital Signs: Last Vital Signs Temp 98.2 F 04/09/22 10:46 Pulse 108 H 04/09/22 10:46 Resp 16 04/09/22 11:07 BP 136/79 04/09/22 10:46 Pulse Ox 97 04/09/22 10:46 O2 Del Method 04/09/22 10:46 O2 Flow Rate 2 04/09/22 04:00 BMI result Body Mass Index 30.8 Const: General: cooperative, healthy appearing and comfortable Orientation/consciousness: oriented to person, oriented to place and oriented to time HEENT: Head: Yes normal to inspection Neck: Neck: Yes normal visual inspection Carotids: no bruits Chest: Chest palpation & inspection: normal inspection of the chest Resp: Effort & Inspection: normal respiratory effort and able to speak in complete sentences Auscultation: clear to auscultation bilaterally, no crackles, no rales, no rhonchi and no wheezes Cardio: Rate: regular rate Rhythm: regular rhythm Heart sounds: S1 normal heart sound present and S2 normal heart sound present Bruits: no carotid bruits Peripheral pulses: Peripheral pulses 2+ throughout GI: Inspection: Yes normal to inspection Skin: Wounds: no wounds Hair: normal Neuro: General: oriented to person, oriented to place and oriented to time Cranial nerves: Yes CN's II-XII intact bilaterally and Yes Normal hearing present Cognition (Neuro): normal cognition Motor exam (neuro): 5/5 motor strength present throughout Extrem: Other: venous exam: No significant superficial varicosities or spider telangiectasias, minimal edema General: No clubbing, No cyanosis and No edema Psych: Appearance: grossly normal Mental Status: mental status grossly normal Speech and movement: Normal speech and movement present Progress Note: A&P Assessment and plan (1) Femoral artery pseudo-aneurysm, right: Status: Acute Assessment and Plan: CT scan and ultrasound imaging was reviewed with the radiology team. It is a very calcified vessel with more of a 2.2 cm femoral pseudoaneurysm. It appears stable at the current time. We are waiting cardiac risk stratification and will discuss with the team in regards to repair. I have also reached out to [facility] vascular as he was apparently assessed at some point regarding this out there as well. We are awaiting reports from them as well. Thank you for allowing us to assist in his care. If there are any questions or concerns please do not hesitate to contact us. Time Spent With Patient Time: Total time managing care of this patient today ____ minutes. Procedures Date of Service Date of Service: 04/09/22 Quality Stroke Does the patient have a stroke diagnosis?: No VTE Prior VTE?: No VTE Risk Level:: Medical - moderate - high VTE Device Contraindication: Treatment Not Indicated VTE Drug Contraindication: N/A - Med Ordered
--- NOTE | 2022-04-09 15:19 | P.PNNP_ITS ---
Subjective Subjective Date of Service: 04/09/22 Interval history: Seen and examined, events noted C/O Abd pain and R groin thigh pulsating area outpt HD unit staes he was getting vanco 750 p HD unitl 05/12/22 d/t prior Staph line infection Physical Exam Vital Signs: Vital Signs: Last Vital Signs Temp 98.2 F 04/09/22 10:46 Pulse 108 H 04/09/22 10:46 Resp 16 04/09/22 11:07 BP 136/79 04/09/22 10:46 Pulse Ox 97 04/09/22 10:46 O2 Del Method 04/09/22 10:46 O2 Flow Rate 2 04/09/22 04:00 BMI result Body Mass Index 30.8 Const: General: cooperative, healthy appearing, comfortable, no acute di stress, alert and awake Nutritional Appearance: overweight Orientation/consciousness: oriented to person, oriented to place, oriented to time and patient oriented x3 Limitations: no limitations HEENT: Head: Yes normal to inspection, Yes normocephalic and Yes atraumatic Eyes: General: appearance normal, both eyes and all related structures Neck: Neck: Yes normal visual inspection, Yes trachea midline, Yes supple and Yes no JVD Carotids: no bruits Chest: Chest palpation & inspection: normal inspection of the chest Resp: Effort & Inspection: normal respiratory effort and able to speak in complete sentences Auscultation: clear to auscultation bilaterally, no crackles, no rales, no rhonchi and no wheezes Cardio: Jugular venous distension: no JVD Rate: regular rate Rhythm: regular rhythm and abnormal rhythm irregularly irregular Heart sounds: S1 normal heart sound present, S2 normal heart sound present, no click, no gallops and Murmur heart sound present systolic holo, harsh, at the apex and at the left sternal border Bruits: no carotid bruits Peripheral pulses: Peripheral pulses 2+ throughout GI: Inspection: Yes normal to inspection Palpation (GI): Soft to palpation Auscultation: normal bowel sounds Skin: General skin exam: no rashes or lesions noted Wounds: no wounds Hair: normal Neuro: General: oriented to person, oriented to place, oriented to time, patient oriented x3 and no focal motor deficits Cranial nerves: Yes CN's II- XII intact bilaterally and Yes Normal hearing present Cognition (Neuro): normal cognition Motor exam (neuro): 5/5 motor strength present throughout Extrem: Other: venous exam: No significant superficial varicosities or spider telangiectasias, minimal edema General: Yes normal to inspection, Yes no clubbi ng, cyanosis or edema, Yes no pedal edema, No clubbing, No cyanosis and No edema Psych: Appearance: grossly normal Mental Status: mental status grossly normal Speech and movement: Normal speech and movement present Objective Data Labs 04/08/22 05:55 04/08/22 05:55 Labs: Laboratory Results - last 24 hr 04/08/22 04/08/22 04/09/22 20:18 20:36 07:15 POC Glucose 150 H 115 Random Vancomycin 29.4 H* 04/09/22 10:50 POC Glucose 96 Random Vancomycin Microbiology Microbiology Results: Microbiology 04/07/22 22:44 Blood - Venous Blood Culture - Preliminary No growth after 24 hours. 04/07/22 22:44 Blood - Venous Blood Culture - Preliminary No growth after 24 hours. Procedures Date of Service Date of Service: 04/09/22 Assessment & Plan Assessment and plan (1) Femoral artery pseudo-aneurysm, right: Status: Acute Plan - ESRD : mwf - H/O staph line infection: cont vanco 750 p HD until 05/12 - R femoral pseudoanneuysm: vasc seeing and planning to fix -Card eval in progress REC: cont vanco as noted; vasc re Psuedo annerysm, Card eval in progress will follow with team Time Spent With Patient Time: Total time managing care of this patient today ____ minutes. Progress Note: Quality Stroke Does the patient have a stroke diagnosis?: No
--- NOTE | 2022-04-09 15:30 | P.CDIM_ITS ---
PROVIDER RESPONSE TEXT: To clarify, the appropriate diagnosis supported by the clinical indicators: Chronic or permanent atrial fibrillation QUERY TEXT: PHYSICIAN'S DOCUMENTATION REQUEST Date of Query: 04/09/2022 03:14 PM EST Patient Name: Derek Proctor Admit Date: 04/08/2022 Dear Bob Chase, A review of the medical record indicates additional documentation may be needed. Please review below and update the documentation accordingly. Clinical Indicators: Per ECG on 04/07: Atrial flutter with variable A-V block Per provider progress notes: PMH: AFIB AFib - continue Eliquis, carvedilol If possible, please provide further specificity regarding atrial fibrillation, such as: Paroxysmal atrial fibrillation Persistent atrial fibrillation Chronic or permanent atrial fibrillation Other (explain) Clinically unable to determine (explain) Thank you, Brigid Queen MS, RN, CCRN Use of terms such as suspected, likely, concern for, or probable (associated with a specific diagnosi s that is being evaluated, monitored, or treated as if it exists) are acceptable and can be coded in the inpatient se tting, when documented at the time of discharge. Please use your independent medical judgment in providing your response. THIS QUERY IS PART OF THE PERMANENT MEDICAL RECORD
--- NOTE | 2022-04-09 23:21 | PC.NURSE ---
p: Patient received prn dilaudid 0.5 mg at 2148, pt reports right abd pain, rating 9/10, bp elevated 168/72, hr 85 i: Dr. Antoine notified via RateSetter e: Order for one time dose dilaudid 1 mg, awating pharmacy approval
[2022-04-10 00:43] VITALS: RESP 18
[2022-04-10] MEDS: HYDROmorphone HCl 1 MG/ML SYRINGE IVPUSH (00:43)
[2022-04-10] MEDS: 0.9 % Sodium Chloride Flush 3 ML SYRINGE IVFLUSH ×3 (00:48→16:47)
[2022-04-10] MEDS: Piperacillin Sodium/Tazobactam 3.375 GM in 0.9 % Sodium Chloride 50 ML IV ×4 (00:48→23:29)
[2022-04-10 03:46] VITALS: BP 148/84; PULSE 105; RESP 20; TEMP 37.2; O2SAT 99
[2022-04-10] MEDS: HYDROmorphone HCl 0.5 MG/0.5 ML SYRINGE 1 MG IVPUSH ×2 (04:43→09:22)
--- NOTE | 2022-04-10 07:00 | CA_ITS ---
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 Normal LV systolic function with severe left ventricular hypertrophy with at least grade 2 diastolic dysfunction 2. Severely enlarged left atrium 3. Moderately thickened posterior mitral leaflet with mild-to moderate mitral regurgitation noted through the leaflet, could suggest perforated leaflet 4. At least moderate pulmonary regurgitation 5. Normal RV systolic pressure was significantly elevated right atrial pressures 6. No gross pericardial effusion Findings Left Ventricle Normal left ventricular size and systolic function. There is severely increased left ventricular wall thickness. The visually estimated ejection fraction is between 60-65%. Spectral Doppler is indicative of a pseudonormal filling pattern. E/E prime ratio is >15, consistent with elevated filling pressures. Evidence suggests grade II (moderate) diastolic dysfunction. Right Ventricle Mildly increased right ventricular cavity size. There is low normal right ventricular systolic function. Atria The left atrium is severely dilated. Interatrial shunt cannot be excluded. The right atrium is mildly dilated. Aortic Valve Normal aortic valve structure and function. There is no aortic valve stenosis. There is no aortic valve regurgitation. Mitral Valve There is severe posterior mitral leaflet thickening. There is mild to moderate mitral valve regurgitation. There is no mitral valve stenosis. Pulmonic Valve The pulmonic valve is likely normal. There is moderate pulmonic valve regurgitation. Tricuspid Valve Normal tricuspid valve structure. There is mild tricuspid valve regurgitation. Significantly elevated right atrial pressure. There is no evidence of pulmonary hypertension. Great Vessels The pulmonary artery was not well visualized. There is mild dilatation of the aortic arch. Venous The inferior vena cava is severely dilated and collapses less than 50% with inspiration. Pericardium/Pleural There is no evidence of pericardial effusion. Prior Study Comparison No prior study available for comparison. Measurements 2D Linear Measurements IVSd: 2.91 0.6-0.9/0.6-1.0 cm LVIDd: 4.12 3.9-5.3/4.2-5.9 cm LVIDd Index: 1.75 2.4-3.2/2.2-3.1 cm/m2 LVIDs: 2.80 2.0-3.6 cm LVPWd: 2.55 0.7-1.1 cm LA Diam: 5.70 2.7-3.8/3.0-4.0 cm LAIDs Index: 2.43 1.5-2.3 cm/m2 LV Mass: 841.65 67-162/88-224 g LV Mass Index: 358.15 43-95/49-115 g/m2 LVOT Diam: 2.60 3.0+(-)1.3 cm Mitral Valve E'Lateral: 6.96 E'Medial: 5.77 Aortic Valve AoV Pk Kevin: 1.36 AoV Pk Grad: 7.00 LVOT LVOT Pk Kevin: 1.02 LVOT Mn Kevin: 0.70 LVOT VTI: 0.15 LVOT Pk Grad: 4.00 LVOT Mn Grad: 2.00 LVOT Diam: 2.60 LVOT Area: 5.31 Diastolic Function E'Medial: 5.77 E' Laterial: 6.96 Right Ventricle TAPSE (mm): 16.00 TVS' Kevin: 7.00 Tricuspid Valve TR Pk Kevin: 2.24 TR Pk Grad: 20.00 RA Press: 15.00 RVSP: 35.00 Great Vessels Aorta Ao Asc: 4.10 2.1-3.4 cm Updated in Other Vendor System with Status of Final Eric Leblanc MD electronically signed on 04/10/2022 2:44:58 PM with status of Final
[2022-04-10 07:54] VITALS: BP 152/103; PULSE 106; RESP 20; TEMP 37; O2SAT 100
[2022-04-10] MEDS: Gabapentin 300 MG CAPSULE PO ×3 (09:13→20:17)
[2022-04-10] MEDS: Digoxin 0.125 MG TABLET 0.0625 MG PO (09:13)
[2022-04-10 11:07] VITALS: BP 148/83; PULSE 95; RESP 20; TEMP 36.8; O2SAT 96
[2022-04-10] MEDS: Sevelamer Carbonate Tablet 800 MG TABLET 2400 MG PO ×3 (11:21→20:17)
[2022-04-10] MEDS: Spironolactone 25 MG TABLET PO (11:22)
[2022-04-10] MEDS: Amiodarone HCL 200 MG TABLET PO (11:22)
[2022-04-10] MEDS: Bumetanide 1 MG/4 ML VIAL IVPUSH ×2 (11:22→16:47)
[2022-04-10] MEDS: carvediloL 12.5 MG TABLET 25 MG PO ×2 (11:22→20:17)
[2022-04-10] MEDS: Isosorbide Mononitrate 30 MG TAB.ER.24H 90 MG PO (11:22)
--- NOTE | 2022-04-10 11:39 | P.PNCA_ITS ---
Subjective Subjective Date of Service: 04/10/22 Principal diagnosis: Mitral regurgitation Interval history: No echocardiogram has been performed as yet. Patient denies any cardiac symptoms. Denies any shortness of breath. Underwent dialysis today and remove 6.5 L. Complains of cramps. Denies any chest pain, lightheadedness, syncope. No palpitations or irregular heartbeat. Review of Systems Constitutional: Reports no additional constitutional complaints Cardiovascular: Reports no additional cardiovascular complaints Gastrointestinal: Reports no additional gastrointestinal complaints Skin/Breast: Reports other (Cramps) Reports system reviewed and no additional complaints, except as documented Physical Exam Vital Signs: Last Vital Signs Temp 98.2 F 04/10/22 11:07 Pulse 95 04/10/22 11:07 Resp 20 04/10/22 11:07 BP 148/83 H 04/10/22 11:07 Pulse Ox 96 04/10/22 11:07 O2 Del Method 04/10/22 11:07 O2 Flow Rate 2 04/10/22 07:54 BMI result Body Mass Index 30.8 Const General: cooperative, comfortable, no acute distress, alert and awake Nutritional Appearance: overweight Orientation/consciousness: patient oriented x3 Neck Neck: Yes trachea midline, Yes supple and Yes no JVD Resp Effort & Inspection: normal respiratory effort Auscultation: clear to auscultation bilaterally Cardio Rhythm: abnormal rhythm irregularly irregular Heart sounds: S1 normal heart sound present, S2 normal heart sound present, no click, no gallops and Murmur heart sound present systolic holo and harsh Skin General skin exam: no rashes or lesions noted Neuro General: patient oriented x3 Extrem General: Yes no clubbing, cyanosis or edema Objective Labs and Meds 04/08/22 05:55 04/08/22 05:55 Progress Note: A&P Assessment and plan (1) Elevated brain natriuretic peptide (BNP) level: Status: Acute Assessment and Plan: Patient with significant elevated BNP related to underlying cardiovascular disease in setting of end-stage renal disease with reduced clearance. Currently does appear to be in overt heart failure. Currently being managed with dialysis. Will continue to manage dry weight as per Nephrology team. I do not think he requires additional diuretics at this point time. Continue to manage blood pressure aggressively. Consider addition of hydralazine for afterload reduction. Will require evaluation for mitral valve in details including DEEPA if required. Strongly recommend repeating another transthoracic echocardiogram. (2) Hypertensive heart disease: Status: Acute Assessment and Plan: Hypertensive heart disease with severe LVH and secondary left atrial enlargement. Patient requires aggressive blood pressure control. Consider addition of hydralazine as above. (3) Atrial flutter: Status: Acute Assessment and Plan: Persistent atrial flutter with prior history of atrial fibrillation, currently on triple agent with amiodarone, carvedilol as well as digoxin. Digoxin use okay with Nephrology team. Consider monitoring digoxin assay intermittently. For now continue amiodarone therapy. If he requires mitral valve intervention may consider biatrial Maze procedure at that point in time. Given his significant left atrial enlargement likelihood of maintaining rhythm without intervention is going to be low. Currently on full oral anticoagulation with Eliquis therapy which is being held for upcoming noncardiac surgery. (4) Mitral regurgitation: Status: Acute Assessment and Plan: Mitral regurgitation which appears significant clinically. Repeat echocardiogram. Further evaluation based on the finding of transthoracic echocardiogram. (5) Preoperative cardiovascular examination: Status: Acute Assessment and Plan: Preoperative cardiovascular risk stratification this gentleman for femoral edda ry pseudoaneurysm repair under general anesthesia, consider intermediate risk surgery. Patient is at intermediate to high risk for perioperative cardiovascular morbidity mortality most importantly being heart failure due to fluid shift and significant anemia. Replace blood loss aggressively. Manage strict intake and output charts. If rate becomes a issue can use IV esmolol or Cardizem in the perioperative time for better rate control. Will continue to follow with you Time Spent With Patient Time: Total time managing care of this patient today ____ minutes. Progress Note: Quality Stroke Does the patient have a stroke diagnosis?: No Procedures Date of Service Date of Service: 04/10/22
--- NOTE | 2022-04-10 11:51 | P.PNIM_ITS ---
Subjective Subjective Date of Service: 04/10/22 Interval History: f/u on some abdominal pain interval history still complaint of ain Physical Exam Vital Signs: Vital Signs: Last Vital Signs Temp 98.2 F 04/10/22 11:07 Pulse 95 04/10/22 11:07 Resp 20 04/10/22 11:07 BP 148/83 H 04/10/22 11:07 Pulse Ox 96 04/10/22 11:07 O2 Del Method 04/10/22 11:07 O2 Flow Rate 2 04/10/22 07:54 BMI result Body Mass Index 30.8 Const: Other: General: AO X 3, no acute distress Resp: CTA bilateral CVS: S1,S2,RRR GI: +BS, NT, no distention Skin: No rash Neuro: motor grossly intact Psych: appropriate affect Objective Data Active Medications Acetaminophen (Acetaminophen 325 Mg Tablet) 650 mg PO Q6H PRN PRN Reason: Pain, Mild (Pain Scale 1-3) Last Admin: 04/08/22 13:22 Dose: 650 mg Documented By: MARYAM Amiodarone HCl (Amiodarone Hcl 200 Mg Tablet) 200 mg PO DAILY [facility] Last Admin: 04/10/22 11:22 Dose: 200 mg Documented By: TRUPTI Bumetanide (Bumetanide 1 Mg/4 Ml Vial) 1 mg IVPUSH BID@0900,1700 [facility]; Protocol Last Admin: 04/10/22 11:22 Dose: 1 mg Documented By: TRUPTI Bumetanide (Bumetanide 1 Mg Tablet) 4 mg PO BID [facility]; Protocol Last Admin: 04/08/22 10:45 Dose: Not Given Documented By: MARYAM Non-Admin Reason: Duplicate Order Carvedilol (Carvedilol 12.5 Mg Tablet) 25 mg PO BID [facility]; Protocol Last Admin: 04/10/22 11:22 Dose: 25 mg Documented By: TRUPTI Clonidine (Clonidine 0.3 Mg Patch.Tdwk) 0.3 mg TRANSDERMA MO [facility]; Protocol Last Admin: 04/08/22 11:19 Dose: 0.3 mg Documented By: MARYAM Digoxin (Digoxin 0.125 Mg Tablet) 0.0625 mg PO DAILY [facility] Last Admin: 04/10/22 09:13 Dose: 0.0625 mg Documented By: TRUPTI Diphenhydramine HCl (Diphenhydramine Hcl 25 Mg Capsule) 25 mg PO TID PRN PRN Reason: itch Last Admin: 04/08/22 13:59 Dose: 25 mg Documented By: MARYAM Docusate Sodium (Docusate Sodium 100 Mg Capsule) 100 mg PO DAILY PRN PRN Reason: Constipation Fluticasone/Vilanterol (Fluticasone/Vilanterol 100/25 Blst.W.Dev) 1 puff INHALE RDAILY [facility] Last Admin: 04/10/22 07:54 Dose: Not Given Documented By: FITO Non-Admin Reason: pt receiving dialysis Gabapentin (Gabapentin 300 Mg Capsule) 300 mg PO TID [facility] Last Admin: 04/10/22 09:13 Dose: 300 mg Documented By: TRUPTI Hydromorphone HCl (Hydromorphone Hcl 0.5 Mg/0.5 Ml Syringe) 1 mg IVPUSH Q4H PRN; Protocol PRN Reason: Pain, Severe (Pain Scale 7-10) Last Admin: 04/10/22 09:22 Dose: 1 mg Documented By: TRUPTI Vancomycin HCl 500 mg/ Sodium (Chloride) 110 mls @ 110 mls/hr IV [id number]@1800 ONE Stop: 04/08/22 18:59 Piperacillin Sod/Tazobactam (Sod 3.375 gm/ Sodium Chloride) 50 mls @ 100 mls/hr IV Q6H [facility] Last Admin: 04/10/22 11:23 Dose: 100 mls/hr Documented By: TRUPTI Insulin Human Lispro (Insulin Lispro 100 Unit/Ml 3 Ml Vial) 0 unit SUBCUT QIDACHS [facility]; Protocol Isosorbide Mononitrate (Isosorbide Mononitrate 30 Mg Tab.Er.24h) 90 mg PO DAILY [facility]; Protocol Last Admin: 04/10/22 11:22 Dose: 90 mg Documented By: TRUPTI Ondansetron HCl (Ondansetron Hcl 4 Mg/2 Ml Vial) 4 mg IVPUSH Q8H PRN PRN Reason: Nausea and Vomiting Last Admin: 04/09/22 13:41 Dose: 4 mg Documented By: SUJIT Pharmacy Consult (Consult Rx Vancomycin Dosing) 1 each MISCELLANE DAILY PRN PRN Reason: Consult order Sevelamer Carbonate (Sevelamer Carbonate Tablet 800 Mg Tablet) 2,400 mg PO TID [facility] Last Admin: 04/10/22 11:21 Dose: 2,400 mg Documented By: TRUPTI Sodium Chloride (0.9 % Sodium Chloride Flush 3 Ml Syringe) 3 ml IVFLUSH QSHIFT [facility] Last Admin: 04/10/22 09:14 Dose: 3 ml Documented By: TRUPTI Spironolactone (Spironolactone 25 Mg Tablet) 25 mg PO DAILY [facility]; Protocol Last Admin: 04/10/22 11:22 Dose: 25 mg Documented By: TRUPTI Labs 04/08/22 05:55 04/08/22 05:55 Microbiology Microbiology Results: Microbiology 04/07/22 22:44 Blood Culture - Preliminary Blood - Venous No growth after 48 hours. 04/07/22 22:44 Blood Culture - Preliminary Blood - Venous No growth after 48 hours. Assessment and Plan (1) Hypertensive heart disease: Status: Acute (2) Atrial flutter: Status: Acute Plan 46-m w/ MRSA bacteremia, endocarditis, OM, paraspinal /epidural Phlegmon, ESRD with HD MWF, Sa, chronic diastolic chf, Cholecystitis (s/p Cholecystostomy d/t being poor danditate for surgery), COPD, HTN, HLD, permanent AFIB reent seen at [facility] and discharge for MRSA bacteremia and is supposed to be on 6 weeks of IV vanco after dialysis,m during that hospitalization Cholesystotomy tube originally placed in [facility] was assessd and exchanged. He presented here with with abdominal pain after running out of his pain med. CT of abdomen and pelvis showed no acute finding. He is also noted to have heart failure being managed at dialysis, and has a right femoral aneurysm that has been previously there Abdominal pain maybe related to chronic cholecystitis and chronic pain in general as has been getting pain medication on outpatient basis. CT of abdomen here showed no acute finding. Cultures have been negative pain has been treated with Dilaudid iv will be changed to PO dilaudid and should follow up with [facility] surgery for reassessment and eventual removal of tube #Chronic diastolic CHF (HFpEF) with with fluid overload. Fluid management has been done through dialysis. Seen by cardiology and recommend opitimazation of BP meds, repeat Echo pending # left lobe infiltrate on CT--Clinically doesn't have PNA # diabetes - diabetic diet - low-dose sliding scale insulin # hypertension--Overall BP better, if needed will add Hydralazine # Permanent of chronic AFib - continue Eliquis, carvedilol, digoxine, cardio input noted #?right femoral pseudoaneurysm--will need intervention, Dr. Monae will arrange it on outpatient basis. See cardioogy note for risk stratification #chronic pain.. [employer]UM[employer]ER review show that patient get prescribed pain med rather frequent and raises concern of aberang drug seeking behavior ERSD--dialysis per neprho DVT prophylaxis: Eliquis Time Spent With Patient Time: Total time managing care of this patient today ____ minutes. Quality Stroke Does the patient have a stroke diagnosis?: No VTE Prior VTE?: No VTE Risk Level:: Medical - moderate - high VTE Device Contraindication: Treatment Not Indicated VTE Drug Contraindication: N/A - Med Ordered
--- NOTE | 2022-04-10 12:11 | MHC.CM.PN ---
Per MD rounds Pt may dc tomorrow. Pt will require surgery for Aneurysm. Acute hospital transfer vs Outpatient surgical intervention. Discharge is anticipated tomorrow. [facility] resume [facility] services. [facility].
--- NOTE | 2022-04-10 12:17 | HO.VASCPN ---
Subjective Subjective Date of Service: 04/10/22 Patient reports: no new complaints and feels better Interval history: Patient seen and examined. No significant events. Has been evaluated by Cardiology. Now for routine follow-up. Physical Exam Vital Signs: Vital Signs: Last Vital Signs Temp 98.2 F 04/10/22 11:07 Pulse 95 04/10/22 11:07 Resp 20 04/10/22 11:07 BP 148/83 H 04/10/22 11:07 Pulse Ox 96 04/10/22 11:07 O2 Del Method 04/10/22 11:07 O2 Flow Rate 2 04/10/22 07:54 BMI result Body Mass Index 30.8 Const: General: cooperative, healthy appearing and comfortable Orientation/consciousness: oriented to person, oriented to place and oriented to time HEENT: Head: Yes normal to inspection Neck: Neck: Yes normal visual inspection Carotids: no bruits Chest: Chest palpation & inspection: normal inspection of the chest Resp: Effort & Inspection: normal respiratory effort and able to speak in complete sentences Auscultation: clear to auscultation bilaterally, no crackles, no rales, no rhonchi and no wheezes Cardio: Other: Right groin pulsatile mass Rate: regular rate Rhythm: regular rhythm Heart sounds: S1 normal heart sound present and S2 normal heart sound present Bruits: no carotid bruits Peripheral pulses: Peripheral pulses 2+ throughout GI: Inspection: Yes normal to inspection Skin: Wounds: no wounds Hair: normal Neuro: General: oriented to person, oriented to place and oriented to time Cranial nerves: Yes CN's II-XII intact bilaterally and Yes Normal hearing present Cognition (Neuro): normal cognition Motor exam (neuro): 5/5 motor strength present throughout Extrem: Other: venous exam: No significant superficial varicosities or spider telangiectasias, minimal edema General: No clubbing, No cyanosis and No edema Psych: Appearance: grossly normal Mental Status: mental status grossly normal Speech and movement: Normal speech and movement present Progress Note: A&P Assessment and plan (1) Femoral artery pseudo-aneurysm, right: Status: Acute Assessment and Plan: In short patient has right femoral pseudoaneurysm. Appears to be doing relatively well with it. It is stable as it has been there for at least 2-3 months. He can follow up with should and we can him as outpatient. Case discussed with hospitalist team. Thank you for allowing us to assist in his care. Time Spent With Patient Time: Total time managing care of this patient today ____ minutes. Procedures Date of Service Date of Service: 04/10/22 Quality Stroke Does the patient have a stroke diagnosis?: No VTE Prior VTE?: No VTE Risk Level:: Medical - moderate - high VTE Device Contraindication: Treatment Not Indicated VTE Drug Contraindication: N/A - Med Ordered
--- NOTE | 2022-04-10 12:24 | P.CDIM_ITS ---
PROVIDER RESPONSE TEXT: To clarify, the appropriate diagnosis supported by the clinical indicators: Diastolic: Acuet on chronic HFpEF QUERY TEXT: PHYSICIAN'S DOCUMENTATION REQUEST Date of Query: 04/10/2022 11:50 AM EST Patient Name: Derek Proctor Admit Date: 04/08/2022 Dear Bob Chase, A review of the medical record indicates additional documentation may be needed. Please review below and update the documentation accordingly. Clinical Indicators: POA/RESOLVED/TREAT/RULE OUT Per provider progress notes: PMH unspecified CHF Per cardiology consultation on 04/09: Echocardiogram done on March 26 had shown normal LV systolic function with severe LVH with echo density on the posterior mitral leaflet with eccentric mitral regurgitation consistent with perforated leaflet. He is on all cardiac medications including Aldactone therapy for heart failure. Labs: BNP on 04/07 - 4120 Other indicators: Patient receiving Bumex Patient receiving Aldactone Please provide further specificity regarding the most likely/suspected type and acuity of CHF you are evaluating, treating, or monitoring. Systolic Please specify if Acute, Chronic, or Acute on chronic, or Unable to determine Diastolic Please specify if Acute, Chronic, or Acute on chronic, or Unable to determine Combined Systolic/Diastolic Please specify if Acute, Chronic, or Acute on chronic, or Unable to determine Other (explain) Clinically unable to determine (explain) Thank you, Brigid Queen MS, RN, CCRN Use of terms such as suspected, likely, concern for, or probable (associated with a specific diagnosi s that is being evaluated, monitored, or treated as if it exists) are acceptable and can be coded in the inpatient se tting, when documented at the time of discharge. Please use your independent medical judgment in providing your response. THIS QUERY IS PART OF THE PERMANENT MEDICAL RECORD
[2022-04-10] MEDS: HYDROmorphone HCl 2 MG TABLET 4 MG PO ×2 (13:24→19:25)
[2022-04-10 13:29] LABS: Vancomycin Random 21.9 mcg/mL (15-20)
[2022-04-10 16:00] VITALS: BP 157/78; PULSE 89; RESP 18; TEMP 36.6; O2SAT 98
[2022-04-10 16:27] LABS: Glucose, Whole Blood 131 mg/dL (60-115)
[2022-04-10] MEDS: Acetaminophen 325 MG TABLET 650 MG PO (16:47)
--- NOTE | 2022-04-10 17:54 | P.PNNP_ITS ---
Subjective Subjective Date of Service: 04/10/22 Interval history: Seen and examined on HD, events noted Physical Exam Vital Signs: Vital Signs: Last Vital Signs Temp 97.8 F 04/10/22 16:00 Pulse 89 04/10/22 16:00 Resp 18 04/10/22 16:00 BP 157/78 H 04/10/22 16:00 Pulse Ox 98 04/10/22 16:00 O2 Del Method 04/10/22 16:00 O2 Flow Rate 2 04/10/22 07:54 BMI result Body Mass Index 30.8 Const: General: cooperative, healthy appearing, comfortable, no acute distress, alert and awake Nutritional Appearance: overweight Orientation/consciousness: oriented to person, oriented to place, oriented to time and patient oriented x3 Limitations: no limitations HEENT: Head: Yes normal to inspection, Yes normocephalic and Yes atraumatic Eyes: General: appearance normal, both eyes and all related structures Neck: Neck: Yes normal visual inspection, Yes trachea midline, Yes supple and Yes no JVD Carotids: no bruits Chest: Chest palpation & inspection: normal inspection of the chest Resp: Effort & Inspection: normal respiratory effort and able to speak in complete sentences Auscultation: clear to auscultation bilaterally, no crackles, no rales, no rhonchi and no wheezes Cardio: Jugular venous distension: no JVD Rate: regular rate Rhythm: regular rhythm and abnormal rhythm irregularly irregular Heart sounds: S1 normal heart sound present, S2 normal heart sound present, no click, no gallops and Murmur heart sound present systolic holo, harsh, at the apex and at the left sternal border Bruits: no carotid bruits Peripheral pulses: Peripheral pulses 2+ throughout GI: Inspection: Yes normal to inspection Palpation (GI): Soft to palpation Auscultation: normal bowel sounds Skin: General skin exam: no rashes or lesions noted Wounds: no wounds Hair: normal Neuro: General: oriented to person, oriented to place, oriented to time, p atient oriented x3 and no focal motor deficits Cranial nerves: Yes CN's II- XII intact bilaterally and Yes Normal hearing present Cognition (Neuro): normal cognition Motor exam (neuro): 5/5 motor strength present throughout Extrem: Other: venous exam: No significant superficial varicosities or spider telangiectasias, minimal edema General: Yes normal to inspection, Yes no clubbing, cyanosis or edema, Yes no pedal edema, No clubbing, No cyanosis and No edema Psych: Appearance: grossly normal Mental Status: mental status grossly no rmal Speech and movement: Normal speech and movement present Objective Data Labs 04/08/22 05:55 04/08/22 05:55 Labs: Laboratory Results - last 24 hr 04/10/22 04/10/22 12:47 16:24 POC Glucose 131 H Random Vancomycin 21.9 H Microbiology Microbiology Results: Microbiology 04/07/22 22:44 Blood - Venous Blood Culture - Preliminary No growth after 48 hours. 04/07/22 22:44 Blood - Venous Blood Culture - Preliminary No growth after 48 hours. Procedures Date of Service Date of Service: 04/10/22 Assessment & Plan Assessment and plan (1) Femoral artery pseudo-aneurysm, right: Status: Acute Plan - ESRD : mwf - H/O staph line infection: cont vanco 750 p HD until 05/12 - R femoral pseudoanneuysm: vasc seeing and planning to fix -Card eval in progress REC: cont vanco as noted; vasc re Psuedo annerysm, Card eval in progress;cont HD mwf will follow with team Time Spent With Patient Time: Total time managing care of this patient today ____ minutes. Progress Note: Quality Stroke Does the patient have a stroke diagnosis?: No
[2022-04-10 19:04] VITALS: BP 129/77; PULSE 107; RESP 20; TEMP 36.5; O2SAT 97
[2022-04-10 19:47] LABS: Glucose, Whole Blood 143 mg/dL (60-115)
[2022-04-10] MEDS: Morphine Sulfate 2 MG/ML CARTRIDGE IVPUSH (23:29)
[2022-04-11] VITALS (7 sets, daily range): BP systolic 145–172; BP diastolic 67–114; PULSE 72–104; RESP 16–20; TEMP 36.1–36.8; O2SAT 92–98
[2022-04-11] MEDS: 0.9 % Sodium Chloride Flush 3 ML SYRINGE IVFLUSH ×3 (00:38→15:32)
[2022-04-11] MEDS: HYDROmorphone HCl 2 MG TABLET 4 MG PO ×3 (01:58→17:32)
[2022-04-11] MEDS: Acetaminophen 325 MG TABLET 650 MG PO ×2 (03:48→13:10)
[2022-04-11] MEDS: Piperacillin Sodium/Tazobactam 3.375 GM in 0.9 % Sodium Chloride 50 ML IV ×3 (06:04→17:31)
[2022-04-11 07:27] LABS: Glucose, Whole Blood 106 mg/dL (60-115)
[2022-04-11] MEDS: Fluticasone/Vilanterol 100/25 BLST.W.DEV 1 PUFF INHALE (07:58)
[2022-04-11] MEDS: Bumetanide 1 MG/4 ML VIAL IVPUSH ×2 (08:04→17:32)
[2022-04-11] MEDS: Sevelamer Carbonate Tablet 800 MG TABLET 2400 MG PO ×2 (08:04→15:31)
[2022-04-11] MEDS: Gabapentin 300 MG CAPSULE PO ×2 (08:05→15:31)
[2022-04-11] MEDS: carvediloL 12.5 MG TABLET 25 MG PO (08:05)
[2022-04-11] MEDS: Isosorbide Mononitrate 30 MG TAB.ER.24H 90 MG PO (08:05)
[2022-04-11] MEDS: Spironolactone 25 MG TABLET PO (08:05)
[2022-04-11] MEDS: Digoxin 0.125 MG TABLET 0.0625 MG PO (08:05)
[2022-04-11] MEDS: Amiodarone HCL 200 MG TABLET PO (08:05)
[2022-04-11 11:20] LABS: Glucose, Whole Blood 106 mg/dL (60-115)
--- NOTE | 2022-04-11 12:33 | P.PNCA_ITS ---
Subjective Subjective Date of Service: 04/11/22 Principal diagnosis: Mitral regurgitation Interval history: No cardiovascular symptoms. Remains in atrial flutter. Echocardiogram does not show significant mitral regurgitation, will require ALEJANDRO to be performed as o utpatient by his own electric organ inspector and repairer. Review of Systems Review of Systems Yes all other systems are reviewed and are negative Physical Exam Vital Signs: Last Vital Signs Temp 98.0 F 04/11/22 11:50 Pulse 98 04/11/22 11:50 Resp 16 04/11/22 11:50 BP 147/67 H 04/11/22 11:50 Pulse Ox 98 04/11/22 11:50 O2 Del Method 04/11/22 11:50 O2 Flow Rate 2 04/10/22 07:54 BMI result Body Mass Index 30.8 Const General: cooperative, comfortable, no acute distress, alert and awake Nutritional Appearance: overweight Orientation/consciousness: patient oriented x3 Neck Neck: Yes trachea midline, Yes supple and Yes no JVD Resp Effort & Inspection: normal respiratory effort Auscultation: clear to auscultation bilaterally Cardio Rhythm: abnormal rhythm irregularly irregular Heart sounds: S1 normal heart sound present, S2 normal heart sound present, no click, no gallops and Murmur heart sound present systolic holo and harsh Skin General skin exam: no rashes or lesions noted Neuro General: patient oriented x3 Extrem General: Yes no clubbing, cyanosis or edema Objective Labs and Meds 04/08/22 05:55 04/08/22 05:55 Lab results: Laboratory Results - last 24 hr 04/10/22 04/10/22 04/10/22 12:47 16:24 19:42 POC Glucose 131 H 143 H Random Vancomycin 21.9 H 04/11/22 04/11/22 07:23 11:11 POC Glucose 106 106 Random Vancomycin Progress Note: A&P Assessment and plan (1) Mitral regurgitation: Status: Acute Assessment and Plan: Mitral regurgitation that appears on our echocardiogram to [id number] but agree with possible perforation of the posterior leaflet. Further evaluation outpatient by his own electric organ inspector and repairer at [facility]. Alejandro should be considered to evaluate for the mitral valve pathology. I do not think that this requires acute intervention at this point in time. (2) Hypertensive heart disease: Status: Acute Assessment and Plan: Hypertensive heart disease with severe LVH as well as significant left atrial enlargement most likely from longstanding poorly-controlled blood pressure. Has heart failure syndrome which is currently being managed with hemodialysis. Continue to follow hemodialysis session as outpatient. Follow-up with Nephrolog y. Continue maintain dry weight. Avoidance of salt loading was discussed. Continue aggressive control blood pressure. Continue maximize hydralazine as outpatient. (3) Atrial flutter: Status: Acute Assessment and Plan: Atrial flutter with significant left atrial enlargement. Currently on triple therapy with amiodarone, carvedilol and digoxin. Follow-up with his own electric organ inspector and repairer. Consider outpatient cardioversion to maintain rhythm which might help his overall heart failure syndrome. Although he appears asymptomatic from rate perspective. Consider digoxin assay more frequently given his end-stage renal disease. Currently on full oral anticoagulation that should be continued. Will sign of the case at this point time. Thank you for allowing me to partake in his care Time Spent With Patient Time: Total time managing care of this patient today ____ minutes. Progress Note: Quality Stroke Does the patient have a stroke diagnosis?: No Procedures Date of Service Date of Service: 04/11/22
--- NOTE | 2022-04-11 12:57 | P.CONGS_ITS ---
History of Present Illness Consult details Consult date: 04/11/22 Narrative: Patient is a 46-year-old male with a plethora of medical problems who also has had a percutaneous cholecystostomy tube in for approximately 3 months time. This was apparently replaced in January all of which occurred at an outside facility. At present, patient is tolerating a solid diet and having regular lonny wel movements. His main complaint is of cholecystostomy tube discomfort and pain. He also wishes to have this tube removed. Chart was reviewed and patient evaluated; Abdomen is benign with a right upper quadrant cholecystostomy tube with bilious drainage. A/P I discussed with his medical team that I am unclear as to why this tube has persisted for this duration. My current recommendation is to arrange for a cholecystostomy tube drain study to assess for patency of the cystic duct. If this is indeed open, his cholecystostomy tube should likely be able to be removed. Arrangements will be made for this study and further interventions directed by the results. Review of Systems Review of Systems: Noncontributory PMFSH Past Medical History Medical History Afib Diabetes End stage renal disease Hyperkalemia Hypertension Social History Social History Household Members: None [facility] Do you presently have visiting nurse or other home services: No Alcohol intake: never Patient Tobacco Use Status: Current someday Tobacco user Tobacco use type: Cigarette Cigarettes Per Day: 2 e-Cigarette/Vaping Use: Never Used Second Hand Smoke Exposure: No Substance Use Type: Crack/Cocaine and Marijuana Advance Directives Date on File: 04/08/22 service: No Current occupational status: disabled Meds Allergies Allergy/AdvReac Type Severity Reaction Status Date / Time PHILLY Inhibitors Allergy Anaphylaxis Verified 08/13/21 12:19 shellfish derived Allergy Anaphylaxis Verified 08/13/21 12:19 Sulfa (Sulfonamide Allergy Anaphylaxis Verified 08/13/21 12:19 Antibiotics) Active Medications: Current Medications Acetaminophen (Acetaminophen 325 Mg Tablet) 650 mg PO Q6H PRN PRN Reason: Pain, Mild (Pain Scale 1-3) Last Admin: 04/11/22 03:48 Dose: 650 mg Amiodarone HCl (Amiodarone Hcl 200 Mg Tablet) 200 mg PO DAILY LEIGH Last Admin: 04/11/22 08:05 Dose: 200 mg Bumetanide (Bumetanide 1 Mg/4 Ml Vial) 1 mg IVPUSH BID@0900,1700 [facility]; Protocol Last Admin: 04/11/22 08:04 Dose: 1 mg Bumetanide (Bumetanide 1 Mg Tablet) 4 mg PO BID [facility]; Protocol Last Admin: 04/08/22 10:45 Dose: Not Given Carvedilol (Carvedilol 12.5 Mg Tablet) 25 mg PO BID [facility]; Protocol Last Admin: 04/11/22 08:05 Dose: 25 mg Clonidine (Clonidine 0.3 Mg Patch.Tdwk) 0.3 mg TRANSDERMA MO [facility]; Protocol Last Admin: 04/08/22 11:19 Dose: 0.3 mg Digoxin (Digoxin 0.125 Mg Tablet) 0.0625 mg PO DAILY [facility] Last Admin: 04/11/22 08:05 Dose: 0.0625 mg Diphenhydramine HCl (Diphenhydramine Hcl 25 Mg Capsule) 25 mg PO TID PRN PRN Reason: itch Last Admin: 04/08/22 13:59 Dose: 25 mg Docusate Sodium (Docusate Sodium 100 Mg Capsule) 100 mg PO DAILY PRN PRN Reason: Constipation Fluticasone/Vilanterol (Fluticasone/Vilanterol 100/25 Blst.W.Dev) 1 puff INHALE RDAILY [facility] Last Admin: 04/11/22 07:58 Dose: 1 puff Gabapentin (Gabapentin 300 Mg Capsule) 300 mg PO TID [facility] Last Admin: 04/11/22 08:05 Dose: 300 mg Hydromorphone HCl (Hydromorphone Hcl 2 Mg Tablet) 4 mg PO Q6H PRN PRN Reason: Pain, Severe (Pain Scale 7-10) Last Admin: 04/11/22 09:08 Dose: 4 mg Vancomycin HCl 500 mg/ Sodium (Chloride) 110 mls @ 110 mls/hr IV [id number]@1800 ONE Stop: 04/08/22 18:59 Piperacillin Sod/Tazobactam (Sod 3.375 gm/ Sodium Chloride) 50 mls @ 100 mls/hr IV Q6H [facility] Last Infusion: 04/11/22 07:41 Dose: Infused Insulin Human Lispro (Insulin Lispro 100 Unit/Ml 3 Ml Vial) 0 unit SUBCUT QIDACHS [facility]; Protocol Last Admin: 04/11/22 11:56 Dose: Not Given Isosorbide Mononitrate (Isosorbide Mononitrate 30 Mg Tab.Er.24h) 90 mg PO DAILY [facility]; Protocol Last Admin: 04/11/22 08:05 Dose: 90 mg Ondansetron HCl (Ondansetron Hcl 4 Mg/2 Ml Vial) 4 mg IVPUSH Q8H PRN PRN Reason: Nausea and Vomiting Last Admin: 04/09/22 13:41 Dose: 4 mg Pharmacy Consult (Consult Rx Vancomycin Dosing) 1 each MISCELLANE DAILY PRN PRN Reason: Consult order Sevelamer Carbonate (Sevelamer Carbonate Tablet 800 Mg Tablet) 2,400 mg PO TID [facility] Last Admin: 04/11/22 08:04 Dose: 2,400 mg Sodium Chloride (0.9 % Sodium Chloride Flush 3 Ml Syringe) [facility] Last Admin: 04/11/22 08:04 Dose: 3 ml Spironolactone (Spironolactone 25 Mg Tablet) 25 mg PO DAILY [facility]; Protocol Last Admin: 04/11/22 08:05 Dose: 25 mg Home Medications Medication Instructions Recorded Confirmed Last Taken Type amiodarone 200 mg tablet 1 tab PO DAILY 08/13/21 04/08/22 Unknown History apixaban 5 mg tablet (Eliquis) 1 tab PO BID 08/13/21 04/08/22 Unknown History budesonide-formoterol HFA 80 2 puff inhalation BID 08/13/21 04/08/22 Unknown History mcg-4.5 mcg/actuation aerosol inhaler (Symbicort) bumetanide 2 mg tablet 2 tab PO BID 08/13/21 04/08/22 Unknown History carvedilol 12.5 mg tablet 2 tab PO BID 08/13/21 04/08/22 Unknown History diphenhydramine HCl 25 mg capsule 1 cap PO TID PRN itch 08/13/21 04/08/22 Unknown History (Banophen) gabapentin 300 mg capsule 1 cap PO TID 08/13/21 04/08/22 Unknown History isosorbide mononitrate 30 mg 3 tab PO QAM 08/13/21 04/08/22 Unknown History tablet,extended release 24 hr spironolactone 25 mg tablet 1 tab PO DAILY 08/13/21 04/08/22 Unknown History clonidine 0.3 mg/24 hr weekly 1 patch topical MO 04/08/22 04/08/22 Unknown History transdermal patch digoxin 125 mcg (0.125 mg) tablet 0.5 tab PO DAILY 04/08/22 04/08/22 Unknown History sevelamer carbonate 800 mg tablet 3 tab PO TID 04/08/22 04/08/22 Unknown History Physical Exam Vital Signs: Vital Signs: Last Vital Signs Temp 98.0 F 04/11/22 11:50 Pulse 98 04/11/22 11:50 Resp 16 04/11/22 11:50 BP 147/67 H 04/11/22 11:50 Pulse Ox 98 04/11/22 11:50 O2 Del Method 04/11/22 11:50 O2 Flow Rate 2 04/10/22 07:54 BMI result Body Mass Index 30.8 Results Labs 04/08/22 05:55 04/08/22 05:55 Labs: Abnormal lab results 04/10/22 04/10/22 04/10/22 Range/Units 12:47 16:24 19:42 POC Glucose 131 H 143 H (60-115) mg/dL Random Vancomycin 21.9 H (15-20) mcg/mL All other labs normal. Assessment and Plan (1) Cholecystostomy tube dysfunction: Status: Acute Plan See HPI Time Spent With Patient Time: Total time managing care of this patient today ___25_ minutes. Procedures Date of Service Date of Service: 04/11/22
--- NOTE | 2022-04-11 13:12 | P.PNIM_ITS ---
Subjective Subjective Date of Service: 04/11/22 Interval History: continues to c/o pain at the tub site Physical Exam Vital Signs: Vital Signs: Last Vital Signs Temp 98.0 F 04/11/22 11:50 Pulse 98 04/11/22 11:50 Resp 16 04/11/22 11:50 BP 147/67 H 04/11/22 11:50 Pulse Ox 98 04/11/22 11:50 O2 Del Method 04/11/22 11:50 O2 Flow Rate 2 04/10/22 07:54 BMI result Body Mass Index 30.8 Const: Other: General: AO X 3, no acute distress Resp: CTA bilateral CVS: S1,S2,RRR GI: +BS, NT, no distention Skin: No rash Neuro: motor grossly intact Psych: appropriate affect Objective Data Active Medications Acetaminophen (Acetaminophen 325 Mg Tablet) 650 mg PO Q6H PRN PRN Reason: Pain, Mild (Pain Scale 1-3) Last Admin: 04/11/22 03:48 Dose: 650 mg Documented By: LEXI Amiodarone HCl (Amiodarone Hcl 200 Mg Tablet) 200 mg PO DAILY [facility] Last Admin: 04/11/22 08:05 Dose: 200 mg Documented By: HU Bumetanide (Bumetanide 1 Mg/4 Ml Vial) 1 mg IVPUSH BID@0900,1700 [facility]; Protocol Last Admin: 04/11/22 08:04 Dose: 1 mg Documented By: HU Bumetanide (Bumetanide 1 Mg Tablet) 4 mg PO BID [facility]; Protocol Last Admin: 04/08/22 10:45 Dose: Not Given Documented By: MARYAM Non-Admin Reason: Duplicate Order Carvedilol (Carvedilol 12.5 Mg Tablet) 25 mg PO BID [facility]; Protocol Last Admin: 04/11/22 08:05 Dose: 25 mg Documented By: HU Clonidine (Clonidine 0.3 Mg Patch.Tdwk) 0.3 mg TRANSDERMA MO [facility]; Protocol Last Admin: 04/08/22 11:19 Dose: 0.3 mg Documented By: MARYAM Digoxin (Digoxin 0.125 Mg Tablet) 0.0625 mg PO DAILY [facility] Last Admin: 04/11/22 08:05 Dose: 0.0625 mg Documented By: HU Diphenhydramine HCl (Diphenhydramine Hcl 25 Mg Capsule) 25 mg PO TID PRN PRN Reason: itch Last Admin: 04/08/22 13:59 Dose: 25 mg Documented By: MARYAM Docusate Sodium (Docusate Sodium 100 Mg Capsule) 100 mg PO DAILY PRN PRN Reason: Constipation Fluticasone/Vilanterol (Fluticasone/Vilanterol 100/25 Blst.W.Dev) 1 puff INHALE RDAILY [facility] Last Admin: 04/11/22 07:58 Dose: 1 puff Documented By: JEN Gabapentin (Gabapentin 300 Mg Capsule) 300 mg PO TID [facility] Last Admin: 04/11/22 08:05 Dose: 300 mg Documented By: HU Hydromorphone HCl (Hydromorphone Hcl 2 Mg Tablet) 4 mg PO Q6H PRN PRN Reason: Pain, Severe (Pain Scale 7-10) Last Admin: 04/11/22 09:08 Dose: 4 mg Documented By: ANNE Vancomycin HCl 500 mg/ Sodium (Chloride) 110 mls @ 110 mls/hr IV MoWeFrSa@1800 ONE Stop: 04/08/22 18:59 Piperacillin Sod/Tazobactam (Sod 3.375 gm/ Sodium Chloride) 50 mls @ 100 mls/hr IV Q6H [facility] Last Infusion: 04/11/22 07:41 Dose: 100 mls/hr Documented By: LEXI Insulin Human Lispro (Insulin Lispro 100 Unit/Ml 3 Ml Vial) 0 unit SUBCUT QIDACHS [facility]; Protocol Last Admin: 04/11/22 11:56 Dose: Not Given Documented By: HU Non-Admin Reason: No Insulin Coverage Isosorbide Mononitrate (Isosorbide Mononitrate 30 Mg Tab.Er.24h) 90 mg PO DAILY [facility]; Protocol Last Admin: 04/11/22 08:05 Dose: 90 mg Documented By: HU Ondansetron HCl (Ondansetron Hcl 4 Mg/2 Ml Vial) 4 mg IVPUSH Q8H PRN PRN Reason: Nausea and Vomiting Last Admin: 04/09/22 13:41 Dose: 4 mg Documented By: SUJIT Pharmacy Consult (Consult Rx Vancomycin Dosing) 1 each MISCELLANE DAILY PRN PRN Reason: Consult order Sevelamer Carbonate (Sevelamer Carbonate Tablet 800 Mg Tablet) 2,400 mg PO TID [facility] Last Admin: 04/11/22 08:04 Dose: 2,400 mg Documented By: HU Sodium Chloride (0.9 % Sodium Chloride Flush 3 Ml Syringe) 3 ml IVFLUSH QSHIFT [facility] Last Admin: 04/11/22 08:04 Dose: 3 ml Documented By: HU Spironolactone (Spironolactone 25 Mg Tablet) 25 mg PO DAILY [facility]; Protocol Last Admin: 04/11/22 08:05 Dose: 25 mg Documented By: HU Labs 04/08/22 05:55 04/08/22 05:55 Labs: Laboratory Results - last 24 hr 04/10/22 04/10/22 04/10/22 12:47 16:24 19:42 POC Glucose 131 H 143 H Random Vancomycin 21.9 H 04/11/22 04/11/22 07:23 11:11 POC Glucose 106 106 Random Vancomycin Microbiology Microbiology Results: Microbiology 04/10/22 08:27 Blood Culture - Preliminary Blood - Venous No growth after 24 hours. 04/10/22 08:30 Blood Culture - Preliminary Blood - Venous No growth after 24 hours. Assessment and Plan (1) Hypertensive heart disease: Status: Acute (2) Atrial flutter: Status: Acute Plan 46-m w/ MRSA bacteremia, endocarditis, OM, paraspinal /epidural Phlegmon, ESRD with HD MWF, Sa, chronic diastolic chf, Cholecystitis (s/p Cholecystostomy d/t being poor danditate for surgery), COPD, HTN, HLD, permanent AFIB reent seen at [facility] and discharge for MRSA bacteremia and is supposed to be on 6 weeks of IV vanco after dialysis,m during that hospitalization Cholesystotomy tube originally placed in [facility] was assessd and exchanged. He presented here with with abdominal pain after running out of his pain med. CT of abdomen and pelvis showed no acute finding. He is also noted to have heart failure being managed at dialysis, and has a right femoral aneurysm that has been previously there Abdominal pain maybe related to chronic cholecystitis and chronic pain in general as has been getting pain medication on outpatient basis. CT of abdomen here showed no acute finding. Cultures have been negative pain has been treated with Dilaudid iv will be changed to PO dilaudid and should follow up with [facility] surgery for reassessment and eventual removal of tube. Getting to reassess here #Chronic diastolic CHF (HFpEF) with with fluid overload. Fluid management has been done through dialysis. Seen by cardiology and recommend opitimazation of BP meds, repeat Echo EF 60 to 65% # left lobe infiltrate on CT--Clinically doesn't have PNA # diabetes - diabetic diet - low-dose sliding scale insulin # hypertension--Overall BP better, if needed will add Hydralazine # Permanent of chronic AFib - continue Eliquis, carvedilol, digoxine, cardio input noted #?right femoral pseudoaneurysm--will need intervention, Dr. Monae will arrange it on outpatient basis. See cardioogy note for risk stratification #chronic pain.. [employer] review show that patient get prescribed pain med rather frequent and raises concern of aberang drug seeking behavior ERSD--dialysis per neprho DVT prophylaxis: Eliquis need for inpatient: ongoing work up for abdominal pain Time Spent With Patient Time: Total time managing care of this patient today ____ minutes. Quality Stroke Does the patient have a stroke diagnosis?: No VTE Prior VTE?: No VTE Risk Level:: Medical - moderate - high VTE Device Contraindication: Treatment Not Indicated VTE Drug Contraindication: N/A - Med Ordered
--- NOTE | 2022-04-11 14:53 | MHC.CM.PN ---
PER PT, HE GOES TO HD -- AT [facility]. HE HAS TRANSPORTATION THROUGH [facility] ([phone]). PER [facility] HE IS NO LONGER ACTIVE WITH THEM, REFERRALS PLACED FOR [facility].
[2022-04-11 16:09] LABS: Glucose, Whole Blood 140 mg/dL (60-115)
--- NOTE | 2022-04-11 17:44 | P.DS_ITS ---
DS: Providers Provider Date of Service: 04/11/22 Date of admission: 04/08/22 01:05 Primary care physician: Unknown Physician Consults: 04/08/22 01:03 Consult to Nephrology Routine Consulting Provider: [facility] Reason for consultation: dialysis Has provider been notified: No Consult to Vascular Surgery Routine Consulting Provider: Reese Monae Reason for consultation: right common fem artery aneurysm Has provider been notified: No 04/08/22 11:43 Consult to Cardiology Routine Consulting Provider: Felix Mathew Reason for consultation: Risk stratification for right femoral pseudoaneurysm repair Has provider been notified: No 04/11/22 08:21 Consult to General Surgery Routine Consulting Provider: Tino Jaquez Reason for consultation: Abominal pain. History cholecystitis Has provider been notified: No DS: Diagnosis Discharge Diagnosis (1) Cholecystostomy tube dysfunction: Status: Acute DS: Summary Hospital Course Hospital Course: 46-m w/ MRSA bacteremia, endocarditis, h/o paraspinal /epidural Phlegmon, ESRD with HD MWF, Sa, chronic diastolic chf, Cholecystitis (s/p Cholecystostomy d/t being poor danditate for surgery in Jan 2022), COPD, HTN, HLD,? permanent AFIB and history of DVT on eliquis, recently seen at [facility]? and discharge for MRSA bacteremia and is supposed to be on 6 weeks of IV vanco after dialysis, during that hospitalization Cholesystotomy tube originally placed in [facility] was assessd by surgery (Dr. Ibarra) and exchanged and was to follow up later. ? He presented to [facility] on 04/08 with? with increasing abdominal pain after running out of his pain med (Dilaudid). He has pain around the area of Cholecystocomy tube. CT of abdomen and pelvis showed no acute finding hoever, and there is no increase in WBC and no fever, however he has excruciating pain and is rather tender on exam. He was also noed to be fluid overload and and with hypertensive crisis with initial BP of 177/128. Hospital course by problem Abdominal pain likely relatedt related to chronic cholecystitis and with underlying chronic pain issues. Due to no clear evidence of sepsis, fever or increase in WBC the pain has been initially management with IV dialaudid, cultures have been negative. He continues to have pain despite maximizing his pain medications and continue to be tender on exam. A surgical consultation was requrested and he underwent a drain study and noted to have galbladder full of stones and an impacted stone at the cystic duct. Dr Lopez (Surgeon) thinks he likely needs galbladder removal given that the tube has been in [place] 6 weeks and he continues to have symptoms and given his complex medical nature and very high riks surgery, and initial evaulation done at [facility] the recommendatio is fo patient to be transfered to [facility] for evaluation and possible surgical intervention. Pain is being managed with IV dilaudid. The case was discussed with Dr. Nice over the phone and recommends admitting to medicine service with surgical consult #Chronic diastolic CHF (HFpEF) with with fluid overload probably related to hypertensive heart disease, underlying mitral regurgitation. Fluid managment has been done through dialyis and diuretics. He was evalated by Dr. Leblanc (tap builder) with recommendation to optimize his blood pressure meds and at this point his blood pressure is reasonably controlled. Echo here 04/10 showed : ? 1.? Normal LV systolic function with severe left ventricular? hypertrophy with at least grade 2 diastolic dysfunction? 2. Severely enlarged left atrium ? 3. Moderately thickened posterior mitral leaflet with mild-to? ? moderate mitral regurgitation noted through the leaflet, could ? suggest perforated leaflet ? 4. At least moderate pulmonary regurgitation ? 5. Normal RV systolic pressure was significantly elevated right? atrial pressures ? 6. No gross pericardial effusion ? med management include Bumex 4 mg bid, Coreg 25 bid, Aldactone 25 Imdur 90. He presently appear to be euvolemic # left lobe infiltrate on CT--Clinically doesn't have PNA, but has been on Vanco after dialysis for existing MRSA bacteremi and Zosyn, he has been afebrile, and WBC on low side, and clinically doesnt have pneumonia so no indication for further antibiotics # diabetes - diabetic diet - low-dose sliding scale insulin # hypertension--Overall BP better, with above meds and if needed Hydralazine maybe added for optimazation #History of MRSA bacteremia, Endocarditis is on Vanco after dialysis for 6 weeks, last vanco level on 04/10 was 21 # Permanent of chronic? AFib - continue Eliquis, carvedilol, digoxin and amio cardio. 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 Monae and he recommends outpatient follow up and ultimate repair #Chronic pain issues--there has been mention of pain referal and this can be pursuit on outpatient basis ERSD--dialysis per sita (Dr. Bailey) was managing here at [place]. Time Spent with Patient Time attestation: Total time managing care of this patient today ____ minutes. Discharge coordination time: Greater than 30 minutes Quality: Safe Use of Opioids Does Pt have an Active Cancer Diagnosis on the Problem List?: No Quality: Stroke Does the patient have a stroke diagnosis?: No Physical Exam Vital Signs: Vital Signs: Last Vital Signs Temp 96.9 F 04/11/22 15:36 Pulse 72 04/11/22 15:36 Resp 20 04/11/22 15:36 BP 165/97 H 04/11/22 15:36 Pulse Ox 92 04/11/22 15:36 O2 Del Method 04/11/22 15:36 O2 Flow Rate 2 04/10/22 07:54 BMI result Body Mass Index 30.8 Const: Other: General: AO X 3, no acute distress Resp: CTA bilateral CVS: S1,S2,RRR GI: +BS, tenderness and voluntary guarding in the area of cholecystoctomy tube Skin: No rash Neuro: motor grossly intact Psych: appropriate affect DS: Data Data Completed and Pending Completed studies during hospitalization [Text1]: Procedures Assistance with Respiratory Ventilation, Less than 24 Consecutive Hours, Continuous Positive Airway Pressure (08/13/21) Performance of Urinary Filtration, Intermittent, Less than 6 Hours Per Day (08/13/21) Labs on day of discharge: Laboratory Results - last 24 hr 04/10/22 04/11/22 04/11/22 19:42 07: 11:11 POC Glucose 143 H 106 106 04/11/22 16:04 POC Glucose 140 H Preliminary micro results at discharge 04/10/22 08:27 Blood Culture - Preliminary Blood - Venous No growth after 24 hours. 04/10/22 08:30 Blood Culture - Preliminary Blood - Venous No growth after 24 hours. 04/07/22 22:44 Blood Culture - Preliminary Blood - Venous No growth after 48 hours. 04/07/22 22:44 Blood Culture - Preliminary Blood - Venous No growth after 48 hours. Discharge Plan Discharge Anticipated Discharge Date/Time: 04/11/22 17:40 Patient Disposition: [facility] Discharge Diagnosis: Cholecystitis, cholecystoctomy malfunction Referrals: Physician,Unknown J [Primary Care Provider] - 1 Week Discharge Medications: New vancomycin 500 mg recon soln 500 mg PO MOWEFR Qty: 10 0RF Rx Instructions: after dialysis hydromorphone 1 mg/mL Syringe 1 mg IVPUSH Q6H PRN (Reason: Pain, Moderate (Pain Scale 4-6) Qty: 8 0RF Protocol: Hold for RR < HOLD and contact provider for RR < (bpm): 12 Rx Instructions: Partial Fill upon patient request. Continued carvedilol 12.5 mg tablet 2 tab PO BID bumetanide 2 mg tablet 2 tab PO BID amiodarone 200 mg tablet 1 tab PO DAILY isosorbide mononitrate 30 mg tablet extended release 24 hr 3 tab PO QAM spironolactone 25 mg tablet 1 tab PO DAILY diphenhydramine HCl [Banophen] 25 mg capsule 1 cap PO TID PRN (Reason: itch) gabapentin 300 mg capsule 1 cap PO TID budesonide-formoterol [Symbicort] 80-4.5 mcg/actuation HFA aerosol inhaler 2 puff inhalation BID Eliquis 5 mg tablet 1 tab PO BID clonidine 0.3 mg/24 hr patch weekly 1 patch topical MO digoxin 125 mcg (0.125 mg) tablet 0.5 tab PO DAILY sevelamer carbonate 800 mg tablet 3 tab PO TID Discharge Orders: Discharge Order (Routine); Ordered 04/11/22 Ordered By: Bob Chase Diet: Diabetic diet Activity on Discharge: As tolerated Stand Alone Forms: Patient Portal Discharge page Care Plan Goals: recovery from cholecystitis Health Concerns: chronic cholecystitis chronic heart failure hypertensive heart diseaes Pseudoaneurysm Plan of Treatment: Transfer to [facility] for further assessent and management Assessment: as above
[2022-04-11] MEDS: HYDROmorphone HCl 1 MG/ML SYRINGE IVPUSH (19:31)
== END 2022-04-11 19:50 | disposition short-term general hospital (02) | DRG 194 ==
LOC: HO.ED 04-08 01:05 → HO.EDOVER 04-08 01:11 → HO.IMC 04-08 14:20
PROVIDERS: Radiology Diagnostic Radiology; Admitting Provider Internal Medicine; Emergency Provider Student in an Organized Health Care Education/Training Program; Visit Provider Internal Medicine
DX: I13.0 Hypertensive heart and chronic kidney disease with heart failure and stage 1 through stage 4 chronic kidney disease, or unspecified chronic kidney disease (principal); J18.9 Pneumonia, unspecified organism; I48.19 Other persistent atrial fibrillation; E11.22 Type 2 diabetes mellitus with diabetic chronic kidney disease; K76.0 Fatty (change of) liver, not elsewhere classified; K81.1 Chronic cholecystitis; I48.92 Unspecified atrial flutter; Z79.01 Long term (current) use of anticoagulants; N18.30 Chronic kidney disease, stage 3 unspecified; T85.848A Pain due to other internal prosthetic devices, implants and grafts, initial encounter; Y82.8 Other medical devices associated with adverse incidents; I50.33 Acute on chronic diastolic (congestive) heart failure; I72.4 Aneurysm of artery of lower extremity; I34.0 Nonrheumatic mitral (valve) insufficiency; F17.210 Nicotine dependence, cigarettes, uncomplicated; Z99.2 Dependence on renal dialysis; Z71.6 Tobacco abuse counseling; Z76.5 Malingerer [conscious simulation]; Z86.14 Personal history of Methicillin resistant Staphylococcus aureus infection; Z20.822 Contact with and (suspected) exposure to COVID-19; Z88.2 Allergy status to sulfonamides; Z88.8 Allergy status to other drugs, medicaments and biological substances; Z79.899 Other long term (current) drug therapy
CPT/HCPCS: 36415; 71046; 74176; 76000; 80053; 80202; 82077; 82248; 82947; 83605; 83690; 83735; 83880; 84484; 85025; 85610; 87040; 87635; 90999; 93005; 93306; 93926; 96365; 96375; 99285; J0692; J1170; J1643; J2270; J2405; J2543; J3010; J3371

== ENCOUNTER 2022-05-11 01:59 | Inpatient (IN) | payer OTHER, SELFPAY ==
[2022-05-11] VITALS (42 sets, daily range): BP systolic 150–203; BP diastolic 94–126; PULSE 82–101; RESP 14–26; TEMP 36.3–37.4; O2SAT 26–99; BMI 33.3; BMI 33.1; BMI 32.3
--- NOTE | 2022-05-11 | ECG_ITS ---
Test Reason : SOB Blood Pressure : / mmHG Vent. Rate : 090 BPM Atrial Rate : 090 BPM P-R Int : 250 ms QRS Dur : 138 ms QT Int : 394 ms P-R-T Axes : 046 019 019 degrees QTc Int : 481 ms Sinus rhythm with 1st degree A-V block Possible Left atrial enlargement Left ventricular hypertrophy with QRS widening ( R in aVL , [place] product ) Abnormal ECG When compared with ECG of 07-APR-2022 22:20, Sinus rhythm has replaced Atrial flutter T wave inversion no longer evident in Lateral leads Referred By: Generic ED Physician Electronically Signed By:LISSETT GARG
--- NOTE | ~2022-05-11 | XR_ITS ---
EXAMINATION: XR CHEST CLINICAL INFORMATION: Shortness of breath COMPARISON: 04/07/2022 TECHNIQUE: Frontal view of the chest was obtained. FINDINGS: Cardiomegaly and pulmonary venous congestion without overt edema. Diffuse bronchial wall thickening. No pleural effusion or pneumothorax. Cardiomegaly is atherosclerotic. No acute osseous abnormalities. XR/XR chest 1V IMPRESSION: * Cardiomegaly and pulmonary venous congestion without overt edema. * Diffuse bronchial thickening. Represent bronchitis
--- NOTE | ~2022-05-11 | XR_ITS ---
EXAMINATION: XR CHEST CLINICAL INFORMATION: Shortness of breath COMPARISON: 05/12/2022 TECHNIQUE: Frontal view of the chest was obtained. FINDINGS: Compared to yesterday's exam there is been worsening of appearances with increase heart size and pulmonary vascular congestion with interstitial edema. No large pleural effusions are seen. The heart remains enlarged. There is a new area of linear atelectasis in the left mid lung laterally. XR/XR chest 1V IMPRESSION: CHF with interstitial edema.
--- NOTE | ~2022-05-11 | XR_ITS ---
EXAMINATION: XR CHEST CLINICAL INFORMATION: SOB COMPARISON: None available. TECHNIQUE: Frontal view of the chest was obtained. FINDINGS: There is mild cardiomegaly with increased pulmonary vascularity consistent with CHF no acute pneumonic consolidation seen. No pleural effusion. No gross bony abnormality. XR/XR chest 1V IMPRESSION: Cardiomegaly. Cardiomegaly with CHF.
--- NOTE | 2022-05-11 02:07 | ECG_ITS ---
Test Reason : SOB Blood Pressure : / mmHG Vent. Rate : 080 BPM Atrial Rate : 080 BPM P-R Int : 246 ms QRS Dur : 128 ms QT Int : 412 ms P-R-T Axes : 083 042 090 degrees QTc Int : 475 ms Sinus rhythm with 1st degree A-V block Possible Left atrial enlargement Left ventricular hypertrophy with QRS widening ( [place] product ) Nonspecific T wave abnormality Abnormal ECG When compared with ECG of 11-MAY-2022 02:05, No significant changes seen Referred By: Generic ED Physician Electronically Signed By:LISSETT GARG
[2022-05-11] MEDS: Nitroglycerin 2 % Oint 1 GM Packet 0.5 INCH TRANSDERMA (02:19)
[2022-05-11] MEDS: methylPREDNISolone Sod Succ 125 MG/2 ML VIAL IVPUSH (02:19)
[2022-05-11] MEDS: ondansetron HCL 4 MG/2 ML VIAL IVPUSH (02:20)
[2022-05-11] MEDS: Albuterol Sulfate (0.083%) 2.5 MG/3 ML VIAL.NEB 5 MG INHALE (02:20)
--- NOTE | 2022-05-11 02:21 | ED_ITS ---
HPI - SOB/Dyspnea General Chief Complaint: Dyspnea Stated Complaint: OD/Resp Distress Time Seen by Provider: 05/11/22 02:03 Source: patient and EMS Mode of arrival: EMS Limitations: physical limitation (Severe dyspnea and shortness of breath) History of Present Illness HPI Narrative: 46-year-old gentleman with underlying obesity, ESRD on HD, HTN, last dialysis session was for days ago (patient stated that he was sick yesterday and he did not go to dialysis). The initial EMS call was suspected OD patient received Narcan at the scene, patient in the ED declined using any drugs. Been having shortness of breath for the past 4 hours on EMS arrival patient found to be in acute respiratory distress was given albuterol, was found to be hypotensive in the scene was given 500 cc of normal saline and transported to the hospital on arrival patient was in acute respiratory distress only speaks 1 word at the time, complaining of no fever or chills. Complain of chest pain. Related Data Home Medications Medication Instructions Recorded Confirmed amiodarone 200 mg tablet 1 tab PO DAILY 08/13/21 04/08/22 apixaban 5 mg tablet (Eliquis) 1 tab PO BID 08/13/21 04/08/22 budesonide-formoterol HFA 80 2 puff inhalation BID 08/13/21 04/08/22 mcg-4.5 mcg/actuation aerosol inhaler (Symbicort) bumetanide 2 mg tablet 2 tab PO BID 08/13/21 04/08/22 carvedilol 12.5 mg tablet 2 tab PO BID 08/13/21 04/08/22 diphenhydramine HCl 25 mg capsule 1 cap PO TID PRN itch 08/13/21 04/08/22 (Banophen) gabapentin 300 mg capsule 1 cap PO TID 08/13/21 04/08/22 isosorbide mononitrate 30 mg 3 tab PO QAM 08/13/21 04/08/22 tablet,extended release 24 hr spironolactone 25 mg tablet 1 tab PO DAILY 08/13/21 04/08/22 clonidine 0.3 mg/24 hr weekly 1 patch topical MO 04/08/22 04/08/22 transdermal patch digoxin 125 mcg (0.125 mg) tablet 0.5 tab PO DAILY 04/08/22 04/08/22 sevelamer carbonate 800 mg tablet 3 tab PO TID 04/08/22 04/08/22 Previous Rx's Medication Instructions Recorded hydromorphone 1 mg/mL injection 1 mg IVPUSH Q6H PRN Pain, Moderate 04/11/22 syringe (Pain Scale 4-6 #8 mL vancomycin 500 mg intravenous 500 mg PO MOWEFR #10 ea 04/11/22 solution Allergies Allergy/AdvReac Type Severity Reaction Status Date / Time PHILLY Inhibitors Allergy Anaphylaxis Verified 08/13/21 12:19 shellfish derived Allergy Anaphylaxis Verified 08/13/21 12:19 Sulfa (Sulfonamide Allergy Anaphylaxis Verified 08/13/21 12:19 Antibiotics) Review of Systems Review of Systems: All other systems are reviewed and are negative Constitutional: Reports as per HPI and Reports no additional constitutional complaints Eyes: Reports as per HPI and Reports no additional eye complaints Reports system reviewed and no additional complaints, except as documented Cardiovascular: Reports as per HPI and Reports no additional cardiovascular complaints Respiratory: Reports as per HPI and Reports no additional respiratory complaints Gastrointestinal: Reports as per HPI and Reports no additional gastrointestinal complaints Genitourinary: Reports no additional female genitourinary complaints Musculoskeletal: Reports no additional musculoskeletal complaints Skin/Breast: Reports system reviewed and no additional complaints, except as docu Psychiatric: Reports no additional psychiatric complaints Endocrine: Reports no additional endocrine complaints Hematologic/Lymphatic: Reports no additional hematologic/lymphatic complaints Allergic/Immunologic: Reports no additional allergic/immunologic complaints Reports system reviewed and no additional complaints, except as documented and Reports Abnormal speech present [facility] Past Medical History Medical History Afib Diabetes End stage renal disease Hyperkalemia Hypertension Social History Social History Household Members: None Housing: Other Housing Other:: motel Do you presently have visiting nurse or other home services: No Alcohol intake: current Patient Tobacco Use Status: Current someday Tobacco user Tobacco use type: Cigarette Cigarettes Per Day: 2 e-Cigarette/Vaping Use: Never Used Second Hand Smoke Exposure: No Use of substances other than those prescribed or required for medical reasons: Yes Substance Use Type: Opiates Advance Directives: Yes Advance Directives on File: Yes Advance Directives Date on File: 04/08/22 service: No Current occupational status: disabled Physical Exam Vital Signs: Vital Signs: Last Vital Signs Pulse 84 05/11/22 02:45 Resp 22 H 05/11/22 02:45 BP 175/107 H 05/11/22 02:36 Pulse Ox 93 05/11/22 02:36 O2 Del Method BiPAP 05/11/22 02:36 BMI result Body Mass Index 33.3 Vital signs have been reviewed as appeared to be correct. Blood pressure elevated. Heart rate normal. Respiration rate normal. Temperature normal. Oxygen saturation normal. Appearance: acute respiratory distress, anxious. Head: Normal external exam. Normocephalic. Atraumatic. No [place] signs noted. No raccoon eyes noted Eyes: PERRLA. EOMI. Conjunctiva and sclera normal. Eyelids normal. ENT: TM's Normal. Pharynx normal. Uvula midline. Moist mucous membranes. No trismus noted. No drooling noted. No muffled voice noted. Neck: Normal inspection. Neck supple. FROM. No adenopathy. Thyroid Normal. No meningeal signs. No neck mass noted. CVS: Normal heart rate and rhythm. Heart sound normal. No murmurs noted. Pulses normal throughout. Respiratory: Acute respiratory distress. Painless inspiration. Breath sounds normal. Mix of expiratory wheezing with prolonged expiration, bilateral rales up to half all lung chauhan bilaterally, Chest nontender. No accessory muscle usage noted or decreased air movement noted. Abdomen: Soft and nontender. Bowel sounds normal in all 4 quadrants. No distention noted. No organomegaly noted. No visible injury noted. Back: No CVA tenderness. Full range of motion noted. Skin: Skin warm and dry. Normal skin color. Normal skin turgor. No rashes/lesions/lacerations noted. Extremities: +2 lower extremity edema. Extremities exhibit normal range of motion. Extremities nontender. Neuro: Oriented X 3. Cranial nerve exam: II-XII are grossly intact No motor deficit. No sensory deficit. Reflexes normal. Course Course Course Narrative: 46-year-old male with ESRD on HD last HD was yesterday patient stated was a full 5 hours dialysis session, presented today with acute respiratory distress found to be hypervolemic with hyperkalemic with no EKG changes. Patient was given 40 mg of Lasix (patient normal produce urine) did not make urine in the ED. nitropaste, sodium bicarb, patient was not given calcium gluconate because record indicate patient is on digoxin. Patient also was placed on BiPAP in the emergency department with significant improvement of patient's symptoms, patient will be admitted to ICU case discussed with Dr. Vizcaino. Patient also would need an emergent dialysis case discussed with Dr. Winter. Medications Administered Discontinued Medications Generic Name Dose Route Start Last Admin Trade Name Freq PRN Reason Stop Dose Admin Albuterol Sulfate 5 mg 05/11/22 02:05 05/11/22 02:20 Albuterol Sulfate (0.083%) 2.5 Mg/3 Ml Vial.Neb INHALE 05/11/22 02:06 5 mg ONCE ONE Administration Furosemide 40 mg 05/11/22 02:37 05/11/22 02:42 Furosemide 40 Mg/4 Ml Vial IVPUSH 05/11/22 02:38 40 mg ONCE ONE Administration Protocol Methylprednisolone Sodium Succinate 125 mg 05/11/22 02:05 05/11/22 02:19 Methylprednisolone Sod Succ 125 Mg/2 Ml Vial IVPUSH 05/11/22 02:06 125 mg ONCE ONE Administration Nitroglycerin 0.5 inch 05/11/22 02:05 05/11/22 02:19 Nitroglycerin 2 % Oint 1 Gm Packet TRANSDERMA 05/11/22 02:06 0.5 inch ONCE ONE Administration Ondansetron HCl 4 mg 05/11/22 02:13 05/11/22 02:20 Ondansetron Hcl 4 Mg/2 Ml Vial IVPUSH 05/11/22 02:14 4 mg ONCE ONE Administration Medical Decision Making Differential Diagnosis Differential Diagnoses: The differential diagnosis associated with the presentation includes (Pulmonary congestion, electrolyte disturbance, EKG changes, acute respiratory failure, anxiety, COPD.) Admission/Observation Consideration of admission/observation: Escalation of care including admission/observation considered Consult Healthcare Provider Management of the patient was discussed with: [employer] (Dr. vizcaino and Dr. Winter from renal) Lab Data MDM Lab Attestation statement: I reviewed the patient's lab results. 05/11/22 02:10 05/11/22 02:10 Labs: Lab Results 05/11/22 05/11/22 05/11/22 Range/Units 02:10 02:10 02:10 WBC 8.8 (4.8-10.8) X10*3/uL RBC 3.81 L (4.60-5.80) X10*6/uL Hgb 10.4 L (14.0-18.0) g/dl Hct 33.3 L (42.0-52.0) % MCV 87.4 (80.0-98.0) fL MCH 27.3 (27.0-33.0) pg MCHC 31.2 (31.0-36.0) g/dl RDW 19.6 H (11.0-16.0) % Plt Count 169 (160-400) X10*3/uL MPV 9.3 L (9.4-12.4) fL Immature Gran % (Auto) 1.0 H (0.0-0.4) % Neut % (Auto) 82.9 H (45-73) % Lymph % (Auto) 6.4 L (20-40) % [place] % (Auto) 7.0 (2-11) % Eos % (Auto) 2.2 (0-4) % Baso % (Auto) 0.5 (0-2) % Lymph # (Auto) 0.6 L (1.2-4.9) X10*3/uL [place] # (Auto) 0.6 (0.1-1.2) X10*3/uL Eos # (Auto) 0.2 (0.0-0.4) X10*3/uL Baso # (Auto) 0.0 (0.0-0.2) X10*3/uL Abs Immat Gran (auto) 0.09 H (0.00-0.03) X10*3/uL Absolute Neuts (auto) 7.3 (2.0-8.3) x10*3/uL Absolute Nucleated RBC 0.000 (0.0-0.012) X10*3/uL Nucleated RBC % (auto) 0.0 (0.0-0.2) /100WBC Sodium 130 L (135-145) mmol/L Potassium 6.7 H* D (3.3-5.1) mmol/L Chloride 93 L (96-108) mmol/L Carbon Dioxide 20 L (22-29) mmol/L Anion Gap 24 H (12-20) BUN 80 H (9-16) mg/dL Creatinine 10.25 H* (0.5-1.4) mg/dL Estim Creat Clear Calc 11.7 Estimated GFR 6 Random Glucose 189 H (60-115) mg/dL Lactic Acid 1.5 (0.5-2.0) mmol/L Calcium 9.2 (8.4-10.2) mg/dL Total Bilirubin 1.0 (0.0-1.0) mg/dL Direct Bilirubin 0.4 (0.0-0.5) mg/dL AST 15 (5-37) U/L ALT 15 (0-40) U/L Alkaline Phosphatase 174 H (39-117) U/L Troponin I High Sens (<3.5-35.0) ng/L B-Natriuretic Peptide (<100) pg/mL Total Protein 7.4 (6.5-8.0) g/dL Albumin 4.1 (3.5-5.0) g/dL Lipase 36 (8-78) U/L Influenza Type A (PCR) (Negative) Influenza Type B (PCR) (Negative) RSV RNA Qual (PCR) (Negative) SARS-CoV-2 RNA (RT-PCR) (Negative) 05/11/22 05/11/22 05/11/22 Range/Units 02:10 02:10 02:35 WBC (4.8-10.8) X10*3/uL RBC (4.60-5.80) X10*6/uL Hgb (14.0-18.0) g/dl Hct (42.0-52.0) % MCV (80.0-98.0) fL MCH (27.0-33.0) pg MCHC (31.0-36.0) g/dl RDW (11.0-16.0) % Plt Count (160-400) X10*3/uL MPV (9.4-12.4) fL Immature Gran % (Auto) (0.0-0.4) % Neut % (Auto) (45-73) % Lymph % (Auto) (20-40) % [place] % (Auto) (2-11) % Eos % (Auto) (0-4) % Baso % (Auto) (0-2) % Lymph # (Auto) (1.2-4.9) X10*3/uL [place] # (Auto) (0.1-1.2) X10*3/uL Eos # (Auto) (0.0-0.4) X10*3/uL Baso # (Auto) (0.0-0.2) X10*3/uL Abs Immat Gran (auto) (0.00-0.03) X10*3/uL Absolute Neuts (auto) (2.0-8.3) x10*3/uL Absolute Nucleated RBC (0.0-0.012) X10*3/uL Nucleated RBC % (auto) (0.0-0.2) /100WBC Sodium (135-145) mmol/L Potassium (3.3-5.1) mmol/L Chloride (96-108) mmol/L Carbon Dioxide (22-29) mmol/L Anion Gap (12-20) BUN (9-16) mg/dL Creatinine (0.5-1.4) mg/dL Estim Creat Clear Calc Estimated GFR Random Glucose (60-115) mg/dL Lactic Acid (0.5-2.0) mmol/L Calcium (8.4-10.2) mg/dL Total Bilirubin (0.0-1.0) mg/dL Direct Bilirubin (0.0-0.5) mg/dL AST (5-37) U/L ALT (0-40) U/L Alkaline Phosphatase (39-117) U/L Troponin I High Sens 191.0 H* D (<3.5-35.0) ng/L B-Natriuretic Peptide 4963 H (<100) pg/mL Total Protein (6.5-8.0) g/dL Albumin (3.5-5.0) g/dL Lipase (8-78) U/L Influenza Type A (PCR) NEGATIVE (Negative) Influenza Type B (PCR) NEGATIVE (Negative) RSV RNA Qual (PCR) NEGATIVE (Negative) SARS-CoV-2 RNA (RT-PCR) NEGATIVE (Negative) Independent Interpretation I performed an independent interpretation of an: EKG (Normal sinus rhythm with first-degree AV block LDH, first-degree AV block, no hyperkalemic T-wave ch anges.) and Plain X-Ray (Pulmonary congestion) Radiology Impression Discussion of test interpretation with radiology: I have reviewed the radiologist's reading. Prescription Management I considered prescription management with: Other Chronic Conditions Patient?s care impacted by: Other (ESRD, hypertension.) Critical Care Time Critical Care Time Critical Care Time: Yes Total Critical Care Time: 60 Attestation: I spent 60 minutes providing critical care service to the patient, this including time spent at the bedside to evaluate the patient, reassess the patient, monitoring vital signs, review labs, and radiographic studies, counseling the patient/family, discussing the case with consultants, disposition the patient. Discharge Plan Discharge Clinical Impression: CHF exacerbation, Acute hyperkalemia Patient Disposition: Home, Self-Care Prescriptions: No Action carvedilol 12.5 mg tablet 2 tab PO BID bumetanide 2 mg tablet 2 tab PO BID amiodarone 200 mg tablet 1 tab PO DAILY isosorbide mononitrate 30 mg tablet extended release 24 hr 3 tab PO QAM spironolactone 25 mg tablet 1 tab PO DAILY diphenhydramine HCl [Banophen] 25 mg capsule 1 cap PO TID PRN (Reason: itch) gabapentin 300 mg capsule 1 cap PO TID budesonide-formoterol [Symbicort] 80-4.5 mcg/actuation HFA aerosol inhaler 2 puff inhalation BID Eliquis 5 mg tablet 1 tab PO BID clonidine 0.3 mg/24 hr patch weekly 1 patch topical MO digoxin 125 mcg (0.125 mg) tablet 0.5 tab PO DAILY sevelamer carbonate 800 mg tablet 3 tab PO TID vancomycin 500 mg recon soln 500 mg PO MOWEFR Qty: 10 0RF Rx Instructions: after dialysis hydromorphone 1 mg/mL Syringe 1 mg IVPUSH Q6H PRN (Reason: Pain, Moderate (Pain Scale 4-6) Qty: 8 0RF Protocol: Hold for RR < HOLD and contact provider for RR < (bpm): 12 Rx Instructions: Partial Fill upon patient request.
[2022-05-11 02:24] LABS: MANUAL DIFF FLAG NO
[2022-05-11 02:27] LABS: Basophils Percent Auto 0.5 % (0-2); Eosinophils Absolute Auto 0.2 X10*3/uL (0.0-0.4); Eosinophils Percent Auto 2.2 % (0-4); Hematocrit 33.3 % (42.0-52.0); Hemoglobin 10.4 g/dl (14.0-18.0); Imm Gran Abs Auto 0.09 X10*3/uL (0.00-0.03); Lymphocytes Absolute Auto 0.6 X10*3/uL (1.2-4.9); Lymphocytes Percent Auto 6.4 % (20-40); Mean Corpuscular HGB Conc 31.2 g/dl (31.0-36.0); Mean Corpuscular Hemoglobin 27.3 pg (27.0-33.0); Mean Corpuscular Volume 87.4 fL (80.0-98.0); Mean Platelet Volume 9.3 fL (9.4-12.4); Monocytes Absolute Auto 0.6 X10*3/uL (0.1-1.2); Neutrophils Absolute Auto 7.3 x10*3/uL (2.0-8.3); Neutrophils Percent Auto 82.9 % (45-73); Platelet Count 169 X10*3/uL (160-400); Red Blood Count 3.81 X10*6/uL (4.60-5.80); Red Cell Distribution Width 19.6 % (11.0-16.0); White Blood Count 8.8 X10*3/uL (4.8-10.8)
[2022-05-11 02:36] LABS: Lactic Acid 1.5 mmol/L (0.5-2.0)
[2022-05-11] MEDS: Furosemide 40 MG/4 ML VIAL IVPUSH (02:42)
[2022-05-11 02:46] LABS: B Type Natriuretic Peptide 4963 pg/mL (<100)
[2022-05-11 02:47] LABS: Alanine Aminotransferase 15 U/L (0-40); Albumin Level 4.1 g/dL (3.5-5.0); Alkaline Phosphatase 174 U/L (39-117); Anion Gap 24 (12-20); Aspartate Amino Transferase 15 U/L (5-37); Bilirubin Direct 0.4 mg/dL (0.0-0.5); Blood Urea Nitrogen 80 mg/dL (9-16); Calcium 9.2 mg/dL (8.4-10.2); Carbon Dioxide 20 mmol/L (22-29); Chloride 93 mmol/L (96-108); Glucose Random 189 mg/dL (60-115); Lipase 36 U/L (8-78); Sodium 130 mmol/L (135-145); Total Protein 7.4 g/dL (6.5-8.0)
[2022-05-11 02:49] LABS: Creatinine Clr Calc Pharmacy 11.7; Estimated Glomerular Filt Rate 6; Potassium 6.7 mmol/L (3.3-5.1)
[2022-05-11 03:19] LABS: Influenza A PCR NEGATIVE (Negative); Influenza B PCR NEGATIVE (Negative); Resp Syncy Virus RNA Qual PCR NEGATIVE (Negative); SARS COV2 PCR INHOUSE NEGATIVE (Negative)
[2022-05-11] MEDS: LORazepam 2 MG/ML VIAL IVPUSH (03:38)
--- NOTE | 2022-05-11 03:38 | PC.NURSE ---
Took over care from YESSICA Cortez at 3:00am, pt changed into hospital attire, place pt in hospital bed, Medicated per Apr, pt on bipap. Repeat EKG completed to due increase pain. Will continue to monitor.
[2022-05-11] MEDS: Sodium Bicarbonate 8.4% 50 MEQ/50 ML SYRINGE IVPUSH (03:40)
[2022-05-11] MEDS: Morphine Sulfate 2 MG/ML CARTRIDGE 1 MG IVPUSH (04:16)
--- NOTE | 2022-05-11 04:16 | P.HPCC_ITS ---
History of Present Illness Date of Service: 05/11/22 Attending physician on admission: Linsey Viczaino Chief Complaint: Dyspnea The patient is a 46-year-old male with a past medical history of MRSA bacteremia, endocarditis, h/o paraspinal /epidural Phlegmon, ESRD with HD MWF, Sa, chronic diastolic chf, Cholecystitis (s/p Cholecystostomy d/t being poor candidate for surgery in Jan 2022), COPD, HTN, HLD,? permanent AFIB? and history of DVT on eliquis, who was BIBA in acute respiratory distress. EMS administered albuterol and 500cc normal saline for hypotension. They administered IN Narcan for unresponsiveness. The patient has had multiple hospitalizations at [facility] with episodes of fluid overload and has been getting IV vancomycin for a staph line infection. He [place] [facility] [place] , for abdominal pain r/t cholecystostomy tube dysfunction.? On arrival to the emergency room the patient was in acute respiratory distress, only speaking a few words, complaining of no fever or chills. Blood pressure was 172/118, heart rate 87, respiratory rate 22, afebrile. Laboratory data significant for WBC 8.8, hematocrit 33.3, sodium 130, potassium 6.7, chloride 93, CO2 20, BUN 80, creatinine 10.25, troponin 191, BNP 4963. Imaging: CXR: Cardiomegaly and pulmonary venous congestion without overt edema and diffuse bronchial thickening representing bronchitis. ED course:? The patient was placed on BiPAP with settings of 12 in 5.? He was given Solu-Medrol 125 mg, Lasix 40mg, ? inch Nitropaste, Zofran, and Albuterol, 1 amp Sodium Bicarb, and Ativan 2mg. Nephrology was consulted.? On my assessment in the ER, the patient was awake, alert and oriented, moaning and restless but able to answer questions in full sentences. O2 sat 93% on BiPAP 12/5, RR 22. The patient was breathing easy with no accessory muscle use noted.? BP 175/107 heart rate 83.? The patient was admitted to the ICU for continued BiP AP and observation and emergent dialysis. Review of Systems Constitutional: Constitutional: Reports as per HPI Cardiovascular: Cardiovascular: Reports chest pain (pressure like someone stomped on my chest ) Respiratory: Respiratory: Reports as per HPI Gastrointestinal: Gastrointestinal: Reports no additional gastrointestinal complaints Genitourinary: Genitourinary: Reports no additional male genitourinary complaints Integumentary/Breasts: Skin/Breast: Reports system reviewed and no additional complaints, except as docu Neurologic: Reports system reviewed and no additional complaints, except as documented Psychiatric: Psychiatric: Reports no additional psychiatric complaints Endocrine: Endocrine: Reports no additional endocrine complaints Hematologic/Lymphatic: Hematologic/Lymphatic: Reports no additional hematologic/lymphatic complaints Allergic/Immunologic: Allergic/Immunologic: Reports no additional allergic/immunologic complaints [facility] Past Medical History Medical History (Updated 05/11/22 @ 15:34 by Juventino Winter MD) Afib Diabetes End stage renal disease Hyperkalemia Hypertension Social History Social History Household Members: None Household Members Other:: NONE Housing: Other Housing Other:: MOTEL Do you presently have visiting nurse or other home services: No Unable to assess alcohol history related to: Unknown Alcohol intake: current Patient Tobacco Use Status: Current everyday Tobacco user Tobacco use type: Cigarette Cigarette Packs Per Day: 1 Cigarettes Per Day: 20.0 Smoked in Last 30 Days: Yes e-Cigarette/Vaping Use: Never Used Patient Interested in Nicotine Replacement: No Patient Given Instructions on How to Stop Smoking: No Date Education Initiated: 05/11/22 Second Hand Smoke Exposure: No Use of substances other than those prescribed or required for medical reasons: Yes Substance Use Type: Opiates Substance Use Frequency: Chronic Longstanding Last Used Substance: Unknown Currently Displaying Signs/Symptoms of Drug Intoxication Withdrawal: No Spiritual Healthcare Practices: UNKNOWN Rastafarian Healthcare Practices: UNKNOWN Cultural Healthcare Practices: UNKNOWN Advance Directives: Yes Advance Directives on File: Yes Advance Directives Date on File: 04/08/22 Do you have thoughts of harming others: None Do you have a plan to hurt others: No Plan Poor oral hygiene: No service: No Current occupational status: disabled Meds Allergies Allergy/AdvReac Type Severity Reaction Status Date / Time PHILLY Inhibitors Allergy Anaphylaxis Verified 08/13/21 12:19 shellfish derived Allergy Anaphylaxis Verified 08/13/21 12:19 Sulfa (Sulfonamide Allergy Anaphylaxis Verified 08/13/21 12:19 Antibiotics) Home Medications Medication Instructions Recorded Confirmed Last Taken Type amiodarone 200 mg tablet 1 tab PO DAILY 08/13/21 05/11/22 Unknown History apixaban 5 mg tablet (Eliquis) 1 tab PO BID 08/13/21 05/11/22 Unknown History budesonide-formoterol HFA 80 2 puff inhalation BID 08/13/21 05/11/22 Unknown History mcg-4.5 mcg/actuation aerosol inhaler (Symbicort) bumetanide 2 mg tablet 2.5 tab PO BID 08/13/21 05/11/22 Unknown History diphenhydramine HCl 25 mg capsule 1 cap PO TID PRN itch 08/13/21 05/11/22 Unknown History (Banophen) gabapentin 300 mg capsule 1 cap PO TID 08/13/21 05/11/22 Unknown History isosorbide mononitrate 30 mg 3 tab PO QAM 08/13/21 05/11/22 Unknown History tablet,extended release 24 hr digoxin 125 mcg (0.125 mg) tablet 0.5 tab PO DAILY 04/08/22 05/11/22 Unknown History sevelamer carbonate 800 mg tablet 3 tab PO TID 04/08/22 05/11/22 Unknown History acetaminophen 325 mg tablet 975 mg PO TID 05/11/22 05/11/22 Unknown History aspirin 81 mg tablet,delayed 81 mg PO DAILY 05/11/22 05/11/22 Unknown History release atorvastatin 80 mg tablet 80 mg PO DAILY 05/11/22 05/11/22 Unknown History carvedilol 25 mg tablet 25 mg PO BID 05/11/22 05/11/22 Unknown History doxazosin 2 mg tablet 4 mg PO DAILY 05/11/22 05/11/22 Unknown History hydralazine 25 mg tablet 100 mg PO TID 05/11/22 05/11/22 Unknown History nifedipine 60 mg tablet,extended 60 mg PO DAILY 05/11/22 05/11/22 Unknown History release 24 hr sodium zirconium cyclosilicate 10 10 g PO TUTHSA 05/11/22 05/11/22 Unknown History gram oral powder packet Physical Exam Vital Signs: Vital Signs: Last Vital Signs Pulse 83 05/11/22 03:54 Resp 16 05/11/22 03:54 BP 203/126 H 05/11/22 03:54 Pulse Ox 99 05/11/22 03:54 O2 Del Method BiPAP 05/11/22 03:54 BMI result Body Mass Index 33.3 Const: General: cooperative, alert, awake and anxious Nutritional Appea ioana: obese Orientation/consciousness: patient oriented x3 HEENT: Head: Yes normocephalic and Yes atraumatic General nose exam: Normal external nose present (Nares patent, septum midline, sinuses nontender bilaterally.) Mouth: Normal oral and palatal mucosa present (No thrush, tongue in midline, mucosa moist.) Throat: Yes other (No erythema, no exudate.) Neck: Neck: Yes supple (no thyromegaly, trachea midline.) Carotids: normal carotid upstroke Resp: Auscultation: rales bilateral and wheezes expiratory wheezes Cardio: Jugular venous distension: no JVD Rate: regular rate Rhythm: regular rhythm Heart sounds: no gallops, no murmurs and no rubs Peripheral pulses: Peripheral pulses 2+ throughout GI: Palpation (GI): Soft to palpation (nondistended. large umbilical hernia.) and nontender Neuro: General: patient oriented x3 Extrem: Other: Left arm AV fistula: Positive thrill/bruit General: Yes full ROM, Yes capillary refill normal and Yes no clubbing, cyanosis or edema Psych: Affect: normal affect Attitude: cooperative Results Labs 05/11/22 02:10 05/11/22 02:10 Labs: Laboratory Results - last 24 hr 05/11/22 05/11/22 05/11/22 02:10 02:10 02:10 MCV 87.4 MCH 27.3 MCHC 31.2 RDW 19.6 H Plt Count 169 MPV 9.3 L Immature Gran % (Auto) 1.0 H Neut % (Auto) 82.9 H Lymph % (Auto) 6.4 L [place] % (Auto) 7.0 Eos % (Auto) 2.2 Baso % (Auto) 0.5 Lymph # (Auto) 0.6 L [place] # (Auto) 0.6 Eos # (Auto) 0.2 Baso # (Auto) 0.0 Abs Immat Gran (auto) 0.09 H Absolute Neuts (auto) 7.3 Absolute Nucleated RBC 0.000 Nucleated RBC % (auto) 0.0 Anion Gap 24 H Estim Creat Clear Calc 11.7 Estimated GFR 6 Random Glucose 189 H Lactic Acid 1.5 Calcium 9.2 Total Bilirubin 1.0 Direct Bilirubin 0.4 AST 15 ALT 15 Alkaline Phosphatase 174 H Troponin I High Sens B-Natriuretic Peptide Total Protein 7.4 Albumin 4.1 Lipase 36 Influenza Type A (PCR) Influenza Type B (PCR) RSV RNA Qual (PCR) SARS-CoV-2 RNA (RT-PCR) 05/11/22 05/11/22 05/11/22 02:10 02:10 02:35 MCV MCH MCHC RDW Plt Count MPV Immature Gran % (Auto) Neut % (Auto) Lymph % (Auto) [place] % (Auto) Eos % (Auto) Baso % (Auto) Lymph # (Auto) [place] # (Auto) Eos # (Auto) Baso # (Auto) Abs Immat Gran (auto) Absolute Neuts (auto) Absolute Nucleated RBC Nucleated RBC % (auto) Anion Gap Estim Creat Clear Calc Estimated GFR Random Glucose Lactic Acid Calcium Total Bilirubin Direct Bilirubin AST ALT Alkaline Phosphatase Troponin I High Sens 191.0 H* D B-Natriuretic Peptide 4963 H Total Protein Albumin Lipase Influenza Type A (PCR) NEGATIVE Influenza Type B (PCR) NEGATIVE RSV RNA Qual (PCR) NEGATIVE SARS-CoV-2 RNA (RT-PCR) NEGATIVE Imaging Radiologist's Impressions: Impressions Chest X-Ray 05/11/22 02:40 IMPRESSION: * Cardiomegaly and pulmonary venous congestion without overt edema. * Diffuse bronchial thickening. Represent bronchitis Assessment and Plan (1) Acute hyperkalemia: Status: Acute (2) Elevated brain natriuretic peptide (BNP) level: Status: Acute (3) CHF exacerbation: Status: Acute (4) Hypertension: Status: Acute (5) End stage renal disease: Status: Acute (6) Pulmonary edema: Status: Resolved Plan The patient is a 46-year-old male with a past medical history of MRSA bacteremia, endocarditis, h/o paraspinal /epidural Phlegmon, ESRD with HD MWF, Sa, chronic diastolic chf, cholecystostomy, COPD, HTN, HLD,? permanent AFIB? and history of DVT on eliquis admitted with CHF exacerbation and acute hyperkalemia. Plan Neuro: No acute issues. Cardiac: Cardiomegaly and pulmonary venous congestion noted in the x-ray with history of Congestive heart failure. Received 20 of Lasix in the ED. Will have emergent dialysis. Pulmonary: ? Pulmonary venous congestion, bronchitis. BiPAP. Continue albuterol. Monitor respiratory status.? Renal:? End-stage renal disease on ESRD, oliguric.? Hyponatremia, hyperkalemia. Renal consulted.? Will have emergent dialysis this morning. Endo:? No acute issues.?? GI: No acute issues.? Cholecystostomy tube in place with moderate amount brown drainage collected in bag. ID: No evidence of sepsis. Continue vancomycin for a previously identified staph line infection. Heme/Onc:? No acute issues. Psych:? No acute issues. Miscellaneous:? No acute issues. Prophylaxis:? Eliquis Diet:? NPO? Time Spent With Patient Time: Total time managing care of this patient today ____ minutes.
[2022-05-11] MEDS: Nitroglycerin 2 % Oint 1 GM Packet 1 INCH TRANSDERMA (04:17)
[2022-05-11 04:34] LABS: Troponin-I High Sensitivity 173.6 ng/L (<3.5-35.0)
--- NOTE | 2022-05-11 04:36 | PC.NURSE ---
Critical result called in by Jose Guadalupe from the lab. Troponin 173.6. Dr. Mckeon notified. No new orders at this time.
[2022-05-11 05:03] LABS: VBG HCO3 20 mmol/L (22-26); VBG pCO2 38 mmHg; VBG pH 7.32 (7.32-7.43); VBG pO2 42 mmHg
[2022-05-11 05:03] LABS: Venous Blood Gas Refer to POC result
--- NOTE | 2022-05-11 05:06 | PC.NURSE ---
Report given Sonali in ICU, pt transport with this RN, PCT and respiratory, monitored
[2022-05-11] MEDS: Morphine Sulfate 2 MG/ML CARTRIDGE IVPUSH ×6 (05:45→23:47)
--- NOTE | 2022-05-11 05:49 | PC.NURSE ---
PT TO ICU FROM ER ON BIPAP FACEMASK 12/5 AND 24%O2. PT RESTLESS AND ANXIOUS THRASHING AROUND IN THE BED. ANSWERS SOME QUESTIONS APPROPRIATELY BUT DOES NOT ANSWER AT OTHER TIMES. FOLLOWS COMMANDS OCCASSIONALLY BUT NOT ALWAYS. BP HIGH 189/22. MONITOR SHOWS NSR, RATE 80'S-90'S, NO ECTOPY. AWAITING DIALYSIS NURSE FOR HEMODIALYSIS. FISTULA LEFT WRIST WITH POSITIVE BRUIT AND THRILL. PT HAS A T TUBE RIGHT ABD DRAINING INTO A COLLECTION BAG OF DARK YELLOW/BROWN FLUID. AFEBRILE.
[2022-05-11] MEDS: Albuterol Sulfate (0.083%) 2.5 MG/3 ML VIAL.NEB INHALE ×4 (07:38→19:05)
--- NOTE | 2022-05-11 08:10 | PM.CCPN ---
Subjective Subjective Date of Service: 05/11/22 Interval History: A 46-year-old moderately obese individual insulin-dependent type 2 diabetic and underlying hypertensive with end-stage renal disease and hemodialysis dependent and has a.m. left upper extremity access apparently missed dialysis yesterday presented in pulmonary edema obviously acutely dyspneic a chest x-ray consistent with extensive in a bilateral pulmonary edema and BNP of over 5000 with just a trivial and the flat troponin curve consistent with his renal failure and hyperkalemic to 6.7 and oddly he is on spironolactone as part of his regimen and he is also on a very large dose of Bumex because he does have a little bit of urinary output but he claims it is trivial and he is also on amiodarone and apixaban because he is a paroxysmal atrial fibrillator is currently in sinus but they claimed he was a permanent AFib which is obviously not the case My assessment of Ms. That he does not look total body fluid overloaded no significant neck vein engorgement the abdomen is soft is no clinical suspicion for ascites no peripheral edema but when I did my bedside echo he has got marked concentric left ventricular hypertrophy and he clearly has some calcification or sclerosis of the mitral annulus but there looks to be at least a partially if not completely healed vegetation mostly with the posterior mitral attaches to the annulus and there is a large regurgitant flow the S seems to be emanating from predominantly posterior leaflet dysfunction very eccentric fills considerable portion of the left atrium which is very dilated so I do believe that there is critical degree at least 3+ of mitral regurgitation and compared to a an echo just done in the last week or 2 over at [facility] with a claim there was mild this is a change so I can not say for sure that this isn't perforated leaflet or torn cord and he needs to have a formal echo and and evaluation of regurgitant fraction co step might be most of the shortness of breath right now He has been at least for the last the 5 weeks to 6 weeks receiving IV vancomycin 750 mg after each dialysis 3 times weekly and he has other signs of metastatic infection this is with methicillin-resistant Staph aureus predominantly involving thoracic spine segments T1-T2 T8-9 and 10 with possibly epidural collection as well as diskitis and osteomyelitis of the of the vertebral body but node demonstrated cord compression He also had had a cholecystostomy tube for cholecystitis and and recently referred into [facility] for cholecystectomy Critical Care Time (minutes): 45 Physical Exam Vital Signs: Vital Signs: Last Vital Signs Temp 97.5 F 05/11/22 08:00 Pulse 87 05/11/22 08:00 Resp 17 05/11/22 08:00 BP 178/111 H 05/11/22 08:00 Pulse Ox 93 05/11/22 08:00 O2 Del Method BiPAP 05/11/22 08:00 FiO2 24 05/11/22 08:00 BMI result Body Mass Index 33.1 Acutely hypertensive at over 200 systolic currently down to 178/109 since dialysis as started much improved and oxygen saturations 94% and his respiratory rate is between 12 and 15 and he does not have that accessory muscle or diaphragmatic effort as he had had before but again no neck vein distension no significant peripheral edema no ascites no organomegaly Objective Data Labs 05/11/22 02:10 05/11/22 02:10 Labs: Laboratory Results - last 24 hr 05/11/22 05/11/22 05/11/22 02:10 02:10 02:10 WBC 8.8 RBC 3.81 L Hgb 10.4 L Hct 33.3 L MCV 87.4 MCH 27.3 MCHC 31.2 RDW 19.6 H Plt Count 169 MPV 9.3 L Immature Gran % (Auto) 1.0 H Neut % (Auto) 82.9 H Lymph % (Auto) 6.4 L [place] % (Auto) 7.0 Eos % (Auto) 2.2 Baso % (Auto) 0.5 Lymph # (Auto) 0.6 L [place] # (Auto) 0.6 Eos # (Auto) 0.2 Baso # (Auto) 0.0 Abs Immat Gran (auto) 0.09 H Absolute Neuts (auto) 7.3 Absolute Nucleated RBC 0.000 Nucleated RBC % (auto) 0.0 VBG pH VBG pCO2 VBG pO2 VBG HCO3 VBG O2 Saturation VBG Base Excess Sodium 130 L Potassium 6.7 H* D Chloride 93 L Carbon Dioxide 20 L Anion Gap 24 H BUN 80 H Creatinine 10.25 H* Estim Creat Clear Calc 11.7 Estimated GFR 6 Random Glucose 189 H Lactic Acid 1.5 Calcium 9.2 Total Bilirubin 1.0 Direct Bilirubin 0.4 AST 15 ALT 15 Alkaline Phosphatase 174 H Troponin I High Sens B-Natriuretic Peptide Total Protein 7.4 Albumin 4.1 Lipase 36 Influenza Type A (PCR) Influenza Type B (PCR) RSV RNA Qual (PCR) SARS-CoV-2 RNA (RT-PCR) 05/11/22 05/11/22 05/11/22 02:10 02:10 02:35 WBC RBC Hgb Hct MCV MCH MCHC RDW Plt Count MPV Immature Gran % (Auto) Neut % (Auto) Lymph % (Auto) [place] % (Auto) Eos % (Auto) Baso % (Auto) Lymph # (Auto) [place] # (Auto) Eos # (Auto) Baso # (Auto) Abs Immat Gran (auto) Absolute Neuts (auto) Absolute Nucleated RBC Nucleated RBC % (auto) VBG pH VBG pCO2 VBG pO2 VBG HCO3 VBG O2 Saturation VBG Base Excess Sodium Potassium Chloride Carbon Dioxide Anion Gap BUN Creatinine Estim Creat Clear Calc Estimated GFR Random Glucose Lactic Acid Calcium Total Bilirubin Direct Bilirubin AST ALT Alkaline Phosphatase Troponin I High Sens 191.0 H* D B-Natriuretic Peptide 4963 H Total Protein Albumin Lipase Influenza Type A (PCR) NEGATIVE Influenza Type B (PCR) NEGATIVE RSV RNA Qual (PCR) NEGATIVE SARS-CoV-2 RNA (RT-PCR) NEGATIVE 05/11/22 05/11/22 04:06 04:54 WBC RBC Hgb Hct MCV MCH MCHC RDW Plt Count MPV Immature Gran % (Auto) Neut % (Auto) Lymph % (Auto) [place] % (Auto) Eos % (Auto) Baso % (Auto) Lymph # (Auto) [place] # (Auto) Eos # (Auto) Baso # (Auto) Abs Immat Gran (auto) Absolute Neuts (auto) Absolute Nucleated RBC Nucleated RBC % (auto) VBG pH 7.32 VBG pCO2 38 VBG pO2 42 VBG HCO3 20 L VBG O2 Saturation 60.0 VBG Base Excess -5.0 Sodium Potassium Chloride Carbon Dioxide Anion Gap BUN Creatinine Estim Creat Clear Calc Estimated GFR Random Glucose Lactic Acid Calcium Total Bilirubin Direct Bilirubin AST ALT Alkaline Phosphatase Troponin I High Sens 173.6 H* B-Natriuretic Peptide Total Protein Albumin Lipase Influenza Type A (PCR) Influenza Type B (PCR) RSV RNA Qual (PCR) SARS-CoV-2 RNA (RT-PCR) Microbiology Microbiology Results: Microbiology 05/11/22 02:10 Blood - Venous Blood Culture - Preliminary Progress Note: A&P Assessment and plan (1) End stage renal disease: Status: Acute (2) Hypertension: Status: Acute (3) Acute hyperkalemia: Status: Acute (4) Mitral regurgitation: Status: Acute (5) Cholecystostomy tube dysfunction: Status: Acute (6) Hypertensive heart disease: Status: Acute (7) Atrial flutter: Status: Acute (8) Elevated brain natriuretic peptide (BNP) level: Status: Acute (9) Femoral artery pseudo-aneurysm, right: Status: Acute (10) Acute cholecystitis: Status: Acute (11) Abdominal pain: Status: Acute (12) CHF exacerbation: Status: Acute Plan So we plan to do a dialysis today and possibly a shorter 1 tomorrow as we assess his electrolytes but there is no influence on the EKG from his hyperkalemia and EKG shows a nonspecific IVCD with normal sinus rhythm first-degree AV block and diffuse nonspecific ST-T changes and a normal QT interval of about 440 milliseconds Pulmonary edema might very well be on the basis of this new severe mitral regurgitation that is going to have to be checked Quality Stroke Does the patient have a stroke diagnosis?: No VTE Prior VTE?: Yes VTE Risk Level:: Medical - moderate - high VTE Device Contraindication: N/A - Device Ordered VTE Drug Contraindication: N/A - Med Ordered
--- NOTE | 2022-05-11 08:13 | PHA.PROG ---
Admission Date/Time: May 11, 2022 03:51 Indication: Endocarditis Weight in k.9 kg Adjusted body weight in K.92 kg [place] body weight in K.92 kg Obesity Dosing Indication % IBW: 148 Serum Creatinine - Last 168 Hours 05/11/22 02:10 Creatinine 10.25 H* Estimated CrCl and GFR - Last 168 Hours 05/11/22 02:10 Estim Creat Clear Calc 11.7 Estimated GFR 6 Vancomycin Loading Dose: 1500 mg Current Vancomycin Dosing Regimen: dose based on post dialysis random Date and Time for next Vancomycin Level to be drawn: dialysis days Pharmacist Comments on Vancomycin Plan: patient is ESRD on diaylsis. Home schedule MoWeFr. Pharmacy will follow daily if patient get diaylsis. Patient currently receiving dailysis Loading dose vanco 1500 mg is scheduled to starty 05/11/22 @ 1100, after diaylsis Vancomycin dosing will take advantage of [employer] as a clinical decision support tool that uses Bayesian modeling to calculate individual patient's pharmacokinetic parameters and forecast the patient's drug concentration time course with the target goal AUC 24 range of 400 - 600 mg/L/hr.
[2022-05-11] MEDS: niCARdipine HCL 25 MG in 0.9 % Sodium Chloride 250 ML 52 MG IVCONT (10:26)
[2022-05-11] MEDS: vancomycin HCL 1,500 MG in 0.9 % Sodium Chloride 500 ML 333.33 MG IV (10:57)
[2022-05-11 11:15] LABS: Glucose, Whole Blood 135 mg/dL (60-115)
--- NOTE | 2022-05-11 11:18 | MHC.CM.PN ---
PATIENT DROWSY BUT IS ANSWERING QUESTIONS. PATIENT GIVES PERMISSION FOR THIS MAIL RIDER TO CALL HCP (ON FILE) CONSTANCE CALL TO NUMBER ON FILE ([phone].) NO ANSWER AND MAILBOX IS FULL AND CANNOT ACCEPT ANY FURTHER MESSAGES. CASE MANAGEMENT ATTEMPTING TO PERFORM ASSESSMENT, INCLUDING ANY SERVICES AND PCP INFORMATION. RN AWARE OF ATTEMPTS. CASE MANAGEMENT TO CONTINUE FOLLOWING
[2022-05-11] MEDS: Sevelamer Carbonate Tablet 800 MG TABLET 2400 MG PO ×2 (11:42→17:35)
[2022-05-11] MEDS: Apixaban 5 MG TABLET PO ×2 (11:43→20:19)
[2022-05-11] MEDS: Amiodarone HCL 200 MG TABLET PO (11:43)
[2022-05-11] MEDS: cloNIDine 0.2 MG PATCH.TDWK TRANSDERMA (11:50)
[2022-05-11] MEDS: amLODIPine Besylate 5 MG TABLET PO (14:15)
[2022-05-11] MEDS: carvediloL 12.5 MG TABLET PO ×2 (14:15→20:19)
--- NOTE | 2022-05-11 15:01 | PHA.MEDREC ---
Pharmacy Consult ? Medication Reconciliation Pharmacy has completed the medication reconciliation. Med rec done utilizing list from [facility]
--- NOTE | 2022-05-11 15:24 | PM.EVENT ---
Event Note Date of Service: 05/11/22 Event Note: Admited through ICU for emergent dailysis, fluid overload and hyperkalemia. Assuming care from ICU, discussed with Intensisivist. Med rec completed. A/P as outlined by ICU. Patient has aberant drug seeking behavior and will avoid IV narcotics Time Spent With Patient Time: Total time managing care of this patient today ____ minutes.
--- NOTE | 2022-05-11 15:28 | P.CONNP_ITS ---
History of Present Illness Reason for Consult Consult date: 05/11/22 Chief Complaint Chief complaint: Dyspnea History of Present Illness Narrative: 46-year-old male with a past medical history of MRSA bacteremia, endocarditis, h/o paraspinal /epidural Phlegmon, ESRD with HD MWF, Sa, chronic diastolic chf, Cholecystitis (s/p Cholecystostomy d/t being poor candidate for surgery in Jan 2022), COPD, HTN, HLD,? permanent AFIB? and history of DVT on eliquis, who was BIBA in acute respiratory distress. EMS administered albuterol and 500cc normal saline for hypotension. The patient has had multiple hospitalizations at [facility] with episodes of fluid overload and has been getting IV vancomycin for a staph infection. On arrival to the emergency room the patient was in acute respiratory distress, only speaking a few words, complaining of no fever or chills. Blood pressure was 172/118, heart rate 87, respiratory rate 22, afebrile.Laboratory data significant for WBC 8.8, hematocrit 33.3, sodium 130, potassium 6.7, chloride 93, CO2 20, BUN 80, creatinine 10.25, troponin 191, BNP 4963. Nephrology has been consulted to assist in his clinical care during his current hospital stay Review of Systems Review of Systems Yes Unobtainable due to mental condition PMFSH Past Medical History Medical History (Updated 05/11/22 @ 15:34 by Juventino Winter MD) Afib Diabetes End stage renal disease Hyperkalemia Hypertension Social History Social History Household Members: None Household Members Other:: NONE Housing: Other Housing Other:: [facility] Do you presently have visiting nurse or other home services: No Unable to assess alcohol history related to: Unknown Alcohol intake: current Patient Tobacco Use Status: Current everyday Tobacco user Tobacco use type: Cigarette Cigarette Packs Per Day: 1 Cigarettes Per Day: 20.0 Smoked in Last 30 Days: Yes e-Cigarette/Vaping Use: Never Used Patient Interested in Nicotine Replacement: No Patient Given Instructions on How to Stop Smoking: No Date Education Initiated: 05/11/22 Second Hand Smoke Exposure: No Use of substances other than those prescribed or required for medical reasons: Yes Substance Use Type: Opiates Substance Use Frequency: Chronic Longstanding Last Used Substance: Unknown Currently Displaying Signs/Symptoms of Drug Intoxication Withdrawal: No Spiritual Healthcare Practices: UNKNOWN Jewish Healthcare Practices: UNKNOWN Cultural Healthcare Practices: UNKNOWN Advance Directives: Yes Advance Directives on File: Yes Advance Directives Date on File: 04/08/22 Do you have thoughts of harming others: None Do you have a plan to hurt others: No Plan Poor oral hygiene: No service: No Current occupational status: disabled Meds Allergies Allergy/AdvReac Type Severity Reaction Status Date / Time PHILLY Inhibitors Allergy Anaphylaxis Verified 08/13/21 12:19 shellfish derived Allergy Anaphylaxis Verified 08/13/21 12:19 Sulfa (Sulfonamide Allergy Anaphylaxis Verified 08/13/21 12:19 Antibiotics) Active Medications: Current Medications Acetaminophen (Acetaminophen 325 Mg Tablet) 975 mg PO TID [facility] Albuterol Sulfate (Albuterol Sulfate (0.083%) 2.5 Mg/3 Ml Vial.Neb) 2.5 mg INHALE RQ4H WHILE AWAKE [facility] Last Admin: 05/11/22 11:23 Dose: 2.5 mg Amiodarone HCl (Amiodarone Hcl 200 Mg Tablet) 200 mg PO DAILY [facility] Last Admin: 05/11/22 11:43 Dose: 200 mg Amiodarone HCl (Amiodarone Hcl 200 Mg Tablet) 200 mg PO DAILY [facility] Amlodipine Besylate (Amlodipine Besylate 5 Mg Tablet) 5 mg PO DAILY [facility]; Protocol Last Admin: 05/11/22 14:15 Dose: 5 mg Apixaban (Apixaban 5 Mg Tablet) 5 mg PO BID [facility] Last Admin: 05/11/22 11:43 Dose: 5 mg Aspirin (Aspirin Enteric Coated 81 Mg Tablet.Dr) 81 mg PO DAILY [facility] Atorvastatin Calcium (Atorvastatin Calcium 80 Mg Tablet) 80 mg PO DAILY [facility] Bumetanide (Bumetanide 1 Mg Tablet) 5 mg PO BID [facility]; Protocol Carvedilol (Carvedilol 12.5 Mg Tablet) 12.5 mg PO BID [facility]; Protocol Last Admin: 05/11/22 14:15 Dose: 12.5 mg Carvedilol (Carvedilol 25 Mg Tablet) 25 mg PO BID [facility]; Protocol Digoxin (Digoxin 0.125 Mg Tablet) 0.0625 mg PO DAILY [facility] Diphenhydramine HCl (Diphenhydramine Hcl 25 Mg Capsule) 25 mg PO TID PRN PRN Reason: itch Doxazosin Mesylate (Doxazosin Mesylate 2 Mg Tablet) 4 mg PO DAILY [facility]; Protocol Gabapentin (Gabapentin 300 Mg Capsule) 300 mg PO TID [facility] Glucose (Glucose Gel 15 Gm Gel..Gram.) 15 gm PO Q15M PRN; Protocol PRN Reason: per Hypoglycemia Standing Ord. Hydralazine HCl (Hydralazine Hcl 50 Mg Tablet) 100 mg PO TID [facility]; Protocol Vancomycin HCl 500 mg/ Sodium (Chloride) 110 mls @ 110 mls/hr IV [id number] [facility] Dextrose (D10) 250 mls @ 750 mls/hr IV Q15M PRN; Protocol PRN Reason: per Hypoglycemia Standing Ord. Nicardipine HCl 25 mg/ Sodium (Chloride) 260 mls @ 0 mls/hr IVCONT .Q0M [facility]; Protocol Last Titration: 05/11/22 15:03 Dose: 0 mg/hr, 0 mls/hr Insulin Human Lispro (Insulin Lispro 100 Unit/Ml 3 Ml Vial) 0 unit SUBCUT QIDACHS [facility]; Protocol Stop: 05/12/22 08:12 Last Admin: 05/11/22 11:13 Dose: Not Given Isosorbide Mononitrate (Isosorbide Mononitrate 30 Mg Tab.Er.24h) 90 mg PO DAILY [facility]; Protocol Morphine Sulfate (Morphine Sulfate 2 Mg/Ml Cartridge) 2 mg IVPUSH Q1H PRN; Protocol PRN Reason: Chest Pain Last Admin: 05/11/22 14:14 Dose: 2 mg Nifedipine (Nifedipine Er 60 Mg Tab.Er.24) 60 mg PO DAILY [facility]; Protocol Pharmacy Consult (Consult Rx Vancomycin Dosing) 1 each MISCELLANE DAILY PRN PRN Reason: Consult order Sevelamer Carbonate (Sevelamer Carbonate Tablet 800 Mg Tablet) 2,400 mg PO TIDWM [facility] Last Admin: 05/11/22 11:42 Dose: 2,400 mg Sevelamer Carbonate (Sevelamer Carbonate Tablet 800 Mg Tablet) 2,400 mg PO TID [facility] Sodium Zirconium Cyclosilicate (Sodium Zirconium Cyclosilicate 10 Gm Powd.Pack) 10 gm PO TUTHSA [facility] Home Medications Medication Instructions Recorded Confirmed Last Taken Type amiodarone 200 mg tablet 1 tab PO DAILY 08/13/21 05/11/22 Unknown History apixaban 5 mg tablet (Eliquis) 1 tab PO BID 08/13/21 05/11/22 Unknown History budesonide-formoterol HFA 80 2 puff inhalation BID 08/13/21 05/11/22 Unknown History mcg-4.5 mcg/actuation aerosol inhaler (Symbicort) bumetanide 2 mg tablet 2.5 tab PO BID 08/13/21 05/11/22 Unknown History diphenhydramine HCl 25 mg capsule 1 cap PO TID PRN itch 08/13/21 05/11/22 Unknown History (Banophen) gabapentin 300 mg capsule 1 cap PO TID 08/13/21 05/11/22 Unknown History isosorbide mononitrate 30 mg 3 tab PO QAM 08/13/21 05/11/22 Unknown History tablet,extended release 24 hr digoxin 125 mcg (0.125 mg) tablet 0.5 tab PO DAILY 04/08/22 05/11/22 Unknown History sevelamer carbonate 800 mg tablet 3 tab PO TID 04/08/22 05/11/22 Unknown History acetaminophen 325 mg tablet 975 mg PO TID 05/11/22 05/11/22 Unknown History aspirin 81 mg tablet,delayed 81 mg PO DAILY 05/11/22 05/11/22 Unknown History release atorvastatin 80 mg tablet 80 mg PO DAILY 05/11/22 05/11/22 Unknown History carvedilol 25 mg tablet 25 mg PO BID 05/11/22 05/11/22 Unknown History doxazosin 2 mg tablet 4 mg PO DAILY 05/11/22 05/11/22 Unknown History hydralazine 25 mg tablet 100 mg PO TID 05/11/22 05/11/22 Unknown History nifedipine 60 mg tablet,extended 60 mg PO DAILY 05/11/22 05/11/22 Unknown History release 24 hr sodium zirconium cyclosilicate 10 10 g PO TUTHSA 05/11/22 05/11/22 Unknown History gram oral powder packet Physical Exam Vital Signs: Last Vital Signs Temp 97.8 F 05/11/22 12:00 Pulse 96 05/11/22 15:03 Resp 21 H 05/11/22 15:05 BP 178/102 H 05/11/22 15:03 Pulse Ox 91 L 05/11/22 15:00 O2 Del Method Oxymask 05/11/22 15:00 O2 Flow Rate 4 05/11/22 15:00 FiO2 24 05/11/22 11:00 BMI result Body Mass Index 32.3 Const Other: On BiPAP when seen this AM Neck Neck: Yes supple Resp Auscultation: diminished lung sounds Cardio Rate: regular rate Heart sounds: Murmur heart sound present GI Palpation (GI): Soft to palpation Neuro Other: Obtunded Extrem Other: SAMMIE AVF Results Lab Results 05/11/22 02:10 05/11/22 02:10 Lab results: Chemistry 05/11/22 02:10 Sodium 130 L Potassium 6.7 H* D Carbon Dioxide 20 L BUN 80 H Creatinine 10.25 H* Calcium 9.2 Hematology 05/11/22 02:10 WBC 8.8 Hgb 10.4 L Plt Count 169 Assessment and Plan (1) ESRD (end stage renal disease) on dialysis: Status: Acute Plan Hyperkalemic this AM. Urgent HD has been arranged Shall keep him on K 1 dialysate; Has H/O cocaine use disorder Volume optimization on HD. Vancomycin after HD Will need eval for MV replacement 2 Gram Na/ 2 Gram K restricted diet with phos/fluid restriction Phos binders with meals. Shall closely follow along Also seen on HD this AM; D/W ICU Attending and HD RN Time Spent With Patient Time: Total time managing care of this patient today ____ minutes. Procedures Date of Service Date of Service: 05/11/22
[2022-05-11 15:54] LABS: Anion Gap 17 (12-20); Blood Urea Nitrogen 37 mg/dL (9-16); Calcium 8.1 mg/dL (8.4-10.2); Carbon Dioxide 21 mmol/L (22-29); Chloride 103 mmol/L (96-108); Creatinine Clr Calc Pharmacy 23.5; Estimated Glomerular Filt Rate 12; Glucose Random 147 mg/dL (60-115); Potassium 4.8 mmol/L (3.3-5.1); Sodium 136 mmol/L (135-145)
[2022-05-11] MEDS: Isosorbide Mononitrate 30 MG TAB.ER.24H 90 MG PO (16:59)
[2022-05-11 17:18] LABS: Glucose, Whole Blood 137 mg/dL (60-115)
[2022-05-11] MEDS: HYDROmorphone HCl 2 MG TABLET PO ×2 (17:36→23:45)
[2022-05-11 19:49] LABS: Glucose, Whole Blood 151 mg/dL (60-115)
[2022-05-11] MEDS: Bumetanide 1 MG TABLET 5 MG PO (20:18)
[2022-05-11] MEDS: Acetaminophen 325 MG TABLET 975 MG PO (20:19)
[2022-05-11] MEDS: Gabapentin 300 MG CAPSULE PO (20:20)
[2022-05-11] MEDS: carvediloL 25 MG TABLET PO (20:20)
[2022-05-11] MEDS: hydrALAZINE HCl 50 MG TABLET 100 MG PO (20:21)
[2022-05-11] MEDS: diphenhydrAMINE HCL 25 MG CAPSULE PO (20:21)
[2022-05-11] MEDS: Insulin Lispro 100 UNIT/ML 3 ML VIAL SUBCUT (20:22)
[2022-05-12] VITALS (15 sets, daily range): BP systolic 134–173; BP diastolic 75–100; PULSE 64–90; RESP 14–24; TEMP 36.6–37.3; O2SAT 88–96
--- NOTE | 2022-05-12 | ECG_ITS ---
Test Reason : Son Blood Pressure : / mmHG Vent. Rate : 070 BPM Atrial Rate : 070 BPM P-R Int : 236 ms QRS Dur : 122 ms QT Int : 400 ms P-R-T Axes : 046 024 095 degrees QTc Int : 432 ms Sinus rhythm with 1st degree A-V block Possible Left atrial enlargement Left ventricular hypertrophy with QRS widening and repolarization abnormality ( Reardan product ) Abnormal ECG When compared with ECG of 12-MAY-2022 00:50, No significant change was found Referred By: Bob Chase Electronically Signed By:Madi Corado
--- NOTE | 2022-05-12 00:50 | ECG_ITS ---
Test Reason : chest pain Blood Pressure : / mmHG Vent. Rate : 084 BPM Atrial Rate : 084 BPM P-R Int : 226 ms QRS Dur : 120 ms QT Int : 398 ms P-R-T Axes : 057 030 122 degrees QTc Int : 470 ms Sinus rhythm with 1st degree A-V block Possible Left atrial enlargement Left ventricular hypertrophy with QRS widening and repolarization abnormality ( Edwardo product ) Abnormal ECG When compared with ECG of 11-MAY-2022 03:39, Inverted T waves have replaced nonspecific T wave abnormality in Lateral leads Referred By: Elo Davison Electronically Signed By:LISSETT GARG
[2022-05-12] MEDS: Morphine Sulfate 2 MG/ML CARTRIDGE IVPUSH ×4 (00:59→21:36)
[2022-05-12] MEDS: HYDROmorphone HCl 0.5 MG/0.5 ML SYRINGE IVPUSH (02:10)
[2022-05-12] MEDS: diphenhydrAMINE HCL 25 MG CAPSULE PO (03:28)
--- NOTE | 2022-05-12 03:35 | PM.EVENT ---
Event Note Date of Service: 05/12/22 Event Note: Blood cultures growing Gram-positive cocci in clusters will treat with IV antibiotics repeat cultures Time Spent With Patient Time: Total time managing care of this patient today ____ minutes.
--- NOTE | 2022-05-12 06:18 | PC.NURSE ---
[id number] to MD pt was having reproducible chest pains morphine, and PO Dilaudid given patient still in pain 08/19 0023 MD at bedside, request EKG approved giving the q 1hr Morphine if chest pain and BP are ok. 0327 Lab reported Patients blood culture to be positive for cocci in clusters on gram stain MD made aware via [place] text.
[2022-05-12 07:02] LABS: Glucose, Whole Blood 160 mg/dL (60-115)
[2022-05-12] MEDS: Albuterol Sulfate (0.083%) 2.5 MG/3 ML VIAL.NEB INHALE ×4 (07:41→19:22)
[2022-05-12] MEDS: Insulin Lispro 100 UNIT/ML 3 ML VIAL SUBCUT (08:09)
[2022-05-12] MEDS: Digoxin 0.125 MG TABLET 0.0625 MG PO (08:10)
[2022-05-12] MEDS: carvediloL 25 MG TABLET PO (08:11)
[2022-05-12] MEDS: Gabapentin 300 MG CAPSULE PO ×3 (08:11→20:07)
[2022-05-12] MEDS: Acetaminophen 325 MG TABLET 975 MG PO ×3 (08:11→20:07)
[2022-05-12] MEDS: amLODIPine Besylate 5 MG TABLET PO (08:12)
[2022-05-12] MEDS: carvediloL 12.5 MG TABLET PO (08:12)
[2022-05-12] MEDS: Aspirin Enteric Coated 81 MG TABLET.DR PO (08:12)
[2022-05-12] MEDS: Apixaban 5 MG TABLET PO ×2 (08:12→20:07)
[2022-05-12] MEDS: Isosorbide Mononitrate 30 MG TAB.ER.24H 90 MG PO (08:12)
[2022-05-12] MEDS: hydrALAZINE HCl 50 MG TABLET 100 MG PO (08:12)
[2022-05-12] MEDS: Atorvastatin Calcium 80 MG TABLET PO (08:12)
[2022-05-12] MEDS: Amiodarone HCL 200 MG TABLET PO (08:14)
[2022-05-12] MEDS: Doxazosin Mesylate 2 MG TABLET 4 MG PO (08:17)
[2022-05-12] MEDS: Bumetanide 1 MG TABLET 5 MG PO (08:17)
[2022-05-12] MEDS: Sevelamer Carbonate Tablet 800 MG TABLET 2400 MG PO ×3 (08:17→17:42)
--- NOTE | 2022-05-12 09:02 | P.DS_ITS ---
DS: Providers Provider Date of Service: 05/12/22 Date of admission: 05/11/22 03:51 Primary care physician: Unknown Physician DS: Diagnosis Discharge Diagnosis (1) Acute hyperkalemia: Status: Acute (2) Elevated brain natriuretic peptide (BNP) level: Status: Acute (3) CHF exacerbation: Status: Acute (4) Hypertension: Status: Acute (5) End stage renal disease: Status: Acute (6) Pulmonary edema: Status: Resolved DS: Summary Hospital Course Hospital Course: hief Complaint: Dyspnea The patient is a 46-year-old male with a past medical history of MRSA bacteremia, endocarditis, h/o paraspinal /epidural Phlegmon, ESRD with HD MWF, Sa, chronic diastolic chf, Cholecystitis (s/p Cholecystostomy d/t being poor candidate for surgery in Jan 2022), COPD, HTN, HLD,? permanent AFIB? and history of DVT on eliquis, who was BIBA in acute respiratory distress. EMS administered albuterol and 500cc normal saline for hypotension. They administered IN Narcan for unresponsiveness. The patient has had multiple hospitalizations at [facility] with episodes of fluid overload and has been getting IV vancomycin for a staph line infection. He was last hospitalized [place] [facility] [place] 07 [place] 11, 2022 , for abdominal pain r/t cholecystostomy tube dysfunction.? On arrival to the emergency room the patient was in acute respiratory distress, only speaking a few words, complaining of no fever or chills. Blood pressure was 172/118, heart rate 87, respiratory rate 22, afebrile. Laboratory data significant for WBC 8.8, hematocrit 33.3, sodium 130, potassium 6.7, chloride 93, CO2 20, BUN 80, creatinine 10.25, troponin 191, BNP 4963. Imaging: CXR: Cardiomegaly and pulmonary venous congestion without overt edema and diffuse bronchial thickening representing bronchitis. ED course:? The patient was placed on BiPAP with settings of 12 in 5.? He was given Solu-Medrol 125 mg, Lasix 40mg, ? inch Nitropaste, Zofran, and Albuterol, 1 amp Sodium Bicarb, and Ativan 2mg. Nephrology was consulted.? On my assessment in the ER, the patient was awake, alert and oriented, moaning and restless but able to answer questions in full sentences. O2 sat 93% on BiPAP 01/14, RR 22. The patient was breathing easy with no accessory muscle use noted.? BP 175/107 heart rate 83.? The patient was admitted to the ICU for continued BiPAP and observation and emergent dialysis. Hospital course Time Spent with Patient Time attestation: Total time managing care of this patient today ____ minutes. Discharge coordination time: Greater than 30 minutes Quality: Safe Use of Opioids Does Pt have an Active Cancer Diagnosis on the Problem List?: No Quality: Stroke Does the patient have a stroke diagnosis?: No Physical Exam Vital Signs: Vital Signs: Last Vital Signs Temp 97.9 F 05/12/22 07:10 Pulse 78 05/12/22 07:41 Resp 21 H 05/12/22 07:41 BP 172/86 H 05/12/22 07:10 Pulse Ox 90 L 05/12/22 07:10 O2 Del Method Nasal Cannula 05/12/22 03:49 O2 Flow Rate 2 05/12/22 03:49 FiO2 24 05/11/22 11:00 BMI result Body Mass Index 32.3 DS: Data Data Completed and Pending Completed studies during hospitalization [Text1]: Procedures Assistance with Respiratory Ventilation, Less than 24 Consecutive Hours, Continuous Positive Airway Pressure (08/13/21) Performance of Urinary Filtration, Intermittent, Less than 6 Hours Per Day (04/08/22) Labs on day of discharge: Laboratory Results - last 24 hr 05/11/22 05/11/22 05/11/22 11:12 15:15 17:13 Sodium 136 Potassium 4.8 D Chloride 103 Carbon Dioxide 21 L Anion Gap 17 BUN 37 H Creatinine 5.04 H* Estim Creat Clear Calc 23.5 Estimated GFR 12 POC Glucose 135 H 137 H Random Glucose 147 H Calcium 8.1 L D 05/11/22 05/12/22 19:37 06:55 Sodium Potassium Chloride Carbon Dioxide Anion Gap BUN Creatinine Estim Creat Clear Calc Estimated GFR POC Glucose 151 H 160 H Random Glucose Calcium Preliminary micro results at discharge 05/11/22 02:10 Blood Culture - Preliminary Blood - Venous Prelim: GPC Gram Stain only 05/11/22 02:10 Blood Culture - Preliminary Blood - Venous No growth after 24 hours. Discharge Plan Discharge Referrals: Physician,Unknown J [Primary Care Provider] - 1 Week Discharge Medications: No Action bumetanide 2 mg tablet 2.5 tab PO BID amiodarone 200 mg tablet 1 tab PO DAILY isosorbide mononitrate 30 mg tablet extended release 24 hr 3 tab PO QAM diphenhydramine HCl [Banophen] 25 mg capsule 1 cap PO TID PRN (Reason: itch) gabapentin 300 mg capsule 1 cap PO TID budesonide-formoterol [Symbicort] 80-4.5 mcg/actuation HFA aerosol inhaler 2 puff inhalation BID Eliquis 5 mg tablet 1 tab PO BID digoxin 125 mcg (0.125 mg) tablet 0.5 tab PO DAILY sevelamer carbonate 800 mg tablet 3 tab PO TID vancomycin 500 mg recon soln 500 mg PO MOWEFR Qty: 10 0RF Rx Instructions: after dialysis atorvastatin 80 mg tablet 80 mg PO DAILY acetaminophen 325 mg tablet 975 mg PO TID aspirin 81 mg Tablet,Delayed Release (Dr/Ec) 81 mg PO DAILY carvedilol 25 mg tablet 25 mg PO BID hydralazine 25 mg tablet 100 mg PO TID nifedipine 60 mg tablet extended release 24hr 60 mg PO DAILY doxazosin 2 mg tablet 4 mg PO DAILY sodium zirconium cyclosilicate 10 gram Powder In Packet 10 g PO TUTHSA Diet: Diabetic diet
[2022-05-12 09:51] LABS: Anion Gap 20 (12-20); Blood Urea Nitrogen 60 mg/dL (9-16); Calcium 8.7 mg/dL (8.4-10.2); Carbon Dioxide 24 mmol/L (22-29); Chloride 97 mmol/L (96-108); Creatinine Clr Calc Pharmacy 15.2; Estimated Glomerular Filt Rate 8; Glucose Random 171 mg/dL (60-115); Potassium 5.5 mmol/L (3.3-5.1); Sodium 135 mmol/L (135-145)
--- NOTE | 2022-05-12 10:36 | HO.PM.IMPN ---
Subjective Subjective Date of Service: 05/13/22 Interval History: f/u on fluid overload, hyperkalemia c/o shortness of breath and pain Physical Exam Vital Signs: Vital Signs: Last Vital Signs Temp 97.9 F 05/12/22 07:10 Pulse 78 05/12/22 07:41 Resp 21 H 05/12/22 07:41 BP 172/86 H 05/12/22 07:10 Pulse Ox 90 L 05/12/22 07:10 O2 Del Method Nasal Cannula 05/12/22 03:49 O2 Flow Rate 2 05/12/22 03:49 FiO2 24 05/11/22 11:00 BMI result Body Mass Index 32.3 Const: Other: General: Alert, in no acute distress. Respiratory: CTA BL, no rhonchi/wheezes Cardiovascular: S1-S2 regular, MRG Gastrointestinal: Abdomen soft, non-tender, non-distended. Normal bowel sounds. No pulsatile mass. No hepatosplenomegaly.? Right?cholecystotomy tube,?with drainage, site intact Extremities: No lower extremity pitting pedal edema. No cyanosis or clubbing. Neurologic: AAOx3, no focal deficit Skin: No rashes or lesions. No petechiae or purpura.? Objective Data Active Medications Acetaminophen (Acetaminophen 325 Mg Tablet) 975 mg PO TID [facility] Last Admin: 05/12/22 08:11 Dose: 975 mg Documented By: HERMES Albuterol Sulfate (Albuterol Sulfate (0.083%) 2.5 Mg/3 Ml Vial.Pavan) 2.5 mg INHALE RQ4H WHILE AWAKE [facility] Last Admin: 05/12/22 07:41 Dose: 2.5 mg Documented By: JOSE Amiodarone HCl (Amiodarone Hcl 200 Mg Tablet) 200 mg PO DAILY [facility] Last Admin: 05/12/22 08:14 Dose: 200 mg Documented By: HERMES Amlodipine Besylate (Amlodipine Besylate 5 Mg Tablet) 5 mg PO DAILY [facility]; Protocol Last Admin: 05/12/22 08:12 Dose: 5 mg Documented By: HERMES Apixaban (Apixaban 5 Mg Tablet) 5 mg PO BID [facility] Last Admin: 05/12/22 08:12 Dose: 5 mg Documented By: HERMES Aspirin (Aspirin Enteric Coated 81 Mg Tablet.Dr) 81 mg PO DAILY [facility] Last Admin: 05/12/22 08:12 Dose: 81 mg Documented By: HERMES Atorvastatin Calcium (Atorvastatin Calcium 80 Mg Tablet) 80 mg PO DAILY [facility] Last Admin: 05/12/22 08:12 Dose: 80 mg Documented By: HERMES Bumetanide (Bumetanide 1 Mg Tablet) 5 mg PO BID [facility]; Protocol Last Admin: 05/12/22 08:17 Dose: 5 mg Documented By: HERMES Carvedilol (Carvedilol 12.5 Mg Tablet) 12.5 mg PO BID [facility]; Protocol Last Admin: 05/12/22 08:12 Dose: 12.5 mg Documented By: HERMES Carvedilol (Carvedilol 25 Mg Tablet) 25 mg PO BID [facility]; Protocol Last Admin: 05/12/22 08:11 Dose: 25 mg Documented By: HERMES Digoxin (Digoxin 0.125 Mg Tablet) 0.0625 mg PO DAILY [facility] Last Admin: 05/12/22 08:10 Dose: 0.0625 mg Documented By: HERMES Diphenhydramine HCl (Diphenhydramine Hcl 25 Mg Capsule) 25 mg PO TID PRN PRN Reason: itch Last Admin: 05/12/22 03:28 Dose: 25 mg Documented By: TAYLOR Doxazosin Mesylate (Doxazosin Mesylate 2 Mg Tablet) 4 mg PO DAILY [facility]; Protocol Last Admin: 05/12/22 08:17 Dose: 4 mg Documented By: HERMES Gabapentin (Gabapentin 300 Mg Capsule) 300 mg PO TID [facility] Last Admin: 05/12/22 08:11 Dose: 300 mg Documented By: HERMES Glucose (Glucose Gel 15 Gm Gel..Gram.) 15 gm PO Q15M PRN; Protocol PRN Reason: per Hypoglycemia Standing Ord. Hydralazine HCl (Hydralazine Hcl 50 Mg Tablet) 100 mg PO TID [facility]; Protocol Last Admin: 05/12/22 08:12 Dose: 100 mg Documented By: HERMES Hydromorphone HCl (Hydromorphone Hcl 2 Mg Tablet) 2 mg PO Q6H PRN PRN Reason: Pain, Severe (Pain Scale 7-10) Last Admin: 05/11/22 23:45 Dose: 2 mg Documented By: TAYLOR Vancomycin HCl 500 mg/ Sodium (Chloride) 110 mls @ 110 mls/hr IV MoWeFr@1800 [facility] Dextrose (D10) 250 mls @ 750 mls/hr IV Q15M PRN; Protocol PRN Reason: per Hypoglycemia Standing Ord. Nicardipine HCl 25 mg/ Sodium (Chloride) 260 mls @ 0 mls/hr IVCONT .Q0M [facility]; Protocol Last Titration: 05/11/22 15:03 Dose: 0 mg/hr, 0 mls/hr Documented By: TAMI Isosorbide Mononitrate (Isosorbide Mononitrate 30 Mg Tab.Er.24h) 90 mg PO DAILY [facility]; Protocol Last Admin: 05/12/22 08:12 Dose: 90 mg Documented By: HERMES Morphine Sulfate (Morphine Sulfate 2 Mg/Ml Cartridge) 2 mg IVPUSH Q1H PRN; Protocol PRN Reason: Chest Pain Last Admin: 05/12/22 05:48 Dose: 2 mg Documented By: TAYLOR Nifedipine (Nifedipine Er 60 Mg Tab.Er.24) 60 mg PO DAILY [facility]; Protocol Last Admin: 05/11/22 16:58 Dose: Not Given Documented By: TAMI Non-Admin Reason: Physician Held Med Pharmacy Consult (Consult Rx Vancomycin Dosing) 1 each MISCELLANE DAILY PRN PRN Reason: Consult order Sevelamer Carbonate (Sevelamer Carbonate Tablet 800 Mg Tablet) 2,400 mg PO TIDWM [facility] Last Admin: 05/12/22 08:17 Dose: 2,400 mg Documented By: HERMES Sodium Zirconium Cyclosilicate (Sodium Zirconium Cyclosilicate 10 Gm Powd.Pack) 10 gm PO TUTHSA [facility] Last Admin: 05/11/22 16:58 Dose: Not Given Documented By: TAMI Non-Admin Reason: Physician Held Med Labs 05/11/22 02:10 05/12/22 09:19 Labs: Laboratory Results - last 24 hr 05/11/22 05/11/22 05/11/22 11:12 15:15 17:13 Anion Gap 17 Estim Creat Clear Calc 23.5 Estimated GFR 12 POC Glucose 135 H 137 H Random Glucose 147 H Calcium 8.1 L D 05/11/22 05/12/22 05/12/22 19:37 06:55 09:19 Anion Gap 20 Estim Creat Clear Calc 15.2 Estimated GFR 8 POC Glucose 151 H 160 H Random Glucose 171 H Calcium 8.7 D Microbiology Microbiology Results: Microbiology 05/11/22 02:10 Blood Culture - Preliminary Blood - Venous Prelim: GPC Gram Stain only 05/11/22 02:10 Blood Culture - Preliminary Blood - Venous No growth after 24 hours. Assessment and Plan (1) ESRD (end stage renal disease) on dialysis: Status: Acute (2) End stage renal disease: Status: Acute Plan The patient is a 46-year-old male with a past medical history of MRSA bacteremia, endocarditis, h/o paraspinal /epidural Phlegmon, ESRD with HD MWF, Sa, chronic diastolic chf, Cholecystitis (s/p Cholecystostomy d/t being poor candidate for surgery in Jan 2022), COPD, HTN, HLD,? permanent AFIB? and history of DVT on eliquis, who was BIBA in acute respiratory distress. EMS administered albuterol and 500cc normal saline for hypotension. They administered IN Narcan for unresponsiveness. Found to have hyperkalemia and flash pulmonary edema and required emergent dialysis in ICU Acute on chronic hypoxic respiratory failure due to fluid overligh -Underwent emergent dialysis in ICU with fluid removal on 05/11 -Probably still with fluid overload and will be going to dialysis for fluid removal today Hyperkalemia--improved after dialysis, still high at 5.5, Lokelma MRSA bacteremia/ endocarditis, on outpatient vancomycin--post dialysis Chronic T8-T9 Discitis/small epidural?phlegmon?(no cord compression?or stenosis) Chronic opioid dependence recent [facility] MRI lumbar spine negative for SEA, osteomyelitis, or discitis, -Continue vancomycin renally dosed ( Per renal note,?Vanco 750mg post HD on ///Fri until May 26) per [facility] ID Hypertension--continue Coreg, Nifedipine, hydralazine. DC Bumex per nephrology Atrial fibrillation--rate control on Digoxon q48 hrs, Coreg, Amiodarone and Eliquis for stroke prevent Chronic abdominal pain h/o cholecystitis now w/ C-tube--PO Dilaudid for pain, avoid IV meds. Concern raised re narcotic use during recent [facility] dischare and was only discharged with Tylenol Etiology of this chronic abdominal pain is not clear ,apparently has been ongoing?for months now. [facility] Surgery recommends drain to remain in place and no surgery planned End-stage renal disease on hemodialysis--Dialysis MWF and Sat History of insulin-dependent type 2 diabetes, not on insulin anymore, but sliding scale while here Chronic anemia, monitor Stable no s/s of active bleeding Weekly EPO per Nephrlogy ? Time Spent With Patient Time: Total time managing care of this patient today ____ minutes. Quality Stroke Does the patient have a stroke diagnosis?: No VTE Prior VTE?: Yes VTE Risk Level:: Medical - moderate - high VTE Device Contraindication: N/A - Device Ordered VTE Drug Contraindication: N/A - Med Ordered
[2022-05-12 11:04] LABS: Glucose, Whole Blood 134 mg/dL (60-115)
--- NOTE | 2022-05-12 11:18 | PM.PNNEP ---
Subjective Subjective Date of Service: 05/12/22 Interval history: Seen this AM. Feels he is not better to be D/Chan. Due to continue Vanco for 2 more weeks; Due HD tomorrow Physical Exam Vital Signs: Vital Signs: Last Vital Signs Temp 97.9 F 05/12/22 07:10 Pulse 78 05/12/22 07:41 Resp 21 H 05/12/22 07:41 BP 172/86 H 05/12/22 07:10 Pulse Ox 90 L 05/12/22 07:10 O2 Del Method Nasal Cannula 05/12/22 03:49 O2 Flow Rate 2 05/12/22 03:49 FiO2 24 05/11/22 11:00 BMI result Body Mass Index 32.3 Const: General: no acute distress Orientation/consciousness: patient oriented x3 HEENT: Head: Yes normocephalic Eyes: EOM: EOMs intact bilaterally Resp: Auscultation: diminished lung sounds Cardio: Rate: regular rate GI: Palpation (GI): Soft to palpation Neuro: General: patient oriented x3 and moves all extremities Objective Data Labs 05/11/22 02:10 05/12/22 09:19 Labs: Laboratory Results - last 24 hr 05/11/22 05/11/22 05/11/22 15:15 17:13 19:37 Sodium 136 Potassium 4.8 D Chloride 103 Carbon Dioxide 21 L Anion Gap 17 BUN 37 H Creatinine 5.04 H* Estim Creat Clear Calc 23.5 Estimated GFR 12 POC Glucose 137 H 151 H Random Glucose 147 H Calcium 8.1 L D 05/12/22 05/12/22 05/12/22 06:55 09:19 10:58 Sodium 135 Potassium 5.5 H Chloride 97 Carbon Dioxide 24 Anion Gap 20 BUN 60 H Creatinine 7.76 H* Estim Creat Clear Calc 15.2 Estimated GFR 8 POC Glucose 160 H 134 H Random Glucose 171 H Calcium 8.7 D Microbiology Microbiology Results: Microbiology 05/11/22 02:10 Blood - Venous Blood Culture - Preliminary Prelim: GPC Gram Stain only 05/11/22 02:10 Blood - Venous Blood Culture - Preliminary No growth after 24 hours. Procedures Date of Service Date of Service: 05/12/22 Assessment & Plan Assessment and plan (1) ESRD (end stage renal disease) on dialysis: Status: Acute Assessment and Plan: Hyperkalemic at presentation. Urgent HD provided; Due tomorrow ( MWF) Has H/O cocaine use disorder; Lokelma today Volume optimization on HD. Vancomycin after HD for 2 more weeks BP medn optimized; Will need eval for MV replacement 2 Gram Na/ 2 Gram K restricted diet with phos/fluid restriction Phos binders with meals. Shall closely follow along Progress Note: Quality Stroke Does the patient have a stroke diagnosis?: No
[2022-05-12] MEDS: NIFEdipine ER 60 MG TAB.ER.24 PO (11:50)
[2022-05-12] MEDS: HYDROmorphone HCl 2 MG TABLET PO ×3 (11:51→23:32)
[2022-05-12] MEDS: Sodium Zirconium Cyclosilicate 10 GM POWD.PACK PO (11:51)
--- NOTE | 2022-05-12 12:22 | MHC.CM.PN ---
Addendum entered by Emilie Rodriguez 05/12/22 12:41: PT ATTENDS HD M-W-F AT [facility] (NOT ABLE TO CONFIRM AT [phone] NOT OPEN) PT STATES TRANSPORT IS THROUGH [facility](NO ANSWER AT [phone]) AND P/U TIME IS 5 AM. Original Note: CM MET WITH PT AT BEDSIDE. LIVES ALONE IN A [facility] ([facility]) USES [facility] FOR MOBILITY. ON 02 AT 2 LITERS AT BASELINE. VENDOR IS [employer]. PT STATES HE IS ACTIVE WITH [facility], RETURN REFERRAL SENT. +HCP ON CHART, + COVID VAX X4 PCP AT [facility] DP: PT WOULD LIKE TO RETURN TO [facility] WITH RESUMPTION OF SERVICES, NOT OPEN TO REHAB. WILL NEED BLS TRANSPORT.
--- NOTE | 2022-05-12 14:48 | PC.NURSE ---
at approx 1415, pt was heard grunting loudly, having difficulty breathing. mortgage loan underwriter placed oxy mask on pt, as o2 sat was 80%. o2 increased to 9L, respiratory called. contacted provider, who asked for abg, cxr, and ekg. will continue to monitor
[2022-05-12 14:52] LABS: ABG Base Excess 0.1 mmol/L; ABG HCO3 24 mmol/L (22-26); ABG pCO2 38 mmHg (32-45); ABG pH 7.41 (7.35-7.45); ABG pO2 88 mmHg (83-108)
[2022-05-12 15:52] LABS: Glucose, Whole Blood 148 mg/dL (60-115)
--- NOTE | 2022-05-12 16:04 | PC.RT ---
RT called to assess pt. Pt noted to c/o pain, spo2 83%, inc wob was noted. ABG, CXR, EKG and vitals were ordered. ABG done 7.41 / 38 / 88 / 24 / 96% on 8 lpm oxymask. A bipap was brought to the room and placed in standby. Dr. Mejia notified of results.
[2022-05-12 19:11] LABS: Glucose, Whole Blood 133 mg/dL (60-115)
[2022-05-13] VITALS (9 sets, daily range): BP systolic 143–202; BP diastolic 80–103; PULSE 73–78; RESP 17–20; TEMP 36.2–36.8; O2SAT 91–94
[2022-05-13] MEDS: diphenhydrAMINE HCL 50 MG/ML VIAL IVPUSH (01:25)
[2022-05-13] MEDS: Morphine Sulfate 2 MG/ML CARTRIDGE IVPUSH ×2 (01:25→03:10)
[2022-05-13] MEDS: Simethicone 80 MG TAB.CHEW 160 MG PO (01:25)
[2022-05-13] MEDS: HYDROmorphone HCl 2 MG TABLET PO ×4 (05:50→19:50)
--- NOTE | 2022-05-13 06:30 | PC.RT ---
Patient refuses BIPAP. RN aware. no distress.
[2022-05-13 07:30] LABS: Glucose, Whole Blood 131 mg/dL (60-115)
[2022-05-13] MEDS: Amiodarone HCL 200 MG TABLET PO (07:48)
[2022-05-13] MEDS: Isosorbide Mononitrate 30 MG TAB.ER.24H 90 MG PO (07:48)
[2022-05-13] MEDS: Acetaminophen 325 MG TABLET 975 MG PO ×2 (07:48→15:20)
[2022-05-13] MEDS: Apixaban 5 MG TABLET PO ×2 (07:49→19:50)
[2022-05-13] MEDS: Gabapentin 300 MG CAPSULE PO ×3 (07:49→19:50)
[2022-05-13] MEDS: Atorvastatin Calcium 80 MG TABLET PO (07:49)
[2022-05-13] MEDS: NIFEdipine ER 60 MG TAB.ER.24 PO (07:49)
[2022-05-13] MEDS: Aspirin Enteric Coated 81 MG TABLET.DR PO (07:49)
[2022-05-13] MEDS: Sevelamer Carbonate Tablet 800 MG TABLET 2400 MG PO ×3 (07:50→15:20)
[2022-05-13] MEDS: diphenhydrAMINE HCL 25 MG CAPSULE PO (10:22)
[2022-05-13] MEDS: hydrALAZINE HCl 50 MG TABLET 100 MG PO ×3 (10:22→19:50)
[2022-05-13] MEDS: carvediloL 25 MG TABLET PO ×2 (10:22→19:50)
[2022-05-13 11:07] LABS: Glucose, Whole Blood 137 mg/dL (60-115)
--- NOTE | 2022-05-13 12:40 | MHC.CM.PN ---
EMR REVIEWED, PER HOSPITALIST PT WILL HAVE HD TODAY, PT REMAINS ON HIGH FLOW O2 AT 10L, NOW CURRENTLY ON 9L, CONT'D NEED FOR IV PAIN MEDS, NO PLAN FOR D/C TODAY. ANTIC D/C BACK TO [facility] W/RESUMP OF OUTPT HD AND [facility] ONCE MEDICALLY CLEARED, CM WILL CONT TO FOLLOW D/C NEEDS.
[2022-05-13 16:36] LABS: Vancomycin Random 21.1 mcg/mL (15-20)
[2022-05-13 16:45] LABS: Glucose, Whole Blood 177 mg/dL (60-115)
--- NOTE | 2022-05-13 16:48 | HE.PHANOTE ---
VANCOMYCIN DOSING BASED ON POST DIALYSIS TROUGH OF 21.1 DOSE HELD ON 05/13. Next trough after dialysis wed 05/15 @ 1500
--- NOTE | 2022-05-13 17:05 | PM.PNNEP ---
Subjective Subjective Date of Service: 05/13/22 Interval history: Seen onHD. chart reveiwed, PT ewxamoned Physical Exam Vital Signs: Vital Signs: Last Vital Signs Temp 97.2 F 05/13/22 15:38 Pulse 78 05/13/22 15:38 Resp 18 05/13/22 15:38 BP 143/83 H 05/13/22 15:38 Pulse Ox 91 L 05/13/22 15:38 O2 Del Method Nasal Cannula 05/13/22 15:38 O2 Flow Rate 7 05/13/22 15:38 FiO2 24 05/11/22 11:00 BMI result Body Mass Index 32.3 Const: Other: On BiPAP when seen this AM General: no acute distress Orientation/consciousness: patient oriented x3 HEENT: Head: Yes normocephalic Eyes: EOM: EOMs intact bilaterally Neck: Neck: Yes supple Resp: Auscultation: diminished lung sounds Cardio: Rate: regular rate Heart sounds: Murmur heart sound present GI: Palpation (GI): Soft to palpation Neuro: Other: Obtunded General: patient oriented x3 and moves all extremities Extrem: Other: SAMMIE AVF Objective Data Labs 05/11/22 02:10 05/12/22 09:19 Labs: Laboratory Results - last 24 hr 05/12/22 05/13/22 05/13/22 19:06 07:26 11:02 POC Glucose 133 H 131 H 137 H Random Vancomycin 05/13/22 05/13/22 14:42 16:36 POC Glucose 177 H Random Vancomycin 21.1 H Microbiology Microbiology Results: Microbiology 05/11/22 02:10 Blood - Venous Blood Culture - Final Coag negative Staphylococcus 05/12/22 03:55 Blood - Venous Blood Culture - Preliminary No growth after 24 hours. 05/12/22 03:55 Blood - Venous Blood Culture - Preliminary No growth after 24 hours. 05/11/22 02:10 Blood - Venous Blood Culture - Preliminary No growth after 48 hours. Procedures Date of Service Date of Service: 05/13/22 Assessment & Plan Assessment and plan (1) ESRD (end stage renal disease) on dialysis: Status: Acute Assessment and Plan: - ESRD: cont MWF HD - HTN severe on/off: re-eal BP meds -SOB: w/u in progress--ques d/t HTN vs vs other - HyperK: low K doiet REC: cont HD 3x/wk; adjust BP meds up if post HD remains HTN Time Spent With Patient Time: Total time managing care of this patient today ____ minutes. Progress Note: Quality Stroke Does the patient have a stroke diagnosis?: No
[2022-05-13 19:59] LABS: ABG Base Excess -1.4 mmol/L; ABG HCO3 23 mmol/L (22-26); ABG pCO2 38 mmHg (32-45); ABG pH 7.38 (7.35-7.45); ABG pO2 63 mmHg (83-108)
[2022-05-13 20:13] LABS: Glucose, Whole Blood 124 mg/dL (60-115)
[2022-05-13] MEDS: Albuterol Sulfate (0.083%) 2.5 MG/3 ML VIAL.NEB INHALE (20:17)
[2022-05-13] MEDS: polyethylene glycoL 3350 17 GM POWD.PACK PO (21:35)
[2022-05-13] MEDS: Ketorolac Tromethamine 15 MG/ML VIAL IVPUSH (21:50)
--- NOTE | 2022-05-13 22:56 | MHC.PIE ---
p; pt c/o pain 10/10 ribs/chest prn dilaudid po given, hot packs and splints given. pt cont to reports pain and asking for iv pain meds numerous times. pt also c/o constipation - prn miralax given i; dr sawyer notified ; new order troadol iv now e; pt in recliner resting, no bm at this time, will cont to monitor
[2022-05-13 23:24] LABS: ABG Refer to POC result
--- NOTE | 2022-05-13 23:56 | PC.RT ---
Patient refuses BIPAP. RN AWARE.
[2022-05-14] VITALS (9 sets, daily range): BP systolic 143–191; BP diastolic 65–98; PULSE 71–91; RESP 18–22; TEMP 36.2–36.7; O2SAT 90–96; BMI 32.4
[2022-05-14] MEDS: HYDROmorphone HCl 2 MG TABLET PO ×6 (00:41→22:32)
--- NOTE | 2022-05-14 07:00 | CA_ITS ---
Transthoracic Echocardiogram Patient (Last, First, Middle): Derek Proctor, Gender: Male Date of : 1975 Age: 46 Procedure Date: 05/14/2022 Procedure Type: Transthoracic Echocardiogram Location: [facility] Height: 182.88 cm Weight: 107.96 kg BSA: 2.29 m2 Heart Rate: 68 bpm BP: 179 / 103 mmHg Mail Deliverer: Referring MD: Linsey Vizcaino MD Symptoms: new acute mitral regurgitation Study Quality: Good ECG Rhythm: Sinus Conclusions: - Normal left ventricular size and systolic function. There is severely increased left ventricular wall thickness. The visually estimated ejection fraction is between 65-70%. - There is a flattened septum in systole and diastole consistent with right ventricular pressure and volume overload. - There is mild to moderately decreased right ventricular systolic function. RV is mild to moderately dilated. - There is mild to moderate mitral valve regurgitation. - Severe calcification of the posterior mitral valve leaflet. Mild calcification of the anterior mitral valve leaflet. - Mild to moderate pulmonary hypertension is present. - Significantly elevated right atrial pressure. Findings Left Ventricle Normal left ventricular size and systolic function. There is severely increased left ventricular wall thickness. The visually estimated ejection fraction is between 65-70%. There is no evidence of regional wall motion abnormalities. There is a flattened septum in systole and diastole consistent with right ventricular pressure and volume overload. Diastolic function is indeterminate on the basis of available data. Right Ventricle There is mild to moderately decreased right ventricular systolic function. RV is mild to moderately dilated. Mitral Valve There is mild to moderate mitral valve regurgitation. There is no mitral valve stenosis. Severe calcification of the posterior mitral valve leaflet. Mild calcification of the anterior mitral valve leaflet. Tricuspid Valve Normal tricuspid valve structure. There is mild tricuspid valve regurgitation. Significantly elevated right atrial pressure. Mild to moderate pulmonary hypertension is present. Venous The inferior vena cava is severely dilated and collapses less than 50% with inspiration. Pericardium/Pleural There is no evidence of pericardial effusion. Prior Study Comparison Changes noted compared to prior study dated: 04/10/2022. D shaped LV cavity. RV mild to moderately dilated and reduced function. Measurements 2D Linear Measurements IVSd: 2.39 0.6-0.9/0.6-1.0 cm LVIDd: 4.97 3.9-5.3/4.2-5.9 cm LVIDd Index: 2.17 2.4-3.2/2.2-3.1 cm/m2 LVIDs: 2.76 2.0-3.6 cm LVPWd: 2.20 0.7-1.1 cm LV Mass: 781.00 67-162/88-224 g LV Mass Index: 341.05 43-95/49-115 g/m2 Right Ventricle TAPSE (mm): 25.90 Tricuspid Valve TR Pk Kevin: 2.77 TR Pk Grad: 31.00 RA Press: 15.00 RVSP: 46.00 Updated in Other Vendor System with Status of Final Madi Corado MD electronically signed on 05/14/2022 12:02:01 PM with status of Final
[2022-05-14 07:42] LABS: Glucose, Whole Blood 121 mg/dL (60-115)
[2022-05-14] MEDS: NIFEdipine ER 60 MG TAB.ER.24 PO (07:59)
[2022-05-14] MEDS: Aspirin Enteric Coated 81 MG TABLET.DR PO (07:59)
[2022-05-14] MEDS: Gabapentin 300 MG CAPSULE PO ×3 (07:59→21:23)
[2022-05-14] MEDS: Isosorbide Mononitrate 30 MG TAB.ER.24H 90 MG PO (07:59)
[2022-05-14] MEDS: Atorvastatin Calcium 80 MG TABLET PO (07:59)
[2022-05-14] MEDS: hydrALAZINE HCl 50 MG TABLET 100 MG PO ×3 (07:59→21:22)
[2022-05-14] MEDS: carvediloL 25 MG TABLET PO ×2 (07:59→21:23)
[2022-05-14] MEDS: Sevelamer Carbonate Tablet 800 MG TABLET 2400 MG PO ×3 (08:00→16:05)
[2022-05-14] MEDS: Apixaban 5 MG TABLET PO ×2 (08:13→22:06)
[2022-05-14] MEDS: Amiodarone HCL 200 MG TABLET PO (08:13)
[2022-05-14 10:07] LABS: Anion Gap 21 (12-20); Blood Urea Nitrogen 60 mg/dL (9-16); Calcium 9.1 mg/dL (8.4-10.2); Carbon Dioxide 19 mmol/L (22-29); Chloride 96 mmol/L (96-108); Estimated Glomerular Filt Rate 7; Glucose Random 145 mg/dL (60-115); Potassium 5.4 mmol/L (3.3-5.1); Sodium 131 mmol/L (135-145)
[2022-05-14] MEDS: NIFEdipine ER 30 MG TAB.ER.24 PO (11:09)
[2022-05-14 11:19] LABS: Glucose, Whole Blood 235 mg/dL (60-115)
[2022-05-14] MEDS: Albuterol Sulfate (0.083%) 2.5 MG/3 ML VIAL.NEB INHALE ×2 (11:19→16:19)
--- NOTE | 2022-05-14 11:31 | PM.CNCAR ---
History of Present Illness History of Present Illness Date of Service: 05/14/22 Requesting physician: Patricia Whelan Chief complaint: Dyspnea Narrative: 46-year-old gentleman who we have been asked to assess for congestive heart failure. He has known history of end-stage renal disease on hemodialysis, significant hypertension on multiple medications and previous endocarditis. He had echocardiography in March which raise concern for perforation of the posterior mitral valve leaflet with [id number] mitral valve regurgitation. He also had significant left ventricular hypertrophy at that time. He now presented with respiratory distress, pulmonary edema and required emergent dialysis in the ICU. He has been downgraded to [facility] at this stage. He continues to be significantly hypertensive. He is saying that he is short of breath but definitely better than before. He is on multiple medications at home and his blood pressure medications are being titrated. He is complaining of sharp chest pain on the left side which is worse with coughing and breathing. He previously had DVT and has been on Eliquis for that. He appears to be significantly volume overloaded. Echocardiography has shown significant hypertrophy of the left ventricle as well as bepf-mq-mrdxiqua RV dilation and dysfunction. This is worse than before. He also has a D shaped LV cavity pointing to her right ventricular pressure and volume overload. His interatrial septum is also bowing to the left side pointing to word right atrial pressure than the left atrial pressure.. He has a cholecystostomy tube in place. This was done for cholecystitis and he was not a surgical candidate. I also has MRSA bacteremia this was thought to be due to chronic T8-T9 diskitis and small epidural phlegmon. He has been on antibiotics with vancomycin. [facility] Past Medical History Medical History (Updated 05/11/22 @ 15:34 by Juventino Winter MD) Afib Diabetes End stage renal disease Hyperkalemia Hypertension Social History Social History Household Members: None Household Members Other:: NONE Housing: Other Housing Other:: MOTEL Do you presently have visiting nurse or other home services: No Unable to assess alcohol history related to: Unknown Alcohol intake: current Patient Tobacco Use Status: Current everyday Tobacco user Tobacco use type: Cigarette Cigarette Packs Per Day: 1 Cigarettes Per Day: 20.0 Smoked in Last 30 Days: Yes e-Cigarette/Vaping Use: Never Used Patient Interested in Nicotine Replacement: No Patient Given Instructions on How to Stop Smoking: No Date Education Initiated: 05/11/22 Second Hand Smoke Exposure: No Use of substances other than those prescribed or required for medical reasons: Yes Substance Use Type: Opiates Substance Use Frequency: Chronic Longstanding Last Used Substance: Unknown Currently Displaying Signs/Symptoms of Drug Intoxication Withdrawal: No Spiritual Healthcare Practices: UNKNOWN [facility] Practices: UNKNOWN Cultural Healthcare Practices: UNKNOWN Advance Directives: Yes Advance Directives on File: Yes Advance Directives Date on File: 04/08/22 Do you have thoughts of harming others: None Do you have a plan to hurt others: No Plan Poor oral hygiene: No service: No Current occupational status: disabled Meds Allergies Allergy/AdvReac Type Severity Reaction Status Date / Time PHILLY Inhibitors Allergy Anaphylaxis Verified 08/13/21 12:19 shellfish derived Allergy Anaphylaxis Verified 08/13/21 12:19 Sulfa (Sulfonamide Allergy Anaphylaxis Verified 08/13/21 12:19 Antibiotics) Active Medications: Current Medications Acetaminophen (Acetaminophen 325 Mg Tablet) 975 mg PO TID PRN PRN Reason: Pain, Moderate (Pain Scale 4-6 Albuterol Sulfate (Albuterol Sulfate (0.083%) 2.5 Mg/3 Ml Vial.Neb) 2.5 mg INHALE RQ4H WHILE AWAKE [facility] Last Admin: 05/14/22 11:19 Dose: 2.5 mg Amiodarone HCl (Amiodarone Hcl 200 Mg Tablet) 200 mg PO DAILY [facility] Last Admin: 05/14/22 08:13 Dose: 200 mg Apixaban (Apixaban 5 Mg Tablet) 5 mg PO BID [facility] Last Admin: 05/14/22 08:13 Dose: 5 mg Aspirin (Aspirin Enteric Coated 81 Mg Tablet.Dr) 81 mg PO DAILY [facility] Last Admin: 05/14/22 08:12 Dose: 81 mg Atorvastatin Calcium (Atorvastatin Calcium 80 Mg Tablet) 80 mg PO DAILY [facility] Last Admin: 05/14/22 08:12 Dose: 80 mg Carvedilol (Carvedilol 25 Mg Tablet) 25 mg PO BID [facility]; Protocol Last Admin: 05/14/22 07:59 Dose: 25 mg Diphenhydramine HCl (Diphenhydramine Hcl 25 Mg Capsule) 25 mg PO TID PRN PRN Reason: itch Last Admin: 05/13/22 10:22 Dose: 25 mg Gabapentin (Gabapentin 300 Mg Capsule) 300 mg PO TID [facility] Last Admin: 05/14/22 07:59 Dose: 300 mg Glucose (Glucose Gel 15 Gm Gel..Gram.) 15 gm PO Q15M PRN; Protocol PRN Reason: per Hypoglycemia Standing Ord. Hydralazine HCl (Hydralazine Hcl 50 Mg Tablet) 100 mg PO TID [facility]; Protocol Last Admin: 05/14/22 07:59 Dose: 100 mg Hydromorphone HCl (Hydromorphone Hcl 2 Mg Tablet) 2 mg PO Q4H PRN PRN Reason: Pain, Severe (Pain Scale 7-10) Last Admin: 05/14/22 10:52 Dose: 2 mg Vancomycin HCl 500 mg/ Sodium (Chloride) 110 mls @ 110 mls/hr IV MoWeFr@1800 [facility] Dextrose (D10) 250 mls @ 750 mls/hr IV Q15M PRN; Protocol PRN Reason: per Hypoglycemia Standing Ord. Isosorbide Mononitrate (Isosorbide Mononitrate 30 Mg Tab.Er.24h) 90 mg PO DAILY [facility]; Protocol Last Admin: 05/14/22 07:59 Dose: 90 mg Lidocaine HCl (Lidocaine Hcl 1 % Mpf 2 Ml Vial) 0.5 ml SUBCUT MOWEFR@1645 [facility] Last Admin: 05/13/22 17:26 Dose: Not Given Nifedipine (Nifedipine Er 60 Mg Tab.Er.24) 60 mg PO DAILY [facility]; Protocol Last Admin: 05/14/22 07:59 Dose: 60 mg Pharmacy Consult (Consult Rx Vancomycin Dosing) 1 each MISCELLANE DAILY PRN PRN Reason: Consult order Polyethylene Glycol (Polyethylene Glycol 3350 17 Gm Powd.Pack) 17 gm PO DAILY PRN PRN Reason: constipation Last Admin: 05/13/22 21:35 Dose: 17 gm Sevelamer Carbonate (Sevelamer Carbonate Tablet 800 Mg Tablet) 2,400 mg PO TIDWM [facility] Last Admin: 05/14/22 10:52 Dose: 2,400 mg Sodium Zirconium Cyclosilicate (Sodium Zirconium Cyclosilicate 10 Gm Powd.Pack) 10 gm PO TUTHSA [facility] Last Admin: 05/11/22 16:58 Dose: Not Given Home Medications Medication Instructions Recorded Confirmed Last Taken Type amiodarone 200 mg tablet 1 tab PO DAILY 08/13/21 05/11/22 Unknown History apixaban 5 mg tablet (Eliquis) 1 tab PO BID 08/13/21 05/11/22 Unknown History budesonide-formoterol HFA 80 2 puff inhalation BID 08/13/21 05/11/22 Unknown History mcg-4.5 mcg/actuation aerosol inhaler (Symbicort) bumetanide 2 mg tablet 2.5 tab PO BID 08/13/21 05/11/22 Unknown History diphenhydramine HCl 25 mg capsule 1 cap PO TID PRN itch 08/13/21 05/11/22 Unknown History (Banophen) gabapentin 300 mg capsule 1 cap PO TID 08/13/21 05/11/22 Unknown History isosorbide mononitrate 30 mg 3 tab PO QAM 08/13/21 05/11/22 Unknown History tablet,extended release 24 hr digoxin 125 mcg (0.125 mg) tablet 0.5 tab PO DAILY 04/08/22 05/11/22 Unknown History sevelamer carbonate 800 mg tablet 3 tab PO TID 04/08/22 05/11/22 Unknown History acetaminophen 325 mg tablet 975 mg PO TID 05/11/22 05/11/22 Unknown History aspirin 81 mg tablet,delayed 81 mg PO DAILY 05/11/22 05/11/22 Unknown History release atorvastatin 80 mg tablet 80 mg PO DAILY 05/11/22 05/11/22 Unknown History carvedilol 25 mg tablet 25 mg PO BID 05/11/22 05/11/22 Unknown History doxazosin 2 mg tablet 4 mg PO DAILY 05/11/22 05/11/22 Unknown History hydralazine 25 mg tablet 100 mg PO TID 05/11/22 05/11/22 Unknown History nifedipine 60 mg tablet,extended 60 mg PO DAILY 05/11/22 05/11/22 Unknown History release 24 hr sodium zirconium cyclosilicate 10 10 g PO TUTHSA 05/11/22 05/11/22 Unknown History gram oral powder packet Physical Exam Vital Signs: Vital Signs: Last Vital Signs Temp 97.5 F 05/14/22 11:20 Pulse 73 05/14/22 11:20 Resp 20 05/14/22 11:20 BP 181/92 H 05/14/22 11:20 Pulse Ox 93 05/14/22 11:20 O2 Del Method Nasal Cannula 05/14/22 11:20 O2 Flow Rate 6 05/14/22 11:20 FiO2 24 05/11/22 11:00 BMI result Body Mass Index 32.4 GENERAL APPEARANCE: Ill-appearing. Short of breath. On supplemental oxygen. NECK: no carotid bruit, positive jugular venous distention. SKIN: no suspicious lesions, warm and dry. HEART: Holosystolic murmur apex, regular rate and rhythm. Pericardial friction rub. LUNGS: Bilateral crackles to mid lungs. ABDOMEN: soft, nontender. EXTREMITIES: + edema. PERIPHERAL PULSES: equal. NEUROLOGIC: No gross deficits, AAO X 3 Objective Labs and Meds 05/11/22 02:10 05/14/22 09:29 Lab results: Laboratory Results - last 24 hr 05/13/22 05/13/22 05/13/22 14:42 16:36 19:50 O2 Saturation 88.0 ABG pH at Pt Temp 7.38 ABG pCO2 at Pt Temp 38 ABG pO2 at Pt Temp 63 L ABG HCO3 23 ABG Base Excess (Actual) -1.4 Sodium Potassium Chloride Carbon Dioxide Anion Gap BUN Creatinine Estim Creat Clear Calc Estimated GFR POC Glucose 177 H Random Glucose Calcium Random Vancomycin 21.1 H 05/13/22 05/14/22 05/14/22 20:07 07:24 09:29 O2 Saturation ABG pH at Pt Temp ABG pCO2 at Pt Temp ABG pO2 at Pt Temp ABG HCO3 ABG Base Excess (Actual) Sodium 131 L Potassium 5.4 H Chloride 96 Carbon Dioxide 19 L Anion Gap 21 H BUN 60 H Creatinine 7.91 H* Estim Creat Clear Calc 15.0 Estimated GFR 7 POC Glucose 124 H 121 H Random Glucose 145 H Calcium 9.1 Random Vancomycin 05/14/22 11:14 O2 Saturation ABG pH at Pt Temp ABG pCO2 at Pt Temp ABG pO2 at Pt Temp ABG HCO3 ABG Base Excess (Actual) Sodium Potassium Chloride Carbon Dioxide Anion Gap BUN Creatinine Estim Creat Clear Calc Estimated GFR POC Glucose 235 H Random Glucose Calcium Random Vancomycin Imaging Radiologist's impression: Impressions Chest X-Ray 05/13/22 19:10 IMPRESSION: CHF with interstitial edema. Assessment and Plan (1) ESRD (end stage renal disease) on dialysis: Status: Acute (2) Hypertension: Status: Acute (3) Hypertensive heart disease: Status: Acute (4) Mitral regurgitation: Status: Acute Plan [age] gentleman with end-stage renal disease, left ventricle due to hypertensive heart disease and mitral regurgitation. His mild regurgitation previously was gwuc-[id number]. He continues to be hoyq-[id number]. He has a calcified posterior mitral valve leaflet with a jet across the leaf let which is a very small jet pointing to word potential leaflet damage in the past. 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 In any case he does not have significant mitral regurgitation at this point. He does have RV dysfunction at dilation with elevated right-sided filling pressures and volume status. He has crackles on examination as well as JVD. He has a fracture up on examination too. Discussed with the for all GI at bedside and he will get x-ray at dialysis session. Stop the digoxin going forward and should not go home with digoxin. Titrate antihypertensive medications. Please do not titrate carvedilol. Please do not give him any diltiazem or verapamil. I think he will improve with dialysis at this stage. Overall his candidacy for replacing this mitral valve is quite poor. Currently the valve does not appear to be significantly regurgitant but this is a dynamic process and can change with his filling pressures. Currently is filling pressures appear to be high and I think he should be optimized with volume removal. Thank you for allowing me to participate in the care of your patient. Please feel free to contact me if you have any questions. Time Spent With Patient Time: Total time managing care of this patient today __40__ minutes. Procedures Date of Service Date of Service: 05/14/22
[2022-05-14] MEDS: Acetaminophen 325 MG TABLET 975 MG PO ×2 (14:46→21:23)
--- NOTE | 2022-05-14 15:43 | PM.PNNEP ---
Subjective Subjective Date of Service: 05/14/22 Interval history: Seen onHD. chart reveiwed, PT ewxamoned Physical Exam Vital Signs: Vital Signs: Last Vital Signs Temp 98.0 F 05/14/22 15:06 Pulse 75 05/14/22 15:06 Resp 20 05/14/22 15:06 BP 167/75 H 05/14/22 15:06 Pulse Ox 90 L 05/14/22 15:06 O2 Del Method Nasal Cannula 05/14/22 15:06 O2 Flow Rate 5 05/14/22 15:06 FiO2 24 05/11/22 11:00 BMI result Body Mass Index 32.4 Const: Other: On BiPAP when seen this AM General: no acute distress Orientation/consciousness: patient oriented x3 HEENT: Head: Yes normocephalic Eyes: EOM: EOMs intact bilaterally Neck: Neck: Yes supple Resp: Auscultation: diminished lung sounds Cardio: Rate: regular rate Heart sounds: Murmur heart sound present GI: Palpation (GI): Soft to palpation Neuro: Other: Obtunded General: patient oriented x3 and moves all extremities Extrem: Other: SAMMIE AVF Objective Data Labs 05/11/22 02:10 05/14/22 09:29 Labs: Laboratory Results - last 24 hr 05/13/22 05/13/22 05/13/22 14:42 16:36 19:50 O2 Saturation 88.0 ABG pH at Pt Temp 7.38 ABG pCO2 at Pt Temp 38 ABG pO2 at Pt Temp 63 L ABG HCO3 23 ABG Base Excess (Actual) -1.4 Sodium Potassium Chloride Carbon Dioxide Anion Gap BUN Creatinine Estim Creat Clear Calc Estimated GFR POC Glucose 177 H Random Glucose Calcium Random Vancomycin 21.1 H 05/13/22 05/14/22 05/14/22 20:07 07:24 09:29 O2 Saturation ABG pH at Pt Temp ABG pCO2 at Pt Temp ABG pO2 at Pt Temp ABG HCO3 ABG Base Excess (Actual) Sodium 131 L Potassium 5.4 H Chloride 96 Carbon Dioxide 19 L Anion Gap 21 H BUN 60 H Creatinine 7.91 H* Estim Creat Clear Calc 15.0 Estimated GFR 7 POC Glucose 124 H 121 H Random Glucose 145 H Calcium 9.1 Random Vancomycin 05/14/22 11:14 O2 Saturation ABG pH at Pt Temp ABG pCO2 at Pt Temp ABG pO2 at Pt Temp ABG HCO3 ABG Base Excess (Actual) Sodium Potassium Chloride Carbon Dioxide Anion Gap BUN Creatinine Estim Creat Clear Calc Estimated GFR POC Glucose 235 H Random Glucose Calcium Random Vancomycin Microbiology Microbiology Results: Microbiology 05/12/22 03:55 Blood - Venous Blood Culture - Preliminary No growth after 48 hours. 05/12/22 03:55 Blood - Venous Blood Culture - Preliminary No growth after 48 hours. 05/11/22 02:10 Blood - Venous Blood Culture - Final Coag negative Staphylococcus 05/11/22 02:10 Blood - Venous Blood Culture - Preliminary No growth after 48 hours. Procedures Date of Service Date of Service: 05/14/22 Assessment & Plan Assessment and plan (1) ESRD (end stage renal disease) on dialysis: Status: Acute (2) Hypertension: Status: Acute (3) Hypertensive heart disease: Status: Acute (4) Mitral regurgitation: Status: Acute Plan ESRD - MWF SOB: multifact with CHF and underlying card dysfunct as noted by CARD Ques Pericarditis: will intensify HD and check URR; ques his CP symptoms d/t pericarditis vs other PSeudoannerusym femoral: Tx as per card REC: HD today and tomorrow; cehck URR, pull fluid as BP permits; card eval as noted will follow with team Time Spent With Patient Time: Total time managing care of this patient today ____ minutes. Progress Note: Quality Stroke Does the patient have a stroke diagnosis?: No
[2022-05-14] MEDS: Sodium Zirconium Cyclosilicate 10 GM POWD.PACK PO (16:06)
[2022-05-14] MEDS: Doxazosin Mesylate 2 MG TABLET 4 MG PO (16:06)
[2022-05-14 16:13] LABS: Glucose, Whole Blood 135 mg/dL (60-115)
[2022-05-14] MEDS: Simethicone 80 MG TAB.CHEW 160 MG PO (16:26)
--- NOTE | 2022-05-14 18:03 | P.PNIM_ITS ---
Subjective Subjective Date of Service: 05/15/22 Interval History: f/u on fluid overload, hyperkalemia Review of Systems still sob with minimum excersion,unchanged denies any chest pain or nausea or vomitin or fevers Physical Exam Vital Signs: Vital Signs: Last Vital Signs Temp 98.0 F 05/14/22 15:06 Pulse 91 05/14/22 16:20 Resp 20 05/14/22 16:20 BP 167/75 H 05/14/22 15:06 Pulse Ox 90 L 05/14/22 15:06 O2 Del Method Nasal Cannula 05/14/22 15:06 O2 Flow Rate 5 05/14/22 15:06 FiO2 24 05/11/22 11:00 BMI result Body Mass Index 32.4 Appearance: Alert.? Oriented X3.?sob cvs: rrr, [id number] . res: clear to auscultation ,no rhonchii or wheezing abd: no rebound or guarding ,nt, bs present. ext pulses present , no cyanosis. neuro: axo3 , nonfocal. Objective Data Active Medications Acetaminophen (Acetaminophen 325 Mg Tablet) 975 mg PO TID PRN PRN Reason: Pain, Moderate (Pain Scale 4-6 Last Admin: 05/14/22 14:46 Dose: 975 mg Documented By: ERIKA Albuterol Sulfate (Albuterol Sulfate (0.083%) 2.5 Mg/3 Ml Vial.Neb) 2.5 mg INHALE RQ4H WHILE AWAKE [facility] Last Admin: 05/14/22 16:19 Dose: 2.5 mg Documented By: JEN Amiodarone HCl (Amiodarone Hcl 200 Mg Tablet) 200 mg PO DAILY [facility] Last Admin: 05/14/22 08:13 Dose: 200 mg Documented By: ERIKA Apixaban (Apixaban 5 Mg Tablet) 5 mg PO BID [facility] Last Admin: 05/14/22 08:13 Dose: 5 mg Documented By: ERIKA Aspirin (Aspirin Enteric Coated 81 Mg Tablet.) 81 mg PO DAILY [facility] Last Admin: 05/14/22 08:12 Dose: 81 mg Documented By: ERIKA Atorvastatin Calcium (Atorvastatin Calcium 80 Mg Tablet) 80 mg PO DAILY [facility] Last Admin: 05/14/22 08:12 Dose: 80 mg Documented By: ERIKA Carvedilol (Carvedilol 25 Mg Tablet) 25 mg PO BID [facility]; Protocol Last Admin: 05/14/22 07:59 Dose: 25 mg Documented By: ERIKA Diphenhydramine HCl (Diphenhydramine Hcl 25 Mg Capsule) 25 mg PO TID PRN PRN Reason: itch Last Admin: 05/13/22 10:22 Dose: 25 mg Documented By: ERIKA Doxazosin Mesylate (Doxazosin Mesylate 2 Mg Tablet) 4 mg PO DAILY [facility]; Protocol Last Admin: 05/14/22 16:06 Dose: 4 mg Documented By: ERIKA Gabapentin (Gabapentin 300 Mg Capsule) 300 mg PO TID [facility] Last Admin: 05/14/22 14:49 Dose: 300 mg Documented By: ERIKA Glucose (Glucose Gel 15 Gm Gel..Gram.) 15 gm PO Q15M PRN; Protocol PRN Reason: per Hypoglycemia Standing Ord. Hydralazine HCl (Hydralazine Hcl 50 Mg Tablet) 100 mg PO TID [facility]; Protocol Last Admin: 05/14/22 14:51 Dose: 100 mg Documented By: ERIKA Hydromorphone HCl (Hydromorphone Hcl 2 Mg Tablet) 2 mg PO Q4H PRN PRN Reason: Pain, Severe (Pain Scale 7-10) Last Admin: 05/14/22 14:51 Dose: 2 mg Documented By: ERIKA Vancomycin HCl 500 mg/ Sodium (Chloride) 110 mls @ 110 mls/hr IV MoWeFr@1800 [facility] Dextrose (D10) 250 mls @ 750 mls/hr IV Q15M PRN; Protocol PRN Reason: per Hypoglycemia Standing Ord. Isosorbide Mononitrate (Isosorbide Mononitrate 30 Mg Tab.Er.24h) 90 mg PO DAILY [facility]; Protocol Last Admin: 05/14/22 07:59 Dose: 90 mg Documented By: ERIKA Lidocaine HCl (Lidocaine Hcl 1 % Mpf 2 Ml Vial) 0.5 ml SUBCUT MOWEFR@1645 [facility] Last Admin: 05/13/22 17:26 Dose: Not Given Documented By: ERIKA Non-Admin Reason: Med Not Available Nifedipine (Nifedipine Er 60 Mg Tab.Er.24) 60 mg PO DAILY [facility]; Protocol Last Admin: 05/14/22 07:59 Dose: 60 mg Documented By: ERIKA Pharmacy Consult (Consult Rx Vancomycin Dosing) 1 each MISCELLANE DAILY PRN PRN Reason: Consult order Polyethylene Glycol (Polyethylene Glycol 3350 17 Gm Powd.Pack) 17 gm PO DAILY PRN PRN Reason: constipation Last Admin: 05/13/22 21:35 Dose: 17 gm Documented By: YOSSI Sevelamer Carbonate (Sevelamer Carbonate Tablet 800 Mg Tablet) 2,400 mg PO TIDWM [facility] Last Admin: 05/14/22 16:05 Dose: 2,400 mg Documented By: ERIKA Sodium Zirconium Cyclosilicate (Sodium Zirconium Cyclosilicate 10 Gm Powd.Pack) 10 gm PO TUTHSA [facility] Last Admin: 05/14/22 16:06 Dose: 10 gm Documented By: ERIKA Labs 05/11/22 02:10 05/14/22 09:29 Labs: Laboratory Results - last 24 hr 05/13/22 05/13/22 05/14/22 19:50 20:07 07:24 O2 Saturation 88.0 ABG pH at Pt Temp 7.38 ABG pCO2 at Pt Temp 38 ABG pO2 at Pt Temp 63 L ABG HCO3 23 ABG Base Excess (Actual) -1.4 Anion Gap Estim Creat Clear Calc Estimated GFR POC Glucose 124 H 121 H Random Glucose Calcium 05/14/22 05/14/22 05/14/22 09:29 11:14 16:09 O2 Saturation ABG pH at Pt Temp ABG pCO2 at Pt Temp ABG pO2 at Pt Temp ABG HCO3 ABG Base Excess (Actual) Anion Gap 21 H Estim Creat Clear Calc 15.0 Estimated GFR 7 POC Glucose 235 H 135 H Random Glucose 145 H Calcium 9.1 Microbiology Microbiology Results: Microbiology 05/12/22 03:55 Blood Culture - Preliminary Blood - Venous No growth after 48 hours. 05/12/22 03:55 Blood Culture - Preliminary Blood - Venous No growth after 48 hours. Assessment and Plan (1) ESRD (end stage renal disease) on dialysis: Status: Acute (2) Hypertension: Status: Acute (3) Acute hyperkalemia: Status: Acute (4) Mitral regurgitation: Status: Acute Plan 46-year-old male with a past medical history of MRSA bacteremia, endocarditis, h/o paraspinal /epidural Phlegmon, ESRD with HD MWF, Sa, chronic diastolic chf, Cholecystitis (s/p Cholecystostomy d/t being poor candidate for surgery in Jan 2022), COPD, HTN, HLD,? permanent AFIB? and history of DVT on eliquis, who was BIBA in acute respiratory distress. EMS administered albuterol and 500cc normal saline for hypotension. They administered IN Narcan for unresponsiveness. Found to have hyperkalemia and? flash pulmonary edema and required emergent dialysis in ICU Acute on chronic hypoxic respiratory failure due to fluid overligh -Underwent emergent dialysis in ICU with fluid removal on 05/11 -Probably still with fluid overload and will be going to dialysis for fluid removal today Hyperkalemia--improved after dialysis, still high at 5.5, [facility] MRSA bacteremia/ endocarditis, on outpatient vancomycin--post dialysis Chronic T8-T9 Discitis/small epidural?phlegmon?(no cord compression?or stenosis) Chronic opioid dependence recent [facility] MRI lumbar spine negative for SEA, osteomyelitis, or discitis, -Continue vancomycin renally dosed ( Per renal note,?Vanco 750mg post HD on M///Fri until May 26) per [facility] ID Hypertension--continue Coreg, Nifedipine,? hydralazine. DC Bumex per nephrology Atrial fibrillation--rate control on Digoxon? q48 hrs, Coreg,? Amiodarone? and Eliquis for stroke prevent Chronic abdominal pain h/o cholecystitis now w/ C-tube--PO Dilaudid for pain, avoid IV meds. Concern raised re narcotic use during recent [facility] dischare and was only discharged with Tylenol Etiology of this chronic abdominal pain is not clear ,apparently has been ongoing?for months now. [facility] Surgery recommends drain to remain in place? and no surgery planned End-stage renal disease on hemodialysis--Dialysis MWF and Sat History of insulin-dependent type 2 diabetes, not on insulin anymore, but sliding scale while here Chronic anemia, monitor Stable no s/s of active bleeding weekly epogen as per nephro. inpatient need :Acute on chronic hypoxic respiratory failure due to fluid overligh,hyperkalemia ,MR: need respiratory status monitoring, serum electrolytes and renal function monitoring as well as dialysis-going to get dialysis today also, and cardiology evaluation for MR. Time Spent With Patient Time: Total time managing care of this patient today ____ minutes. Quality Stroke Does the patient have a stroke diagnosis?: No VTE Prior VTE?: Yes VTE Risk Level:: Medical - moderate - high VTE Device Contraindication: N/A - Device Ordered VTE Drug Contraindication: N/A - Med Ordered
[2022-05-14] MEDS: diphenhydrAMINE HCL 25 MG CAPSULE PO (18:49)
[2022-05-14] MEDS: Ketorolac Tromethamine 15 MG/ML VIAL IVPUSH (22:06)
[2022-05-15] VITALS (8 sets, daily range): BP systolic 129–179; BP diastolic 70–95; PULSE 69–93; RESP 16–22; TEMP 36.7–37.1; O2SAT 90–100; BMI 35.2
--- NOTE | 2022-05-15 | ECG_ITS ---
Test Reason : chest tightness Blood Pressure : / mmHG Vent. Rate : 078 BPM Atrial Rate : 078 BPM P-R Int : 234 ms QRS Dur : 126 ms QT Int : 422 ms P-R-T Axes : 055 016 110 degrees QTc Int : 481 ms Sinus rhythm with 1st degree A-V block Possible Left atrial enlargement Left ventricular hypertrophy with QRS widening and repolarization abnormality ( [place] product ) Abnormal ECG When compared with ECG of 12-MAY-2022 14:30, No significant change was found Referred By: Patricia Whelan Electronically Signed By:REMBERTO TILLMAN MD
[2022-05-15 00:19] LABS: Glucose, Whole Blood 100 mg/dL (60-115)
[2022-05-15] MEDS: HYDROmorphone HCl 2 MG TABLET PO ×5 (02:38→21:28)
[2022-05-15 07:16] LABS: Glucose, Whole Blood 161 mg/dL (60-115)
[2022-05-15] MEDS: Isosorbide Mononitrate 30 MG TAB.ER.24H 90 MG PO (08:02)
[2022-05-15] MEDS: hydrALAZINE HCl 50 MG TABLET 100 MG PO ×3 (08:02→20:21)
[2022-05-15] MEDS: Gabapentin 300 MG CAPSULE PO ×3 (08:02→20:21)
[2022-05-15] MEDS: Amiodarone HCL 200 MG TABLET PO (08:02)
[2022-05-15] MEDS: NIFEdipine ER 60 MG TAB.ER.24 PO (08:02)
[2022-05-15] MEDS: carvediloL 25 MG TABLET PO ×2 (08:02→20:21)
[2022-05-15] MEDS: Sevelamer Carbonate Tablet 800 MG TABLET 2400 MG PO ×2 (08:03→16:39)
[2022-05-15] MEDS: Apixaban 5 MG TABLET PO (08:03)
[2022-05-15] MEDS: Doxazosin Mesylate 2 MG TABLET 4 MG PO (08:03)
[2022-05-15] MEDS: Atorvastatin Calcium 80 MG TABLET PO (08:19)
[2022-05-15] MEDS: Aspirin Enteric Coated 81 MG TABLET.DR PO (08:19)
[2022-05-15] MEDS: Albuterol Sulfate (0.083%) 2.5 MG/3 ML VIAL.NEB INHALE ×2 (08:39→16:05)
[2022-05-15] MEDS: Acetaminophen 325 MG TABLET 975 MG PO (09:03)
[2022-05-15 10:24] LABS: Anion Gap 14 (12-20); Blood Urea Nitrogen 48 mg/dL (9-16); Carbon Dioxide 25 mmol/L (22-29); Chloride 99 mmol/L (96-108); Creatinine Clr Calc Pharmacy 21.7; Estimated Glomerular Filt Rate 11; Glucose Random 160 mg/dL (60-115); Potassium 4.3 mmol/L (3.3-5.1); Sodium 134 mmol/L (135-145)
--- NOTE | 2022-05-15 10:45 | PM.PNCARD ---
Subjective Subjective Date of Service: 05/15/22 Interval history: Seen and examined on hemodialysis. He is saying continues to get some sharp chest pains. 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 He had 4 L removed yesterday and is currently on dialysis and will have 4 L removed today. Blood pressures continue to be high. Physical Exam Vital Signs: Last Vital Signs Temp 98.3 F 05/15/22 07:15 Pulse 71 05/15/22 08:39 Resp 18 05/15/22 08:39 BP 129/77 05/15/22 07:15 Pulse Ox 100 05/15/22 07:15 O2 Del Method Nasal Cannula 05/15/22 07:15 O2 Flow Rate 6 05/15/22 07:15 FiO2 24 05/11/22 11:00 BMI result Body Mass Index 35.2 GENERAL APPEARANCE: Ill-appearing. Not as short of breath as yesterday. NECK: no carotid bruit, positive jugular venous distention. SKIN: no suspicious lesions, warm and dry. HEART: Holosystolic murmur apex, regular rate and rhythm. Pericardial friction rub. LUNGS: Lungs have some crackles anteriorly. ABDOMEN: soft, nontender. EXTREMITIES: + edema. PERIPHERAL PULSES: equal. NEUROLOGIC: No gross deficits, AAO X 3 Objective Labs and Meds 05/11/22 02:10 05/15/22 09:51 Lab results: Laboratory Results - last 24 hr 05/14/22 05/14/22 05/14/22 11:14 16:09 20:43 Sodium Potassium Chloride Carbon Dioxide Anion Gap BUN Creatinine Estim Creat Clear Calc Estimated GFR POC Glucose 235 H 135 H 100 Random Glucose Calcium 05/15/22 05/15/22 07:13 09:51 Sodium 134 L Potassium 4.3 D Chloride 99 Carbon Dioxide 25 Anion Gap 14 BUN 48 H Creatinine 5.69 H* Estim Creat Clear Calc 21.7 Estimated GFR 11 POC Glucose 161 H Random Glucose 160 H Calcium 9.0 Progress Note: A&P Assessment and plan (1) ESRD (end stage renal disease) on dialysis: Status: Acute (2) Hypertension: Status: Acute (3) Mitral regurgitation: Status: Acute Plan [age] year gentleman with poorly-controlled hypertension, end-stage renal disease, previous endocarditis and mitral valve damage with [id number] mitral valve regurgitation and the hypertensive heart disease with severely increased left ventricular wall thickness. He has [id number]-[id number] right ventricular dysfunction. Was significantly volume overloaded and had 4 L removed yesterday and will have 4 L removed today. I think decompressing the right ventricle will help the RV function. His blood pressure continues to be elevated and his blood pressure medications are being titrated. Nephrology is following him closely. He has crcy-cp-vaapykqg mitral regurgitation. There is a small jet going through the posterior mitral valve leaflet with heavy calcification on the valve. He previously had endocarditis. The valve regurgitation does not appear to be severe. Even if it is severe I think his options with his current health status are quite limited he does not appear to be a surgical candidate. In any case if his valve appears severity then further assessment can be performed and a surgical discussion may need to happen. He follows up at [facility] as per previous notes. Thank you for allowing me to participate in the care of your patient. Please feel free to contact me if you have any questions. Time Spent With Patient Time: Total time managing care of this patient today __20__ minutes. Progress Note: Quality Stroke Does the patient have a stroke diagnosis?: No Procedures Date of Service Date of Service: 05/15/22
[2022-05-15 10:59] LABS: Glucose, Whole Blood 127 mg/dL (60-115)
[2022-05-15] MEDS: Sodium Zirconium Cyclosilicate 5 GM POWD.PACK PO (11:19)
[2022-05-15] MEDS: polyethylene glycoL 3350 17 GM POWD.PACK PO (11:26)
--- NOTE | 2022-05-15 13:47 | P.PNIM_ITS ---
Subjective Subjective Date of Service: 05/15/22 Interval History: fluid overload Review of Systems sob seems somewhat similar to yesterday ,seems sob with little excersion has mild pleuritic soarness intermittent no nausea/vomting Physical Exam Vital Signs: Vital Signs: Last Vital Signs Temp 98.3 F 05/15/22 07:15 Pulse 81 05/15/22 13:45 Resp 20 05/15/22 10:57 BP 135/70 05/15/22 13:45 Pulse Ox 91 L 05/15/22 13:45 O2 Del Method Nasal Cannula 05/15/22 13:45 O2 Flow Rate 2 05/15/22 13:45 FiO2 24 05/11/22 11:00 BMI result Body Mass Index 35.2 Appearance: Alert.? Oriented X3.?sob cvs: rrr, [id number] . res: clear to auscultation ,no rhonchii or wheezing abd: no rebound or guarding ,nt, bs present. ext pulses present , no cyanosis. neuro: axo3 , nonfocal. Objective Data Active Medications Acetaminophen (Acetaminophen 325 Mg Tablet) 975 mg PO TID PRN PRN Reason: Pain, Moderate (Pain Scale 4-6 Last Admin: 05/15/22 09:03 Dose: 975 mg Documented By: ISIDRA Albuterol Sulfate (Albuterol Sulfate (0.083%) 2.5 Mg/3 Ml Vial.Neb) 2.5 mg INHALE RQ4H WHILE AWAKE [facility] Last Admin: 05/15/22 11:58 Dose: Not Given Documented By: JOSE Non-Admin Reason: Off unit: Dialysis Amiodarone HCl (Amiodarone Hcl 200 Mg Tablet) 200 mg PO DAILY [facility] Last Admin: 05/15/22 08:02 Dose: 200 mg Documented By: KEN Apixaban (Apixaban 5 Mg Tablet) 5 mg PO BID [facility] Last Admin: 05/15/22 08:03 Dose: 5 mg Documented By: KEN Aspirin (Aspirin Enteric Coated 81 Mg Tablet.) 81 mg PO DAILY [facility] Last Admin: 05/15/22 08:19 Dose: 81 mg Documented By: KEN Atorvastatin Calcium (Atorvastatin Calcium 80 Mg Tablet) 80 mg PO DAILY [facility] Last Admin: 05/15/22 08:19 Dose: 80 mg Documented By: KEN Carvedilol (Carvedilol 25 Mg Tablet) 25 mg PO BID [facility]; Protocol Last Admin: 05/15/22 08:02 Dose: 25 mg Documented By: KEN Diphenhydramine HCl (Diphenhydramine Hcl 25 Mg Capsule) 25 mg PO TID PRN PRN Reason: itch Last Admin: 05/14/22 18:49 Dose: 25 mg Documented By: ERIKA Doxazosin Mesylate (Doxazosin Mesylate 2 Mg Tablet) 4 mg PO DAILY [facility]; Protocol Last Admin: 05/15/22 08:03 Dose: 4 mg Documented By: KEN Gabapentin (Gabapentin 300 Mg Capsule) 300 mg PO TID [facility] Last Admin: 05/15/22 08:02 Dose: 300 mg Documented By: KEN Glucose (Glucose Gel 15 Gm Gel..Gram.) 15 gm PO Q15M PRN; Protocol PRN Reason: per Hypoglycemia Standing Ord. Hydralazine HCl (Hydralazine Hcl 50 Mg Tablet) 100 mg PO TID [facility]; Protocol Last Admin: 05/15/22 08:02 Dose: 100 mg Documented By: KEN Hydromorphone HCl (Hydromorphone Hcl 2 Mg Tablet) 2 mg PO Q4H PRN PRN Reason: Pain, Severe (Pain Scale 7-10) Last Admin: 05/15/22 11:16 Dose: 2 mg Documented By: ISIDRA Vancomycin HCl 500 mg/ Sodium (Chloride) 110 mls @ 110 mls/hr IV [id number] [facility] Dextrose (D10) 250 mls @ 750 mls/hr IV Q15M PRN; Protocol PRN Reason: per Hypoglycemia Standing Ord. Isosorbide Mononitrate (Isosorbide Mononitrate 30 Mg Tab.Er.24h) 90 mg PO DAILY [facility]; Protocol Last Admin: 05/15/22 08:02 Dose: 90 mg Documented By: KEN Lidocaine HCl (Lidocaine Hcl 1 % Mpf 2 Ml Vial) 0.5 ml SUBCUT [id number] [facility] Last Admin: 05/13/22 17:26 Dose: Not Given Documented By: ERIKA Non-Admin Reason: Med Not Available Nifedipine (Nifedipine Er 60 Mg Tab.Er.24) 60 mg PO DAILY [facility]; Protocol Last Admin: 05/15/22 08:02 Dose: 60 mg Documented By: KEN Pharmacy Consult (Consult Rx Vancomycin Dosing) 1 each MISCELLANE DAILY PRN PRN Reason: Consult order Polyethylene Glycol (Polyethylene Glycol 3350 17 Gm Powd.Pack) 17 gm PO DAILY PRN PRN Reason: constipation Last Admin: 05/15/22 11:26 Dose: 17 gm Documented By: ISIDRA Sevelamer Carbonate (Sevelamer Carbonate Tablet 800 Mg Tablet) 2,400 mg PO TIDWM [facility] Last Admin: 05/15/22 08:03 Dose: 2,400 mg Documented By: KEN Sodium Zirconium Cyclosilicate (Sodium Zirconium Cyclosilicate 10 Gm Powd.Pack) 10 gm PO TUTHSA [facility] Last Admin: 05/14/22 16:06 Dose: 10 gm Documented By: ALEJAMAT Labs 05/11/22 02:10 05/15/22 09:51 Labs: Laboratory Results - last 24 hr 05/14/22 05/14/22 05/15/22 16:09 20:43 07:13 Anion Gap Estim Creat Clear Calc Estimated GFR POC Glucose 135 H 100 161 H Random Glucose Calcium 05/15/22 05/15/22 09:51 10:54 Anion Gap 14 Estim Creat Clear Calc 21.7 Estimated GFR 11 POC Glucose 127 H Random Glucose 160 H Calcium 9.0 Assessment and Plan (1) ESRD (end stage renal disease) on dialysis: Status: Acute (2) Hypertension: Status: Acute (3) Acute hyperkalemia: Status: Acute (4) Mitral regurgitation: Status: Acute Plan 46-year-old male with a past medical history of MRSA bacteremia, endocarditis, h/o paraspinal /epidural Phlegmon, ESRD with HD MWF, Sa, chronic diastolic chf, Cholecystitis (s/p Cholecystostomy d/t being poor candidate for surgery in Jan 2022), COPD, HTN, HLD,? permanent AFIB? and history of DVT on eliquis, who was BIBA in acute respiratory distress. EMS administered albuterol and 500cc normal saline for hypotension. They administered IN Narcan for unresponsiveness. Found to have hyperkalemia and? flash pulmonary edema and required emergent dialysis in ICU Acute on chronic hypoxic respiratory failure due to fluid overligh sob and oxygen demand similar to yesterday -Underwent emergent dialysis in ICU with fluid removal on 05/11,yesterday also had HD , will be gettin -Probably still with fluid overload and will be going to dialysis for fluid removal today Hyperkalemia--improved after dialysis, still high at 5.4, Lokelma getting HD today MRSA bacteremia/ endocarditis, on outpatient vancomycin--post dialysis Chronic T8-T9 Discitis/small epidural?phlegmon?(no cord compression?or stenosis) Chronic opioid dependence recent [facility] MRI lumbar spine negative for SEA, osteomyelitis, or discitis, -Continue vancomycin renally dosed ( Per renal note,?Vanco 750mg post HD on ///Fri until May 26) per [facility] ID Hypertension- improving with HD and Coreg, Nifedipine,? hydralazine. DC Bumex per nephrology Atrial fibrillation--rate control on Digoxon? q48 hrs, Coreg,? Amiodarone? and Eliquis for stroke prevent Chronic abdominal pain h/o cholecystitis now w/ C-tube--PO Dilaudid for pain, avoid IV meds. Concern raised re narcotic use during recent [facility] dischare and was only discharged with Tylenol Etiology of this chronic abdominal pain is not clear ,apparently has been ongoing?for months now. [facility] Surgery recommends drain to remain in place? and no surgery planned End-stage renal disease on hemodialysis--Dialysis MWF and Sat History of insulin-dependent type 2 diabetes, not on insulin anymore, but sliding scale while here Chronic normocytic anemia, monitor Stable no s/s of active bleeding weekly epogen as per nephro. inpatient need :Acute on chronic hypoxic respiratory failure due to fluid overligh,hyperkalemia ,MR: need respiratory status monitoring, serum elec trolytes and renal function monitoring as well as dialysis-going to get dialysis today also, and cardiology evaluation for MR. Time Spent With Patient Time: Total time managing care of this patient today ____ minutes. Quality Stroke Does the patient have a stroke diagnosis?: No VTE Prior VTE?: Yes VTE Risk Level:: Medical - moderate - high VTE Device Contraindication: N/A - Device Ordered VTE Drug Contraindication: N/A - Med Ordered
--- NOTE | 2022-05-15 13:50 | MHC.CM.PN ---
EMR REVIEWED, PT REMAINS ON 6L O2, PER CARDIOLOGY PT REMAINS FLUID OVERLOADED AND WILL HAVE HD AGAIN TODAY, NO PLAN FOR D/C AT THIS TIME, ANTIC NEED FOR HOME SERVICES VS STR WHEN MEDICALLY CLEARED, CM WILL CONT TO FOLOW D/C NEEDS.
--- NOTE | 2022-05-15 14:15 | PC.NURSE ---
pt c/o consistent chest pain stating its been occuring for days, 11/19. informed, ecg obtained. sent ecg pic. no new orders at this time
[2022-05-15 16:20] LABS: Glucose, Whole Blood 135 mg/dL (60-115)
[2022-05-15 16:23] LABS: Vancomycin Random 14.2 mcg/mL (15-20)
[2022-05-15] MEDS: Ketorolac Tromethamine 15 MG/ML VIAL IVPUSH (16:38)
[2022-05-15] MEDS: Oxymetazoline HCl 0.05 % Nasal 15 ML SPRAY 2 SPRAY NOSTRIL-B (18:17)
--- NOTE | 2022-05-15 18:45 | PC.NURSE ---
pt was found to have bloody nose that would not stop with pressure. More blood was noted from right nostril and a large clot was seen exiting r nostril. MD was then called and ED MD came to pack nostril. Pt bleeding appears to have stopped. will continue to monitor pt
[2022-05-15 20:23] LABS: Glucose, Whole Blood 144 mg/dL (60-115)
[2022-05-15] MEDS: LORazepam 0.5 MG TABLET 0.25 MG PO (20:23)
--- NOTE | 2022-05-15 22:53 | PM.PNNEP ---
Subjective Subjective Date of Service: 05/15/22 Interval history: Seen and examined, events noted Physical Exam Vital Signs: Vital Signs: Last Vital Signs Temp 98.7 F 05/15/22 19:18 Pulse 79 05/15/22 19:18 Resp 22 H 05/15/22 19:18 BP 169/83 H 05/15/22 19:18 Pulse Ox 90 L 05/15/22 19:18 O2 Del Method Nasal Cannula 05/15/22 19:18 O2 Flow Rate 3 05/15/22 19:18 FiO2 24 05/11/22 11:00 BMI result Body Mass Index 35.2 Const: Other: On BiPAP when seen this AM General: no acute distress Orientation/consciousness: patient oriented x3 HEENT: Head: Yes normocephalic Eyes: EOM: EOMs intact bilaterally Neck: Neck: Yes supple Resp: Auscultation: diminished lung sounds Cardio: Rate: regular rate Heart sounds: Murmur heart sound present GI: Palpation (GI): Soft to palpation Neuro: Other: Obtunded General: patient oriented x3 and moves all extremities Extrem: Other: SAMMIE AVF Objective Data Labs 05/11/22 02:10 05/15/22 09:51 Labs: Laboratory Results - last 24 hr 05/14/22 05/15/22 05/15/22 20:43 07:13 09:51 Sodium 134 L Potassium 4.3 D Chloride 99 Carbon Dioxide 25 Anion Gap 14 BUN 48 H Creatinine 5.69 H* Estim Creat Clear Calc 21.7 Estimated GFR 11 POC Glucose 100 161 H Random Glucose 160 H Calcium 9.0 Random Vancomycin 05/15/22 05/15/22 05/15/22 10:54 15:44 16:06 Sodium Potassium Chloride Carbon Dioxide Anion Gap BUN Creatinine Estim Creat Clear Calc Estimated GFR POC Glucose 127 H 135 H Random Glucose Calcium Random Vancomycin 14.2 L 05/15/22 20:19 Sodium Potassium Chloride Carbon Dioxide Anion Gap BUN Creatinine Estim Creat Clear Calc Estimated GFR POC Glucose 144 H Random Glucose Calcium Random Vancomycin Microbiology Microbiology Results: Microbiology 05/12/22 03:55 Blood - Venous Blood Culture - Preliminary No growth after 48 hours. 05/12/22 03:55 Blood - Venous Blood Culture - Preliminary No growth after 48 hours. 05/11/22 02:10 Blood - Venous Blood Culture - Final Coag negative Staphylococcus 05/11/22 02:10 Blood - Venous Blood Culture - Preliminary No growth after 48 hours. Procedures Date of Service Date of Service: 05/15/22 Assessment & Plan Assessment and plan (1) ESRD (end stage renal disease) on dialysis: Status: Acute (2) Hypertension: Status: Acute (3) Hypertensive heart disease: Status: Acute (4) Mitral regurgitation: Status: Acute Plan ESRD - MWF SOB: multifact with CHF and underlying card dysfunct as noted by CARD Ques Pericarditis: will intensify HD and check URR; ques his CP symptoms d/t pericarditis vs other PSeudoannerusym femoral: Tx as per card REC: HD again today and tomorrow; still need cehck URR, pull fluid as BP permits; card eval as noted will follow with team Time Spent With Patient Time: Total time managing care of this patient today ____ minutes. Progress Note: Quality Stroke Does the patient have a stroke diagnosis?: No
[2022-05-16] VITALS (9 sets, daily range): BP systolic 117–190; BP diastolic 69–88; PULSE 72–80; RESP 17–24; TEMP 36.2–36.6; O2SAT 89–97
[2022-05-16] MEDS: HYDROmorphone HCl 2 MG TABLET PO ×5 (01:24→20:49)
[2022-05-16] MEDS: hydrOXYzine HCL 25 MG TABLET PO (03:20)
[2022-05-16] MEDS: Ketorolac Tromethamine 15 MG/ML VIAL IVPUSH (03:20)
[2022-05-16 06:55] LABS: Glucose, Whole Blood 106 mg/dL (60-115)
[2022-05-16 08:20] LABS: Hematocrit 29.4 % (42.0-52.0); Hemoglobin 9.5 g/dl (14.0-18.0)
[2022-05-16] MEDS: hydrALAZINE HCl 50 MG TABLET 100 MG PO ×3 (08:26→20:50)
[2022-05-16] MEDS: Gabapentin 300 MG CAPSULE PO ×3 (08:26→20:50)
[2022-05-16] MEDS: Amiodarone HCL 200 MG TABLET PO (08:26)
[2022-05-16] MEDS: Isosorbide Mononitrate 30 MG TAB.ER.24H 90 MG PO (08:26)
[2022-05-16] MEDS: Doxazosin Mesylate 2 MG TABLET 4 MG PO (08:26)
[2022-05-16] MEDS: NIFEdipine ER 60 MG TAB.ER.24 PO (08:26)
[2022-05-16] MEDS: Atorvastatin Calcium 80 MG TABLET PO (08:26)
[2022-05-16] MEDS: Sevelamer Carbonate Tablet 800 MG TABLET 2400 MG PO ×3 (08:26→17:20)
[2022-05-16] MEDS: carvediloL 25 MG TABLET PO ×2 (08:26→20:50)
[2022-05-16 09:03] LABS: Anion Gap 21 (12-20); Blood Urea Nitrogen 45 mg/dL (9-16); Calcium 9.2 mg/dL (8.4-10.2); Carbon Dioxide 19 mmol/L (22-29); Chloride 100 mmol/L (96-108); Estimated Glomerular Filt Rate 10; Glucose Random 96 mg/dL (60-115); Potassium 4.9 mmol/L (3.3-5.1); Sodium 135 mmol/L (135-145)
--- NOTE | 2022-05-16 11:55 | PM.PNNEP ---
Subjective Subjective Date of Service: 05/16/22 Interval history: Seen and examined, events noted Currently on HD--day # 3 in a row Still need pot HD BUN Physical Exam Vital Signs: Vital Signs: Last Vital Signs Temp 97.9 F 05/16/22 07:22 Pulse 72 05/16/22 07:22 Resp 20 05/16/22 07:22 BP 145/88 H 05/16/22 07:22 Pulse Ox 95 05/16/22 07:22 O2 Del Method Oxymask 05/16/22 07:22 O2 Flow Rate 3 05/16/22 03:04 FiO2 24 05/11/22 11:00 BMI result Body Mass Index 35.2 Const: Other: On BiPAP when seen this AM General: no acute distress Orientation/consciousness: patient oriented x3 HEENT: Head: Yes normocephalic Eyes: EOM: EOMs intact bilaterally Neck: Neck: Yes supple Resp: Auscultation: diminished lung sounds Cardio: Rate: regular rate Heart sounds: Murmur heart sound present GI: Palpation (GI): Soft to palpation Neuro: Other: Obtunded General: patient oriented x3 and moves all extremities Extrem: Other: SAMMIE AVF Objective Data Labs 05/16/22 07:52 05/16/22 07:52 Labs: Laboratory Results - last 24 hr 05/15/22 05/15/22 05/15/22 15:44 16:06 20:19 Hgb Hct Sodium Potassium Chloride Carbon Dioxide Anion Gap BUN Creatinine Estim Creat Clear Calc Estimated GFR POC Glucose 135 H 144 H Random Glucose Calcium Random Vancomycin 14.2 L 05/16/22 05/16/22 05/16/22 06:51 07:52 07:52 Hgb 9.5 L Hct 29.4 L Sodium 135 Potassium 4.9 Chloride 100 Carbon Dioxide 19 L Anion Gap 21 H BUN 45 H Creatinine 5.89 H* Estim Creat Clear Calc 21.0 Estimated GFR 10 POC Glucose 106 Random Glucose 96 Calcium 9.2 Random Vancomycin Microbiology Microbiology Results: Microbiology 05/11/22 02:10 Blood - Venous Blood Culture - Final No growth after 5 days. 05/12/22 03:55 Blood - Venous Blood Culture - Preliminary No growth after 48 hours. 05/12/22 03:55 Blood - Venous Blood Culture - Preliminary No growth after 48 hours. 05/11/22 02:10 Blood - Venous Blood Culture - Final Coag negative Staphylococcus Procedures Date of Service Date of Service: 05/16/22 Assessment & Plan Assessment and plan (1) ESRD (end stage renal disease) on dialysis: Status: Acute (2) Hypertension: Status: Acute (3) Hypertensive heart disease: Status: Acute (4) Mitral regurgitation: Status: Acute Plan ESRD - MWF SOB: multifact with CHF and underlying card dysfunct as noted by CARD Ques Pericarditis: will intensify HD and check URR; ques his CP symptoms d/t pericarditis vs other PSeudoannerusym femoral: Tx as per card REC: HD again today and tomorrow then back to [facility] schedule; still need cehck URR, pull fluid as BP permits; card eval as noted will follow with team Time Spent With Patient Time: Total time managing care of this patient today ____ minutes. Progress Note: Quality Stroke Does the patient have a stroke diagnosis?: No
--- NOTE | 2022-05-16 14:28 | P.PNIM_ITS ---
Subjective Subjective Date of Service: 05/17/22 Interval History: fluid overload,nasal epistaxis last evenin requiring nasal packin Review of Systems sob seems somewhat improving ,still sob with excersional no nausea/vomting Physical Exam Vital Signs: Vital Signs: Last Vital Signs Temp 97.9 F 05/16/22 07:22 Pulse 72 05/16/22 07:22 Resp 20 05/16/22 07:22 BP 145/88 H 05/16/22 07:22 Pulse Ox 95 05/16/22 07:22 O2 Del Method Oxymask 05/16/22 07:22 O2 Flow Rate 3 05/16/22 03:04 FiO2 24 05/11/22 11:00 BMI result Body Mass Index 35.2 Appearance: Alert.? Oriented X3.?sob cvs: rrr, [id number] . ent: has nasal packin, no new bleedin res: clear to auscultation ,no rhonchii or wheezing abd: no rebound or guarding ,nt, bs present. ext pulses present , no cyanosis. neuro: axo3 , nonfocal. Objective Data Active Medications Acetaminophen (Acetaminophen 325 Mg Tablet) 975 mg PO TID PRN PRN Reason: Pain, Moderate (Pain Scale 4-6 Last Admin: 05/15/22 09:03 Dose: 975 mg Documented By: ISIDRA Albuterol Sulfate (Albuterol Sulfate (0.083%) 2.5 Mg/3 Ml Vial.Neb) 2.5 mg INHALE RQ4H WHILE AWAKE [facility] Last Admin: 05/16/22 11:53 Dose: Not Given Documented By: JOE Non-Admin Reason: Off unit: Dialysis Amiodarone HCl (Amiodarone Hcl 200 Mg Tablet) 200 mg PO DAILY [facility] Last Admin: 05/16/22 08:26 Dose: 200 mg Documented By: KINDRA Apixaban (Apixaban 5 Mg Tablet) 5 mg PO BID [facility] Last Admin: 05/15/22 08:03 Dose: 5 mg Documented By: KEN Aspirin (Aspirin Enteric Coated 81 Mg Tablet.) 81 mg PO DAILY [facility] Last Admin: 05/15/22 08:19 Dose: 81 mg Documented By: KEN Atorvastatin Calcium (Atorvastatin Calcium 80 Mg Tablet) 80 mg PO DAILY [facility] Last Admin: 05/16/22 08:26 Dose: 80 mg Documented By: KINDRA Carvedilol (Carvedilol 25 Mg Tablet) 25 mg PO BID [facility]; Protocol Last Admin: 05/16/22 08:26 Dose: 25 mg Documented By: KINDRA Diphenhydramine HCl (Diphenhydramine Hcl 25 Mg Capsule) 25 mg PO TID PRN PRN Reason: itch Last Admin: 05/14/22 18:49 Dose: 25 mg Documented By: ERIKA Doxazosin Mesylate (Doxazosin Mesylate 2 Mg Tablet) 4 mg PO DAILY [facility]; Protocol Last Admin: 05/16/22 08:26 Dose: 4 mg Documented By: KINDRA Gabapentin (Gabapentin 300 Mg Capsule) 300 mg PO TID [facility] Last Admin: 05/16/22 08:26 Dose: 300 mg Documented By: KINDRA Glucose (Glucose Gel 15 Gm Gel..Gram.) 15 gm PO Q15M PRN; Protocol PRN Reason: per Hypoglycemia Standing Ord. Hydralazine HCl (Hydralazine Hcl 50 Mg Tablet) 100 mg PO TID [facility]; Protocol Last Admin: 05/16/22 08:26 Dose: 100 mg Documented By: KINDRA Hydromorphone HCl (Hydromorphone Hcl 2 Mg Tablet) 2 mg PO Q4H PRN PRN Reason: Pain, Severe (Pain Scale 7-10) Last Admin: 05/16/22 12:41 Dose: 2 mg Documented By: KINDRA Vancomycin HCl 500 mg/ Sodium (Chloride) 110 mls @ 110 mls/hr IV MoWeFr@1800 [facility] Dextrose (D10) 250 mls @ 750 mls/hr IV Q15M PRN; Protocol PRN Reason: per Hypoglycemia Standing Ord. Isosorbide Mononitrate (Isosorbide Mononitrate 30 Mg Tab.Er.24h) 90 mg PO DAILY [facility]; Protocol Last Admin: 05/16/22 08:26 Dose: 90 mg Documented By: KINDRA Lidocaine (Lidocaine 4 % Patch Adh..Patch) 1 patch TRANSDERMA DAILY [facility]; Protocol Last Admin: 05/16/22 08:31 Dose: Not Given Documented By: KINDRA Non-Admin Reason: Given in Dialysis Lidocaine HCl (Lidocaine Hcl 1 % Mpf 2 Ml Vial) 0.5 ml SUBCUT MOWEFR@1644 [facility] Last Admin: 05/15/22 17:07 Dose: Not Given Documented By: SUJIT Non-Admin Reason: dialysis med Lorazepam (Lorazepam 0.5 Mg Tablet) 0.25 mg PO Q8H PRN PRN Reason: Anxiety Last Admin: 05/15/22 20:23 Dose: 0.25 mg Documented By: JAMIE Nifedipine (Nifedipine Er 60 Mg Tab.Er.24) 60 mg PO DAILY [facility]; Protocol Last Admin: 05/16/22 08:26 Dose: 60 mg Documented By: KINDRA Pharmacy Consult (Consult Rx Vancomycin Dosing) 1 each MISCELLANE DAILY PRN PRN Reason: Consult order Polyethylene Glycol (Polyethylene Glycol 3350 17 Gm Powd.Pack) 17 gm PO DAILY PRN PRN Reason: constipation Last Admin: 05/15/22 11:26 Dose: 17 gm Documented By: TARA-SOFFA Sevelamer Carbonate (Sevelamer Carbonate Tablet 800 Mg Tablet) 2,400 mg PO TI DWM [facility] Last Admin: 05/16/22 12:43 Dose: 2,400 mg Documented By: KINDRA Sodium Zirconium Cyclosilicate (Sodium Zirconium Cyclosilicate 10 Gm Powd.Pack) 10 gm PO TUTHSA [facility] Last Admin: 05/14/22 16:06 Dose: 10 gm Documented By: ALEJAMAT Labs 05/16/22 07:52 05/16/22 07:52 Labs: Laboratory Results - last 24 hr 05/15/22 05/15/22 05/15/22 15:44 16:06 20:19 Anion Gap Estim Creat Clear Calc Estimated GFR POC Glucose 135 H 144 H Random Glucose Calcium Random Vancomycin 14.2 L 05/16/22 05/16/22 06:51 07:52 Anion Gap 21 H Estim Creat Clear Calc 21.0 Estimated GFR 10 POC Glucose 106 Random Glucose 96 Calcium 9.2 Random Vancomycin Microbiology Microbiology Results: Microbiology 05/11/22 02:10 Blood Culture - Final Blood - Venous No growth after 5 days. Assessment and Plan (1) ESRD (end stage renal disease) on dialysis: Status: Acute (2) Nasal bleeding: Status: Acute Plan 46-year-old male with a past medical history of MRSA bacteremia, endocarditis, h/o paraspinal /epidural Phlegmon, ESRD with HD MWF, Sa, chronic diastolic chf, Cholecystitis (s/p Cholecystostomy d/t being poor candidate for surgery in Jan 2022), COPD, HTN, HLD,? permanent AFIB? and history of DVT on eliquis, who was BIBA in acute respiratory distress. EMS administered albuterol and 500cc normal saline for hypotension. They administered [place] Narcan for unresponsiveness. Found to have hyperkalemia and? flash pulmonary edema and required emergent dialysis in ICU Acute on chronic hypoxic respiratory failure due to fluid overligh sob and oxygen demand improving -Underwent emergent dialysis in ICU with fluid removal on 05/11,yesterday also had HD , will be gettin HD today also -Probably still with fluid overload and will be going to dialysis for fluid removal today Hyperkalemia--improved after dialysis, still high at 5.4, Lokelar getting HD today MRSA bacteremia/ endocarditis, on outpatient vancomycin--post dialysis Chronic T8-T9 Discitis/small epidural?phlegmon?(no cord compression?or stenosis) Chronic opioid dependence recent [facility] MRI lumbar spine negative for SEA, osteomyelitis, or discitis, -Continue vancomycin renally dosed ( Per renal note,?Vanco 750mg post HD on ///Fri until May 26) per [facility] ID Hypertension- improving with HD and? Coreg, Nifedipine,? hydralazine. ?DC Bumex per nephrology Atrial fibrillation--rate control on Digoxon? q48 hrs, Coreg,? Amiodarone? and Eliquis (onhold due to nose bleedin/requiring nasal packin) Chronic abdominal pain h/o cholecystitis now w/ C-tube--PO Dilaudid for pain, avoid IV meds. Concern raised re narcotic use during recent [facility] dischare and was only discharged with Tylenol Etiology of this chronic abdominal pain is not clear ,apparently has been ongoing?for months now. [facility] Surgery recommends drain to remain in place? and no surgery planned End-stage renal disease on hemodialysis--Dialysis MWF and Sat History of insulin-dependent type 2 diabetes, not on insulin anymore, but sliding scale while here Chronic normocytic anemia, monitor Stable no s/s of active bleeding weekly epogen as per nephro. Nasal bleedin: nose bleedin/given afrin and requiring nasal packin h/h : stable no new bleed, hold asa/eliquis for now added augmentin since has nasal packin d/w cardio-hold asa/eliquis -need to seen by ent to remove nasal packin/plan startAC afterward if does not bleed. inpatient need :Acute on chronic hypoxic respiratory failure due to fluid overligh,hyperkalemia ,MR: need respiratory status monitoring, serum e lectrolytes and renal function monitoring as well as dialysis-going to get dialysis today also, and cardiology evaluation for MR, nasal bleed. d/w patient in detail-he understands . Time Spent With Patient Time: Total time managing care of this patient today ____ minutes. Quality Stroke Does the patient have a stroke diagnosis?: No VTE Prior VTE?: Yes VTE Risk Level:: Medical - moderate - high VTE Device Contraindication: N/A - Device Ordered VTE Drug Contraindication: N/A - Med Ordered
[2022-05-16] MEDS: Albuterol Sulfate (0.083%) 2.5 MG/3 ML VIAL.NEB INHALE ×2 (15:13→18:49)
[2022-05-16] MEDS: Acetaminophen 325 MG TABLET 975 MG PO (15:39)
[2022-05-16] MEDS: diphenhydrAMINE HCL 25 MG CAPSULE PO ×2 (15:45→20:50)
[2022-05-16] MEDS: Amoxicillin/Potassium Clav 500 MG TABLET PO (16:20)
[2022-05-16 16:21] LABS: Glucose, Whole Blood 168 mg/dL (60-115)
[2022-05-16] MEDS: Sodium Zirconium Cyclosilicate 10 GM POWD.PACK PO (18:39)
[2022-05-16 20:00] LABS: Glucose, Whole Blood 130 mg/dL (60-115)
[2022-05-16] MEDS: LORazepam 0.5 MG TABLET 0.25 MG PO (20:52)
[2022-05-17] MEDS: HYDROmorphone HCl 2 MG TABLET PO ×6 (00:55→22:42)
[2022-05-17] MEDS: Acetaminophen 325 MG TABLET 975 MG PO ×3 (01:01→20:20)
[2022-05-17] MEDS: Amoxicillin/Potassium Clav 500 MG TABLET PO ×3 (01:01→22:42)
[2022-05-17 03:41] VITALS: BP 140/78; PULSE 76; RESP 20; TEMP 36.5; O2SAT 93
[2022-05-17 06:52] LABS: Glucose, Whole Blood 134 mg/dL (60-115)
[2022-05-17 06:55] LABS: Hematocrit 29.4 % (42.0-52.0); Hemoglobin 9.2 g/dl (14.0-18.0)
[2022-05-17 07:20] LABS: Anion Gap 16 (12-20); Blood Urea Nitrogen 52 mg/dL (9-16); Calcium 9.4 mg/dL (8.4-10.2); Carbon Dioxide 23 mmol/L (22-29); Chloride 100 mmol/L (96-108); Creatinine Clr Calc Pharmacy 20.1; Estimated Glomerular Filt Rate 10; Glucose Random 127 mg/dL (60-115); Potassium 4.7 mmol/L (3.3-5.1); Sodium 134 mmol/L (135-145)
[2022-05-17 07:24] VITALS: BP 186/98; PULSE 76; RESP 20; TEMP 36.7; O2SAT 98
[2022-05-17] MEDS: Sevelamer Carbonate Tablet 800 MG TABLET 2400 MG PO ×3 (09:12→18:28)
[2022-05-17] MEDS: NIFEdipine ER 60 MG TAB.ER.24 PO (09:12)
[2022-05-17] MEDS: Doxazosin Mesylate 2 MG TABLET 4 MG PO (09:12)
[2022-05-17] MEDS: Amiodarone HCL 200 MG TABLET PO (09:12)
[2022-05-17] MEDS: Gabapentin 300 MG CAPSULE PO ×3 (09:12→20:20)
[2022-05-17] MEDS: diphenhydrAMINE HCL 25 MG CAPSULE PO ×2 (09:13→20:20)
[2022-05-17] MEDS: Atorvastatin Calcium 80 MG TABLET PO (09:13)
[2022-05-17] MEDS: Isosorbide Mononitrate 30 MG TAB.ER.24H 90 MG PO (09:13)
[2022-05-17] MEDS: hydrALAZINE HCl 50 MG TABLET 100 MG PO ×3 (09:13→20:20)
[2022-05-17] MEDS: carvediloL 25 MG TABLET PO ×2 (09:13→20:20)
[2022-05-17] MEDS: LORazepam 0.5 MG TABLET 0.25 MG PO ×2 (09:44→20:19)
--- NOTE | 2022-05-17 11:24 | P.PNNP_ITS ---
Subjective Subjective Date of Service: 05/17/22 Interval history: fluid overload,nasal epistaxis requiring nasal packing Seen on HD Physical Exam Vital Signs: Vital Signs: Last Vital Signs Temp 98.0 F 05/17/22 07:24 Pulse 76 05/17/22 07:24 Resp 20 05/17/22 07:24 BP 186/98 H 05/17/22 07:24 Pulse Ox 98 05/17/22 07:24 O2 Del Method Oxymask 05/17/22 07:24 O2 Flow Rate 5 05/17/22 03:41 FiO2 24 05/11/22 11:00 BMI result Body Mass Index 35.2 Appearance: Alert.? Oriented X3.?sob cvs: rrr, [id number] . ent: has nasal packin, no new bleedin res: clear to auscultation ,no rhonchii or wheezing abd: no rebound or guarding ,nt, bs present. Cholicystostomy drain in place ext pulses present , no cyanosis. neuro: axo3 , nonfocal. Objective Data Labs 05/17/22 06:31 05/17/22 06:31 Labs: Laboratory Results - last 24 hr 05/16/22 05/16/22 05/17/22 16:16 19:57 06:31 Hgb 9.2 L Hct 29.4 L Sodium Potassium Chloride Carbon Dioxide Anion Gap BUN Creatinine Estim Creat Clear Calc Estimated GFR POC Glucose 168 H 130 H Random Glucose Calcium 05/17/22 05/17/22 06:31 06:46 Hgb Hct Sodium 134 L Potassium 4.7 Chloride 100 Carbon Dioxide 23 Anion Gap 16 BUN 52 H Creatinine 6.13 H* Estim Creat Clear Calc 20.1 Estimated GFR 10 POC Glucose 134 H Random Glucose 127 H Calcium 9.4 Microbiology Microbiology Results: Microbiology 05/12/22 03:55 Blood - Venous Blood Culture - Final No growth after 5 days. 05/12/22 03:55 Blood - Venous Blood Culture - Final No growth after 5 days. 05/11/22 02:10 Blood - Venous Blood Culture - Final No growth after 5 days. 05/11/22 02:10 Blood - Venous Blood Culture - Final Coag negative Staphylococcus Procedures Date of Service Date of Service: 05/17/22 Assessment & Plan Assessment and plan (1) ESRD (end stage renal disease) on dialysis: Status: Acute (2) Hypertension: Status: Acute (3) Hypertensive heart disease: Status: Acute (4) Mitral regurgitation: Status: Acute Plan ESRD - MWF SOB: multifact with CHF and underlying card dysfunct as noted by CARD Ques Pericarditis: Had HDadily HD Pseudoannerusym femoral: Tx as per card REC: Continue HD again today then back to [facility] schedule; Will check URR, pull fluid as BP permits; card eval noted BP is better but not optimal;Cn increase Nifedipine to 60 BID Can not use PHILLY/ ARB Can use a clonidine patch DDAVP 30 mcg x 1 dose today EPo 20 K X 1 dose will follow with team Time Spent With Patient Time: Total time managing care of this patient today ____ minutes. Progress Note: Quality Stroke Does the patient have a stroke diagnosis?: No
--- NOTE | 2022-05-17 13:43 | MHC.CM.PN ---
EMR REVIEWED AND PER MD ROUNDS, PT IS NOT MEDICALLY CLEARED FOR DC (FLUID OVERLOAD) CM WILL CONTINUE TO FOLLOW FOR DC NEEDS.
[2022-05-17 15:48] VITALS: BP 158/78; PULSE 71; RESP 14; TEMP 36.2; O2SAT 93
[2022-05-17 16:50] LABS: Glucose, Whole Blood 139 mg/dL (60-115)
[2022-05-17 17:01] LABS: Vancomycin Random 9.8 mcg/mL (15-20)
[2022-05-17] MEDS: vancomycin HCL 500 MG in 0.9 % Sodium Chloride 100 ML 110 MG IV (18:30)
--- NOTE | 2022-05-17 18:57 | P.PNIM_ITS ---
Subjective Subjective Date of Service: 05/17/22 Interval History: fluid overload,nasal epistaxis last evenin requiring nasal packin Review of Systems sob seems improving ,no nsal bleed today no nausea/vomting Physical Exam Vital Signs: Vital Signs: Last Vital Signs Temp 97.1 F 05/17/22 15:48 Pulse 71 05/17/22 15:48 Resp 14 05/17/22 15:48 BP 158/78 H 05/17/22 15:48 Pulse Ox 93 05/17/22 15:48 O2 Del Method Oxymask 05/17/22 15:48 O2 Flow Rate 3 05/17/22 15:48 FiO2 24 05/11/22 11:00 BMI result Body Mass Index 35.2 Appearance: Alert.? Oriented X3.? cvs: rrr, [id number] . ent: has nasal packin, no new bleedin res: clear to auscultation ,no rhonchii or wheezing abd: no rebound or guarding ,nt, bs present. ext pulses present , no cyanosis. neuro: axo3 , nonfocal. Objective Data Active Medications Acetaminophen (Acetaminophen 325 Mg Tablet) 975 mg PO TID PRN PRN Reason: Pain, Moderate (Pain Scale 4-6 Last Admin: 05/17/22 11:27 Dose: 975 mg Documented By: KINDRA Albuterol Sulfate (Albuterol Sulfate (0.083%) 2.5 Mg/3 Ml Vial.Neb) 2.5 mg INHALE RQ4H WHILE AWAKE [facility] Last Admin: 05/17/22 14:59 Dose: Not Given Documented By: JOE Non-Admin Reason: Patient Refused Amiodarone HCl (Amiodarone Hcl 200 Mg Tablet) 200 mg PO DAILY [facility] Last Admin: 05/17/22 09:12 Dose: 200 mg Documented By: KINDRA Amoxicillin/Clavulanate Potassium (Amoxicillin/Potassium Clav 500 Mg Tablet) 500 mg PO Q12H [facility] Last Admin: 05/17/22 18:25 Dose: 500 mg Documented By: KINDRA Apixaban (Apixaban 5 Mg Tablet) 5 mg PO BID [facility] Last Admin: 05/15/22 08:03 Dose: 5 mg Documented By: KEN Aspirin (Aspirin Enteric Coated 81 Mg Tablet.) 81 mg PO DAILY [facility] Last Admin: 05/15/22 08:19 Dose: 81 mg Documented By: KEN Atorvastatin Calcium (Atorvastatin Calcium 80 Mg Tablet) 80 mg PO DAILY [facility] Last Admin: 05/17/22 09:13 Dose: 80 mg Documented By: KINDRA Carvedilol (Carvedilol 25 Mg Tablet) 25 mg PO BID [facility]; Protocol Last Admin: 05/17/22 09:13 Dose: 25 mg Documented By: KINDRA Diphenhydramine HCl (Diphenhydramine Hcl 25 Mg Capsule) 25 mg PO TID PRN PRN Reason: itch Last Admin: 05/17/22 09:13 Dose: 25 mg Documented By: KINDRA Doxazosin Mesylate (Doxazosin Mesylate 2 Mg Tablet) 4 mg PO DAILY [facility]; Protocol Last Admin: 05/17/22 09:12 Dose: 4 mg Documented By: KINDRA Gabapentin (Gabapentin 300 Mg Capsule) 300 mg PO TID [facility] Last Admin: 05/17/22 15:27 Dose: 300 mg Documented By: KINDRA Glucose (Glucose Gel 15 Gm Gel..Gram.) 15 gm PO Q15M PRN; Protocol PRN Reason: per Hypoglycemia Standing Ord. Hydralazine HCl (Hydralazine Hcl 50 Mg Tablet) 100 mg PO TID [facility]; Protocol Last Admin: 05/17/22 15:27 Dose: 100 mg Documented By: KINDRA Hydromorphone HCl (Hydromorphone Hcl 2 Mg Tablet) 2 mg PO Q4H PRN PRN Reason: Pain, Severe (Pain Scale 7-10) Last Admin: 05/17/22 18:25 Dose: 2 mg Documented By: KINDRA Vancomycin HCl 500 mg/ Sodium (Chloride) 110 mls @ 110 mls/hr IV MoWeFr@1800 [facility] Dextrose (D10) 250 mls @ 750 mls/hr IV Q15M PRN; Protocol PRN Reason: per Hypoglycemia Standing Ord. Isosorbide Mononitrate (Isosorbide Mononitrate 30 Mg Tab.Er.24h) 90 mg PO DAILY [facility]; Protocol Last Admin: 05/17/22 09:13 Dose: 90 mg Documented By: KINDRA Lidocaine (Lidocaine 4 % Patch Adh..Patch) 1 patch TRANSDERMA DAILY [facility]; Protocol Last Admin: 05/17/22 09:17 Dose: Not Given Documented By: KINDRA Non-Admin Reason: Patient Refused Lidocaine HCl (Lidocaine Hcl 1 % Mpf 2 Ml Vial) 0.5 ml SUBCUT MoWeFr@0930 [facility] Last Admin: 05/17/22 11:20 Dose: Not Given Documented By: KINDRA Non-Admin Reason: Given in Dialysis Lorazepam (Lorazepam 0.5 Mg Tablet) 0.25 mg PO Q8H PRN PRN Reason: Anxiety Last Admin: 05/17/22 09:44 Dose: 0.25 mg Documented By: KINDRA Nifedipine (Nifedipine Er 60 Mg Tab.Er.24) 60 mg PO DAILY [facility]; Protocol Last Admin: 05/17/22 09:12 Dose: 60 mg Documented By: KINDRA Pharmacy Consult (Consult Rx Vancomycin Dosing) 1 each MISCELLANE DAILY PRN PRN Reason: Consult order Polyethylene Glycol (Polyethylene Glycol 3350 17 Gm Powd.Pack) 17 gm PO DAILY PRN PRN Reason: constipation Last Admin: 05/15/22 11:26 Dose: 17 gm Documented By: ISIDRA Sevelamer Carbonate (Sevelamer Carbonate Tablet 800 Mg Tablet) 2,400 mg PO TIDWM [facility] Last Admin: 05/17/22 18:28 Dose: 2,400 mg Documented By: KINDRA Sodium Zirconium Cyclosilicate (Sodium Zirconium Cyclosilicate 10 Gm Powd.Pack) 10 gm PO TUTHSA [facility] Last Admin: 05/16/22 18:39 Dose: 10 gm Documented By: KINDRA Labs 05/17/22 06:31 05/17/22 06:31 Labs: Laboratory Results - last 24 hr 05/16/22 05/17/22 05/17/22 19:57 06:31 06:46 Anion Gap 16 Estim Creat Clear Calc 20.1 Estimated GFR 10 POC Glucose 130 H 134 H Random Glucose 127 H Calcium 9.4 Random Vancomycin 05/17/22 05/17/22 16:24 16:46 Anion Gap Estim Creat Clear Calc Estimated GFR POC Glucose 139 H Random Glucose Calcium Random Vancomycin 9.8 L Microbiology Microbiology Results: Microbiology 05/12/22 03:55 Blood Culture - Final Blood - Venous No growth after 5 days. 05/12/22 03:55 Blood Culture - Final Blood - Venous No growth after 5 days. Assessment and Plan (1) Nasal bleeding: Status: Acute (2) ESRD (end stage renal disease) on dialysis: Status: Acute Plan 46-year-old male with a past medical history of MRSA bacteremia, endocarditis, h/o paraspinal /epidural Phlegmon, ESRD with HD MWF, Sa, chronic diastolic chf, Cholecystitis (s/p Cholecystostomy d/t being poor candidate for surgery in Jan 2022), COPD, HTN, HLD,? permanent AFIB? and history of DVT on eliquis, who was BIBA in acute respiratory distress. EMS administered albuterol and 500cc normal saline for hypotension. They administered [place] Narcan for unresponsiveness. Found to have hyperkalemia and? flash pulmonary edema and required emergent dialysis in ICU Acute on chronic hypoxic respiratory failure due to fluid overligh sob and oxygen demand improving -Underwent emergent dialysis in ICU with fluid removal on 05/11,yesterday also had HD , will be gettin HD today also -Probably still with fluid overload and will be going to dialysis for fluid removal today Hyperkalemia--improved after dialysis, still high at 5.4, Lokelma getting HD today MRSA bacteremia/ endocarditis, on outpatient vancomycin--post dialysis Chronic T8-T9 Discitis/small epidural?phlegmon?(no cord compression?or stenosis) Chronic opioid dependence recent [facility] MRI lumbar spine negative for SEA, osteomyelitis, or discitis, -Continue vancomycin renally dosed ( Per renal note,?Vanco 750mg post HD on ///Sat until May 26) per [facility] ID Hypertension- improving with HD and? Coreg, Nifedipine,? hydralazine. ?DC Bumex per nephrology Atrial fibrillation--rate control on Digoxon? q48 hrs, Coreg,? Amiodarone? and Eliquis (onhold due to nose bleedin/requiring nasal packin) Chronic abdominal pain h/o cholecystitis now w/ C-tube--PO Dilaudid for pain, avoid IV meds. Concern raised re narcotic use during recent [facility] dischare and was only discharged with Tylenol Etiology of this chronic abdominal pain is not clear ,apparently has been ongoing?for months now. [facility] Surgery recommends drain to remain in place? and no surgery planned End-stage renal disease on hemodialysis--Dialysis MWF and Sat History of insulin-dependent type 2 diabetes, not on insulin anymore, but sliding scale while here Chronic normocytic anemia, monitor Stable no s/s of active bleeding weekly epogen as per nephro. Nasal bleedin: nose bleedin/given afrin and requiring nasal packin h/h : stable no new bleed, hold asa/eliquis for now added augmentin since has nasal packin d/w cardio-hold asa/eliquis -need to seen by ent to remove nasal packin/plan startAC afterward if does not bleed. inpatient need :Acute on chronic hypoxic respiratory failure due to fluid overligh,hyperkalemia ,MR: need respiratory status monitoring, serum electrolytes and renal function monitoring as well as dialysis-going to get dialysis today also, and cardiology evaluation for MR, nasal bleed. d/w patient in detail-he understands . Time Spent With Patient Time: Total time managing care of this patient today ____ minutes. Quality Stroke Does the patient have a stroke diagnosis?: No VTE Prior VTE?: Yes VTE Risk Level:: Medical - moderate - high VTE Device Contraindication: N/A - Device Ordered VTE Drug Contraindication: N/A - Med Ordered
[2022-05-17 19:51] VITALS: BP 136/75; PULSE 81; RESP 16; TEMP 36.4; O2SAT 99
[2022-05-17] MEDS: oxyCODONE HCl Immed Release 5 MG TABLET PO (20:20)
[2022-05-17 20:38] LABS: Glucose, Whole Blood 107 mg/dL (60-115)
[2022-05-17 23:32] VITALS: BP 158/124; PULSE 74; RESP 18; TEMP 36.8; O2SAT 92
[2022-05-18] VITALS (8 sets, daily range): BP systolic 131–179; BP diastolic 60–101; PULSE 76–80; RESP 18–22; TEMP 36.1–37.2; O2SAT 91–93
[2022-05-18] MEDS: HYDROmorphone HCl 2 MG TABLET PO ×5 (02:44→22:49)
[2022-05-18] MEDS: Acetaminophen 325 MG TABLET 975 MG PO ×3 (06:03→21:10)
[2022-05-18 07:21] LABS: Glucose, Whole Blood 151 mg/dL (60-115)
[2022-05-18] MEDS: Albuterol Sulfate (0.083%) 2.5 MG/3 ML VIAL.NEB INHALE (07:59)
[2022-05-18] MEDS: Doxazosin Mesylate 2 MG TABLET 4 MG PO (08:27)
[2022-05-18] MEDS: Sevelamer Carbonate Tablet 800 MG TABLET 2400 MG PO ×3 (08:27→17:14)
[2022-05-18] MEDS: hydrALAZINE HCl 50 MG TABLET 100 MG PO ×3 (08:27→21:10)
[2022-05-18] MEDS: carvediloL 25 MG TABLET PO ×2 (08:27→21:10)
[2022-05-18] MEDS: Amiodarone HCL 200 MG TABLET PO (08:27)
[2022-05-18] MEDS: Isosorbide Mononitrate 30 MG TAB.ER.24H 90 MG PO (08:27)
[2022-05-18] MEDS: Gabapentin 300 MG CAPSULE PO ×3 (08:27→21:10)
[2022-05-18] MEDS: Atorvastatin Calcium 80 MG TABLET PO (08:28)
[2022-05-18] MEDS: NIFEdipine ER 60 MG TAB.ER.24 PO (08:28)
[2022-05-18] MEDS: LORazepam 0.5 MG TABLET 0.25 MG PO (10:34)
[2022-05-18] MEDS: diphenhydrAMINE HCL 25 MG CAPSULE PO (10:35)
[2022-05-18 11:48] LABS: Glucose, Whole Blood 139 mg/dL (60-115)
[2022-05-18] MEDS: polyethylene glycoL 3350 17 GM POWD.PACK PO (13:21)
[2022-05-18] MEDS: Lactulose 20 GM/30 ML SOLUTION 10 GM PO (13:21)
[2022-05-18] MEDS: Docusate Sodium 100 MG CAPSULE PO ×2 (13:21→21:10)
--- NOTE | 2022-05-18 13:28 | PM.PNCARD ---
Subjective Subjective Date of Service: 05/18/22 Interval history: Seen examined at bedside. He has a rhino rocket in his right nostril. He had significant epistaxis and this was controlled with the rhino rocket. He was previously on aspirin and Eliquis and both have been held. Physical Exam Vital Signs: Last Vital Signs Temp 97.8 F 05/18/22 12:00 Pulse 80 05/18/22 12:15 Resp 20 05/18/22 12:00 BP 137/87 05/18/22 12:15 Pulse Ox 93 05/18/22 12:15 O2 Del Method Room Air 05/18/22 12:00 O2 Flow Rate 3 05/18/22 04:00 FiO2 24 05/11/22 11:00 BMI result Body Mass Index 35.2 GENERAL APPEARANCE: Right nostril has rhino rocket. Not in any distress. NECK: no carotid bruit. SKIN: no suspicious lesions, warm and dry. HEART: Holosystolic murmur apex, regular rate and rhythm. LUNGS: Clear to auscultation. ABDOMEN: soft, nontender. EXTREMITIES: + edema. PERIPHERAL PULSES: equal. NEUROLOGIC: No gross deficits, AAO X 3 Objective Labs and Meds 05/17/22 06:31 05/17/22 06:31 Lab results: Laboratory Results - last 24 hr 05/17/22 05/17/22 05/17/22 16:24 16:46 20:22 POC Glucose 139 H 107 Random Vancomycin 9.8 L 05/18/22 05/18/22 07:17 11:41 POC Glucose 151 H 139 H Random Vancomycin Progress Note: A&P Assessment and plan (1) ESRD (end stage renal disease) on dialysis: Status: Acute (2) Hypertension: Status: Acute (3) Mitral regurgitation: Status: Acute Plan [age] year gentleman with poorly-controlled hypertension, end-stage renal disease, previous endocarditis and mitral valve damage with [id number] mitral valve regurgitation and the hypertensive heart disease with severely increased left ventricular wall thickness. He has [id number] right ventricular dysfunction. Was significantly volume overloaded and underwent extra dialysis sessions. He is saying he is feeling better with this strategy. He has [id number] mitral regurgitation. There is a small jet going through the posterior mitral valve leaflet with heavy calcification on the valve. He previously had endocarditis. The valve regurgitation does not appear to be severe. Even if it is severe I think his options with his current health status are quite limited he does not appear to be a surgical candidate. In any case if his valve appears severity then further assessment can be performed and a surgical discussion may need to happen. He follows up at [facility] as per previous notes. Currently aspirin and apixaban are on hold. He needs to see ENT. Resume apixaban 1st after ENT evaluation. Thank you for allowing me to participate in the care of your patient. Please feel free to contact me if you have any questions. Time Spent With Patient Time: Total time managing care of this patient today ____ minutes. Progress Note: Quality Stroke Does the patient have a stroke diagnosis?: No Procedures Date of Service Date of Service: 05/18/22
--- NOTE | 2022-05-18 13:37 | P.PNIM_ITS ---
Subjective Subjective Date of Service: 05/19/22 Interval History: sob Review of Systems sob seems imrpoving feels constipated no new nasal bleed. Physical Exam Vital Signs: Vital Signs: Last Vital Signs Temp 97.8 F 05/18/22 12:00 Pulse 80 05/18/22 12:15 Resp 20 05/18/22 12:00 BP 137/87 05/18/22 12:15 Pulse Ox 93 05/18/22 12:15 O2 Del Method Room Air 05/18/22 12:00 O2 Flow Rate 3 05/18/22 04:00 FiO2 24 05/11/22 11:00 BMI result Body Mass Index 35.2 Appearance: Alert.? Oriented X3.? cvs: rrr, [id number] . ent: has nasal packin, no new bleedin res: clear to auscultation ,no rhonchii or wheezing abd: no rebound or guarding ,nt, bs present. ext pulses present , no cyanosis. neuro: axo3 , nonfocal. Objective Data Active Medications Acetaminophen (Acetaminophen 325 Mg Tablet) 975 mg PO TID PRN PRN Reason: Pain, Moderate (Pain Scale 4-6 Last Admin: 05/18/22 06:03 Dose: 975 mg Documented By: FEDE Amiodarone HCl (Amiodarone Hcl 200 Mg Tablet) 200 mg PO DAILY [facility] Last Admin: 05/18/22 08:27 Dose: 200 mg Documented By: BENIGNO Amoxicillin/Clavulanate Potassium (Amoxicillin/Potassium Clav 500 Mg Tablet) 500 mg PO Q12H [facility] Last Admin: 05/17/22 22:42 Dose: 500 mg Documented By: FEDE Apixaban (Apixaban 5 Mg Tablet) 5 mg PO BID [facility] Last Admin: 05/15/22 08:03 Dose: 5 mg Documented By: KEN Aspirin (Aspirin Enteric Coated 81 Mg Tablet.) 81 mg PO DAILY [facility] Last Admin: 05/15/22 08:19 Dose: 81 mg Documented By: KEN Atorvastatin Calcium (Atorvastatin Calcium 80 Mg Tablet) 80 mg PO DAILY [facility] Last Admin: 05/18/22 08:28 Dose: 80 mg Documented By: BENIGNO Carvedilol (Carvedilol 25 Mg Tablet) 25 mg PO BID [facility]; Protocol Last Admin: 05/18/22 08:27 Dose: 25 mg Documented By: BENIGNO Diphenhydramine HCl (Diphenhydramine Hcl 25 Mg Capsule) 25 mg PO TID PRN PRN Reason: itch Last Admin: 05/18/22 10:35 Dose: 25 mg Documented By: ISIDRA Doxazosin Mesylate (Doxazosin Mesylate 2 Mg Tablet) 4 mg PO DAILY [facility]; Protocol Last Admin: 05/18/22 08:27 Dose: 4 mg Documented By: BENIGNO Gabapentin (Gabapentin 300 Mg Capsule) 300 mg PO TID [facility] Last Admin: 05/18/22 08:27 Dose: 300 mg Documented By: BENIGNO Glucose (Glucose Gel 15 Gm Gel..Gram.) 15 gm PO Q15M PRN; Protocol PRN Reason: per Hypoglycemia Standing Ord. Hydralazine HCl (Hydralazine Hcl 50 Mg Tablet) 100 mg PO TID [facility]; Protocol Last Admin: 05/18/22 08:27 Dose: 100 mg Documented By: BENIGNO Hydromorphone HCl (Hydromorphone Hcl 2 Mg Tablet) 2 mg PO Q4H PRN PRN Reason: Pain, Severe (Pain Scale 7-10) Last Admin: 05/18/22 10:34 Dose: 2 mg Documented By: ISIDRA Vancomycin HCl 500 mg/ Sodium (Chloride) 110 mls @ 110 mls/hr IV MoWeFr@1800 [facility] Dextrose (D10) 250 mls @ 750 mls/hr IV Q15M PRN; Protocol PRN Reason: per Hypoglycemia Standing Ord. Isosorbide Mononitrate (Isosorbide Mononitrate 30 Mg Tab.Er.24h) 90 mg PO DAILY [facility]; Protocol Last Admin: 05/18/22 08:27 Dose: 90 mg Documented By: BENIGNO Lidocaine (Lidocaine 4 % Patch Adh..Patch) 1 patch TRANSDERMA DAILY [facility]; Protocol Last Admin: 05/18/22 08:28 Dose: Not Given Documented By: BENIGNO Non-Admin Reason: Patient Refused Lidocaine HCl (Lidocaine Hcl 1 % Mpf 2 Ml Vial) 0.5 ml SUBCUT MoWeFr@0930 [facility] Last Admin: 05/17/22 11:20 Dose: Not Given Documented By: KINDRA Non-Admin Reason: Given in Dialysis Lorazepam (Lorazepam 0.5 Mg Tablet) 0.25 mg PO Q8H PRN PRN Reason: Anxiety Last Admin: 05/18/22 10:34 Dose: 0.25 mg Documented By: ISIDRA Nifedipine (Nifedipine Er 60 Mg Tab.Er.24) 60 mg PO DAILY [facility]; Protocol Last Admin: 05/18/22 08:28 Dose: 60 mg Documented By: BENIGNO Pharmacy Consult (Consult Rx Vancomycin Dosing) 1 each MISCELLANE DAILY PRN PRN Reason: Consult order Polyethylene Glycol (Polyethylene Glycol 3350 17 Gm Powd.Pack) 17 gm PO DAILY PRN PRN Reason: constipation Last Admin: 05/18/22 13:21 Dose: 17 gm Documented By: ISIDRA Sevelamer Carbonate (Sevelamer Carbonate Tablet 800 Mg Tablet) 2,400 mg PO TIDWM [facility] Last Admin: 05/18/22 12:03 Dose: 2,400 mg Documented By: ISIDRA Sodium Zirconium Cyclosilicate (Sodium Zirconium Cyclosilicate 10 Gm Powd.Pack) 10 gm PO TUTHSA [facility] Last Admin: 05/16/22 18:39 Dose: 10 gm Documented By: KINDRA Labs 05/17/22 06:31 05/17/22 06:31 Labs: Laboratory Results - last 24 hr 05/17/22 05/17/22 05/17/22 16:24 16:46 20:22 POC Glucose 139 H 107 Random Vancomycin 9.8 L 05/18/22 05/18/22 07:17 11:41 POC Glucose 151 H 139 H Random Vancomycin Assessment and Plan (1) Nasal bleeding: Status: Acute (2) ESRD (end stage renal disease) on dialysis: Status: Acute Plan 46-year-old male with a past medical history of MRSA bacteremia, endocarditis, h/o paraspinal /epidural Phlegmon, ESRD with HD MWF, Sa, chronic diastolic chf, Cholecystitis (s/p Cholecystostomy d/t being poor candidate for surgery in Jan 2022), COPD, HTN, HLD,? permanent AFIB? and history of DVT on eliquis, who was BIBA in acute respiratory distress. EMS administered albuterol and 500cc normal saline for hypotension. They administered IN Narcan for unresponsiveness. Found to have hyperkalemia and? flash pulmonary edema and required emergent dialysis in ICU Acute on chronic hypoxic respiratory failure due to fluid overligh sob and oxygen demand improving -Underwent emergent dialysis in ICU with fluid removal on 05/11,yesterday also had HD , will be gettin HD today also -Probably still with fluid overload and will be going to dialysis for fluid removal today Hyperkalemia--improved after dialysis, still high at 5.4, Lokelma getting HD today MRSA bacteremia/ endocarditis, on outpatient vancomycin--post dialysis Chronic T8-T9 Discitis/small epidural?phlegmon?(no cord compression?or stenosis) Chronic opioid dependence recent [facility] MRI lumbar spine negative for SEA, osteomyelitis, or discitis, -Continue vancomycin renally dosed ( Per renal note,?Vanco 750mg post HD on / //Fri until May 26) per [facility] ID Hypertension- improving with HD and? Coreg, Nifedipine,? hydralazine. ?DC Bumex per nephrology Atrial fibrillation--rate control on Digoxon? q48 hrs, Coreg,? Amiodarone? and Eliquis (onhold due to nose bleedin/requiring nasal packin) d/w cardiology -need to see ent for nasal packing removal and restarting eilquis after that. Chronic abdominal pain h/o cholecystitis now w/ C-tube--PO Dilaudid for pain, avoid IV meds. Concern raised re narcotic use during recent [facility] dischare and was only discharged with Tylenol Etiology of this chronic abdominal pain is not clear ,apparently has been ongoing?for months now. [facility] Surgery recommends drain to remain in place? and no surgery planned End-stage renal disease on hemodialysis--Dialysis MWF and Sat History of insulin-dependent type 2 diabetes, not on insulin anymore, but sliding scale while here Chronic normocytic anemia, monitor Stable no s/s of active bleeding weekly epogen as per nephro. Nasal bleedin: nose bleedin/given afrin and requiring nasal packin h/h : stable no new bleed, hold asa/eliquis for now added augmentin since has nasal packin d/w cardio-hold asa/eliquis -need to seen by ent to remove nasal packin/plan startAC afterward if does not bleed. inpatient need :PT eval added for placement, will d/w nephro -because his HD needs to be arranged before dischrage ? possible rehab. d/w patient in detail-he understands . Time Spent With Patient Time: Total time managing care of this patient today ____ minutes. Quality Stroke Does the patient have a stroke diagnosis?: No VTE Prior VTE?: Yes VTE Risk Level:: Medical - moderate - high VTE Device Contraindication: N/A - Device Ordered VTE Drug Contraindication: N/A - Med Ordered
[2022-05-18] MEDS: Sodium Zirconium Cyclosilicate 10 GM POWD.PACK PO (14:34)
[2022-05-18] MEDS: Amoxicillin/Potassium Clav 500 MG TABLET PO (14:34)
[2022-05-18 15:54] LABS: Glucose, Whole Blood 187 mg/dL (60-115)
[2022-05-18] MEDS: bisacodyL 10 MG SUPP.RECT PR (16:25)
[2022-05-18] MEDS: Sodium Phosphate,Mono-Dibasic 133 ML ENEMA PR (18:47)
[2022-05-18 20:45] LABS: Glucose, Whole Blood 149 mg/dL (60-115)
--- NOTE | 2022-05-18 22:00 | PM.PNNEP ---
Subjective Subjective Date of Service: 05/18/22 Interval history: Pt sleepy Physical Exam Vital Signs: Vital Signs: Last Vital Signs Temp 97 F 05/18/22 20:00 Pulse 76 05/18/22 20:00 Resp 22 H 05/18/22 20:00 BP 138/81 05/18/22 20:00 Pulse Ox 92 05/18/22 20:00 O2 Del Method Oxymask 05/18/22 20:00 O2 Flow Rate 4 05/18/22 20:00 FiO2 24 05/11/22 11:00 BMI result Body Mass Index 35.2 Appearance: Sleepy? cvs: rrr, [id number] . ent: has nasal packin, no new bleedin res: clear to auscultation ,no rhonchii or wheezing abd: no rebound or guarding ,nt, bs present. ext pulses present , no cyanosis. neuro: axo3 , nonfocal. Objective Data Labs 05/17/22 06:31 05/17/22 06:31 Labs: Laboratory Results - last 24 hr 05/18/22 05/18/22 05/18/22 07:17 11:41 15:47 POC Glucose 151 H 139 H 187 H 05/18/22 20:41 POC Glucose 149 H Microbiology Microbiology Results: Microbiology 05/12/22 03:55 Blood - Venous Blood Culture - Final No growth after 5 days. 05/12/22 03:55 Blood - Venous Blood Culture - Final No growth after 5 days. 05/11/22 02:10 Blood - Venous Blood Culture - Final No growth after 5 days. 05/11/22 02:10 Blood - Venous Blood Culture - Final Coag negative Staphylococcus Procedures Date of Service Date of Service: 05/18/22 Assessment & Plan Assessment and plan (1) ESRD (end stage renal disease) on dialysis: Status: Acute (2) Hypertension: Status: Acute (3) Hypertensive heart disease: Status: Acute (4) Mitral regurgitation: Status: Acute Plan ESRD - MWF SOB: multifact with CHF and underlying card dysfunct as noted by CARD Ques Pericarditis: Had HDadily HD Pseudoannerusym femoral: Tx as per card REC: Pt on MWF schedule; , BP is better but not optimal;Cn iOn Nifedipine to 60 BID Can not use PHILLY/ ARB Can use a clonidine patch DDAVP 30 mcg x 1 dose today given yesterday EPo 20 K X 1 dose given yesterday will follow with team Time Spent With Patient Time: Total time managing care of this patient today ____ minutes. Progress Note: Quality Stroke Does the patient have a stroke diagnosis?: No
[2022-05-19 00:25] VITALS: BP 164/87; PULSE 76; RESP 16; TEMP 36.9; O2SAT 94
[2022-05-19] MEDS: diphenhydrAMINE HCL 25 MG CAPSULE PO ×3 (00:40→22:14)
[2022-05-19] MEDS: Amoxicillin/Potassium Clav 500 MG TABLET PO ×2 (03:29→14:33)
[2022-05-19 03:36] VITALS: BP 161/86; PULSE 76; RESP 18; TEMP 37.1; O2SAT 98
--- NOTE | 2022-05-19 06:22 | PC.NURSE ---
PER SHIFT REPORT PATIENT HAD C/O CONSTIPATION AND NO BM IN A LONG-TIME 05/18..RECEIVED LACTULOSE AND FLEETS ENEMA 05/18 PER REPORT..PER SHIFT REPORT PATIENT PASSED VERY LARGE BM THAT CLOGGED BR TOILET....OOB THIS SHIFT AT HS AND PASSED LARGE FORMED STOOL PER PATIENT..ALERT..ORIENTED X3...VAGUE RESPONSES AT TIMES....O2 5 L/M VIA MASK..MILDY PAIGE...LEFT ARM FISTULA WITH (+) BRUIT.....
[2022-05-19 07:34] LABS: Glucose, Whole Blood 110 mg/dL (60-115)
[2022-05-19 08:00] VITALS: BP 157/94; PULSE 76; RESP 18; TEMP 37.2; O2SAT 92; BMI 33.7
[2022-05-19] MEDS: HYDROmorphone HCl 2 MG TABLET PO ×3 (08:22→22:15)
[2022-05-19] MEDS: Amiodarone HCL 200 MG TABLET PO (08:22)
[2022-05-19] MEDS: Acetaminophen 325 MG TABLET 975 MG PO ×3 (08:23→22:15)
[2022-05-19] MEDS: carvediloL 25 MG TABLET PO ×2 (08:23→22:16)
[2022-05-19] MEDS: Atorvastatin Calcium 80 MG TABLET PO (08:23)
[2022-05-19] MEDS: Isosorbide Mononitrate 30 MG TAB.ER.24H 90 MG PO (08:23)
[2022-05-19] MEDS: Doxazosin Mesylate 2 MG TABLET 4 MG PO (08:24)
[2022-05-19] MEDS: hydrALAZINE HCl 50 MG TABLET 100 MG PO ×3 (08:24→22:15)
[2022-05-19] MEDS: Gabapentin 300 MG CAPSULE PO ×3 (08:24→22:15)
[2022-05-19] MEDS: polyethylene glycoL 3350 17 GM POWD.PACK PO (08:25)
[2022-05-19] MEDS: Sevelamer Carbonate Tablet 800 MG TABLET 2400 MG PO ×2 (08:27→11:59)
[2022-05-19] MEDS: NIFEdipine ER 60 MG TAB.ER.24 PO (08:39)
[2022-05-19 11:59] LABS: Glucose, Whole Blood 132 mg/dL (60-115)
[2022-05-19 12:00] VITALS: BP 149/91; PULSE 73; RESP 20; TEMP 36.4; O2SAT 92
--- NOTE | 2022-05-19 12:25 | P.PNIM_ITS ---
Subjective Subjective Date of Service: 05/19/22 Interval History: follow up fluid overload,nasal epistaxis last evenin requiring nasal packin Review of Systems sob seems improving ,no nsal bleed today no nausea/vomting Physical Exam Vital Signs: Vital Signs: Last Vital Signs Temp 99.0 F 05/19/22 08:00 Pulse 76 05/19/22 08:00 Resp 18 05/19/22 08:00 BP 157/94 H 05/19/22 08:00 Pulse Ox 92 05/19/22 08:00 O2 Del Method Room Air 05/19/22 08:00 O2 Flow Rate 5 05/19/22 03:36 FiO2 24 05/11/22 11:00 BMI result Body Mass Index 33.7 Appearance: Alert.? Oriented X3.? cvs: rrr, [id number] . ent: has nasal packin, no new bleedin res: clear to auscultation ,no rhonchii or wheezing abd: no rebound or guarding ,nt, bs present. ext pulses present , no cyanosis. neuro: axo3 , nonfocal. Objective Data Active Medications Acetaminophen (Acetaminophen 325 Mg Tablet) 975 mg PO TID [facility] Last Admin: 05/19/22 08:23 Dose: 975 mg Documented By: DWAIN Amiodarone HCl (Amiodarone Hcl 200 Mg Tablet) 200 mg PO DAILY [facility] Last Admin: 05/19/22 08:22 Dose: 200 mg Documented By: DWAIN Amoxicillin/Clavulanate Potassium (Amoxicillin/Potassium Clav 500 Mg Tablet) 500 mg PO Q12H [facility] Last Admin: 05/19/22 03:29 Dose: 500 mg Documented By: NANCY Apixaban (Apixaban 5 Mg Tablet) 5 mg PO BID [facility] Last Admin: 05/15/22 08:03 Dose: 5 mg Documented By: KEN Aspirin (Aspirin Enteric Coated 81 Mg Tablet.) 81 mg PO DAILY [facility] Last Admin: 05/15/22 08:19 Dose: 81 mg Documented By: KEN Atorvastatin Calcium (Atorvastatin Calcium 80 Mg Tablet) 80 mg PO DAILY [facility] Last Admin: 05/19/22 08:23 Dose: 80 mg Documented By: DWAIN Bisacodyl (Bisacodyl 10 Mg Supp.Rect) 10 mg OK ONCE PRN PRN Reason: Constipation Last Admin: 05/18/22 16:25 Dose: 10 mg Documented By: ISIDRA Capsaicin (Capsaicin 0.025% Cream 60 Gm Tube) 1 appl TOPICAL TID [facility]; Protocol Last Admin: 05/19/22 08:27 Dose: Not Given Documented By: DWAIN Non-Admin Reason: Patient Refused Carvedilol (Carvedilol 25 Mg Tablet) 25 mg PO BID [facility]; Protocol Last Admin: 05/19/22 08:23 Dose: 25 mg Documented By: DWAIN Diphenhydramine HCl (Diphenhydramine Hcl 25 Mg Capsule) 25 mg PO TID PRN PRN Reason: itch Last Admin: 05/19/22 11:59 Dose: 25 mg Documented By: DWAIN Docusate Sodium (Docusate Sodium 100 Mg Capsule) 100 mg PO BEDTIME [facility] Last Admin: 05/18/22 21:10 Dose: 100 mg Documented By: NATALIYA Doxazosin Mesylate (Doxazosin Mesylate 2 Mg Tablet) 4 mg PO DAILY [facility]; Protocol Last Admin: 05/19/22 08:24 Dose: 4 mg Documented By: DWAIN Gabapentin (Gabapentin 300 Mg Capsule) 300 mg PO TID [facility] Last Admin: 05/19/22 08:24 Dose: 300 mg Documented By: DWAIN Glucose (Glucose Gel 15 Gm Gel..Gram.) 15 gm PO Q15M PRN; Protocol PRN Reason: per Hypoglycemia Standing Ord. Hydralazine HCl (Hydralazine Hcl 50 Mg Tablet) 100 mg PO TID [facility]; Protocol Last Admin: 05/19/22 08:24 Dose: 100 mg Documented By: DWAIN Hydromorphone HCl (Hydromorphone Hcl 2 Mg Tablet) 2 mg PO Q6H PRN PRN Reason: Pain, Severe (Pain Scale 7-10) Last Admin: 05/19/22 08:22 Dose: 2 mg Documented By: DWAIN Vancomycin HCl 500 mg/ Sodium (Chloride) 110 mls @ 110 mls/hr IV MoWeFr@1800 [facility] Dextrose (D10) 250 mls @ 750 mls/hr IV Q15M PRN; Protocol PRN Reason: per Hypoglycemia Standing Ord. Isosorbide Mononitrate (Isosorbide Mononitrate 30 Mg Tab.Er.24h) 90 mg PO DAILY [facility]; Protocol Last Admin: 05/19/22 08:23 Dose: 90 mg Documented By: DWAIN Lidocaine (Lidocaine 4 % Patch Adh..Patch) 1 patch TRANSDERMA DAILY [facility]; Protocol Last Admin: 05/19/22 08:25 Dose: Not Given Documented By: DWAIN Non-Admin Reason: Agitation Lidocaine (Lidocaine 4 % Patch Adh..Patch) 1 patch TRANSDERMA DAILY [facility]; Protocol Last Admin: 05/19/22 08:26 Dose: Not Given Documented By: DWAIN Non-Admin Reason: Patient Refused Lidocaine HCl (Lidocaine Hcl 1 % Mpf 2 Ml Vial) 0.5 ml SUBCUT MoWeFr@0930 [facility] Last Admin: 05/17/22 11:20 Dose: Not Given Documented By: KINDRA Non-Admin Reason: Given in Dialysis Nifedipine (Nifedipine Er 60 Mg Tab.Er.24) 60 mg PO DAILY [facility]; Protocol Last Admin: 05/19/22 08:39 Dose: 60 mg Documented By: DWAIN Pharmacy Consult (Consult Rx Vancomycin Dosing) 1 each MISCELLANE DAILY PRN PRN Reason: Consult order Polyethylene Glycol (Polyethylene Glycol 3350 17 Gm Powd.Pack) 17 gm PO BIDWM [facility] Last Admin: 05/19/22 08:25 Dose: 17 gm Documented By: DWAIN Sevelamer Carbonate (Sevelamer Carbonate Tablet 800 Mg Tablet) 2,400 mg PO TIDWM [facility] Last Admin: 05/19/22 11:59 Dose: 2,400 mg Documented By: DWAIN Sodium Zirconium Cyclosilicate (Sodium Zirconium Cyclosilicate 10 Gm Powd.Pack) 10 gm PO TUTHSA [facility] Last Admin: 05/18/22 14:34 Dose: 10 gm Documented By: TARA-SHANIFA Labs 05/17/22 06:31 05/17/22 06:31 Labs: Laboratory Results - last 24 hr 05/18/22 05/18/22 05/19/22 15:47 20:41 07:29 POC Glucose 187 H 149 H 110 05/19/22 11:52 POC Glucose 132 H Assessment and Plan (1) Nasal bleeding: Status: Acute (2) ESRD (end stage renal disease) on dialysis: Status: Acute Plan 46-year-old male with a past medical history of MRSA bacteremia, endocarditis, h/o paraspinal /epidural Phlegmon, ESRD with HD MWF, Sa, chronic diastolic chf, Cholecystitis (s/p Cholecystostomy d/t being poor candidate for surgery in Jan 2022), COPD, HTN, HLD,? permanent AFIB? and history of DVT on eliquis, who was BIBA in acute respiratory distress. EMS administered albuterol and 500cc normal saline for hypotension. They administered [place] Narcan for unresponsiveness. Found to have hyperkalemia and? flash pulmonary edema and required emergent dialysis in ICU Acute on chronic hypoxic respiratory failure due to fluid overligh sob and oxygen demand improving -Underwent emergent dialysis in ICU with fluid removal on 05/11,yesterday also had HD , will be gettin HD today also -Probably still with fluid overload and will be going to dialysis for fluid removal today Hyperkalemia--improved after dialysis, still high at 5.4, Lokelma getting HD today MRSA bacteremia/ endocarditis, on outpatient vancomycin--post dialysis Chronic T8-T9 Discitis/small epidural?phlegmon?(no cord compression?or stenosis) Chronic opioid dependence recent [facility] MRI lumbar spine negative for SEA, osteomyelitis, or discitis, -Continue vancomycin renally dosed ( Per renal note,?Vanco 750mg post HD on ///Fri until May 26) per [facility] ID Hypertension- improving with HD and? Coreg, Nifedipine,? hydralazine. ?DC Bumex per nephrology Atrial fibrillation--rate control on Digoxon? q48 hrs, Coreg,? Amiodarone? and Eliquis (onhold due to nose bleedin/requiring nasal packin) d/w cardiology -need to see ent for nasal packing removal and restarting eilquis after that. Chronic abdominal pain h/o cholecystitis now w/ C-tube--PO Dilaudid for pain, avoid IV meds. Concern raised re narcotic use during recent [facility] dischare and was only discharged with Tylenol Etiology of this chronic abdominal pain is not clear ,apparently has been ongoing?for months now. [facility] Surgery recommends drain to remain in place? and no surgery planned End-stage renal disease on hemodialysis--Dialysis MWF and Sat History of insulin-dependent type 2 diabetes, not on insulin anymore, but sliding scale while here Chronic normocytic anemia, monitor Stable no s/s of active bleeding weekly epogen as per nephro. Nasal bleedin: nose bleedin/given afrin and requiring nasal packin h/h : stable no new bleed, hold asa/eliquis for now added augmentin since has nasal packin d/w cardio-hold asa/eliquis -need to seen by ent to remove nasal packin/plan s tartAC afterward if does not bleed. inpatient need :PT recomended snf, will d/w nephro -because his HD needs to be arranged before dischrage ? possible rehab. d/w patient in detail-he understands . Time Spent With Patient Time: Total time managing care of this patient today ____ minutes. Quality Stroke Does the patient have a stroke diagnosis?: No VTE Prior VTE?: Yes VTE Risk Level:: Medical - moderate - high VTE Device Contraindication: N/A - Device Ordered VTE Drug Contraindication: N/A - Med Ordered
--- NOTE | 2022-05-19 12:27 | P.PNIM_ITS ---
Subjective Subjective Date of Service: 05/19/22 Interval History: sob Review of Systems sob seems imrpoving,passing bm;s ?no new nasal bleed. Physical Exam Vital Signs: Vital Signs: Last Vital Signs Temp 99.0 F 05/19/22 08:00 Pulse 76 05/19/22 08:00 Resp 18 05/19/22 08:00 BP 157/94 H 05/19/22 08:00 Pulse Ox 92 05/19/22 08:00 O2 Del Method Room Air 05/19/22 08:00 O2 Flow Rate 5 05/19/22 03:36 FiO2 24 05/11/22 11:00 BMI result Body Mass Index 33.7 Appearance: Alert.? Oriented X3.? cvs: rrr, [id number] . ent: has nasal packin, no new bleedin res: clear to auscultation ,no rhonchii or wheezing abd: no rebound or guarding ,nt, bs present. ext pulses present , no cyanosis. neuro: axo3 , nonfocal. Objective Data Active Medications Acetaminophen (Acetaminophen 325 Mg Tablet) 975 mg PO TID [facility] Last Admin: 05/19/22 08:23 Dose: 975 mg Documented By: DWAIN Amiodarone HCl (Amiodarone Hcl 200 Mg Tablet) 200 mg PO DAILY [facility] Last Admin: 05/19/22 08:22 Dose: 200 mg Documented By: DWAIN Amoxicillin/Clavulanate Potassium (Amoxicillin/Potassium Clav 500 Mg Tablet) 500 mg PO Q12H [facility] Last Admin: 05/19/22 03:29 Dose: 500 mg Documented By: NANCY Apixaban (Apixaban 5 Mg Tablet) 5 mg PO BID [facility] Last Admin: 05/15/22 08:03 Dose: 5 mg Documented By: KEN Aspirin (Aspirin Enteric Coated 81 Mg Tablet.) 81 mg PO DAILY [facility] Last Admin: 05/15/22 08:19 Dose: 81 mg Documented By: KEN Atorvastatin Calcium (Atorvastatin Calcium 80 Mg Tablet) 80 mg PO DAILY [facility] Last Admin: 05/19/22 08:23 Dose: 80 mg Documented By: DWAIN Bisacodyl (Bisacodyl 10 Mg Supp.Rect) 10 mg RI ONCE PRN PRN Reason: Constipation Last Admin: 05/18/22 16:25 Dose: 10 mg Documented By: ISIDRA Capsaicin (Capsaicin 0.025% Cream 60 Gm Tube) 1 appl TOPICAL TID [facility]; Protocol Last Admin: 05/19/22 08:27 Dose: Not Given Documented By: DWAIN Non-Admin Reason: Patient Refused Carvedilol (Carvedilol 25 Mg Tablet) 25 mg PO BID [facility]; Protocol Last Admin: 05/19/22 08:23 Dose: 25 mg Documented By: DWAIN Diphenhydramine HCl (Diphenhydramine Hcl 25 Mg Capsule) 25 mg PO TID PRN PRN Reason: itch Last Admin: 05/19/22 11:59 Dose: 25 mg Documented By: DWAIN Docusate Sodium (Docusate Sodium 100 Mg Capsule) 100 mg PO BEDTIME [facility] Last Admin: 05/18/22 21:10 Dose: 100 mg Documented By: NATALIYA Doxazosin Mesylate (Doxazosin Mesylate 2 Mg Tablet) 4 mg PO DAILY [facility]; Protocol Last Admin: 05/19/22 08:24 Dose: 4 mg Documented By: DWAIN Gabapentin (Gabapentin 300 Mg Capsule) 300 mg PO TID [facility] Last Admin: 05/19/22 08:24 Dose: 300 mg Documented By: DWAIN Glucose (Glucose Gel 15 Gm Gel..Gram.) 15 gm PO Q15M PRN; Protocol PRN Reason: per Hypoglycemia Standing Ord. Hydralazine HCl (Hydralazine Hcl 50 Mg Tablet) 100 mg PO TID [facility]; Protocol Last Admin: 05/19/22 08:24 Dose: 100 mg Documented By: DWAIN Hydromorphone HCl (Hydromorphone Hcl 2 Mg Tablet) 2 mg PO Q6H PRN PRN Reason: Pain, Severe (Pain Scale 7-10) Last Admin: 05/19/22 08:22 Dose: 2 mg Documented By: DWAIN Vancomycin HCl 500 mg/ Sodium (Chloride) 110 mls @ 110 mls/hr IV [id number]@1800 [facility] Dextrose (D10) 250 mls @ 750 mls/hr IV Q15M PRN; Protocol PRN Reason: per Hypoglycemia Standing Ord. Isosorbide Mononitrate (Isosorbide Mononitrate 30 Mg Tab.Er.24h) 90 mg PO DAILY [facility]; Protocol Last Admin: 05/19/22 08:23 Dose: 90 mg Documented By: DWAIN Lidocaine (Lidocaine 4 % Patch Adh..Patch) 1 patch TRANSDERMA DAILY [facility]; Protocol Last Admin: 05/19/22 08:25 Dose: Not Given Documented By: DWAIN Non-Admin Reason: Agitation Lidocaine (Lidocaine 4 % Patch Adh..Patch) 1 patch TRANSDERMA DAILY [facility]; Protocol Last Admin: 05/19/22 08:26 Dose: Not Given Documented By: DWAIN Non-Admin Reason: Patient Refused Lidocaine HCl (Lidocaine Hcl 1 % Mpf 2 Ml Vial) 0.5 ml SUBCUT [id number]@[id number] [facility] Last Admin: 05/17/22 11:20 Dose: Not Given Documented By: KINDRA Non-Admin Reason: Given in Dialysis Nifedipine (Nifedipine Er 60 Mg Tab.Er.24) 60 mg PO DAILY [facility]; Protocol Last Admin: 05/19/22 08:39 Dose: 60 mg Documented By: DWAIN Pharmacy Consult (Consult Rx Vancomycin Dosing) 1 each MISCELLANE DAILY PRN PRN Reason: Consult order Polyethylene Glycol (Polyethylene Glycol 3350 17 Gm Powd.Pack) 17 gm PO BIDWM [facility] Last Admin: 05/19/22 08:25 Dose: 17 gm Documented By: DWAIN Sevelamer Carbonate (Sevelamer Carbonate Tablet 800 Mg Tablet) 2,400 mg PO TIDWM [facility] Last Admin: 05/19/22 11:59 Dose: 2,400 mg Documented By: DWAIN Sodium Zirconium Cyclosilicate (Sodium Zirconium Cyclosilicate 10 Gm Powd.Pack) 10 gm PO TUTHSA [facility] Last Admin: 05/18/22 14:34 Dose: 10 gm Documented By: ISIDRA Labs 05/17/22 06:31 05/17/22 06:31 Labs: Laboratory Results - last 24 hr 05/18/22 05/18/22 05/19/22 15:47 20:41 07:29 POC Glucose 187 H 149 H 110 05/19/22 11:52 POC Glucose 132 H Assessment and Plan (1) Nasal bleeding: Status: Acute (2) ESRD (end stage renal disease) on dialysis: Status: Acute Plan 46-year-old male with a past medical history of MRSA bacteremia, endocarditis, h/o paraspinal /epidural Phlegmon, ESRD with HD MWF, Sa, chronic diastolic chf, Cholecystitis (s/p Cholecystostomy d/t being poor candidate for surgery in Jan 2022), COPD, HTN, HLD,? permanent AFIB? and history of DVT on eliquis, who was BIBA in acute respiratory distress. EMS administered albuterol and 500cc normal saline for hypotension. They administered [place] Narcan for unresponsiveness. Found to have hyperkalemia and? flash pulmonary edema and required emergent dialysis in ICU Acute on chronic hypoxic respiratory failure due to fluid overligh sob and oxygen demand improving -Underwent emergent dialysis in ICU with fluid removal on 05/11,yesterday also had HD , will be gettin HD today also -Probably still with fluid overload and will be going to dialysis for fluid removal today Hyperkalemia--improved after dialysis, still high at 5.4, Lokelma getting HD today MRSA bacteremia/ endocarditis, on outpatient vancomycin--post dialysis Chronic T8-T9 Discitis/small epidural?phlegmon?(no cord compression?or stenosis) Chronic opioid dependence recent [facility] MRI lumbar spine negative for SEA, osteomyelitis, or discitis, -Continue vancomycin renally dosed ( Per renal note,?Vanco 750mg post HD on ///Fri until May 26) per [facility] ID Hypertension- improving with HD and? Coreg, Nifedipine,? hydralazine. ?DC Bumex per nephrology Atrial fibrillation--rate control on Digoxon? q48 hrs, Coreg,? Amiodarone? and Eliquis (onhold due to nose bleedin/requiring nasal packin) d/w cardiology -need to see ent for nasal packing removal and restarting eilquis after that. Chronic abdominal pain h/o cholecystitis now w/ C-tube--PO Dilaudid for pain, avoid IV meds. Concern raised re narcotic use during recent [facility] dischare and was only discharged with Tylenol Etiology of this chronic abdominal pain is not clear ,apparently has been ongoing?for months now. [facility] Surgery recommends drain to remain in place? and no surgery planned End-stage renal disease on hemodialysis--Dialysis MWF and Sat History of insulin-dependent type 2 diabetes, not on insulin anymore, but sliding scale while here Chronic normocytic anemia, monitor Stable no s/s of active bleeding weekly epogen as per nephro. Nasal bleedin: nose bleedin/given afrin and requiring nasal packin h/h : stable no new bleed, hold asa/eliquis for now added augmentin since has nasal packin d/w cardio-hold asa/eliquis -need to seen by ent to remove nasal packin/plan startAC afterward if does not bleed. constipation : improving with luxative , continue to moniter inpatient need :PT recomended snf, will d/w nephro -because his HD needs to be arranged before dischrage ? possible rehab. d/w patient in detail-he understands . Time Spent With Patient Time: Total time managing care of this patient today ____ minutes. Quality Stroke Does the patient have a stroke diagnosis?: No VTE Prior VTE?: Yes VTE Risk Level:: Medical - moderate - high VTE Device Contraindication: N/A - Device Ordered VTE Drug Contraindication: N/A - Med Ordered
--- NOTE | 2022-05-19 13:33 | PM.PNNEP ---
Subjective Subjective Date of Service: 05/19/22 Interval history: Pt is sleepy Comfortable Physical Exam Vital Signs: Vital Signs: Last Vital Signs Temp 97.6 F 05/19/22 12:00 Pulse 73 05/19/22 12:00 Resp 20 05/19/22 12:00 BP 149/91 H 05/19/22 12:00 Pulse Ox 92 05/19/22 12:00 O2 Del Method Room Air 05/19/22 12:00 O2 Flow Rate 5 05/19/22 03:36 FiO2 24 05/11/22 11:00 BMI result Body Mass Index 33.7 Appearance: Alert.? Oriented X3.? cvs: rrr, [id number] . ent: has nasal packin, no new bleedin res: clear to auscultation ,no rhonchii or wheezing abd: no rebound or guarding ,nt, bs present. ext pulses present , no cyanosis. neuro: axo3 , nonfocal. Objective Data Labs 05/17/22 06:31 05/17/22 06:31 Labs: Laboratory Results - last 24 hr 05/18/22 05/18/22 05/19/22 15:47 20:41 07:29 POC Glucose 187 H 149 H 110 05/19/22 11:52 POC Glucose 132 H Microbiology Microbiology Results: Microbiology 05/12/22 03:55 Blood - Venous Blood Culture - Final No growth after 5 days. 05/12/22 03:55 Blood - Venous Blood Culture - Final No growth after 5 days. 05/11/22 02:10 Blood - Venous Blood Culture - Final No growth after 5 days. 05/11/22 02:10 Blood - Venous Blood Culture - Final Coag negative Staphylococcus Procedures Date of Service Date of Service: 05/19/22 Assessment & Plan Assessment and plan (1) ESRD (end stage renal disease) on dialysis: Status: Acute (2) Hypertension: Status: Acute (3) Hypertensive heart disease: Status: Acute (4) Mitral regurgitation: Status: Acute Plan ESRD - MWF SOB: multifact with CHF and underlying card dysfunct as noted by CARD Ques Pericarditis: Had HD Daily last week Pseudoannerusym femoral: Tx as per card REC: Pt on MWF schedule; BP is better but not optimal; Can not use PHILLY/ ARB Can use a clonidine patch DDAVP 30 mcg x 1 dose today given earlier this week EPo 20 K X 1 dose given This week Compliance is a major issue Needs Placement - SNF - [facility] [place]- Please let us know where pt is going and we can arrange HD- Suggest Esther Valdez / Pricila Portillo will follow with team Time Spent With Patient Time: Total time managing care of this patient today ____ minutes. Progress Note: Quality Stroke Does the patient have a stroke diagnosis?: No
[2022-05-19 15:57] VITALS: BP 158/92; PULSE 75; RESP 20; TEMP 36.3; O2SAT 91
[2022-05-19] MEDS: Docusate Sodium 100 MG CAPSULE PO (22:15)
[2022-05-19 22:17] VITALS: BP 142/83; PULSE 76; RESP 18; TEMP 36.8; O2SAT 98
[2022-05-19] MEDS: LORazepam 0.5 MG TABLET 0.25 MG PO (23:03)
[2022-05-20] VITALS: BP 156/87; PULSE 75; RESP 21; TEMP 36.1; O2SAT 92
[2022-05-20 04:00] VITALS: BP 138/71; PULSE 80; RESP 20; TEMP 36.8; O2SAT 92
[2022-05-20] MEDS: Amoxicillin/Potassium Clav 500 MG TABLET PO ×2 (04:14→15:18)
[2022-05-20] MEDS: HYDROmorphone HCl 2 MG TABLET PO ×4 (04:14→22:44)
[2022-05-20] MEDS: diphenhydrAMINE HCL 25 MG CAPSULE PO ×3 (04:19→20:38)
[2022-05-20 07:49] VITALS: BP 171/77; PULSE 74; RESP 18; TEMP 36.9; O2SAT 93
[2022-05-20 07:51] LABS: Glucose, Whole Blood 138 mg/dL (60-115)
[2022-05-20] MEDS: Isosorbide Mononitrate 30 MG TAB.ER.24H 90 MG PO (08:23)
[2022-05-20] MEDS: Sevelamer Carbonate Tablet 800 MG TABLET 2400 MG PO ×2 (08:23→16:10)
[2022-05-20] MEDS: carvediloL 25 MG TABLET PO ×2 (08:23→20:38)
[2022-05-20] MEDS: NIFEdipine ER 60 MG TAB.ER.24 PO (08:24)
[2022-05-20] MEDS: Atorvastatin Calcium 80 MG TABLET PO (08:24)
[2022-05-20] MEDS: hydrALAZINE HCl 50 MG TABLET 100 MG PO ×3 (08:24→20:38)
[2022-05-20] MEDS: Acetaminophen 325 MG TABLET 975 MG PO ×3 (08:24→20:38)
[2022-05-20] MEDS: Doxazosin Mesylate 2 MG TABLET 4 MG PO (08:24)
[2022-05-20] MEDS: Amiodarone HCL 200 MG TABLET PO (08:24)
[2022-05-20] MEDS: Gabapentin 300 MG CAPSULE PO ×3 (08:24→20:38)
[2022-05-20] MEDS: Capsaicin 0.025% Cream 60 GM TUBE 1 APPL TOPICAL ×2 (08:33→16:14)
[2022-05-20] MEDS: polyethylene glycoL 3350 17 GM POWD.PACK PO ×2 (08:33→16:10)
--- NOTE | 2022-05-20 09:41 | P.CDIM_ITS ---
PROVIDER RESPONSE TEXT: To clarify, the appropriate diagnosis supported by the clinical indicators: Other, please specify: unable to determine, AC might have contibuted, QUERY TEXT: PHYSICIAN'S DOCUMENTATION REQUEST Date of Query: 05/20/2022 08:28 AM EDT Patient Name: Derek Proctor Admit Date: 05/11/2022 Dear Patricia Whelan, A review of the medical record indicates additional documentation may be needed. Please review below and update the documentation accordingly. Clinical Indicators: The following diagnoses or signs and symptoms were noted in the patient record: per MD note 05/19/22: patient had nasal bleeding on 05/16/22 treated with Afrin and required nasal packing h/h : stable no new bleed, hold Asa/Eliquis for now Based on the above, could you clarify the appropriate diagnosis, if significant, that supports the ab ove abnormalities and additional evaluation, monitoring, and/or treatment rendered: Adverse effect of anticoagulant Hemorrhagic disorder due to extrinsic circulating anticoagulant Other, please specify Unable to determine Other (explain) Clinically unable to determine (explain) Thank you, Florence Gallardo RN Use of terms such as suspected, likely, concern for, or probable (associated with a specific diagnosi s that is being evaluated, monitored, or treated as if it exists) are acceptable and can be coded in the inpatient se tting, when documented at the time of discharge. Please use your independent medical judgment in providing your response. THIS QUERY IS PART OF THE PERMANENT MEDICAL RECORD
[2022-05-20] MEDS: Lidocaine HCl 1 % MPF 2 ML VIAL 0.5 ML SUBCUT (10:25)
--- NOTE | 2022-05-20 11:11 | P.PNNP_ITS ---
Subjective Subjective Date of Service: 05/20/22 Interval history: Seen on HD. D/W HD RN. Tolerating HD; Hemodynamics stable on HD Physical Exam Vital Signs: Vital Signs: Last Vital Signs Temp 98.4 F 05/20/22 07:49 Pulse 74 05/20/22 07:49 Resp 18 05/20/22 07:49 BP 171/77 H 05/20/22 07:49 Pulse Ox 93 05/20/22 07:49 O2 Del Method Oxymask 05/20/22 07:49 O2 Flow Rate 2 05/20/22 07:49 FiO2 24 05/11/22 11:00 BMI result Body Mass Index 33.7 Const: General: no acute distress Orientation/consciousness: patient oriented x3 Eyes: EOM: EOMs intact bilaterally Neck: Neck: Yes supple Resp: Auscultation: diminished lung sounds Cardio: Rate: regular rate GI: Palpation (GI): Soft to palpation Neuro: General: patient oriented x3 and moves all extremities Objective Data Labs 05/17/22 06:31 05/17/22 06:31 Labs: Laboratory Results - last 24 hr 05/19/22 05/20/22 11:52 07:47 POC Glucose 132 H 138 H Microbiology Microbiology Results: Microbiology 05/12/22 03:55 Blood - Venous Blood Culture - Final No growth after 5 days. 05/12/22 03:55 Blood - Venous Blood Culture - Final No growth after 5 days. 05/11/22 02:10 Blood - Venous Blood Culture - Final No growth after 5 days. 05/11/22 02:10 Blood - Venous Blood Culture - Final Coag negative Staphylococcus Procedures Date of Service Date of Service: 05/20/22 Assessment & Plan Assessment and plan (1) ESRD (end stage renal disease) on dialysis: Status: Acute Assessment and Plan: End Stage Renal Disease on? MWF schedule;Seen on HD? Renal Diet; Phos binders with meals Compliance is a major issue Likely needs Placement - SNF Pt goes to [facility]- Please let us know where pt will be going and we can arrange HD- Suggest H José Miguel / Pricila Portillo Progress Note: Quality Stroke Does the patient have a stroke diagnosis?: No
--- NOTE | 2022-05-20 14:40 | HO.PM.IMPN ---
Subjective Subjective Date of Service: 05/20/22 Interval History: sob Review of Systems sob seems improved , now at baseline no new epistaxis Physical Exam Vital Signs: Vital Signs: Last Vital Signs Temp 98.4 F 05/20/22 07:49 Pulse 74 05/20/22 07:49 Resp 18 05/20/22 07:49 BP 171/77 H 05/20/22 07:49 Pulse Ox 93 05/20/22 07:49 O2 Del Method Oxymask 05/20/22 07:49 O2 Flow Rate 2 05/20/22 07:49 FiO2 24 05/11/22 11:00 BMI result Body Mass Index 33.7 Appearance: Alert.? Oriented X3.? cvs: rrr, [id number] . ent: has nasal packin, no new bleedin res: clear to auscultation ,no rhonchii or wheezing abd: no rebound or guarding ,nt, bs present. ext pulses present , no cyanosis. neuro: axo3 , nonfocal. Objective Data Active Medications Acetaminophen (Acetaminophen 325 Mg Tablet) 975 mg PO TID [facility] Last Admin: 05/20/22 08:24 Dose: 975 mg Documented By: ANNE Amiodarone HCl (Amiodarone Hcl 200 Mg Tablet) 200 mg PO DAILY [facility] Last Admin: 05/20/22 08:24 Dose: 200 mg Documented By: ANNE Amoxicillin/Clavulanate Potassium (Amoxicillin/Potassium Clav 500 Mg Tablet) 500 mg PO Q12H [facility] Last Admin: 05/20/22 04:14 Dose: 500 mg Documented By: LUZ MARINA Apixaban (Apixaban 5 Mg Tablet) 5 mg PO BID [facility] Last Admin: 05/15/22 08:03 Dose: 5 mg Documented By: KEN Aspirin (Aspirin Enteric Coated 81 Mg Tablet.) 81 mg PO DAILY [facility] Last Admin: 05/15/22 08:19 Dose: 81 mg Documented By: KEN Atorvastatin Calcium (Atorvastatin Calcium 80 Mg Tablet) 80 mg PO DAILY [facility] Last Admin: 05/20/22 08:24 Dose: 80 mg Documented By: ANNE Bisacodyl (Bisacodyl 10 Mg Supp.Rect) 10 mg [place] ONCE PRN PRN Reason: Constipation Last Admin: 05/18/22 16:25 Dose: 10 mg Documented By: ISIDRA Capsaicin (Capsaicin 0.025% Cream 60 Gm Tube) 1 appl TOPICAL TID [facility]; Protocol Last Admin: 05/20/22 08:33 Dose: 1 appl Documented By: ANNE Carvedilol (Carvedilol 25 Mg Tablet) 25 mg PO BID [facility]; Protocol Last Admin: 05/20/22 08:23 Dose: 25 mg Documented By: ANNE Diphenhydramine HCl (Diphenhydramine Hcl 25 Mg Capsule) 25 mg PO TID PRN PRN Reason: itch Last Admin: 05/20/22 08:47 Dose: 25 mg Documented By: ANNE Docusate Sodium (Docusate Sodium 100 Mg Capsule) 100 mg PO BEDTIME [facility] Last Admin: 05/19/22 22:15 Dose: 100 mg Documented By: LUZ MARINA Doxazosin Mesylate (Doxazosin Mesylate 2 Mg Tablet) 4 mg PO DAILY [facility]; Protocol Last Admin: 05/20/22 08:24 Dose: 4 mg Documented By: ANNE Gabapentin (Gabapentin 300 Mg Capsule) 300 mg PO TID [facility] Last Admin: 05/20/22 08:24 Dose: 300 mg Documented By: ANNE Glucose (Glucose Gel 15 Gm Gel..Gram.) 15 gm PO Q15M PRN; Protocol PRN Reason: per Hypoglycemia Standing Ord. Hydralazine HCl (Hydralazine Hcl 50 Mg Tablet) 100 mg PO TID [facility]; Protocol Last Admin: 05/20/22 08:24 Dose: 100 mg Documented By: ANNE Hydromorphone HCl (Hydromorphone Hcl 2 Mg Tablet) 2 mg PO Q6H PRN PRN Reason: Pain, Severe (Pain Scale 7-10) Last Admin: 05/20/22 10:23 Dose: 2 mg Documented By: ANNE Vancomycin HCl 500 mg/ Sodium (Chloride) 110 mls @ 110 mls/hr IV MoWeFr@1800 [facility] Dextrose (D10) 250 mls @ 750 mls/hr IV Q15M PRN; Protocol PRN Reason: per Hypoglycemia Standing Ord. Isosorbide Mononitrate (Isosorbide Mononitrate 30 Mg Tab.Er.24h) 90 mg PO DAILY [facility]; Protocol Last Admin: 04/10/23 08:23 Dose: 90 mg Documented By: ANNE Lidocaine (Lidocaine 4 % Patch Adh..Patch) 1 patch TRANSDERMA DAILY [facility]; Protocol Last Admin: 05/20/22 08:33 Dose: Not Given Documented By: ANNE Non-Admin Reason: Patient Refused Lidocaine (Lidocaine 4 % Patch Adh..Patch) 1 patch TRANSDERMA DAILY [facility]; Protocol Last Admin: 05/20/22 08:33 Dose: Not Given Documented By: ANNE Non-Admin Reason: Patient Refused Lidocaine HCl (Lidocaine Hcl 1 % Mpf 2 Ml Vial) 0.5 ml SUBCUT MoWeFr@1860 [facility] Last Admin: 05/20/22 10:25 Dose: 0.5 ml Documented By: ANNE Nifedipine (Nifedipine Er 60 Mg Tab.Er.24) 60 mg PO DAILY [facility]; Protocol Last Admin: 05/20/22 08:24 Dose: 60 mg Documented By: ANNE Pharmacy Consult (Consult Rx Vancomycin Dosing) 1 each MISCELLANE DAILY PRN PRN Reason: Consult order Polyethylene Glycol (Polyethylene Glycol 3350 17 Gm Powd.Pack) 17 gm PO BIDWM [facility] Last Admin: 05/20/22 08:33 Dose: 17 gm Documented By: ANNE Sevelamer Carbonate (Sevelamer Carbonate Tablet 800 Mg Tablet) 2,400 mg PO TIDWM [facility] Last Admin: 05/20/22 08:23 Dose: 2,400 mg Documented By: ANNE Sodium Zirconium Cyclosilicate (Sodium Zirconium Cyclosilicate 10 Gm Powd.Pack) 10 gm PO TUTHSA [facility] Last Admin: 05/18/22 14:34 Dose: 10 gm Documented By: TARA-SHANIFA Labs 05/17/22 06:31 05/17/22 06:31 Labs: Laboratory Results - last 24 hr 05/20/22 07:47 POC Glucose 138 H Assessment and Plan (1) ESRD (end stage renal disease) on dialysis: Status: Acute (2) Nasal bleeding: Status: Acute Plan 46-year-old male with a past medical history of MRSA bacteremia, endocarditis, h/o paraspinal /epidural Phlegmon, ESRD with HD MWF, Sa, chronic diastolic chf, Cholecystitis (s/p Cholecystostomy d/t being poor candidate for surgery in Jan 2022), COPD, HTN, HLD,? permanent AFIB? and history of DVT on eliquis, who was BIBA in acute respiratory distress. EMS administered albuterol and 500cc normal saline for hypotension. They administered [place] Narcan for unresponsiveness. Found to have hyperkalemia and? flash pulmonary edema and required emergent dialysis in ICU Acute on chronic hypoxic respiratory failure due to fluid overligh sob and oxygen demand improving -Underwent emergent dialysis in ICU with fluid removal on 05/11,yesterday also had HD , will be gettin HD today also -Probably still with fluid overload and will be going to dialysis for fluid removal today Hyperkalemia--improved after dialysis, still high at 5.4, Lokelma getting HD today MRSA bacteremia/ endocarditis, on outpatient vancomycin--post dialysis Chronic T8-T9 Discitis/small epidural?phlegmon?(no cord compression?or stenosis) Chronic opioid dependence recent [facility] MRI lumbar spine negative for SEA, osteomyelitis, or discitis, -Continue vancomycin renally dosed ( Per renal note,?Vanco 750mg post HD on ///Fri until May 26) per [facility] ID Hypertension- improving with HD and? Coreg, Nifedipine,? hydralazine. ?DC Bumex per nephrology Atrial fibrillation--rate control on Digoxon? q48 hrs, Coreg,? Amiodarone? and Eliquis (onhold due to nose bleedin/requiring nasal packin) d/w cardiology -need to see ent for nasal packing removal and restarting eilquis after that. Chronic abdominal pain h/o cholecystitis now w/ C-tube--PO Dilaudid for pain, avoid IV meds. Concern raised re narcotic use during recent [facility] dischare and was only discharged with Tylenol Etiology of this chronic abdominal pain is not clear ,apparently has been ongoing?for months now. [facility] Surgery recommends drain to remain in place? and no surgery planned End-stage renal disease on hemodialysis--Dialysis MWF and Sat History of insulin-dependent type 2 diabetes, not on insulin anymore, but sliding scale while here Chronic normocytic anemia, monitor Stable no s/s of active bleeding weekly epogen as per nephro. Nasal bleedin:? nose bleedin/given afrin and requiring nasal packin day4 possible multifactorial (esrd,also on possibly AC might be contributing) h/h : stable no new bleed, hold asa/eliquis , augmentin since has nasal packin d/w cardio-hold asa/eliquis -need to seen by ent to remove nasal packin/plan startAC afterward if does not bleed. constipation : improving with luxative , continue to moniter inpatient need :PT recomended snf, will d/w nephro -because his HD needs to be arranged before dischrage ? possible rehab. d/w patient in detail-he understands . Time Spent With Patient Time: Total time managing care of this patient today ____ minutes. Quality Stroke Does the patient have a stroke diagnosis?: No VTE Prior VTE?: Yes VTE Risk Level:: Medical - moderate - high VTE Device Contraindication: N/A - Device Ordered VTE Drug Contraindication: N/A - Med Ordered
[2022-05-20 15:20] VITALS: BP 153/78; PULSE 75; RESP 16; TEMP 36.2; O2SAT 90
[2022-05-20 15:24] LABS: Glucose, Whole Blood 119 mg/dL (60-115)
[2022-05-20 17:06] LABS: Vancomycin Random 10.6 mcg/mL (15-20)
[2022-05-20] MEDS: vancomycin HCL 500 MG in 0.9 % Sodium Chloride 100 ML 110 MG IV (18:21)
[2022-05-20 20:00] VITALS: BP 145/75; PULSE 78; RESP 15; TEMP 36.4; O2SAT 92
[2022-05-20] MEDS: Docusate Sodium 100 MG CAPSULE PO (20:38)
[2022-05-20 21:15] LABS: Glucose, Whole Blood 133 mg/dL (60-115)
[2022-05-20 23:46] VITALS: BP 166/73; PULSE 75; RESP 16; TEMP 36.7; O2SAT 92
[2022-05-20] MEDS: LORazepam 0.5 MG TABLET 0.25 MG PO (23:46)
--- NOTE | 2022-05-21 02:15 | PC.NURSE ---
Pt requesting something for his pleuritic chest pain,not yet due for his PRN Dilaudid,Dr Antoine notified,MD states ok to give PRN Dilaudid early.Pt updated and med given
[2022-05-21] MEDS: HYDROmorphone HCl 2 MG TABLET PO ×4 (02:26→21:56)
[2022-05-21] MEDS: Amoxicillin/Potassium Clav 500 MG TABLET PO ×2 (02:26→15:29)
[2022-05-21 03:35] VITALS: BP 156/89; PULSE 72; RESP 15; TEMP 36.7; O2SAT 93
[2022-05-21 07:01] LABS: Glucose, Whole Blood 125 mg/dL (60-115)
[2022-05-21 07:11] VITALS: BP 134/70; PULSE 76; RESP 18; TEMP 36.7; O2SAT 93
[2022-05-21] MEDS: polyethylene glycoL 3350 17 GM POWD.PACK PO ×2 (09:28→15:31)
[2022-05-21] MEDS: Gabapentin 300 MG CAPSULE PO ×3 (09:29→20:17)
[2022-05-21] MEDS: Sevelamer Carbonate Tablet 800 MG TABLET 2400 MG PO ×3 (09:29→15:28)
[2022-05-21] MEDS: NIFEdipine ER 60 MG TAB.ER.24 PO (09:29)
[2022-05-21] MEDS: Doxazosin Mesylate 2 MG TABLET 4 MG PO (09:29)
[2022-05-21] MEDS: Amiodarone HCL 200 MG TABLET PO (09:29)
[2022-05-21] MEDS: Isosorbide Mononitrate 30 MG TAB.ER.24H 90 MG PO (09:29)
[2022-05-21] MEDS: Acetaminophen 325 MG TABLET 975 MG PO ×3 (09:29→20:16)
[2022-05-21] MEDS: hydrALAZINE HCl 50 MG TABLET 100 MG PO ×3 (09:29→20:17)
[2022-05-21] MEDS: carvediloL 25 MG TABLET PO ×2 (09:29→20:16)
[2022-05-21] MEDS: Atorvastatin Calcium 80 MG TABLET PO (09:30)
[2022-05-21] MEDS: Capsaicin 0.025% Cream 60 GM TUBE 1 APPL TOPICAL ×2 (09:38→15:35)
--- NOTE | 2022-05-21 10:37 | PC.NURSE ---
Patient c/o 11/19 sharp mid chest pain - worse with deep breathing/coughing. Patient reports having this pain since his admission to hospital on 05/11. Dilaudid PO administered per [facility] - patient currently resting in bed with eyes closed. VSS. Dr Whelan aware - no new orders at this time.
[2022-05-21 10:52] LABS: Glucose, Whole Blood 125 mg/dL (60-115)
[2022-05-21 10:56] VITALS: BP 168/58; PULSE 76; RESP 18; TEMP 36.6; O2SAT 93
--- NOTE | 2022-05-21 12:16 | PM.PNNEP ---
Subjective Subjective Date of Service: 05/21/22 Interval history: Events noted; All recent data reviewed Physical Exam Vital Signs: Vital Signs: Last Vital Signs Temp 97.9 F 05/21/22 10:56 Pulse 76 05/21/22 10:56 Resp 18 05/21/22 10:56 BP 168/58 H 05/21/22 10:56 Pulse Ox 93 05/21/22 10:56 O2 Del Method Oxymask 05/21/22 10:56 O2 Flow Rate 2 05/21/22 03:35 FiO2 24 05/11/22 11:00 BMI result Body Mass Index 33.7 Const: General: no acute distress Orientation/consciousness: patient oriented x3 Eyes: EOM: EOMs intact bilaterally Neck: Neck: Yes supple Resp: Auscultation: diminished lung sounds Cardio: Rate: regular rate GI: Palpation (GI): Soft to palpation Neuro: General: patient oriented x3 Objective Data Labs 05/17/22 06:31 05/17/22 06:31 Labs: Laboratory Results - last 24 hr 05/20/22 05/20/22 05/20/22 15:11 16:36 20:58 POC Glucose 119 H 133 H Random Vancomycin 10.6 L 05/21/22 05/21/22 06:55 10:45 POC Glucose 125 H 125 H Random Vancomycin Microbiology Microbiology Results: Microbiology 05/12/22 03:55 Blood - Venous Blood Culture - Final No growth after 5 days. 05/12/22 03:55 Blood - Venous Blood Culture - Final No growth after 5 days. 05/11/22 02:10 Blood - Venous Blood Culture - Final No growth after 5 days. 05/11/22 02:10 Blood - Venous Blood Culture - Final Coag negative Staphylococcus Procedures Date of Service Date of Service: 05/21/22 Assessment & Plan Assessment and plan (1) ESRD (end stage renal disease) on dialysis: Status: Acute Assessment and Plan: End Stage Renal Disease on? MWF schedule? Renal Diet; Phos binders with meals Compliance is a major issue Likely needs Placement - SNF Pt goes to [facility]- Please let us know where pt will be going and we can arrange HD-?Suggest H Valdez / Pricila Portillo Time Spent With Patient Time: Total time managing care of this patient today ____ minutes. Progress Note: Quality Stroke Does the patient have a stroke diagnosis?: No
--- NOTE | 2022-05-21 13:22 | MHC.CM.PN ---
PER STAFF, PT HAS BEEN AMBULATING INDEPENDENT IN . CM MET WITH PT WHO DECLINES STR AND WOULD LIKE TO GO HOME . CM WILL CONTINUE TO FOLLOW FOR PLAN WHEN MEDICALLY CLEARED.
[2022-05-21 15:19] VITALS: BP 133/83; PULSE 75; RESP 15; TEMP 36.7; O2SAT 95
[2022-05-21] MEDS: Sodium Zirconium Cyclosilicate 10 GM POWD.PACK PO (15:32)
--- NOTE | 2022-05-21 15:38 | P.PNIM_ITS ---
Subjective Subjective Date of Service: 05/21/22 Interval History: sob Review of Systems sob seems imporved, denies any nasuea or vomitin no new epistaxis Physical Exam Vital Signs: Vital Signs: Last Vital Signs Temp 98.1 F 05/21/22 15:19 Pulse 75 05/21/22 15:19 Resp 15 05/21/22 15:19 BP 133/83 05/21/22 15:19 Pulse Ox 95 05/21/22 15:19 O2 Del Method Oxymask 05/21/22 15:19 O2 Flow Rate 2 05/21/22 15:19 FiO2 24 05/11/22 11:00 BMI result Body Mass Index 33.7 Appearance: Alert.? Oriented X3.? cvs: rrr, [id number] . ent: has nasal packin, no new bleedin res: clear to auscultation ,no rhonchii or wheezing abd: no rebound or guarding ,nt, bs present. ext pulses present , no cyanosis. neuro: axo3 , nonfocal. Objective Data Active Medications Acetaminophen (Acetaminophen 325 Mg Tablet) 975 mg PO TID [facility] Last Admin: 05/21/22 15:28 Dose: 975 mg Documented By: NIKI Amiodarone HCl (Amiodarone Hcl 200 Mg Tablet) 200 mg PO DAILY [facility] Last Admin: 05/21/22 09:29 Dose: 200 mg Documented By: NIKI Amoxicillin/Clavulanate Potassium (Amoxicillin/Potassium Clav 500 Mg Tablet) 500 mg PO Q12H [facility] Last Admin: 05/21/22 15:29 Dose: 500 mg Documented By: NIKI Apixaban (Apixaban 5 Mg Tablet) 5 mg PO BID [facility] Last Admin: 05/15/22 08:03 Dose: 5 mg Documented By: KEN Aspirin (Aspirin Enteric Coated 81 Mg Tablet.) 81 mg PO DAILY [facility] Last Admin: 05/15/22 08:19 Dose: 81 mg Documented By: KEN Atorvastatin Calcium (Atorvastatin Calcium 80 Mg Tablet) 80 mg PO DAILY [facility] Last Admin: 05/21/22 09:30 Dose: 80 mg Documented By: NIKI Bisacodyl (Bisacodyl 10 Mg Supp.Rect) 10 mg NE ONCE PRN PRN Reason: Constipation Last Admin: 05/18/22 16:25 Dose: 10 mg Documented By: ISIDRA Capsaicin (Capsaicin 0.025% Cream 60 Gm Tube) 1 appl TOPICAL TID [facility]; Protocol Last Admin: 05/21/22 15:35 Dose: 1 appl Documented By: NIKI Carvedilol (Carvedilol 25 Mg Tablet) 25 mg PO BID [facility]; Protocol Last Admin: 05/21/22 09:29 Dose: 25 mg Documented By: NIKI Diphenhydramine HCl (Diphenhydramine Hcl 25 Mg Capsule) 25 mg PO TID PRN PRN Reason: itch Last Admin: 05/20/22 20:38 Dose: 25 mg Documented By: LUZ MARINA Docusate Sodium (Docusate Sodium 100 Mg Capsule) 100 mg PO BEDTIME LEIGH Last Admin: 05/20/22 20:38 Dose: 100 mg Documented By: LUZ MARINA Doxazosin Mesylate (Doxazosin Mesylate 2 Mg Tablet) 4 mg PO DAILY [facility]; Protocol Last Admin: 05/21/22 09:29 Dose: 4 mg Documented By: NIKI Gabapentin (Gabapentin 300 Mg Capsule) 300 mg PO TID [facility] Last Admin: 05/21/22 15:28 Dose: 300 mg Documented By: NIKI Glucose (Glucose Gel 15 Gm Gel..Gram.) 15 gm PO Q15M PRN; Protocol PRN Reason: per Hypoglycemia Standing Ord. Hydralazine HCl (Hydralazine Hcl 50 Mg Tablet) 100 mg PO TID [facility]; Protocol Last Admin: 05/21/22 15:28 Dose: 100 mg Documented By: NIKI Hydromorphone HCl (Hydromorphone Hcl 2 Mg Tablet) 2 mg PO Q6H PRN PRN Reason: Pain, Severe (Pain Scale 7-10) Last Admin: 05/21/22 15:35 Dose: 2 mg Documented By: NIKI Vancomycin HCl 500 mg/ Sodium (Chloride) 110 mls @ 110 mls/hr IV MoWeFr@1800 LEIGH Dextrose (D10) 250 mls @ 750 mls/hr IV Q15M PRN; Protocol PRN Reason: per Hypoglycemia Standing Ord. Isosorbide Mononitrate (Isosorbide Mononitrate 30 Mg Tab.Er.24h) 90 mg PO DAILY [facility]; Protocol Last Admin: 05/21/22 09:29 Dose: 90 mg Documented By: NIKI Lidocaine (Lidocaine 4 % Patch Adh..Patch) 1 patch TRANSDERMA DAILY [facility]; Protocol Last Admin: 05/21/22 09:30 Dose: Not Given Documented By: NIKI Non-Admin Reason: Patient Refused Lidocaine (Lidocaine 4 % Patch Adh..Patch) 1 patch TRANSDERMA DAILY [facility]; Protocol Last Admin: 05/21/22 09:30 Dose: Not Given Documented By: NIKI Non-Admin Reason: Patient Refused Lidocaine HCl (Lidocaine Hcl 1 % Mpf 2 Ml Vial) 0.5 ml SUBCUT MoWeFr@0930 [facility] Last Admin: 05/20/22 10:25 Dose: 0.5 ml Documented By: ANNE Nifedipine (Nifedipine Er 60 Mg Tab.Er.24) 60 mg PO DAILY [facility]; Protocol Last Admin: 05/21/22 09:29 Dose: 60 mg Documented By: NIKI Pharmacy Consult (Consult Rx Vancomycin Dosing) 1 each MISCELLANE DAILY PRN PRN Reason: Consult order Polyethylene Glycol (Polyethylene Glycol 3350 17 Gm Powd.Pack) 17 gm PO BIDWM [facility] Last Admin: 05/21/22 15:31 Dose: 17 gm Documented By: NIKI Sevelamer Carbonate (Sevelamer Carbonate Tablet 800 Mg Tablet) 2,400 mg PO TIDWM [facility] Last Admin: 05/21/22 15:28 Dose: 2,400 mg Documented By: NIKI Sodium Zirconium Cyclosilicate (Sodium Zirconium Cyclosilicate 10 Gm Powd.Pack) 10 gm PO TUTHSA [facility] Last Admin: 05/21/22 15:32 Dose: 10 gm Documented By: NIKI Labs 05/17/22 06:31 05/17/22 06:31 Labs: Laboratory Results - last 24 hr 05/20/22 05/20/22 05/21/22 16:36 20:58 06:55 POC Glucose 133 H 125 H Random Vancomycin 10.6 L 05/21/22 10:45 POC Glucose 125 H Random Vancomycin Assessment and Plan (1) Nasal bleeding: Status: Acute (2) ESRD (end stage renal disease) on dialysis: Status: Acute Plan 46-year-old male with a past medical history of MRSA bacteremia, endocarditis, h/o paraspinal /epidural Phlegmon, ESRD with HD MWF, Sa, chronic diastolic chf, Cholecystitis (s/p Cholecystostomy d/t being poor candidate for surgery in Jan 2022), COPD, HTN, HLD,? permanent AFIB? and history of DVT on eliquis, who was BIBA in acute respiratory distress. EMS administered albuterol and 500cc normal saline for hypotension. They administered [place] Narcan for unresponsiveness. Found to have hyperkalemia and? flash pulmonary edema and required emergent dialysis in ICU Acute on chronic hypoxic respiratory failure due to fluid overligh sob and oxygen demand improving -Underwent emergent dialysis in ICU with fluid removal on 05/11,yesterday also had HD , will be gettin HD today also -Probably still with fluid overload and will be going to dialysis for fluid removal today Hyperkalemia--improved after dialysis, still high at 5.4, Lokelma getting HD today MRSA bacteremia/ endocarditis, on outpatient vancomycin--post dialysis Chronic T8-T9 Discitis/small epidural?phlegmon?(no cord compression?or stenosis) Chronic opioid dependence recent [facility] MRI lumbar spine negative for SEA, osteomyelitis, or discitis, -Continue vancomycin renally dosed ( Per renal note,?Vanco 750mg post HD on / //Fri until May 26) per [facility] ID Hypertension- improving with HD and? Coreg, Nifedipine,? hydralazine. ?DC Bumex per nephrology Atrial fibrillation--rate control on Digoxon? q48 hrs, Coreg,? Amiodarone? and Eliquis (onhold due to nose bleedin/requiring nasal packin) d/w cardiology -need to see ent for nasal packing removal and restarting eilquis after that. Chronic abdominal pain h/o cholecystitis now w/ C-tube--PO Dilaudid for pain, avoid IV meds. Concern raised re narcotic use during recent [facility] dischare and was only discharged with Tylenol Etiology of this chronic abdominal pain is not clear ,apparently has been ongoing?for months now. [facility] Surgery recommends drain to remain in place? and no surgery planned End-stage renal disease on hemodialysis--Dialysis MWF and Sat History of insulin-dependent type 2 diabetes, not on insulin anymore, but sliding scale while here Chronic normocytic anemia, monitor Stable no s/s of active bleeding weekly epogen as per nephro. Nasal bleedin:? nose bleedin/given afrin and requiring nasal packin day4 possible multifactorial (esrd,also on possibly AC might be contributing) h/h : stable no new bleed, hold asa/eliquis , augmentin since has nasal packin d/w cardio-hold asa/eliquis -need to seen by ent to remove nasal packin/plan startAC afterward if does not bleed. spoke to En[facility] -Dr trimble -will look at patient for nasal packin removal in am ,added afrin for mornin for nasal pack removal constipation : improving with luxative , continue to moniter inpatient need :PT recomended snf, will d/w nephro -because his HD needs to be arranged before dischrage ? possible rehab.nasal packin removal tomorrow -please d/w ent and cardio for starting eliquis after that. d/w patient in detail-he understands . Time Spent With Patient Time: Total time managing care of this patient today ____ minutes. Quality Stroke Does the patient have a stroke diagnosis?: No VTE Prior VTE?: Yes VTE Risk Level:: Medical - moderate - high VTE Device Contraindication: N/A - Device Ordered VTE Drug Contraindication: N/A - Med Ordered
[2022-05-21 15:50] LABS: Glucose, Whole Blood 111 mg/dL (60-115)
[2022-05-21] MEDS: diphenhydrAMINE HCL 25 MG CAPSULE PO (16:22)
[2022-05-21 19:25] VITALS: BP 144/74; PULSE 74; RESP 14; TEMP 36.3; O2SAT 92
[2022-05-21 19:48] LABS: Glucose, Whole Blood 171 mg/dL (60-115)
[2022-05-21] MEDS: Docusate Sodium 100 MG CAPSULE PO (20:16)
[2022-05-21] MEDS: diphenhydrAMINE HCL 50 MG/ML VIAL IVPUSH (23:32)
[2022-05-22 01:30] VITALS: BP 134/76; PULSE 70; RESP 16; O2SAT 96
[2022-05-22] MEDS: Amoxicillin/Potassium Clav 500 MG TABLET PO ×2 (02:17→15:40)
[2022-05-22] MEDS: HYDROmorphone HCl 2 MG TABLET PO ×4 (02:17→23:19)
[2022-05-22 07:17] LABS: Hemoglobin 9.1 g/dl (14.0-18.0)
[2022-05-22 07:17] LABS: Glucose, Whole Blood 99 mg/dL (60-115)
[2022-05-22 07:35] LABS: Anion Gap 21 (12-20); Blood Urea Nitrogen 71 mg/dL (9-16); Calcium 9.3 mg/dL (8.4-10.2); Carbon Dioxide 21 mmol/L (22-29); Chloride 96 mmol/L (96-108); Creatinine Clr Calc Pharmacy 13.2; Estimated Glomerular Filt Rate 6; Glucose Random 100 mg/dL (60-115); Potassium 5.9 mmol/L (3.3-5.1); Sodium 132 mmol/L (135-145)
[2022-05-22 07:41] VITALS: BP 155/89; PULSE 72; RESP 18; TEMP 36.7; O2SAT 92
[2022-05-22] MEDS: Sevelamer Carbonate Tablet 800 MG TABLET 2400 MG PO ×2 (08:16→15:53)
[2022-05-22] MEDS: Gabapentin 300 MG CAPSULE PO ×3 (08:18→20:52)
[2022-05-22] MEDS: Atorvastatin Calcium 80 MG TABLET PO (08:18)
[2022-05-22] MEDS: polyethylene glycoL 3350 17 GM POWD.PACK PO ×2 (08:19→15:56)
[2022-05-22] MEDS: diphenhydrAMINE HCL 25 MG CAPSULE PO ×2 (08:26→23:19)
[2022-05-22] MEDS: Acetaminophen 325 MG TABLET 975 MG PO ×3 (10:19→20:52)
[2022-05-22 10:57] LABS: Glucose, Whole Blood 106 mg/dL (60-115)
[2022-05-22 12:17] LABS: HBS Num1 66.09 mIU/mL (0-7.99); HBc Num1 0.13 S/CO (0.00-0.79); HBsAGNum1 0.41 S/CO (0.00-0.99); Hepatitis B Core Antibody Nonreactive (Nonreactive); Hepatitis B Surface Antigen Negative (Negative); ~Hepatitis B Surface Antibody REACTIVE (Nonreactive)
--- NOTE | 2022-05-22 14:54 | P.PNIM_ITS ---
Subjective Subjective Date of Service: 05/22/22 Interval History: No acute issues overnight. Nasal packing fell out without issue Review of Systems Denies chest pain Denies shortness of breath Denies nausea vomiting diarrhea Denies fever and chills Physical Exam Vital Signs: Vital Signs: Last Vital Signs Temp 98.1 F 05/22/22 07:41 Pulse 72 05/22/22 07:41 Resp 18 05/22/22 07:41 BP 155/89 H 05/22/22 07:41 Pulse Ox 92 05/22/22 07:41 O2 Del Method Oxymask 05/22/22 07:41 O2 Flow Rate 2 05/22/22 01:30 FiO2 24 05/11/22 11:00 BMI result Body Mass Index 33.7 Const: Other: Awake alert no acute distress Resp: Other: Clear to auscultation bilaterally no rales rhonchi or wheezes Cardio: Other: No S4; positive S1-S2; no S3 murmurs rubs or gallops GI: Other: Soft nontender nondistended normoactive bowel sounds Extrem: Other: No edema bilaterally Objective Data Active Medications Acetaminophen (Acetaminophen 325 Mg Tablet) 975 mg PO TID [facility] Last Admin: 05/22/22 10:19 Dose: 975 mg Documented By: JEFERSON Amiodarone HCl (Amiodarone Hcl 200 Mg Tablet) 200 mg PO DAILY [facility] Last Admin: 05/21/22 09:29 Dose: 200 mg Documented By: NIKI Amoxicillin/Clavulanate Potassium (Amoxicillin/Potassium Clav 500 Mg Tablet) 500 mg PO Q12H [facility] Last Admin: 05/22/22 02:17 Dose: 500 mg Documented By: LEXI Apixaban (Apixaban 5 Mg Tablet) 5 mg PO BID [facility] Last Admin: 05/15/22 08:03 Dose: 5 mg Documented By: KEN Aspirin (Aspirin Enteric Coated 81 Mg Tablet.) 81 mg PO DAILY [facility] Last Admin: 05/15/22 08:19 Dose: 81 mg Documented By: KEN Atorvastatin Calcium (Atorvastatin Calcium 80 Mg Tablet) 80 mg PO DAILY [facility] Last Admin: 05/22/22 08:18 Dose: 80 mg Documented By: JEFERSON Bisacodyl (Bisacodyl 10 Mg Supp.Rect) 10 mg ID ONCE PRN PRN Reason: Constipation Last Admin: 05/18/22 16:25 Dose: 10 mg Documented By: TARA-SOFSAMIRA Capsaicin (Capsaicin 0.025% Cream 60 Gm Tube) 1 appl TOPICAL TID [facility]; Protocol Last Admin: 05/21/22 20:21 Dose: Not Given Documented By: LEXI Non-Admin Reason: Patient Refused Carvedilol (Carvedilol 25 Mg Tablet) 25 mg PO BID [facility]; Protocol Last Admin: 05/21/22 20:16 Dose: 25 mg Documented By: LEXI Diphenhydramine HCl (Diphenhydramine Hcl 25 Mg Capsule) 25 mg PO TID PRN PRN Reason: itch Last Admin: 05/22/22 08:26 Dose: 25 mg Documented By: JEFERSON Docusate Sodium (Docusate Sodium 100 Mg Capsule) 100 mg PO BEDTIME LEIGH Last Admin: 05/21/22 20:16 Dose: 100 mg Documented By: LEXI Doxazosin Mesylate (Doxazosin Mesylate 2 Mg Tablet) 4 mg PO DAILY [facility]; Protocol Last Admin: 05/21/22 09:29 Dose: 4 mg Documented By: NIKI Gabapentin (Gabapentin 300 Mg Capsule) 300 mg PO TID [facility] Last Admin: 05/22/22 08:18 Dose: 300 mg Documented By: JEFERSON Glucose (Glucose Gel 15 Gm Gel..Gram.) 15 gm PO Q15M PRN; Protocol PRN Reason: per Hypoglycemia Standing Ord. Hydralazine HCl (Hydralazine Hcl 50 Mg Tablet) 100 mg PO TID [facility]; Protocol Last Admin: 05/21/22 20:17 Dose: 100 mg Documented By: LEXI Hydromorphone HCl (Hydromorphone Hcl 2 Mg Tablet) 2 mg PO Q6H PRN PRN Reason: Pain, Severe (Pain Scale 7-10) Last Admin: 05/22/22 08:18 Dose: 2 mg Documented By: JEFERSON Vancomycin HCl 500 mg/ Sodium (Chloride) 110 mls @ 110 mls/hr IV MoWeFr@1800 LEIGH Dextrose (D10) 250 mls @ 750 mls/hr IV Q15M PRN; Protocol PRN Reason: per Hypoglycemia Standing Ord. Isosorbide Mononitrate (Isosorbide Mononitrate 30 Mg Tab.Er.24h) 90 mg PO DAILY [facility]; Protocol Last Admin: 05/21/22 09:29 Dose: 90 mg Documented By: NIKI Lidocaine (Lidocaine 4 % Patch Adh..Patch) 1 patch TRANSDERMA DAILY [facility]; Protocol Last Admin: 05/22/22 08:30 Dose: Not Given Documented By: JEFERSON Non-Admin Reason: Patient Refused Lidocaine (Lidocaine 4 % Patch Adh..Patch) 1 patch TRANSDERMA DAILY [facility]; Protocol Last Admin: 05/22/22 08:30 Dose: Not Given Documented By: JEFERSON Non-Admin Reason: Patient Refused Lidocaine HCl (Lidocaine Hcl 1 % Mpf 2 Ml Vial) 0.5 ml SUBCUT MoWeFr@0930 [facility] Last Admin: 05/20/22 10:25 Dose: 0.5 ml Documented By: ANNE Nifedipine (Nifedipine Er 60 Mg Tab.Er.24) 60 mg PO DAILY [facility]; Protocol Last Admin: 05/21/22 09:29 Dose: 60 mg Documented By: NIKI Polyethylene Glycol (Polyethylene Glycol 3350 17 Gm Powd.Pack) 17 gm PO BIDWM [facility] Last Admin: 05/22/22 08:19 Dose: 17 gm Documented By: JEFERSON Sevelamer Carbonate (Sevelamer Carbonate Tablet 800 Mg Tablet) 2,400 mg PO TIDWM [facility] Last Admin: 05/22/22 08:16 Dose: 2,400 mg Documented By: JEFERSON Sodium Zirconium Cyclosilicate (Sodium Zirconium Cyclosilicate 10 Gm Powd.Pack) 10 gm PO TUTHSA [facility] Last Admin: 05/21/22 15:32 Dose: 10 gm Documented By: NIKI Labs 05/22/22 06:42 05/22/22 06:42 Labs: Laboratory Results - last 24 hr 05/21/22 05/21/22 05/22/22 15:46 19:42 06:42 Anion Gap 21 H Estim Creat Clear Calc 13.2 Estimated GFR 6 POC Glucose 111 171 H Random Glucose 100 Calcium 9.3 Hep Bs Antigen Hep Bs Antibody Hep B Core Total Ab 05/22/22 05/22/22 05/22/22 07:00 10:35 10:49 Anion Gap Estim Creat Clear Calc Estimated GFR POC Glucose 99 106 Random Glucose Calcium Hep Bs Antigen Negative Hep Bs Antibody REACTIVE Hep B Core Total Ab Nonreactive Assessment and Plan (1) Nasal bleeding: Status: Acute (2) ESRD (end stage renal disease) on dialysis: Status: Acute (3) Hypertension: Status: Acute (4) Afib: Status: Acute Plan 46-year-old male with a past medical history of MRSA bacteremia, endocarditis, h/o paraspinal /epidural Phlegmon, ESRD with HD MWF, Sa, chronic diastolic chf, Cholecystitis (s/p Cholecystostomy d/t being poor candidate for surgery in Jan 2022), COPD, HTN, HLD,? permanent AFIB? and history of DVT on eliquis, who was BIBA in acute respiratory distress. EMS administered albuterol and 500cc normal saline for hypotension. They administered [place] Narcan for unresponsiveness. Found to have hyperkalemia and? flash pulmonary edema and required emergent dialysis in ICU; responded well to therapies 1.Acute on chronic hypoxic respiratory failure due to fluid overload; bonded to dialysis -resume hemodialysis schedule as per Renal 2.Hypertension -acceptable control on current therapies; status post HD -adjust as indicated 3.Atrial fibrillation -rate control adequate; no further epistaxis. .. Resume Eliquis -adjust therapies as per rate control; improved with HD -adjust as indicated 4.End-stage renal disease on HD -as per Renal 5.DMII -acceptable control on current therapies -adjust as indicated Requires ongoing hospitalization to monitor response to Eliquis in the backdrop of epistaxis Time Spent With Patient Time: Total time managing care of this patient today ____ minutes. Quality Stroke Does the patient have a stroke diagnosis?: No VTE Prior VTE?: Yes VTE Risk Level:: Medical - moderate - high VTE Device Contraindication: N/A - Device Ordered VTE Drug Contraindication: N/A - Med Ordered
[2022-05-22 15:16] VITALS: BP 168/80; PULSE 75; RESP 17; TEMP 36.3; O2SAT 90
[2022-05-22] MEDS: hydrALAZINE HCl 50 MG TABLET 100 MG PO ×2 (15:39→20:52)
[2022-05-22] MEDS: Isosorbide Mononitrate 30 MG TAB.ER.24H 90 MG PO (15:39)
[2022-05-22] MEDS: NIFEdipine ER 60 MG TAB.ER.24 PO (15:39)
[2022-05-22 15:51] LABS: Glucose, Whole Blood 101 mg/dL (60-115)
[2022-05-22] MEDS: carvediloL 25 MG TABLET PO (15:53)
[2022-05-22] MEDS: Amiodarone HCL 200 MG TABLET PO (15:53)
[2022-05-22] MEDS: Doxazosin Mesylate 2 MG TABLET 4 MG PO (15:54)
[2022-05-22 16:30] LABS: Vancomycin Random 8.9 mcg/mL (15-20)
[2022-05-22] MEDS: vancomycin HCL 750 MG in 0.9 % Sodium Chloride 250 ML 265 MG IV (18:31)
[2022-05-22 19:34] VITALS: BP 125/59; PULSE 81; RESP 15; TEMP 36.3; O2SAT 90
[2022-05-22 19:45] LABS: Glucose, Whole Blood 148 mg/dL (60-115)
[2022-05-22 20:39] VITALS: O2SAT 93
[2022-05-22] MEDS: Docusate Sodium 100 MG CAPSULE PO (20:52)
--- NOTE | 2022-05-22 21:25 | PM.PNNEP ---
Subjective Subjective Date of Service: 05/22/22 Interval history: Seen on HD. All recent data reviewe Physical Exam Vital Signs: Vital Signs: Last Vital Signs Temp 97.3 F 05/22/22 19:34 Pulse 81 05/22/22 19:34 Resp 15 05/22/22 19:34 BP 125/59 L 05/22/22 19:34 Pulse Ox 93 05/22/22 20:39 O2 Del Method Nasal Cannula 05/22/22 20:39 O2 Flow Rate 2 05/22/22 20:39 FiO2 24 05/11/22 11:00 BMI result Body Mass Index 33.7 Const: General: no acute distress Orientation/consciousness: patient oriented x3 Eyes: EOM: EOMs intact bilaterally Resp: Auscultation: diminished lung sounds Cardio: Rate: regular rate GI: Palpation (GI): Soft to palpation Neuro: General: patient oriented x3 and moves all extremities Objective Data Labs 05/22/22 06:42 05/22/22 06:42 Labs: Laboratory Results - last 24 hr 05/22/22 05/22/22 05/22/22 06:42 06:42 07:00 Hgb 9.1 L Hct 28.0 L Sodium 132 L Potassium 5.9 H D Chloride 96 Carbon Dioxide 21 L Anion Gap 21 H BUN 71 H Creatinine 9.16 H* Estim Creat Clear Calc 13.2 Estimated GFR 6 POC Glucose 99 Random Glucose 100 Calcium 9.3 Random Vancomycin Hep Bs Antigen Hep Bs Antibody Hep B Core Total Ab 05/22/22 05/22/22 05/22/22 10:35 10:49 15:10 Hgb Hct Sodium Potassium Chloride Carbon Dioxide Anion Gap BUN Creatinine Estim Creat Clear Calc Estimated GFR POC Glucose 106 101 Random Glucose Calcium Random Vancomycin Hep Bs Antigen Negative Hep Bs Antibody REACTIVE Hep B Core Total Ab Nonreactive 05/22/22 05/22/22 15:56 19:31 Hgb Hct Sodium Potassium Chloride Carbon Dioxide Anion Gap BUN Creatinine Estim Creat Clear Calc Estimated GFR POC Glucose 148 H Random Glucose Calcium Random Vancomycin 8.9 L Hep Bs Antigen Hep Bs Antibody Hep B Core Total Ab Microbiology Microbiology Results: Microbiology 05/12/22 03:55 Blood - Venous Blood Culture - Final No growth after 5 days. 05/12/22 03:55 Blood - Venous Blood Culture - Final No growth after 5 days. 05/11/22 02:10 Blood - Venous Blood Culture - Final No growth after 5 days. 05/11/22 02:10 Blood - Venous Blood Culture - Final Coag negative Staphylococcus Procedures Date of Service Date of Service: 05/22/22 Assessment & Plan Assessment and plan (1) ESRD (end stage renal disease) on dialysis: Status: Acute Assessment and Plan: End Stage Renal Disease on? MWF schedule?-Seen on HD Renal Diet; Phos binders with meals Compliance is a major issue Likely needs Placement - SNF Pt goes to [facility]- Please let us know where pt will be going and we can arrange HD-?Suggest Esther Valdez / Pricila Portillo Progress Note: Quality Stroke Does the patient have a stroke diagnosis?: No
[2022-05-22 23:57] VITALS: BP 126/70; PULSE 75; RESP 20; TEMP 36.9; O2SAT 93
--- NOTE | 2022-05-23 | ECG_ITS ---
Test Reason : cp Blood Pressure : / mmHG Vent. Rate : 072 BPM Atrial Rate : 072 BPM P-R Int : 244 ms QRS Dur : 126 ms QT Int : 410 ms P-R-T Axes : 049 002 121 degrees QTc Int : 448 ms Sinus rhythm with 1st degree A-V block Possible Left atrial enlargement Left ventricular hypertrophy with QRS widening ( Edwardo product ) T wave abnormality, consider lateral ischemia Abnormal ECG When compared with ECG of 15-MAY-2022 15:22, Nonspecific T wave abnormality no longer evident in Anterior leads Referred By: Kyle Bowling Electronically Signed By:REMBERTO TILLMAN MD
[2022-05-23] MEDS: Amoxicillin/Potassium Clav 500 MG TABLET PO ×2 (02:52→13:48)
[2022-05-23 03:52] VITALS: BP 158/82; PULSE 71; RESP 17; TEMP 36.2; O2SAT 94
[2022-05-23] MEDS: HYDROmorphone HCl 2 MG TABLET PO ×2 (05:24→11:32)
[2022-05-23 07:03] LABS: Glucose, Whole Blood 115 mg/dL (60-115)
[2022-05-23 07:21] VITALS: BP 168/82; PULSE 73; RESP 18; TEMP 36.8; O2SAT 96
--- NOTE | 2022-05-23 07:34 | PC.NURSE ---
Pt requested additional unscheduled pain medication @ 1:11am this Rn notified Dr. Antoine who said to stick to the schedule in the APR. Pt was very upset, heating pads given for additional pain relief. Will continue to monitor.
[2022-05-23] MEDS: Sevelamer Carbonate Tablet 800 MG TABLET 2400 MG PO ×2 (08:48→11:32)
[2022-05-23] MEDS: hydrALAZINE HCl 50 MG TABLET 100 MG PO (08:49)
[2022-05-23] MEDS: Isosorbide Mononitrate 30 MG TAB.ER.24H 90 MG PO (08:49)
[2022-05-23] MEDS: Gabapentin 300 MG CAPSULE PO (08:49)
[2022-05-23] MEDS: carvediloL 25 MG TABLET PO (08:49)
[2022-05-23] MEDS: NIFEdipine ER 60 MG TAB.ER.24 PO (08:49)
[2022-05-23] MEDS: Doxazosin Mesylate 2 MG TABLET 4 MG PO (08:50)
[2022-05-23] MEDS: Amiodarone HCL 200 MG TABLET PO (08:50)
[2022-05-23] MEDS: polyethylene glycoL 3350 17 GM POWD.PACK PO (08:51)
[2022-05-23] MEDS: Atorvastatin Calcium 80 MG TABLET PO (08:56)
--- NOTE | 2022-05-23 09:40 | PM.PNNEP ---
Subjective Subjective Date of Service: 05/23/22 Interval history: Had HD yesterday; All recent data reviewed Physical Exam Vital Signs: Vital Signs: Last Vital Signs Temp 98.3 F 05/23/22 07:21 Pulse 73 05/23/22 07:21 Resp 18 05/23/22 07:21 BP 168/82 H 05/23/22 07:21 Pulse Ox 96 05/23/22 07:21 O2 Del Method Nasal Cannula 05/23/22 07:21 O2 Flow Rate 2 05/23/22 03:52 FiO2 24 05/11/22 11:00 BMI result Body Mass Index 33.7 Const: General: no acute distress Orientation/consciousness: patient oriented x3 Eyes: EOM: EOMs intact bilaterally Neck: Neck: Yes supple Resp: Auscultation: diminished lung sounds Cardio: Rate: regular rate GI: Palpation (GI): Soft to palpation Neuro: General: patient oriented x3 and moves all extremities Objective Data Labs 05/22/22 06:42 05/22/22 06:42 Labs: Laboratory Results - last 24 hr 05/22/22 05/22/22 05/22/22 10:35 10:49 15:10 POC Glucose 106 101 Random Vancomycin Hep Bs Antigen Negative Hep Bs Antibody REACTIVE Hep B Core Total Ab Nonreactive 05/22/22 05/22/22 05/23/22 15:56 19:31 06:57 POC Glucose 148 H 115 Random Vancomycin 8.9 L Hep Bs Antigen Hep Bs Antibody Hep B Core Total Ab Microbiology Microbiology Results: Microbiology 05/12/22 03:55 Blood - Venous Blood Culture - Final No growth after 5 days. 05/12/22 03:55 Blood - Venous Blood Culture - Final No growth after 5 days. 05/11/22 02:10 Blood - Venous Blood Culture - Final No growth after 5 days. 05/11/22 02:10 Blood - Venous Blood Culture - Final Coag negative Staphylococcus Procedures Date of Service Date of Service: 05/23/22 Assessment & Plan Assessment and plan (1) ESRD (end stage renal disease) on dialysis: Status: Acute Assessment and Plan: End Stage Renal Disease on? MWF schedule?, due tomorrow Renal Diet; Phos binders with meals Compliance is a major issue Likely needs Placement - SNF Pt goes to [facility]- Please let us know where pt will be going and we can arrange HD-?Suggest H José Miguel / Pricila Portillo Progress Note: Quality Stroke Does the patient have a stroke diagnosis?: No
[2022-05-23] MEDS: Acetaminophen 325 MG TABLET 975 MG PO (10:18)
[2022-05-23 11:40] LABS: Glucose, Whole Blood 116 mg/dL (60-115)
[2022-05-23 12:00] VITALS: BP 164/98; PULSE 74; RESP 20; TEMP 36.2; O2SAT 92
--- NOTE | 2022-05-23 12:14 | P.DS_ITS ---
DS: Providers Provider Date of Service: 05/23/22 Date of admission: 05/11/22 03:51 Date of discharge: 05/23/22 Primary care physician: Christen Menjivar MD Consults: 05/14/22 09:08 Consult to Cardiology Routine Consulting Provider: [facility] [place] [facility] Reason for consultation: sob/hypoxia /?Severe MR DS: Diagnosis Discharge Diagnosis (1) ESRD (end stage renal disease) on dialysis: Status: Acute DS: Summary Hospital Course Hospital Course: mnef Complaint: Dyspnea The patient is a 46-year-old male with a past medical history of MRSA bacteremia, endocarditis, h/o paraspinal /epidural Phlegmon, ESRD with HD MWF, Sa, chronic diastolic chf, Cholecystitis (s/p Cholecystostomy d/t being poor candidate for surgery in Jan 2022), COPD, HTN, HLD,? permanent AFIB? and history of DVT on eliquis, who was BIBA in acute respiratory distress. EMS administered albuterol and 500cc normal saline for hypotension. They administered IN Narcan for unresponsiveness. The patient has had multiple hospitalizations at [facility] with episodes of fluid overload and has been getting IV vancomycin for a staph line infection. He was [place] [facility] [place] , for abdominal pain r/t cholecystostomy tube dysfunction.? On arrival to the emergency room the patient was in acute respiratory distress, only speaking a few words, complaining of no fever or chills. Blood pressure was 172/118, heart rate 87, respiratory rate 22, afebrile. Laboratory data significant for WBC 8.8, hematocrit 33.3, sodium 130, potassium 6.7, chloride 93, CO2 20, BUN 80, creatinine 10.25, troponin 191, BNP 4963. Imaging: CXR: Cardiomegaly and pulmonary venous congestion without overt edema and diffuse bronchial thickening representing bronchitis. ED course:? The patient was placed on BiPAP with settings of 12 in 5.? He was given Solu-Medrol 125 mg, Lasix 40mg, ? inch Nitropaste, Zofran, and Albuterol, 1 amp Sodium Bicarb, and Ativan 2mg. Nephrology was consulted.? On my assessment in the ER, the patient was awake, alert and oriented, moaning and restless but able to answer questions in full sentences. O2 sat 93% on BiPAP 01/14, RR 22. The patient was breathing easy with no accessory muscle use noted.? BP 175/107 heart rate 83.? The patient was admitted to the ICU for continued BiPAP and observation and emergent dialysis. Hospital course Patient transferred general medical floor and continue to receive dialysis. Was scheduled for ENT to remove the nasal packing however it fell out on its own without issue. On the day of discharge he is medically acceptable for discharge back to home to follow-up with his outpatient regimen of hemodialysis Time Spent with Patient Time attestation: Total time managing care of this patient today ____ minutes. Discharge coordination time: Greater than 30 minutes Quality: Safe Use of Opioids Does Pt have an Active Cancer Diagnosis on the Problem List?: No Quality: Stroke Does the patient have a stroke diagnosis?: No Physical Exam Vital Signs: Vital Signs: Last Vital Signs Temp 97.1 F 05/23/22 12:00 Pulse 74 05/23/22 12:00 Resp 20 05/23/22 12:00 BP 164/98 H 05/23/22 12:00 Pulse Ox 92 05/23/22 12:00 O2 Del Method Nasal Cannula 05/23/22 12:00 O2 Flow Rate 92 05/23/22 12:00 FiO2 24 05/11/22 11:00 BMI result Body Mass Index 33.7 Const: Other: Awake alert no acute distress Resp: Other: Clear to auscultation bilaterally no rales rhonchi or wheezes Cardio: Other: No S4; positive S1-S2; no S3 murmurs rubs or gallops GI: Other: Soft nontender nondistended normoactive bowel sounds Extrem: Other: No edema bilaterally DS: Data Data Completed and Pending Completed studies during hospitalization [Text1]: Procedures Assistance with Respiratory Ventilation, Less than 24 Consecutive Hours, Continuous Positive Airway Pressure (08/13/21) Performance of Urinary Filtration, Intermittent, Less than 6 Hours Per Day (04/08/22) Labs on day of discharge: Laboratory Results - last 24 hr 05/22/22 05/22/22 05/22/22 10:35 15:10 15:56 POC Glucose 101 Random Vancomycin 8.9 L Hep Bs Antigen Negative Hep Bs Antibody REACTIVE Hep B Core Total Ab Nonreactive 05/22/22 05/23/22 05/23/22 19:31 06:57 11:31 POC Glucose 148 H 115 116 H Random Vancomycin Hep Bs Antigen Hep Bs Antibody Hep B Core Total Ab Discharge Plan Discharge Anticipated Discharge Date/Time: 05/23/22 12:10 Patient Disposition: Home, Self-Care Discharge Diagnosis: CHF exacerbated Referrals: Physician,Unknown J [Physician] - 1 Week Discharge Medications: New hydromorphone 2 mg Tablet 2 mg PO Q6H PRN (Reason: Pain, Severe (Pain Scale 7-10)) Qty: 20 0RF Rx Instructions: Partial Fill upon patient request. Continued bumetanide 2 mg tablet 2.5 tab PO BID amiodarone 200 mg tablet 1 tab PO DAILY isosorbide mononitrate 30 mg tablet extended release 24 hr 3 tab PO QAM diphenhydramine HCl [Banophen] 25 mg capsule 1 cap PO TID PRN (Reason: itch) gabapentin 300 mg capsule 1 cap PO TID budesonide-formoterol [Symbicort] 80-4.5 mcg/actuation HFA aerosol inhaler 2 puff inhalation BID Eliquis 5 mg tablet 1 tab PO BID digoxin 125 mcg (0.125 mg) tablet 0.5 tab PO DAILY sevelamer carbonate 800 mg tablet 3 tab PO TID atorvastatin 80 mg tablet 80 mg PO DAILY acetaminophen 325 mg tablet 975 mg PO TID aspirin 81 mg Tablet,Delayed Release (Dr/Ec) 81 mg PO DAILY carvedilol 25 mg tablet 25 mg PO BID hydralazine 25 mg tablet 100 mg PO TID nifedipine 60 mg tablet extended release 24hr 60 mg PO DAILY doxazosin 2 mg tablet 4 mg PO DAILY sodium zirconium cyclosilicate 10 gram Powder In Packet 10 g PO TUTHSA Discontinued vancomycin 500 mg recon soln 500 mg PO MOWEFR Qty: 10 0RF Rx Instructions: after dialysis Discharge Orders: Discharge Order (Routine); Ordered 05/23/22 Ordered By: Kyle Bowling Diet: Diabetic diet Activity on Discharge: As tolerated Stand Alone Forms: Patient Portal Discharge page Care Plan Goals: Continue all pre-hospital medications Health Concerns: Follow-up with dialysis as per outpatient regimen Plan of Treatment: Utilize Dilaudid for chest pain Assessment: See discharge summary
--- NOTE | 2022-05-23 13:30 | MHC.CM.PN ---
PT MEDICALLY CLEARED FOR D/C HOME W/RESUMP OF [facility] AND OUTPT HD AT [facility], W/PT PERMISSION Maryam RICHARDS [phone] UPDATED W/PLAN AND D/C SUMMARY TO BE EMAILED TO [email or web address], TRANSPORT VIA [facility]FT ARRANGED FOR 2:30PM.
== END 2022-05-23 15:01 | disposition home or self-care (01) | DRG 194 ==
LOC: HO.ED 03:38 → HO.EDOVER 04:02 → HO.ICU 04:07 → HO.IMC 15:46
PROVIDERS: Internal Medicine; Internal Medicine Cardiovascular Disease; Internal Medicine Nephrology; Admitting Provider Nurse Practitioner Family; Emergency Provider Emergency Medicine; PCP Student in an Organized Health Care Education/Training Program; Visit Provider Hospitalist
DX: I13.2 Hypertensive heart and chronic kidney disease with heart failure and with stage 5 chronic kidney disease, or end stage renal disease (principal); J96.21 Acute and chronic respiratory failure with hypoxia; I47.20 Ventricular tachycardia, unspecified; K81.0 Acute cholecystitis; E86.1 Hypovolemia; N18.6 End stage renal disease; D63.1 Anemia in chronic kidney disease; E87.1 Hypo-osmolality and hyponatremia; D68.32 Hemorrhagic disorder due to extrinsic circulating anticoagulants; I31.9 Disease of pericardium, unspecified; I48.21 Permanent atrial fibrillation; E11.22 Type 2 diabetes mellitus with diabetic chronic kidney disease; E66.9 Obesity, unspecified; E87.5 Hyperkalemia; F17.210 Nicotine dependence, cigarettes, uncomplicated; I34.0 Nonrheumatic mitral (valve) insufficiency; I44.0 Atrioventricular block, first degree; R04.0 Epistaxis; T45.515A Adverse effect of anticoagulants, initial encounter; I50.33 Acute on chronic diastolic (congestive) heart failure; Z99.2 Dependence on renal dialysis; K59.00 Constipation, unspecified; I72.4 Aneurysm of artery of lower extremity; Z71.6 Tobacco abuse counseling; Z20.822 Contact with and (suspected) exposure to COVID-19; Z68.33 Body mass index [BMI] 33.0-33.9, adult; Z91.158 Patient's noncompliance with renal dialysis for other reason; Z96.89 Presence of other specified functional implants; Z86.14 Personal history of Methicillin resistant Staphylococcus aureus infection; Z88.2 Allergy status to sulfonamides; Z79.01 Long term (current) use of anticoagulants; Z79.82 Long term (current) use of aspirin; Z79.899 Other long term (current) drug therapy
CPT/HCPCS: 0241U; 36415; 36600; 71045; 80048; 80076; 80202; 82803; 82947; 83605; 83690; 83880; 84484; 85014; 85018; 85025; 86704; 86706; 87040; 87147; 87205; 87340; 90935; 90999; 93000; 93005; 93306; 93308; 94640; 97162; 99285; J1170; J1200; J1885; J1940; J2060; J2270; J2405; J2930; J3370; J3371

== ENCOUNTER 2022-06-06 15:41 | Inpatient (IN) | payer OTHER, SELFPAY ==
--- NOTE | 2022-06-06 | ECG_ITS ---
Test Reason : CHEST PAIN Blood Pressure : / mmHG Vent. Rate : 111 BPM Atrial Rate : 222 BPM P-R Int : 000 ms QRS Dur : 142 ms QT Int : 358 ms P-R-T Axes : 097 019 264 degrees QTc Int : 486 ms Atrial flutter with 2:1 A-V conduction Left ventricular hypertrophy with QRS widening and repolarization abnormality ( Edwardo product ) Abnormal ECG When compared with ECG of 06-JUN-2022 16:17, Atrial flutter has replaced Atrial fibrillation QRS duration has increased Nonspecific T wave abnormality has replaced inverted T waves in Inferior leads Nonspecific T wave abnormality, worse in Lateral leads Referred By: Hesham Antoine Electronically Signed By:Madi Corado
--- NOTE | ~2022-06-06 | XR_ITS ---
EXAMINATION: XR CHEST CLINICAL INFORMATION: Left flank/chest pain, SOB COMPARISON: Chest x-ray 06/06/2022 TECHNIQUE: Frontal view of the chest was obtained. FINDINGS: There is moderate cardiomegaly with increased bilateral pulmonary vasculature likely mild CHF. No acute airspace disease seen. There is no pleural effusion.. No gross bony abnormalities. XR/XR chest 1V IMPRESSION: Cardiomegaly with mild CHF.
--- NOTE | ~2022-06-06 | CT_ITS ---
EXAMINATION: CT ABDOMEN AND PELVIS WITHOUT CONTRAST CLINICAL INFORMATION: Severe left upper abdominal quadrant pain. COMPARISON: CT abdomen and pelvis from 04/07/2022.. TECHNIQUE: Multidetector volumetric imaging was performed from the lung bases to the pubic without contrast. Sagittal and coronal reformatted images were obtained on the technologist workstation. This CT examination was performed using dose optimization techniques as appropriate, variously including the following: *Automated exposure control. *Adjustment of mA and/or kV according to patient size (this includes techniques or standardized protocols for targeted exams where dose is matched to indication/reason for exam; i.e. extremities or head). *Use of iterative reconstruction technique. DLP: 1221 mGy-cm FINDINGS: LUNG BASES: Mild bilateral dependent atelectasis. Otherwise, no abnormalities of the visualized lung bases. Global cardiac enlargement. The blood pool demonstrates decreased attenuation relative to the myocardium consistent with a degree of underlying anemia. Coronary artery calcifications are present. ABDOMEN/PELVIS: Liver, Biliary Ducts, and Gallbladder: The unenhanced liver is enlarged measuring up to 23.5 cm in craniocaudal dimension. No demonstrated focal hepatic parenchymal abnormalities. Pigtail drainage catheter in place within the gallbladder. Small volume fluid within the gallbladder fossa is nonspecific in the setting of ascites. Pancreas: The pancreas is normal in appearance. Adrenal Glands: The adrenal glands are normal in appearance. Spleen: The spleen is enlarged, measuring up to 16.5 cm in long axis. Kidneys and Ureters: The unenhanced kidneys are normal in size without evidence of nephrolithiasis or hydronephrosis. No ureterolithiasis or hydroureter. Urinary Bladder: The urinary bladder is decompressed. No bladder calculi are demonstrated. Gastrointestinal System: The stomach is decompressed and therefore not well evaluated on this exam. The small bowel is of normal caliber. The colon is largely decompressed without overt pericolonic inflammatory change. Normal appendix. Genitourinary: No demonstrated overt abnormalities of the prostate gland or seminal vesicles. Intra-abdominal and Retroperitoneal Spaces: Small volume ascites, predominantly within the perihepatic and pelvic distributions. Otherwise, no demonstrated discrete intra-abdominal free fluid collections or gas. No mesenteric, retroperitoneal, or inguinal lymphadenopathy. VASCULATURE: The abdominal aorta is of normal contour and caliber with heavy calcific atherosclerotic disease. 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 MUSCULOSKELETAL: Moderate multilevel degenerative changes of the spine. Mild degenerative retrolistheses of L2 on L3, L3 on L4, and L5 on S1. No lytic or sclerotic osseous lesions demonstrated. Prominent fat-containing periumbilical hernia. Small bilateral fat-containing inguinal hernias. Moderate anasarca. No soft tissue masses demonstrated. CT/CT abdomen pelvis wo IV con IMPRESSION: 1. Hepatosplenomegaly. 2. Pigtail drainage catheter in place within the gallbladder. There is underlying anasarca and small volume perihepatic and pelvic ascites. Small volume fluid within the gallbladder fossa is nonspecific in the setting of ascites; however, it be difficult to fully exclude biliary leak if there is clinical suspicion. 3. Cardiomegaly. The blood pool demonstrates decreased attenuation relative to the myocardium consistent with a degree of underlying anemia. 4. 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
--- NOTE | ~2022-06-06 | US_ITS ---
EXAMINATION: US VENOUS ULTRASOUND WITH DOPPLER LOWER EXTREMITY, BILATERAL CLINICAL INFORMATION: Pain and swelling COMPARISON: Previous right leg arterial ultrasound March [address] of the abdomen and pelvis March 2022 TECHNIQUE: Ultrasound of the deep veins is performed from the hip to the calf with compression sonography and color and pulse Doppler assessment. Spectral analysis with color-flow imaging is performed. FINDINGS: RIGHT: There is normal venous compression and respiratory variation and augmented flow. The visualized common femoral vein, superficial femoral vein, profunda femoral vein, popliteal vein, and the trifurcation region shows no evidence of deep venous thrombosis. There is no significant popliteal fossa cyst. LEFT: There is normal venous compression and respiratory variation and augmented flow. The visualized common femoral vein, superficial femoral vein, profunda femoral vein, popliteal vein, and the trifurcation region shows no evidence of deep venous thrombosis. There is no significant popliteal fossa cyst. 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 This has a wide neck and measures 2.4 x 1.8 x 2.5 cm. This measured 3.6 x 2.3 x 2.2 cm on previous ultrasound exam March 2022 and is partially thrombosed. There is an aneurysm of the proximal to mid right femoral artery. This measures 4.5 x 5.7 x 4.9 cm. This area was not included in [id number] on previous exam compared. US/US venous duplex LE BI IMPRESSION: No DVT demonstrated in the bilateral lower extremity. 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 Dedicated CTA or right leg arterial ultrasound and vascular surgery consultation recommended. Findings will be communicated by the [place] work flow superintendent.
--- NOTE | ~2022-06-06 | US_ITS ---
Ultrasound arterial duplex, right lower extremity CLINICAL INFORMATION: Right femoral artery aneurysm COMPARISON: Ultrasound to 29/08/2022, CT 06/06/2022 TECHNIQUE: Duplex Doppler ultrasound evaluation of the right lower extremity FINDINGS: Secretarial Stenographer changes of the femoral artery are again noted. There is a partially thrombosed aneurysm of the right common femoral artery which measures 2.8 x 2.9 x 1.9 cm. The neck measures 1.5 cm and the patent lumen measures on the order of 1 x 1.5 cm. There is partially thrombosed aneurysm of the mid superficial femoral artery, the neck of which also measures 1.5 cm. The aneurysm sac measures 3.3 x 5.5 x 4.4 cm and is partially thrombosed. The remaining patent lumen measures on the order of 2.5 x 0.9 cm. US/US arterial duplex LE RT IMPRESSION: Redemonstration of a right common femoral pseudoaneurysm with increase in the size of the aneurysm sac as well as the size of the neck, though much of the lumen is thrombosed. There is a partially thrombosed aneurysm/pseudoaneurysm of the mid superficial femoral artery as well which was not visualized on the prior study.
[2022-06-06 16:08] VITALS: BP 166/112; BP 170/100; PULSE 150; PULSE 70; RESP 26; TEMP 36.6; O2SAT 100; BMI 32.3
--- NOTE | 2022-06-06 16:17 | ECG_ITS ---
Test Reason : CHEST PAIN Blood Pressure : / mmHG Vent. Rate : 124 BPM Atrial Rate : 227 BPM P-R Int : 000 ms QRS Dur : 122 ms QT Int : 348 ms P-R-T Axes : 000 015 236 degrees QTc Int : 499 ms Atrial flutter with variable A-V block Left ventricular hypertrophy with QRS widening and repolarization abnormality ( Edwardo product ) Abnormal ECG When compared with ECG of 06-JUN-2022 19:43, No significant change was found Referred By: Hesham Antoine Electronically Signed By:Madi Corado
--- NOTE | 2022-06-06 16:22 | MHC.EDTECH ---
EKG performed at 16:17
--- NOTE | 2022-06-06 16:27 | ED.ABDPAIN ---
HPI - Abdominal Pain General Chief Complaint: Abdominal Pain Stated Complaint: SOB Time Seen by Provider: 06/06/22 16:07 Source: patient Mode of arrival: EMS Limitations: no limitations History of Present Illness HPI narrative: Patient comes to the emergency room complaining of severe left upper quadrant and left flank pain since yesterday night. Patient states that he has not had any vomiting or diarrhea. Patient denies any trauma. Patient states that he was hoping the pain would go away but instead got worse. Denies fever chills. Patient is a dialysis patient, goes to dialysis Friday, did go yesterday for dialysis as scheduled. Patient denies any right upper quadrant pain, patient has a percutaneous cholecystectomy tube present for the last 4 months, states he has not had any issues. Also, it was noted that when patient came in, he is tachycardic in the 150s, patient known to have atrial fibrillation. Patient states that his visiting nurse has not been visiting him for the last 2 weeks and he has not had any of his medications. However, patient is still going to dialysis. Related Data Home Medications Medication Instructions Recorded Confirmed amiodarone 200 mg tablet 1 tab PO DAILY 08/13/21 05/11/22 apixaban 5 mg tablet (Eliquis) 1 tab PO BID 08/13/21 05/11/22 budesonide-formoterol HFA 80 2 puff inhalation BID 08/13/21 05/11/22 mcg-4.5 mcg/actuation aerosol inhaler (Symbicort) bumetanide 2 mg tablet 2.5 tab PO BID 08/13/21 05/11/22 diphenhydramine HCl 25 mg capsule 1 cap PO TID PRN itch 08/13/21 05/11/22 (Banophen) gabapentin 300 mg capsule 1 cap PO TID 08/13/21 05/11/22 isosorbide mononitrate 30 mg 3 tab PO QAM 08/13/21 05/11/22 tablet,extended release 24 hr digoxin 125 mcg (0.125 mg) tablet 0.5 tab PO DAILY 04/08/22 05/11/22 sevelamer carbonate 800 mg tablet 3 tab PO TID 04/08/22 05/11/22 acetaminophen 325 mg tablet 975 mg PO TID 05/11/22 05/11/22 aspirin 81 mg tablet,delayed 81 mg PO DAILY 05/11/22 05/11/22 release atorvastatin 80 mg tablet 80 mg PO DAILY 05/11/22 05/11/22 carvedilol 25 mg tablet 25 mg PO BID 05/11/22 05/11/22 doxazosin 2 mg tablet 4 mg PO DAILY 05/11/22 05/11/22 hydralazine 25 mg tablet 100 mg PO TID 05/11/22 05/11/22 nifedipine 60 mg tablet,extended 60 mg PO DAILY 05/11/22 05/11/22 release 24 hr sodium zirconium cyclosilicate 10 10 g PO TUTHSA 05/11/22 05/11/22 gram oral powder packet Previous Rx's Medication Instructions Recorded hydromorphone 2 mg tablet 2 mg PO Q6H PRN Pain, Severe (Pain 05/23/22 Scale 7-10) #20 tabs Allergies Allergy/AdvReac Type Severity Reaction Status Date / Time PHILLY Inhibitors Allergy Anaphylaxis Verified 08/13/21 12:19 shellfish derived Allergy Anaphylaxis Verified 08/13/21 12:19 Sulfa (Sulfonamide Allergy Anaphylaxis Verified 08/13/21 12:19 Antibiotics) Review of Systems Review of Systems Constitutional : No Weight loss, No Fever, No Chills, No Night Sweats, No Fatigue, No Malaise ENT/Mouth : No Hearing loss, No Ear Pain, No Nasal Congestion, No Sinus Pain, No Hoarseness, No sore throat, No Rhinorrhea, No Swallowing Difficulty Eyes: No Eye Pain, No Swelling, No Redness, No Foreign Body, No Discharge, No Vision Changes Cardiovascular : No Chest Pain, No SOB, No Dyspnea on Exertion, No Orthopnea, No Edema, No Palpitations Respiratory : No Cough, No Sputum, No Wheezing, No Smoke Exposure, No Dyspnea Gastrointestinal : No Nausea, no vomiting or diarrhea, complaining of left upper quadrant pain Genitourinary : no irregular bleeding, No Dysuria, No Urinary Frequency, No Hematuria, No Urinary Incontinence, No Urgency, No Flank Pain, No Urinary Flow Changes, No Hesitancy Musculoskeletal : No joint pain, No Myalgias, No Joint Swelling Skin : No Skin Lesions, No rash Neuro : No Weakness, No Numbness, No Paresthesias, No Loss of Consciousness, No Dizziness, No Headache Psych : No Anxiety/Panic, No Depression, No SI/HI/AH/VH, No Social Issues, Heme/Lymph: No Bruising, No Bleeding,No Lymphadenopathy Endocrine : No Polyuria, No Polydipsia, No Temperature Intolerance [facility] Past Medical History Medical History (Updated 06/06/22 @ 20:25 by Naty Lanza MD) Afib CHF (congestive heart failure) Diabetes DVT (deep venous thrombosis) End stage renal disease Endocarditis 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 Hyperkalemia Hypertension MRSA bacteremia Social History Social History Household Members: None Household Members Other:: NONE Housing: Other Housing Other:: MOTEL Do you presently have visiting nurse or other home services: No Unable to assess alcohol history related to: Unknown Alcohol intake: current Patient Tobacco Use Status: Current everyday Tobacco user Tobacco use type: Cigarette Cigarette Packs Per Day: 1 Cigarettes Per Day: 20.0 e-Cigarette/Vaping Use: Never Used Second Hand Smoke Exposure: No Substance Use Type: Opiates Advance Directives: Yes Advance Directives on File: Yes Advance Directives Date on File: 04/08/22 service: No Current occupational status: disabled Physical Exam ED Vital Signs: Vital Signs - 24 hr 06/06/22 16:08 06/06/22 16:54 06/06/22 18:14 Temperature 97.9 F Pulse Rate 150 H 114 H 126 H Respiratory Rate 26 H 24 H 18 Blood Pressure 166/112 H 172/123 H Pulse Oximetry 100 96 Oxygen Delivery Method Nasal Cannula Nasal Cannula Oxygen Flow Rate 3 06/06/22 19:15 Temperature Pulse Rate 112 H Respiratory Rate 24 H Blood Pressure 172/136 H Pulse Oximetry 96 Oxygen Delivery Method Room Air Oxygen Flow Rate BMI result Body Mass Index 32.3 Const Other: Appearance: Alert. Oriented X3. Uncomfortable Eyes: Pupils equal, round and reactive to light. ENT: Pharynx normal. Neck: Normal inspection. Neck supple. No lymph nodes noted. No crepitus CVS: Normal heart rate and rhythm. Pulses normal. Normal S1 and S2 Respiratory: No respiratory distress. Breath sounds normal. No Wheezing. No rales , on 3 L of oxygen at baseline Abdomen: Soft , pain to palpation in the left flank and left upper quadrant, positive guarding, no rebound. There is a percutaneous cholecystectomy tube on the right upper quadrant, no cellulitis, draining appropriate Skin: Skin warm and dry. Normal skin color. Normal skin turgor. Extremities: No lower extremity edema. No Lacerations. No Rash Neuro: Oriented X 3. No motor deficit. No sensory deficit. Moving all extremities. No slurred speech. CN 2 through 12 grossly intact Psych: calm, cooperative, normal affect Course Course Course Narrative: -of patient's labs and imaging pending. Patient given 1 dose of morphine for pain. Medical Decision Making Medical Decision Making [facility] [place] Narrative: -patient initially had a heart rate of 150, given 1 dose of diltiazem 20 mg, heart rate improved to 120, patient received a 2nd dose of 20 mg, heart rate in the 110s to 120s. Patient now on a Cardizem drip. -since patient got here, patient is requesting to have Dilaudid. Initially, he was given morphine, he did get it, but immediately said that Dilaudid is the only thing that helps his pain. Patient was given 1 mg of Dilaudid. Patient keeps asking every 15-20 minutes for another dose of Dilaudid. Reviewing patient's records, he frequently requests Dilaudid in every admission. His narcotic seeking behavior has been recorded by hospitalist and weight checker. -CT scan does not show a clear cause the patient has severe left upper quadrant pain. -I discussed patient with Dr. Antoine, patient being admitted for atrial fibrillation, currently on a diltiazem drip Differential Diagnosis Differential Diagnoses: The differential diagnosis associated with the presentation includes (Splenomegaly, postsurgical complication, aquatic seeking) Admission/Observation Consideration of admission/observation: Escalation of care including admission/observation considered Consult Healthcare Provider Management of the patient was discussed with: Hospitalist Lab Data [facility] [place] Lab Attestation statement: I reviewed the patient's lab results. 06/06/22 16:35 06/06/22 16:35 Labs: Lab Results 06/06/22 06/06/22 06/06/22 Range/Units 16:35 16:35 16:35 WBC 5.4 (4.8-10.8) X10*3/uL RBC 3.24 L (4.60-5.80) X10*6/uL Hgb 9.1 L (14.0-18.0) g/dl Hct 29.3 L (42.0-52.0) % MCV 90.4 (80.0-98.0) fL MCH 28.1 (27.0-33.0) pg MCHC 31.1 (31.0-36.0) g/dl RDW 20.3 H (11.0-16.0) % Plt Count 132 L (160-400) X10*3/uL MPV 10.5 (9.4-12.4) fL Immature Gran % (Auto) 0.4 (0.0-0.4) % Neut % (Auto) 73.3 H (45-73) % Lymph % (Auto) 14.7 L (20-40) % Oliver % (Auto) 10.1 (2-11) % Eos % (Auto) 0.6 (0-4) % Baso % (Auto) 0.9 (0-2) % Lymph # (Auto) 0.8 L (1.2-4.9) X10*3/uL Oliver # (Auto) 0.6 (0.1-1.2) X10*3/uL Eos # (Auto) 0.0 (0.0-0.4) X10*3/uL Baso # (Auto) 0.1 (0.0-0.2) X10*3/uL Abs Immat Gran (auto) 0.02 (0.00-0.03) X10*3/uL Absolute Neuts (auto) 4.0 (2.0-8.3) x10*3/uL Absolute Nucleated RBC 0.000 (0.0-0.012) X10*3/uL Nucleated RBC % (auto) 0.0 (0.0-0.2) /100WBC PT 19.9 H (10.0-13.1) SEC INR 1.7 H (0.9-1.1) VBG pH (7.32-7.43) VBG pCO2 mmHg VBG pO2 mmHg VBG HCO3 (22-26) mmol/L VBG O2 Saturation % VBG Base Excess mmol/L Sodium 137 (135-145) mmol/L Potassium 6.0 H* (3.3-5.1) mmol/L Chloride 97 (96-108) mmol/L Carbon Dioxide 23 (22-29) mmol/L Anion Gap 23 H (12-20) BUN 52 H (9-16) mg/dL Creatinine 7.56 H* (0.5-1.4) mg/dL Estim Creat Clear Calc 16.6 Estimated GFR 8 POC Glucose (60-115) mg/dL Random Glucose 90 (60-115) mg/dL Lactic Acid (0.5-2.0) mmol/L Calcium 9.7 (8.4-10.2) mg/dL Magnesium 2.2 (1.6-2.6) mg/dL Total Bilirubin 1.2 H (0.0-1.0) mg/dL Direct Bilirubin 0.4 (0.0-0.5) mg/dL AST 51 H (5-37) U/L ALT 39 (0-40) U/L Alkaline Phosphatase 204 H (39-117) U/L Troponin I High Sens (<3.5-35.0) ng/L B-Natriuretic Peptide (<100) pg/mL Total Protein 7.4 (6.5-8.0) g/dL Albumin 3.9 (3.5-5.0) g/dL Lipase 54 (8-78) U/L COVID-19 (FREDI) (Negative) COVID-19 Clin Com 06/06/22 06/06/22 06/06/22 Range/Units 16:35 16:35 16:35 WBC (4.8-10.8) X10*3/uL RBC (4.60-5.80) X10*6/uL Hgb (14.0-18.0) g/dl Hct (42.0-52.0) % MCV (80.0-98.0) fL MCH (27.0-33.0) pg MCHC (31.0-36.0) g/dl RDW (11.0-16.0) % Plt Count (160-400) X10*3/uL MPV (9.4-12.4) fL Immature Gran % (Auto) (0.0-0.4) % Neut % (Auto) (45-73) % Lymph % (Auto) (20-40) % Oliver % (Auto) (2-11) % Eos % (Auto) (0-4) % Baso % (Auto) (0-2) % Lymph # (Auto) (1.2-4.9) X10*3/uL Oliver # (Auto) (0.1-1.2) X10*3/uL Eos # (Auto) (0.0-0.4) X10*3/uL Baso # (Auto) (0.0-0.2) X10*3/uL Abs Immat Gran (auto) (0.00-0.03) X10*3/uL Absolute Neuts (auto) (2.0-8.3) x10*3/uL Absolute Nucleated RBC (0.0-0.012) X10*3/uL Nucleated RBC % (auto) (0.0-0.2) /100WBC PT (10.0-13.1) SEC INR (0.9-1.1) VBG pH (7.32-7.43) VBG pCO2 mmHg VBG pO2 mmHg VBG HCO3 (22-26) mmol/L VBG O2 Saturation % VBG Base Excess mmol/L Sodium (135-145) mmol/L Potassium (3.3-5.1) mmol/L Chloride (96-108) mmol/L Carbon Dioxide (22-29) mmol/L Anion Gap (12-20) BUN (9-16) mg/dL Creatinine (0.5-1.4) mg/dL Estim Creat Clear Calc Estimated GFR POC Glucose (60-115) mg/dL Random Glucose (60-115) mg/dL Lactic Acid 1.7 (0.5-2.0) mmol/L Calcium (8.4-10.2) mg/dL Magnesium (1.6-2.6) mg/dL Total Bilirubin (0.0-1.0) mg/dL Direct Bilirubin (0.0-0.5) mg/dL AST (5-37) U/L ALT (0-40) U/L Alkaline Phosphatase (39-117) U/L Troponin I High Sens 233.4 H* (<3.5-35.0) ng/L B-Natriuretic Peptide (<100) pg/mL Total Protein (6.5-8.0) g/dL Albumin (3.5-5.0) g/dL Lipase (8-78) U/L COVID-19 (FREDI) Negative (Negative) COVID-19 Clin Com See Note 04/06/06/22 06/06/22 Range/Units 16:35 16:40 19:12 WBC (4.8-10.8) X10*3/uL RBC (4.60-5.80) X10*6/uL Hgb (14.0-18.0) g/dl Hct (42.0-52.0) % MCV (80.0-98.0) fL MCH (27.0-33.0) pg MCHC (31.0-36.0) g/dl RDW (11.0-16.0) % Plt Count (160-400) X10*3/uL MPV (9.4-12.4) fL Immature Gran % (Auto) (0.0-0.4) % Neut % (Auto) (45-73) % Lymph % (Auto) (20-40) % Oliver % (Auto) (2-11) % Eos % (Auto) (0-4) % Baso % (Auto) (0-2) % Lymph # (Auto) (1.2-4.9) X10*3/uL Oliver # (Auto) (0.1-1.2) X10*3/uL Eos # (Auto) (0.0-0.4) X10*3/uL Baso # (Auto) (0.0-0.2) X10*3/uL Abs Immat Gran (auto) (0.00-0.03) X10*3/uL Absolute Neuts (auto) (2.0-8.3) x10*3/uL Absolute Nucleated RBC (0.0-0.012) X10*3/uL Nucleated RBC % (auto) (0.0-0.2) /100WBC PT (10.0-13.1) SEC INR (0.9-1.1) VBG pH 7.37 (7.32-7.43) VBG pCO2 47 mmHg VBG pO2 47 mmHg VBG HCO3 27 H (22-26) mmol/L VBG O2 Saturation 60.0 % VBG Base Excess 2.2 mmol/L Sodium (135-145) mmol/L Potassium (3.3-5.1) mmol/L Chloride (96-108) mmol/L Carbon Dioxide (22-29) mmol/L Anion Gap (12-20) BUN (9-16) mg/dL Creatinine (0.5-1.4) mg/dL Estim Creat Clear Calc Estimated GFR POC Glucose 78 (60-115) mg/dL Random Glucose (60-115) mg/dL Lactic Acid (0.5-2.0) mmol/L Calcium (8.4-10.2) mg/dL Magnesium (1.6-2.6) mg/dL Total Bilirubin (0.0-1.0) mg/dL Direct Bilirubin (0.0-0.5) mg/dL AST (5-37) U/L ALT (0-40) U/L Alkaline Phosphatase (39-117) U/L Troponin I High Sens (<3.5-35.0) ng/L B-Natriuretic Peptide 7966 H (<100) pg/mL Total Protein (6.5-8.0) g/dL Albumin (3.5-5.0) g/dL Lipase (8-78) U/L COVID-19 (FREDI) (Negative) COVID-19 Clin Com Medications Administered Discontinued Medications Generic Name Dose Route Start Last Admin Trade Name Freq PRN Reason Stop Dose Admin Albuterol Sulfate 10 mg 06/06/22 17:57 06/06/22 18:14 Albuterol Sulfate (0.083%) 2.5 Mg/3 Ml Vial.Neb INHALE 06/06/22 17:58 10 mg ONCE ONE Administration Diltiazem HCl 20 mg 06/06/22 16:21 06/06/22 16:41 Diltiazem Hcl 50 Mg/10 Ml Vial IVPUSH 06/06/22 16:22 20 mg STAT STA Administration Diltiazem HCl 20 mg 06/06/22 19:01 06/06/22 19:11 Diltiazem Hcl 50 Mg/10 Ml Vial IVPUSH 06/06/22 19:02 20 mg STAT STA Administration Hydromorphone HCl 1 mg 06/06/22 17:13 06/06/22 17:18 Hydromorphone Hcl 1 Mg/Ml Syringe IVPUSH 06/06/22 17:14 1 mg ONCE ONE Administration Protocol Calcium Gluconate 2 gm in 100 mls @ 50 mls/hr 06/06/22 17:58 04/27/23 19:10 Calcium Gluconate IV 06/06/22 19:57 50 mls/hr ONCE ONE Administration Lorazepam 2 mg 06/06/22 19:56 06/06/22 20:02 Lorazepam 2 Mg/Ml Vial IVPUSH 06/06/22 19:57 2 mg ONCE ONE Administration Morphine Sulfate 4 mg 06/06/22 16:30 06/06/22 16:41 Morphine Sulfate 4 Mg/Ml Cartridge IVPUSH 06/06/22 16:31 4 mg ONCE ONE Administration Protocol Sodium Zirconium Cyclosilicate 10 gm 06/06/22 18:34 06/06/22 19:11 Sodium Zirconium Cyclosilicate 10 Gm Powd.Pack PO 06/06/22 18:35 10 gm ONCE ONE Administration Critical Care Time Critical Care Time Total Critical Care Time: 75 Attestation: I have personally provided critical care time. Time includes review of lab data, radiology results, discussion with consultants, and monitoring for potential decompensation. Intervention performed as documented. Discharge Plan Discharge Clinical Impression: Atrial fibrillation with RVR, Abdominal pain Patient Disposition: Admitted As Inpatient Prescriptions: No Action bumetanide 2 mg tablet 2.5 tab PO BID amiodarone 200 mg tablet 1 tab PO DAILY isosorbide mononitrate 30 mg tablet extended release 24 hr 3 tab PO QAM diphenhydramine HCl [Banophen] 25 mg capsule 1 cap PO TID PRN (Reason: itch) gabapentin 300 mg capsule 1 cap PO TID budesonide-formoterol [Symbicort] 80-4.5 mcg/actuation HFA aerosol inhaler 2 puff inhalation BID Eliquis 5 mg tablet 1 tab PO BID digoxin 125 mcg (0.125 mg) tablet 0.5 tab PO DAILY sevelamer carbonate 800 mg tablet 3 tab PO TID atorvastatin 80 mg tablet 80 mg PO DAILY acetaminophen 325 mg tablet 975 mg PO TID aspirin 81 mg Tablet,Delayed Release (Dr/Ec) 81 mg PO DAILY carvedilol 25 mg tablet 25 mg PO BID hydralazine 25 mg tablet 100 mg PO TID nifedipine 60 mg tablet extended release 24hr 60 mg PO DAILY doxazosin 2 mg tablet 4 mg PO DAILY sodium zirconium cyclosilicate 10 gram Powder In Packet 10 g PO TUTHSA hydromorphone 2 mg Tablet 2 mg PO Q6H PRN (Reason: Pain, Severe (Pain Scale 7-10)) Qty: 20 0RF Rx Instructions: Partial Fill upon patient request.
[2022-06-06] MEDS: Morphine Sulfate 4 MG/ML CARTRIDGE IVPUSH (16:41)
[2022-06-06] MEDS: dilTIAZem HCL 50 MG/10 ML VIAL 20 MG IVPUSH ×3 (16:41→20:35)
[2022-06-06 16:43] LABS: MANUAL DIFF FLAG NO
[2022-06-06 16:48] LABS: VBG Base Excess 2.2 mmol/L; VBG HCO3 27 mmol/L (22-26); VBG pCO2 47 mmHg; VBG pH 7.37 (7.32-7.43); VBG pO2 47 mmHg
[2022-06-06 16:48] LABS: Basophils Absolute Auto 0.1 X10*3/uL (0.0-0.2); Basophils Percent Auto 0.9 % (0-2); Eosinophils Percent Auto 0.6 % (0-4); Hematocrit 29.3 % (42.0-52.0); Hemoglobin 9.1 g/dl (14.0-18.0); Imm Gran Abs Auto 0.02 X10*3/uL (0.00-0.03); Imm Gran Pct Auto 0.4 % (0.0-0.4); Lymphocytes Absolute Auto 0.8 X10*3/uL (1.2-4.9); Lymphocytes Percent Auto 14.7 % (20-40); Mean Corpuscular HGB Conc 31.1 g/dl (31.0-36.0); Mean Corpuscular Hemoglobin 28.1 pg (27.0-33.0); Mean Corpuscular Volume 90.4 fL (80.0-98.0); Mean Platelet Volume 10.5 fL (9.4-12.4); Monocytes Absolute Auto 0.6 X10*3/uL (0.1-1.2); Monocytes Percent Auto 10.1 % (2-11); Neutrophils Percent Auto 73.3 % (45-73); Platelet Count 132 X10*3/uL (160-400); Red Blood Count 3.24 X10*6/uL (4.60-5.80); Red Cell Distribution Width 20.3 % (11.0-16.0); White Blood Count 5.4 X10*3/uL (4.8-10.8)
[2022-06-06 16:53] LABS: INTERNATIONAL NORM RATIO 1.7 (0.9-1.1); Prothrombin Time 19.9 SEC (10.0-13.1)
[2022-06-06 16:54] VITALS: BP 172/123; PULSE 114; RESP 24; O2SAT 96
[2022-06-06 16:56] LABS: Lactic Acid 1.7 mmol/L (0.5-2.0)
[2022-06-06 16:58] LABS: Venous Blood Gas Refer to POC result
[2022-06-06 16:59] LABS: COVID-19 Test Negative (Negative); IDNOW Serial# 08D9AD1C
[2022-06-06] MEDS: HYDROmorphone HCl 1 MG/ML SYRINGE IVPUSH (17:18)
--- NOTE | 2022-06-06 17:22 | PC.NURSE ---
Patient alert and oriented x 3. Patient came in tele: Rapid afib 140-150's Patient c/o left abdominal pain 10/10 medicated with morphine with no effect. Dr. Lanza ordered diluadid 1mg awaiting to see if he will get some relief. Patient has a drain in right abdomen draining yellow ? bile. Patient cannot lay flat states, I can't breathe. Patient ambulates with cane. left wrist AV fistula + bruit and thrill.
[2022-06-06 17:40] LABS: Alanine Aminotransferase 39 U/L (0-40); Albumin Level 3.9 g/dL (3.5-5.0); Alkaline Phosphatase 204 U/L (39-117); Anion Gap 23 (12-20); Aspartate Amino Transferase 51 U/L (5-37); Bilirubin Direct 0.4 mg/dL (0.0-0.5); Bilirubin Total 1.2 mg/dL (0.0-1.0); Blood Urea Nitrogen 52 mg/dL (9-16); Calcium 9.7 mg/dL (8.4-10.2); Carbon Dioxide 23 mmol/L (22-29); Chloride 97 mmol/L (96-108); Creatinine Clr Calc Pharmacy 16.6; Estimated Glomerular Filt Rate 8; Glucose Random 90 mg/dL (60-115); Lipase 54 U/L (8-78); Magnesium 2.2 mg/dL (1.6-2.6); Sodium 137 mmol/L (135-145); Total Protein 7.4 g/dL (6.5-8.0); Troponin-I High Sensitivity 233.4 ng/L (<3.5-35.0)
[2022-06-06 17:58] LABS: B Type Natriuretic Peptide 7966 pg/mL (<100)
[2022-06-06 18:14] VITALS: PULSE 126; RESP 18; O2SAT 96
[2022-06-06] MEDS: Albuterol Sulfate (0.083%) 2.5 MG/3 ML VIAL.NEB 10 MG INHALE (18:14)
[2022-06-06] MEDS: Calcium Gluconate/NaCl,Iso-Osm 2 GM/100 ML PLAST..BAG IV (19:10)
[2022-06-06] MEDS: Sodium Zirconium Cyclosilicate 10 GM POWD.PACK PO (19:11)
[2022-06-06 19:15] VITALS: BP 172/136; PULSE 112; RESP 24; O2SAT 96
--- NOTE | 2022-06-06 19:15 | PC.NURSE ---
Took over care at 19:00pm From Gavin Aldana, pt report having n/v/d for several day, pt is a&o pt is on 3l nc, pt is normally on 3l at home. pt able to respond to question appropriate. pt medicated per apr. pt on bedside monitor. Will continue to monitor.
[2022-06-06 19:16] LABS: Glucose, Whole Blood 78 mg/dL (60-115)
--- NOTE | 2022-06-06 19:43 | PC.NURSE ---
pt difficult Iv stick, lost for line, attempt second line placement.
--- NOTE | 2022-06-06 19:52 | PC.NURSE ---
insulin not given [id number] Lanza only one iv line that calcuim gluconate is running. Patient cannot eat or drink anything until ct scan results are back.
--- NOTE | 2022-06-06 19:59 | MHC.CM.ED ---
Dr. Lanza requested CM to assess if pt VNA has been seeing him. Pt state no VNA visits for 2 weeks and no medications. Pt is active with [facility] and was return referred on 05/23 at discharge from [facility]. Pt has HD in [facility]. Pt lives at [facility] [address] in [place] ([phone]). Uses cane and has home oxygen at 2L. CM spoke with marketing operations coordinator RN from [facility], who tells CM that they received a return referral for this patient on 05/23 and have made numerous calls to set up intake, but patient has not returned any calls. CM spoke with patient. He states he lost his phone. Pt has been going to dialysis and states he spoke with a nurse there about not having a phone. Pt states the VNA always comes on T&TH. CM asked if he has his medications at home. Pt states he has them delivered, but that the VNA puts them in his pill boxes, so he hasn't taken them. Dr. Lanza aware of above. Medical workup continuing. CM will call [facility] with above information. CM will follow for discharge planning.
[2022-06-06] MEDS: LORazepam 2 MG/ML VIAL IVPUSH (20:02)
--- NOTE | 2022-06-06 20:07 | P.HPHOSP_ITS ---
History of Present Illness Date of Service: 06/06/22 Chief Complaint: Abdominal Pain This is a 46-year-old male with pertinent history of ESRD on dialysis, (Friday/Friday/Friday/Friday), chronic diastolic congestive heart failure, cholecystitis status post cholecystostomy as patient is poor candidate for surg michael, permanent atrial fibrillation on Eliquis, essential hypertension, mixed hyperlipidemia, chronic hypoxemic respiratory failure secondary to COPD who presents to the emergency department for evaluation of abdominal discomfort. Patient states left-sided abdominal discomfort started 1 day prior to presentation. It has been constant, nonradiating and without any relieving factors. Also has been having associated nausea. Patient denies fever, chills, chest discomfort, palpitations, shortness of breath, changes in urinary or bowel habits. In the emergency department, patient was found to be in AFib with RVR. Review of Systems Constitutional: Constitutional: Reports no additional constitutional complaints Cardiovascular: Cardiovascular: Reports no additional cardiovascular complaints Respiratory: Respiratory: Reports no additional respiratory complaints Gastrointestinal: Gastrointestinal: Reports abdominal pain Genitourinary: Genitourinary: Reports no additional male genitourinary complaints [facility] Medical History Afib CHF (congestive heart failure) Diabetes DVT (deep venous thrombosis) End stage renal disease Endocarditis Hx of mcfp use of blood thinners Hyperkalemia Hypertension MRSA bacteremia Pertinent family history: No family history of early CAD Social History Household Members: None Household Members Other:: NONE Housing: Other Housing Other:: MOTEL Do you presently have visiting nurse or other home services: No Unable to assess alcohol history related to: Unknown Alcohol intake: current Patient Tobacco Use Status: Current everyday Tobacco user Tobacco use type: Cigarette Cigarette Packs Per Day: 1 Cigarettes Per Day: 20.0 e-Cigarette/Vaping Use: Never Used Second Hand Smoke Exposure: No Substance Use Type: Opiates Advance Directives: Yes Advance Directives on File: Yes Advance Directives Date on File: 04/08/22 service: No Current occupational status: disabled Meds Allergies Allergy/AdvReac Type Severity Reaction Status Date / Time PIHLLY Inhibitors Allergy Anaphylaxis Verified 08/13/21 12:19 shellfish derived Allergy Anaphylaxis Verified 08/13/21 12:19 Sulfa (Sulfonamide Allergy Anaphylaxis Verified 08/13/21 12:19 Antibiotics) Active Medications: Current Medications Dextrose (D10) 250 mls @ 750 mls/hr IV Q15M PRN PRN Reason: per Hypoglycemia Standing Ord. Home Medications Medication Instructions Recorded Confirmed Last Taken Type amiodarone 200 mg tablet 1 tab PO DAILY 08/13/21 05/11/22 Unknown History apixaban 5 mg tablet (Eliquis) 1 tab PO BID 08/13/21 05/11/22 Unknown History budesonide-formoterol HFA 80 2 puff inhalation BID 08/13/21 05/11/22 Unknown History mcg-4.5 mcg/actuation aerosol inhaler (Symbicort) bumetanide 2 mg tablet 2.5 tab PO BID 08/13/21 05/11/22 Unknown History diphenhydramine HCl 25 mg capsule 1 cap PO TID PRN itch 08/13/21 05/11/22 Unknown History (Banophen) gabapentin 300 mg capsule 1 cap PO TID 08/13/21 05/11/22 Unknown History isosorbide mononitrate 30 mg 3 tab PO QAM 08/13/21 05/11/22 Unknown History tablet,extended release 24 hr digoxin 125 mcg (0.125 mg) tablet 0.5 tab PO DAILY 04/08/22 05/11/22 Unknown History sevelamer carbonate 800 mg tablet 3 tab PO TID 04/08/22 05/11/22 Unknown History acetaminophen 325 mg tablet 975 mg PO TID 05/11/22 05/11/22 Unknown History aspirin 81 mg tablet,delayed 81 mg PO DAILY 05/11/22 05/11/22 Unknown History release atorvastatin 80 mg tablet 80 mg PO DAILY 05/11/22 05/11/22 Unknown History carvedilol 25 mg tablet 25 mg PO BID 05/11/22 05/11/22 Unknown History doxazosin 2 mg tablet 4 mg PO DAILY 05/11/22 05/11/22 Unknown History hydralazine 25 mg tablet 100 mg PO TID 05/11/22 05/11/22 Unknown History nifedipine 60 mg tablet,extended 60 mg PO DAILY 05/11/22 05/11/22 Unknown History release 24 hr sodium zirconium cyclosilicate 10 10 g PO TUTHSA 05/11/22 05/11/22 Unknown History gram oral powder packet Physical Exam Vital Signs and Narrative: Vital Signs: Last Vital Signs Temp 97.9 F 06/06/22 16:08 Pulse 112 H 06/06/22 19:15 Resp 24 H 06/06/22 19:15 BP 172/136 H 06/06/22 19:15 Pulse Ox 96 06/06/22 19:15 O2 Del Method Room Air 06/06/22 19:15 O2 Flow Rate 3 06/06/22 16:54 Oxygen Flow Rate 3 06/06/22 16:08 BMI result Body Mass Index 32.3 Middle-aged male lying in bed in no distress on supplemental oxygen Neck supple Irregularly irregular, S1-S2 heard Regular breath sounds bilaterally, no wheezing or crackles appreciated Abdomen with left upper quadrant tenderness, no guarding, no rigidity, no rebound tenderness Patient is awake, alert and oriented to self, place, time and person ; no focal motor deficit Psych: Normal mood Results Labs 06/06/22 16:35 06/06/22 16:35 Labs: Laboratory Results - last 24 hr 06/06/22 06/06/22 06/06/22 16:35 16:35 16:35 MCV 90.4 MCH 28.1 MCHC 31.1 RDW 20.3 H Plt Count 132 L MPV 10.5 Immature Gran % (Auto) 0.4 Neut % (Auto) 73.3 H Lymph % (Auto) 14.7 L [place] % (Auto) 10.1 Eos % (Auto) 0.6 Baso % (Auto) 0.9 Lymph # (Auto) 0.8 L [place] # (Auto) 0.6 Eos # (Auto) 0.0 Baso # (Auto) 0.1 Abs Immat Gran (auto) 0.02 Absolute Neuts (auto) 4.0 Absolute Nucleated RBC 0.000 Nucleated RBC % (auto) 0.0 PT 19.9 H INR 1.7 H VBG pH VBG pCO2 VBG pO2 VBG HCO3 VBG O2 Saturation VBG Base Excess Anion Gap 23 H Estim Creat Clear Calc 16.6 Estimated GFR 8 POC Glucose Random Glucose 90 Lactic Acid Calcium 9.7 Magnesium 2.2 Total Bilirubin 1.2 H Direct Bilirubin 0.4 AST 51 H ALT 39 Alkaline Phosphatase 204 H Troponin I High Sens B-Natriuretic Peptide Total Protein 7.4 Albumin 3.9 Lipase 54 COVID-19 (FREDI) COVID-19 Clin Com 06/06/22 06/06/22 06/06/22 16:35 16:35 16:35 MCV MCH MCHC RDW Plt Count MPV Immature Gran % (Auto) Neut % (Auto) Lymph % (Auto) [place] % (Auto) Eos % (Auto) Baso % (Auto) Lymph # (Auto) [place] # (Auto) Eos # (Auto) Baso # (Auto) Abs Immat Gran (auto) Absolute Neuts (auto) Absolute Nucleated RBC Nucleated RBC % (auto) PT INR VBG pH VBG pCO2 VBG pO2 VBG HCO3 VBG O2 Saturation VBG Base Excess Anion Gap Estim Creat Clear Calc Estimated GFR POC Glucose Random Glucose Lactic Acid 1.7 Calcium Magnesium Total Bilirubin Direct Bilirubin AST ALT Alkaline Phosphatase Troponin I High Sens 233.4 H* B-Natriuretic Peptide Total Protein Albumin Lipase COVID-19 (FREDI) Negative COVID-19 Clin Com See Note 06/06/22 06/06/22 06/06/22 16:35 16:40 19:12 MCV MCH MCHC RDW Plt Count MPV Immature Gran % (Auto) Neut % (Auto) Lymph % (Auto) [place] % (Auto) Eos % (Auto) Baso % (Auto) Lymph # (Auto) [place] # (Auto) Eos # (Auto) Baso # (Auto) Abs Immat Gran (auto) Absolute Neuts (auto) Absolute Nucleated RBC Nucleated RBC % (auto) PT INR VBG pH 7.37 VBG pCO2 47 VBG pO2 47 VBG HCO3 27 H VBG O2 Saturation 60.0 VBG Base Excess 2.2 Anion Gap Estim Creat Clear Calc Estimated GFR POC Glucose 78 Random Glucose Lactic Acid Calcium Magnesium Total Bilirubin Direct Bilirubin AST ALT Alkaline Phosphatase Troponin I High Sens B-Natriuretic Peptide 7966 H Total Protein Albumin Lipase COVID-19 (FREDI) COVID-19 Clin Com Imaging Radiologist's Impressions: Impressions Chest X-Ray 06/06/22 17:25 IMPRESSION: Cardiomegaly with mild CHF. Assessment and Plan (1) Afib: Status: Acute Plan This is a 46-year-old male with pertinent history of ESRD on dialysis, (Friday/Friday/Friday/Friday), chronic diastolic congestive heart failure, cholecystitis status post cholecystostomy as patient is poor candidate for surgery, permanent atrial fibrillation on Eliquis, essential hypertension, mixed hyperlipidemia, chronic hypoxemic respiratory failure secondary to COPD who presents to the emergency department for evaluation of abdominal discomfort. #. AFib/flutter with RVR: Rate controlled with IV diltiazem in the ER. Will admit patient with cardiac monitoring. Continue Eliquis. Obtain TSH #. Chronic abdominal pain due to history of cholecystitis now with C-tube: Patient does have chronic abdominal pain the, apparently going on for months now. [facility] recommends drain to remain in place and no surgery planned as patient is poor candidate. P.o. Dilaudid for pain, avoid IV medicines (as patient has pain seeking behavior) CT abdomen/pelvis pending #. Essential hypertension: Continue Coreg, nifedipine and hydralazine #. End-stage renal disease on hemodialysis: Friday/Friday/Friday/Friday. Will consult Nephrology #. Chronic anemia of kidney disease: Weekly Epogen as per nephro #. Hyperkalemia: Given temporizing measures in the ER. #. Elevated troponin: Likely type 2 in the setting of increased demand #. Chronic hypoxemic respiratory failure due to COPD. Continue home inhaler Med rec pending DVT prophylaxis: On Eliquis Low-sodium diet Full code Time Spent With Patient Time: Total time managing care of this patient today ____ minutes. Quality Stroke Does the patient have a stroke diagnosis?: No VTE Prior VTE?: No VTE Risk Level:: Medical - moderate - high VTE Device Contraindication: Treatment Not Indicated VTE Drug Contraindication: N/A - Med Ordered
[2022-06-06] MEDS: Insulin Regular, Human 100 UNIT/ML 3 ML VIAL 10 UNIT IVPUSH (20:23)
--- NOTE | 2022-06-06 20:36 | PC.NURSE ---
pt medicated per mar, for heart rate.
[2022-06-06] MEDS: HYDROmorphone HCl 2 MG TABLET PO (20:38)
--- NOTE | 2022-06-06 20:40 | PC.NURSE ---
medicated per mar for pain management.
--- NOTE | 2022-06-06 20:48 | PC.NURSE ---
poc of care was 79, notified by Gavin Harper, Notified Dr. Antoine, per Dr. Antoine will continue to monitor, pt is eating and drinking at this time and tolerating well.
--- NOTE | 2022-06-06 20:50 | PC.NURSE ---
Cardizem drip on hold until prior medication is completed due to one IV access Dr. Antoine is aware.
--- NOTE | 2022-06-06 21:00 | PHA.MEDREC ---
Pharmacy Consult ? Medication Reconciliation Pharmacy has completed the medication reconciliation. Patient is poor historian, used pharmacy claims
--- NOTE | 2022-06-06 21:14 | PC.NURSE ---
Called Dr. Antoine reported poc of 60, per Dr. Antoine, stop calcium and start Dextrose
[2022-06-06 21:15] LABS: Glucose, Whole Blood 60 mg/dL (60-115)
[2022-06-06] MEDS: Dextrose 10 % 250 ML 750 ML IV (21:20)
--- NOTE | 2022-06-06 21:31 | PC.NURSE ---
Called Dr. Antoine, requesting if he wanted a repeat trop per provider not to repeat lab, Will repeat in am .
--- NOTE | 2022-06-06 21:45 | MHC.CM.PN ---
RUBÉN 06/06. Lives at [facility] [address] ([phone]). Pt uses a cane. Has Home Oxygen @2l from [facility]. Has HD in [place] on Friday, Friday and Friday. He has transportation to dialysis. States the visiting nurse has not come and he hasn't taken his meds. States the VNA sets up his pill boxes. Pt tells CM that he has his medications delivered, but cannot set up the med boxes. 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 ?cognitive issue. Spoke with contracts director RN at [facility]. Has [facility] for SN, education, medication management, PT/OT and weekly labs. [facility] has not been able to reach patient to set up return services since discharge on 05/23. They have called multiple times and left messages. According to the patient, he lost his phone. HCP on file. HCP/Brother Bob ([phone]). Pt states his brother cannot help him because he lives in [place]. CM spoke with [facility] nurse Jesika regarding patient not having a phone. Will place referral return to [facility] with request to call [facility] to leave any messages for patient. D/C plan: Home with visiting nurse. Will need transportation home. CM will follow for any discharge needs.
[2022-06-06] MEDS: diphenhydrAMINE HCL 50 MG/ML VIAL IVPUSH (22:10)
[2022-06-06 22:11] VITALS: BP 177/135; PULSE 118; RESP 26; TEMP 36.4; O2SAT 96
[2022-06-06 22:11] LABS: Glucose, Whole Blood 107 mg/dL (60-115)
[2022-06-06 23:10] VITALS: BP 198/135; PULSE 118; RESP 17; TEMP 36.7; O2SAT 97
[2022-06-06] MEDS: Labetalol HCL 100 MG/20 ML VIAL 10 MG IVPUSH (23:22)
--- NOTE | 2022-06-06 23:24 | PC.NURSE ---
notified Dr. Antoine of elevated blood pressure, medicated per order, will continue to monitor.
[2022-06-07 01:14] VITALS: BP 115/64; RESP 17
--- NOTE | 2022-06-07 01:36 | PC.NURSE ---
pt requesting pain medication several time, educated pt several time when medication is due. [place] cath in place and functioning well. pt requesting sandwich and drink, Rn did give food. pt repositioned in for comfort. Will continue to monitor
--- NOTE | 2022-06-07 01:37 | MHC.EDTECH ---
Due to patient being unstable on feet [place] catherter was applied by this tech
--- NOTE | 2022-06-07 01:55 | PC.NURSE ---
pt placed in recliner for comfort.
[2022-06-07] MEDS: HYDROmorphone HCl 2 MG TABLET PO ×4 (03:23→22:37)
[2022-06-07] MEDS: 0.9 % Sodium Chloride Flush 3 ML SYRINGE IVFLUSH ×3 (03:24→22:37)
[2022-06-07 05:03] LABS: MANUAL DIFF FLAG NO
[2022-06-07 05:04] LABS: Basophils Percent Auto 0.8 % (0-2); Eosinophils Absolute Auto 0.1 X10*3/uL (0.0-0.4); Eosinophils Percent Auto 1.9 % (0-4); Hematocrit 26.5 % (42.0-52.0); Hemoglobin 8.3 g/dl (14.0-18.0); Imm Gran Abs Auto 0.02 X10*3/uL (0.00-0.03); Imm Gran Pct Auto 0.4 % (0.0-0.4); Lymphocytes Absolute Auto 0.7 X10*3/uL (1.2-4.9); Mean Corpuscular HGB Conc 31.3 g/dl (31.0-36.0); Mean Corpuscular Hemoglobin 28.1 pg (27.0-33.0); Mean Corpuscular Volume 89.8 fL (80.0-98.0); Mean Platelet Volume 9.7 fL (9.4-12.4); Monocytes Absolute Auto 0.6 X10*3/uL (0.1-1.2); Monocytes Percent Auto 11.7 % (2-11); Neutrophils Absolute Auto 3.7 x10*3/uL (2.0-8.3); Neutrophils Percent Auto 71.2 % (45-73); Platelet Count 107 X10*3/uL (160-400); Red Blood Count 2.95 X10*6/uL (4.60-5.80); White Blood Count 5.1 X10*3/uL (4.8-10.8)
[2022-06-07 05:25] LABS: Anion Gap 19 (12-20); Blood Urea Nitrogen 58 mg/dL (9-16); Calcium 9.2 mg/dL (8.4-10.2); Carbon Dioxide 23 mmol/L (22-29); Chloride 97 mmol/L (96-108); Creatinine Clr Calc Pharmacy 14.9; Estimated Glomerular Filt Rate 7; Glucose Random 151 mg/dL (60-115); Sodium 134 mmol/L (135-145)
[2022-06-07 06:04] VITALS: BP 176/133; PULSE 115; RESP 17; TEMP 36.6; O2SAT 95
--- NOTE | 2022-06-07 06:44 | PC.NURSE ---
Pt requesting something for pain. Made aware that dilaudid not able to be administered at this time. Offered tylenol and decline. Drainage bag emptied.
[2022-06-07] MEDS: Acetaminophen 325 MG TABLET 650 MG PO (06:50)
--- NOTE | 2022-06-07 06:53 | PC.NURSE ---
Pt now agreeable to tylenol. Medicated per APR. Heat pack provider per request. Breakfast tray delivered to bedside.
--- NOTE | 2022-06-07 07:54 | PC.NURSE ---
attempt to give report to rn on [facility], awaiting call back
--- NOTE | 2022-06-07 08:13 | PC.NURSE ---
report given to im, transport contacted
[2022-06-07 08:37] VITALS: PULSE 114; RESP 18; TEMP 37.1; O2SAT 96
[2022-06-07 08:51] LABS: Glucose, Whole Blood 127 mg/dL (60-115)
--- NOTE | 2022-06-07 09:10 | PM.CNNEP ---
History of Present Illness Reason for Consult Consult date: 06/07/22 Reason for consult: ESRD Chief Complaint Chief complaint: Abdominal pain History of Present Illness Narrative: 46-year-old male with ESRD on dialysis, (Friday/Friday/Friday/Friday), chronic diastolic congestive heart failure, cholecystitis status post cholecystostomy as patient is poor candidate for surgery, permanent atrial fibrillation on Eliquis, essential hypertension, mixed hyperlipidemia, chronic hypoxemic respiratory failure secondary to COPD who presents to the emergency department for evaluation of abdominal discomfort.? Patient states left-sided abdominal discomfort started 1 day prior to presentation.? It has been constant, nonradiating and without any relieving factors.? Also has been having associated nausea.? Patient denies fever, chills, chest discomfort, palpitations, shortness of breath, changes in urinary or bowel habits. In the emergency department, patient was found to be in AFib with RVR. Review of Systems Review of Systems As per [facility] Past Medical History Medical History Afib CHF (congestive heart failure) Diabetes DVT (deep venous thrombosis) End stage renal disease Endocarditis Hx of usp use of blood thinners Hyperkalemia Hypertension MRSA bacteremia Social History Social History Household Members: None Household Members Other:: NONE Housing: Other Housing Other:: motel Do you presently have visiting nurse or other home services: Yes (last visit was 3 weeks ago with a visiting nurse) Unable to assess alcohol history related to: Unknown Alcohol intake: current Patient Tobacco Use Status: Current everyday Tobacco user Tobacco use type: Cigarette Cigarette Packs Per Day: 1 Cigarettes Per Day: 2 Years Smoked: 30 Smoked in Last 30 Days: Yes e-Cigarette/Vaping Use: Never Used Patient Interested in Nicotine Replacement: No Patient Given Instructions on How to Stop Smoking: Yes Date Education Initiated: 06/07/22 Second Hand Smoke Exposure: No Use of substances other than those prescribed or required for medical reasons: No Substance Use Type: Opiates Currently Displaying Signs/Symptoms of Drug Intoxication Withdrawal: No Any prior treatment program specific to substance use: No Have you been hit, kicked, punched, or otherwise hurt by someone within the past year? If so, by whom?: No Do you feel safe in your current relationship?: No Current Relationship Is there a partner from a previous relationship who is making you feel unsafe now?: No Are you made to feel afraid or neglected: No Advance Directives: Yes Advance Directives on File: Yes Advance Directives Date on File: 04/08/22 Do you have thoughts of harming others: None Do you have a plan to hurt others: No Plan Recently lost weight without trying: Yes How much weight loss: 34pounds or more Eating poorly because of decreased appetite: No Nutrition screen score: 6 Nutrition Risks: No Nutritional Risk Poor oral hygiene: No service: No Current occupational status: disabled Meds Allergies Allergy/AdvReac Type Severity Reaction Status Date / Time PHILLY Inhibitors Allergy Anaphylaxis Verified 08/13/21 12:19 shellfish derived Allergy Anaphylaxis Verified 08/13/21 12:19 Sulfa (Sulfonamide Allergy Anaphylaxis Verified 08/13/21 12:19 Antibiotics) Active Medications: Current Medications Acetaminophen (Acetaminophen 325 Mg Tablet) 650 mg PO Q6H PRN PRN Reason: Pain, Mild (Pain Scale 1-3) Last Admin: 06/07/22 06:50 Dose: 650 mg Acetaminophen (Acetaminophen 325 Mg Tablet) 975 mg PO TID [facility] Amlodipine Besylate (Amlodipine Besylate 10 Mg Tablet) 10 mg PO DAILY [facility]; Protocol Apixaban (Apixaban 5 Mg Tablet) 5 mg PO BID [facility] Aspirin (Aspirin Enteric Coated 81 Mg Tablet.Dr) 81 mg PO DAILY [facility] Atorvastatin Calcium (Atorvastatin Calcium 80 Mg Tablet) 80 mg PO DAILY [facility] Bumetanide (Bumetanide 1 Mg Tablet) 5 mg PO BID [facility]; Protocol Carvedilol (Carvedilol 25 Mg Tablet) 25 mg PO BID [facility]; Protocol Digoxin (Digoxin 0.125 Mg Tablet) 0.0625 mg PO DAILY [facility] Doxazosin Mesylate (Doxazosin Mesylate 2 Mg Tablet) 4 mg PO DAILY [facility]; Protocol Fluticasone/Vilanterol (Fluticasone/Vilanterol 100/25 Blst.W.Dev) 1 puff INHALE RDAILY [facility] Gabapentin (Gabapentin 300 Mg Capsule) 300 mg PO TID [facility] Hydralazine HCl (Hydralazine Hcl 50 Mg Tablet) 100 mg PO TID [facility]; Protocol Hydromorphone HCl (Hydromorphone Hcl 2 Mg Tablet) 2 mg PO Q6H PRN PRN Reason: Pain, Severe (Pain Scale 7-10) Dextrose (D10) 250 mls @ 750 mls/hr IV Q15M PRN PRN Reason: per Hypoglycemia Standing Ord. Last Admin: 06/06/22 21:20 Dose: 750 mls/hr Diltiazem HCl 125 mg/ Sodium (Chloride) 125 mls @ 0 mls/hr IVCONT .Q0M [facility]; Protocol Isosorbide Mononitrate (Isosorbide Mononitrate 30 Mg Tab.Er.24h) 90 mg PO DAILY [facility]; Protocol Melatonin (Melatonin 3 Mg Tablet) 6 mg PO BEDTIME PRN PRN Reason: Insomnia Nifedipine (Nifedipine Er 60 Mg Tab.Er.24) 60 mg PO DAILY [facility]; Protocol Ondansetron HCl (Ondansetron Hcl 4 Mg/2 Ml Vial) 4 mg IVPUSH Q8H PRN PRN Reason: Nausea and Vomiting Pharmacy Consult (Consult Rx Perform Med Rec) 1 each MISCELLANE ONCE PRN PRN Reason: Consult order Sevelamer Carbonate (Sevelamer Carbonate Tablet 800 Mg Tablet) 2,400 mg PO TID [facility] Sodium Chloride (0.9 % Sodium Chloride Flush 3 Ml Syringe) [facility] Last Admin: 06/07/22 07:34 Dose: Not Given Home Medications Medication Instructions Recorded Confirmed Last Taken Type apixaban 5 mg tablet (Eliquis) 1 tab PO BID 08/13/21 06/06/22 Unknown History budesonide-formoterol HFA 80 2 puff inhalation BID 08/13/21 06/06/22 Unknown History mcg-4.5 mcg/actuation aerosol inhaler (Symbicort) bumetanide 2 mg tablet 2.5 tab PO BID 08/13/21 06/06/22 Unknown History gabapentin 300 mg capsule 1 cap PO TID 08/13/21 06/06/22 Unknown History isosorbide mononitrate 30 mg 3 tab PO QAM 08/13/21 06/06/22 Unknown History tablet,extended release 24 hr digoxin 125 mcg (0.125 mg) tablet 0.5 tab PO DAILY 04/08/22 06/06/22 Unknown History sevelamer carbonate 800 mg tablet 3 tab PO TID 04/08/22 06/06/22 Unknown History acetaminophen 325 mg tablet 975 mg PO TID 05/11/22 06/06/22 Unknown History aspirin 81 mg tablet,delayed 81 mg PO DAILY 05/11/22 06/06/22 Unknown History release atorvastatin 80 mg tablet 80 mg PO DAILY 05/11/22 06/06/22 Unknown History carvedilol 25 mg tablet 25 mg PO BID 05/11/22 06/06/22 Unknown History doxazosin 2 mg tablet 4 mg PO DAILY 05/11/22 06/06/22 Unknown History hydralazine 25 mg tablet 100 mg PO TID 05/11/22 06/06/22 Unknown History nifedipine 60 mg tablet,extended 60 mg PO DAILY 05/11/22 06/06/22 Unknown History release 24 hr amlodipine 10 mg tablet 10 mg PO DAILY 06/06/22 06/06/22 Unknown History Physical Exam Vital Signs: Last Vital Signs Temp 98.7 F 06/07/22 08:37 Pulse 114 H 06/07/22 08:37 Resp 18 06/07/22 08:37 BP 176/133 H 06/07/22 06:04 Pulse Ox 96 06/07/22 08:37 O2 Del Method Nasal Cannula 06/07/22 08:37 O2 Flow Rate 3 06/07/22 08:37 Oxygen Flow Rate 3 06/06/22 16:08 BMI result Body Mass Index 32.3 Middle-aged male lying in bed in no distress on supplemental oxygen Neck supple Irregularly irregular, S1-S2 heard Regular breath sounds bilaterally, no wheezing or crackles appreciated Abdomen with left upper quadrant tenderness, no guarding, no rigidity, no rebound tenderness Patient is awake, alert and oriented to self, place, time and person ; no focal motor deficit Results Lab Results 06/07/22 04:52 06/07/22 04:52 Lab results: Chemistry 06/06/22 06/07/22 16:35 04:52 Sodium 137 134 L Potassium 6.0 H* 5.0 Carbon Dioxide 23 BUN 52 H 58 H Creatinine 7.56 H* 8.41 H* Calcium 9.7 9.2 Hematology 06/06/22 06/07/22 16:35 04:52 WBC 5.4 5.1 Hgb 9.1 L 8.3 L Plt Count 132 L 107 L Assessment and Plan (1) ESRD (end stage renal disease) on dialysis: Status: Acute Plan ESRD with fluid overload. I will arrange for hemodialysis today and remove fluid as tolerated. We will keep on Friday schedule. Optimize blood pressure with fluid removal and current medications. Anemia due to CKD. Resume Epogen Concur with the medical management. Time Spent With Patient Time: Total time managing care of this patient today ____ minutes. Procedures Date of Service Date of Service: 06/07/22
[2022-06-07] MEDS: Sevelamer Carbonate Tablet 800 MG TABLET 2400 MG PO ×3 (09:32→20:27)
[2022-06-07] MEDS: Isosorbide Mononitrate 30 MG TAB.ER.24H 90 MG PO (09:32)
[2022-06-07] MEDS: hydrALAZINE HCl 50 MG TABLET 100 MG PO ×3 (09:33→20:26)
[2022-06-07] MEDS: Digoxin 0.125 MG TABLET 0.0625 MG PO (09:33)
[2022-06-07] MEDS: Aspirin Enteric Coated 81 MG TABLET.DR PO (09:33)
[2022-06-07] MEDS: Apixaban 5 MG TABLET PO ×2 (09:33→20:27)
[2022-06-07] MEDS: Bumetanide 1 MG TABLET 5 MG PO ×2 (09:33→20:27)
[2022-06-07] MEDS: Doxazosin Mesylate 2 MG TABLET 4 MG PO (09:33)
[2022-06-07] MEDS: carvediloL 25 MG TABLET PO ×2 (09:33→20:27)
[2022-06-07] MEDS: Atorvastatin Calcium 80 MG TABLET PO (09:34)
[2022-06-07] MEDS: Acetaminophen 325 MG TABLET 975 MG PO ×3 (09:34→20:26)
[2022-06-07] MEDS: amLODIPine Besylate 10 MG TABLET PO (09:34)
[2022-06-07] MEDS: Gabapentin 300 MG CAPSULE PO ×3 (09:34→20:27)
[2022-06-07] MEDS: NIFEdipine ER 60 MG TAB.ER.24 PO (09:37)
[2022-06-07 10:55] VITALS: BP 176/80; PULSE 114; RESP 16; TEMP 37.1; O2SAT 97
[2022-06-07] MEDS: Lidocaine HCl 1 % MPF 2 ML VIAL INFILTRATI (11:00)
[2022-06-07] MEDS: LORazepam 1 MG TABLET PO ×2 (11:42→23:43)
[2022-06-07] MEDS: diphenhydrAMINE HCL 50 MG/ML VIAL 25 MG IVPUSH ×2 (11:43→23:42)
--- NOTE | 2022-06-07 14:34 | P.PNIM_ITS ---
Subjective Subjective Date of Service: 06/07/22 Interval History: As usual is complaning of abdominal pain and cholecystotomy bag is leaking He is due for dialysis today Physical Exam Vital Signs: Vital Signs: Last Vital Signs Temp 98.8 F 06/07/22 10:55 Pulse 114 H 06/07/22 10:55 Resp 16 06/07/22 10:55 BP 176/80 H 06/07/22 10:55 Pulse Ox 97 06/07/22 10:55 O2 Del Method Nasal Cannula 06/07/22 10:55 O2 Flow Rate 3 06/07/22 10:55 Oxygen Flow Rate 3 06/06/22 16:08 BMI result Body Mass Index 32.3 Const: Other: General: AO X 3, no acute distress Resp: CTA bilateral CVS: S1,S2,RRR, some swelling in legs GI: +BS, NT, no distention Skin: No rash Neuro: motor grossly intact Psych: appropriate affect Objective Data Active Medications Acetaminophen (Acetaminophen 325 Mg Tablet) 650 mg PO Q6H PRN PRN Reason: Pain, Mild (Pain Scale 1-3) Last Admin: 06/07/22 06:50 Dose: 650 mg Documented By: SALONI Acetaminophen (Acetaminophen 325 Mg Tablet) 975 mg PO TID [facility] Last Admin: 06/07/22 09:34 Dose: 975 mg Documented By: ANNE Amlodipine Besylate (Amlodipine Besylate 10 Mg Tablet) 10 mg PO DAILY [facility]; Protocol Last Admin: 06/07/22 09:34 Dose: 10 mg Documented By: ANNE Apixaban (Apixaban 5 Mg Tablet) 5 mg PO BID [facility] Last Admin: 06/07/22 09:33 Dose: 5 mg Documented By: ANNE Aspirin (Aspirin Enteric Coated 81 Mg Tablet.) 81 mg PO DAILY [facility] Last Admin: 06/07/22 09:33 Dose: 81 mg Documented By: ANNE Atorvastatin Calcium (Atorvastatin Calcium 80 Mg Tablet) 80 mg PO DAILY [facility] Last Admin: 06/07/22 09:34 Dose: 80 mg Documented By: ANNE Bumetanide (Bumetanide 1 Mg Tablet) 5 mg PO BID [facility]; Protocol Last Admin: 06/07/22 09:33 Dose: 5 mg Documented By: ANNE Carvedilol (Carvedilol 25 Mg Tablet) 25 mg PO BID [facility]; Protocol Last Admin: 06/07/22 09:33 Dose: 25 mg Documented By: ANNE Digoxin (Digoxin 0.125 Mg Tablet) 0.0625 mg PO DAILY [facility] Last Admin: 06/07/22 09:33 Dose: 0.0625 mg Documented By: ANNE Diphenhydramine HCl (Diphenhydramine Hcl 50 Mg/Ml Vial) 25 mg IVPUSH Q6H PRN PRN Reason: Itching Last Admin: 06/07/22 11:43 Dose: 25 mg Documented By: JAMIE Doxazosin Mesylate (Doxazosin Mesylate 2 Mg Tablet) 4 mg PO DAILY [facility]; Protocol Last Admin: 06/07/22 09:33 Dose: 4 mg Documented By: ANNE Fluticasone/Vilanterol (Fluticasone/Vilanterol 100/25 Blst.W.Dev) 1 puff INHALE RDAILY [facility] Last Admin: 06/07/22 09:57 Dose: Not Given Documented By: KEVIN Non-Admin Reason: Med Not Available Gabapentin (Gabapentin 300 Mg Capsule) 300 mg PO TID [facility] Last Admin: 06/07/22 09:34 Dose: 300 mg Documented By: ANNE Hydralazine HCl (Hydralazine Hcl 50 Mg Tablet) 100 mg PO TID [facility]; Protocol Last Admin: 06/07/22 09:33 Dose: 100 mg Documented By: ANNE Hydromorphone HCl (Hydromorphone Hcl 2 Mg Tablet) 2 mg PO Q6H PRN PRN Reason: Pain, Severe (Pain Scale 7-10) Last Admin: 06/07/22 09:35 Dose: 2 mg Documented By: ANNE Dextrose (D10) 250 mls @ 750 mls/hr IV Q15M PRN PRN Reason: per Hypoglycemia Standing Ord. Last Infusion: 06/07/22 09:43 Dose: 0 mls/hr Documented By: ANNE Diltiazem HCl 125 mg/ Sodium (Chloride) 125 mls @ 0 mls/hr IVCONT .Q0M [facility]; Protocol Isosorbide Mononitrate (Isosorbide Mononitrate 30 Mg Tab.Er.24h) 90 mg PO DAILY [facility]; Protocol Last Admin: 06/07/22 09:32 Dose: 90 mg Documented By: ANNE Lorazepam (Lorazepam 1 Mg Tablet) 1 mg PO Q6H PRN PRN Reason: Anxiety Last Admin: 06/07/22 11:42 Dose: 1 mg Documented By: JAMIE Melatonin (Melatonin 3 Mg Tablet) 6 mg PO BEDTIME PRN PRN Reason: Insomnia Nifedipine (Nifedipine Er 60 Mg Tab.Er.24) 60 mg PO DAILY [facility]; Protocol Last Admin: 06/07/22 09:37 Dose: 60 mg Documented By: ANNE Ondansetron HCl (Ondansetron Hcl 4 Mg/2 Ml Vial) 4 mg IVPUSH Q8H PRN PRN Reason: Nausea and Vomiting Pharmacy Consult (Consult Rx Perform Med Rec) 1 each MISCELLANE ONCE PRN PRN Reason: Consult order Sevelamer Carbonate (Sevelamer Carbonate Tablet 800 Mg Tablet) 2,400 mg PO TID [facility] Last Admin: 06/07/22 09:32 Dose: 2,400 mg Documented By: ANNE Sodium Chloride (0.9 % Sodium Chloride Flush 3 Ml Syringe) [facility] Last Admin: 06/07/22 07:34 Dose: Not Given Documented By: CASSIDY Non-Admin Reason: Patient Asleep Labs 06/07/22 04:52 06/07/22 04:52 Labs: Laboratory Results - last 24 hr 06/06/22 06/06/22 06/06/22 16:35 16:35 16:35 MCV 90.4 MCH 28.1 MCHC 31.1 RDW 20.3 H Plt Count 132 L MPV 10.5 Immature Gran % (Auto) 0.4 Neut % (Auto) 73.3 H Lymph % (Auto) 14.7 L Howell % (Auto) 10.1 Eos % (Auto) 0.6 Baso % (Auto) 0.9 Lymph # (Auto) 0.8 L Howell # (Auto) 0.6 Eos # (Auto) 0.0 Baso # (Auto) 0.1 Abs Immat Gran (auto) 0.02 Absolute Neuts (auto) 4.0 Absolute Nucleated RBC 0.000 Nucleated RBC % (auto) 0.0 PT 19.9 H INR 1.7 H VBG pH VBG pCO2 VBG pO2 VBG HCO3 VBG O2 Saturation VBG Base Excess Anion Gap 23 H Estim Creat Clear Calc 16.6 Estimated GFR 8 POC Glucose Random Glucose 90 Lactic Acid Calcium 9.7 Magnesium 2.2 Total Bilirubin 1.2 H Direct Bilirubin 0.4 AST 51 H ALT 39 Alkaline Phosphatase 204 H Troponin I High Sens B-Natriuretic Peptide Total Protein 7.4 Albumin 3.9 Lipase 54 TSH 2.30 COVID-19 (FREDI) COVID-19 Clin Com 06/06/22 06/06/22 06/06/22 16:35 16:35 16:35 MCV MCH MCHC RDW Plt Count MPV Immature Gran % (Auto) Neut % (Auto) Lymph % (Auto) Howell % (Auto) Eos % (Auto) Baso % (Auto) Lymph # (Auto) Howell # (Auto) Eos # (Auto) Baso # (Auto) Abs Immat Gran (auto) Absolute Neuts (auto) Absolute Nucleated RBC Nucleated RBC % (auto) PT INR VBG pH VBG pCO2 VBG pO2 VBG HCO3 VBG O2 Saturation VBG Base Excess Anion Gap Estim Creat Clear Calc Estimated GFR POC Glucose Random Glucose Lactic Acid 1.7 Calcium Magnesium Total Bilirubin Direct Bilirubin AST ALT Alkaline Phosphatase Troponin I High Sens 233.4 H* B-Natriuretic Peptide Total Protein Albumin Lipase TSH COVID-19 (FREDI) Negative COVID-19 Admaxim Com See Note 06/06/22 06/06/22 06/06/22 16:35 16:40 19:12 MCV MCH MCHC RDW Plt Count MPV Immature Gran % (Auto) Neut % (Auto) Lymph % (Auto) Howell % (Auto) Eos % (Auto) Baso % (Auto) Lymph # (Auto) Howell # (Auto) Eos # (Auto) Baso # (Auto) Abs Immat Gran (auto) Absolute Neuts (auto) Absolute Nucleated RBC Nucleated RBC % (auto) PT INR VBG pH 7.37 VBG pCO2 47 VBG pO2 47 VBG HCO3 27 H VBG O2 Saturation 60.0 VBG Base Excess 2.2 Anion Gap Estim Creat Clear Calc Estimated GFR POC Glucose 78 Random Glucose Lactic Acid Calcium Magnesium Total Bilirubin Direct Bilirubin AST ALT Alkaline Phosphatase Troponin I High Sens B-Natriuretic Peptide 7966 H Total Protein Albumin Lipase TSH COVID-19 ([facility]EDI) COVID-19 Clin Com 06/06/22 06/06/22 06/07/22 21:12 22:07 04:52 MCV 89.8 MCH 28.1 MCHC 31.3 RDW 20.0 H Plt Count 107 L MPV 9.7 Immature Gran % (Auto) 0.4 Neut % (Auto) 71.2 Lymph % (Auto) 14.0 L Howell % (Auto) 11.7 H Eos % (Auto) 1.9 Baso % (Auto) 0.8 Lymph # (Auto) 0.7 L Howell # (Auto) 0.6 Eos # (Auto) 0.1 Baso # (Auto) 0.0 Abs Immat Gran (auto) 0.02 Absolute Neuts (auto) 3.7 Absolute Nucleated RBC 0.000 Nucleated RBC % (auto) 0.0 PT INR VBG pH VBG pCO2 VBG pO2 VBG HCO3 VBG O2 Saturation VBG Base Excess Anion Gap Estim Creat Clear Calc Estimated GFR POC Glucose 60 107 Random Glucose Lactic Acid Calcium Magnesium Total Bilirubin Direct Bilirubin AST ALT Alkaline Phosphatase Troponin I High Sens B-Natriuretic Peptide Total Protein Albumin Lipase TSH COVID-19 (FREDI) COVID-19 Clin Com 06/07/22 06/07/22 06/07/22 04:52 04:52 08:47 MCV MCH MCHC RDW Plt Count MPV Immature Gran % (Auto) Neut % (Auto) Lymph % (Auto) Howell % (Auto) Eos % (Auto) Baso % (Auto) Lymph # (Auto) Howell # (Auto) Eos # (Auto) Baso # (Auto) Abs Immat Gran (auto) Absolute Neuts (auto) Absolute Nucleated RBC Nucleated RBC % (auto) PT INR VBG pH VBG pCO2 VBG pO2 VBG HCO3 VBG O2 Saturation VBG Base Excess Anion Gap 19 Estim Creat Clear Calc 14.9 Estimated GFR 7 POC Glucose 127 H Random Glucose 151 H Lactic Acid Calcium 9.2 Magnesium Total Bilirubin Direct Bilirubin AST ALT Alkaline Phosphatase Troponin I High Sens 191.0 H* B-Natriuretic Peptide Total Protein Albumin Lipase TSH COVID-19 ([facility]I) COVID-19 Clin Com Assessment and Plan (1) Atrial fibrillation with RVR: Status: Acute Plan 46-year-old male with pertinent history of ESRD on dialysis, (Friday/ ay/Friday/Friday), chronic diastolic congestive heart failure, cholecystitis status post cholecystostomy as patient is poor candidate for surgery, permanent atrial fibrillation on Eliquis, essential hypertension, mixed hyperlipidemia, chronic hypoxemic respiratory failure secondary to COPD who presents to the emergency department for evaluation of abdominal discomfort. #.? AFib/flutter with RVR: Rate controlled with IV diltiazem in the ER.? resume home meds of Coreg, digoxin, and Apixiban for stroke prevention #.? Chronic abdominal pain due to history of cholecystitis now with C-tube:? Patient does have chronic abdominal pain the, apparently going on for months now.? [facility] surgery recommends drain to remain in place and no surgery planned as patient is poor candidate.? P.o. Dilaudid for pain, avoid IV medicines (as patient has pain seeking behavior) CT abdomen/pelvis no acute f inding, gallbladder tube in place #.? Essential hypertension:? Continue Coreg, nifedipine and hydralazine #.? End-stage renal disease on hemodialysis:? Friday/Friday/Friday/Friday.? Will consult Nephrology #.? Chronic anemia of kidney disease:? Weekly Epogen as per nephro #.? Hyperkalemia:? Given temporizing measures in the ER. #.? Elevated troponin: Likely type 2 in the setting of increased demand #.? Chronic hypoxemic respiratory failure due to COPD.? Continue home inhaler and O2 DVT prophylaxis: apixiban, Obs pt Time Spent With Patient Time: Total time managing care of this patient today ____ minutes. Quality Stroke Does the patient have a stroke diagnosis?: No VTE Prior VTE?: No VTE Risk Level:: Medical - moderate - high VTE Device Contraindication: Treatment Not Indicated VTE Drug Contraindication: N/A - Med Ordered
[2022-06-07 16:00] VITALS: BP 150/91; PULSE 115; RESP 18; TEMP 37.1; O2SAT 95
[2022-06-07 16:06] LABS: Glucose, Whole Blood 115 mg/dL (60-115)
--- NOTE | 2022-06-07 19:07 | PC.NURSE ---
Urologist replaced Talley catheter with a new 18fr Talley catheter , patient tolerated well. Talley catheter patent and draining rust color urine.
[2022-06-07 19:20] VITALS: BP 156/89; PULSE 114; RESP 19; TEMP 37.1; O2SAT 93
[2022-06-07 20:16] LABS: Glucose, Whole Blood 143 mg/dL (60-115)
[2022-06-08] VITALS (8 sets, daily range): BP systolic 131–171; BP diastolic 83–92; PULSE 110–118; RESP 16–20; TEMP 36.1–37; O2SAT 92–96
[2022-06-08] MEDS: HYDROmorphone HCl 2 MG TABLET PO ×3 (04:37→18:35)
[2022-06-08] MEDS: Fluticasone/Vilanterol 100/25 BLST.W.DEV 1 PUFF INHALE (07:58)
[2022-06-08 08:43] LABS: Glucose, Whole Blood 143 mg/dL (60-115)
[2022-06-08] MEDS: 0.9 % Sodium Chloride Flush 3 ML SYRINGE IVFLUSH ×3 (10:53→20:28)
[2022-06-08] MEDS: Acetaminophen 325 MG TABLET 975 MG PO ×3 (10:54→20:28)
[2022-06-08] MEDS: Sevelamer Carbonate Tablet 800 MG TABLET 2400 MG PO ×3 (10:54→20:27)
[2022-06-08] MEDS: Gabapentin 300 MG CAPSULE PO ×3 (10:54→20:28)
[2022-06-08] MEDS: Digoxin 0.125 MG TABLET 0.0625 MG PO (10:55)
[2022-06-08] MEDS: Bumetanide 1 MG TABLET 5 MG PO ×2 (10:55→20:27)
[2022-06-08] MEDS: Isosorbide Mononitrate 30 MG TAB.ER.24H 90 MG PO (10:56)
[2022-06-08] MEDS: Aspirin Enteric Coated 81 MG TABLET.DR PO (10:56)
[2022-06-08] MEDS: amLODIPine Besylate 10 MG TABLET PO (10:57)
[2022-06-08] MEDS: hydrALAZINE HCl 50 MG TABLET 100 MG PO ×3 (10:57→20:28)
[2022-06-08] MEDS: Atorvastatin Calcium 80 MG TABLET PO (10:57)
[2022-06-08] MEDS: Apixaban 5 MG TABLET PO ×2 (10:57→20:27)
[2022-06-08] MEDS: carvediloL 25 MG TABLET PO ×2 (10:57→20:28)
[2022-06-08] MEDS: Doxazosin Mesylate 2 MG TABLET 4 MG PO (10:58)
[2022-06-08] MEDS: NIFEdipine ER 60 MG TAB.ER.24 PO (10:59)
[2022-06-08] MEDS: LORazepam 1 MG TABLET PO ×2 (11:06→20:35)
[2022-06-08] MEDS: diphenhydrAMINE HCL 50 MG/ML VIAL 25 MG IVPUSH ×2 (11:06→20:35)
--- NOTE | 2022-06-08 11:23 | PC.NURSE ---
patient refusing bed and chair alarm. Camera in room for patient's safety. will continue to monitor
--- NOTE | 2022-06-08 11:53 | HO.PM.IMPN ---
Subjective Subjective Date of Service: 06/08/22 Interval History: He he seems pretty comfortable today. Cholecystectomy tube is still leaking. Review of Systems chronic abdominal pain Physical Exam Vital Signs: Vital Signs: Last Vital Signs Temp 97.6 F 06/08/22 11:18 Pulse 113 H 06/08/22 11:18 Resp 20 06/08/22 11:18 BP 140/84 H 06/08/22 08:00 Pulse Ox 96 06/08/22 11:18 O2 Del Method Nasal Cannula 06/08/22 08:00 O2 Flow Rate 3 06/08/22 08:00 Oxygen Flow Rate 3 06/06/22 16:08 BMI result Body Mass Index 32.3 Const: Other: General: AO X 3, no acute distress Resp: CTA bilateral CVS: S1,S2,RRR, some swelling in legs GI: +BS, NT, no distention Skin: No rash Neuro: motor grossly intact Psych: appropriate affect Objective Data Active Medications Acetaminophen (Acetaminophen 325 Mg Tablet) 650 mg PO Q6H PRN PRN Reason: Pain, Mild (Pain Scale 1-3) Last Admin: 06/07/22 06:50 Dose: 650 mg Documented By: SALONI Acetaminophen (Acetaminophen 325 Mg Tablet) 975 mg PO TID [facility] Last Admin: 06/08/22 10:54 Dose: 975 mg Documented By: STEVEN Amlodipine Besylate (Amlodipine Besylate 10 Mg Tablet) 10 mg PO DAILY [facility]; Protocol Last Admin: 06/08/22 10:57 Dose: 10 mg Documented By: STEVEN Apixaban (Apixaban 5 Mg Tablet) 5 mg PO BID [facility] Last Admin: 06/08/22 10:57 Dose: 5 mg Documented By: STEVEN Aspirin (Aspirin Enteric Coated 81 Mg Tablet.) 81 mg PO DAILY [facility] Last Admin: 06/08/22 10:56 Dose: 81 mg Documented By: STEVEN Atorvastatin Calcium (Atorvastatin Calcium 80 Mg Tablet) 80 mg PO DAILY [facility] Last Admin: 06/08/22 10:57 Dose: 80 mg Documented By: STEVEN Bumetanide (Bumetanide 1 Mg Tablet) 5 mg PO BID [facility]; Protocol Last Admin: 06/08/22 10:55 Dose: 5 mg Documented By: STEVEN Carvedilol (Carvedilol 25 Mg Tablet) 25 mg PO BID [facility]; Protocol Last Admin: 06/08/22 10:57 Dose: 25 mg Documented By: STEVEN Digoxin (Digoxin 0.125 Mg Tablet) 0.0625 mg PO DAILY [facility] Last Admin: 06/08/22 10:55 Dose: 0.0625 mg Documented By: STEVEN Diphenhydramine HCl (Diphenhydramine Hcl 50 Mg/Ml Vial) 25 mg IVPUSH Q6H PRN PRN Reason: Itching Last Admin: 06/08/22 11:06 Dose: 25 mg Documented By: STEVEN Doxazosin Mesylate (Doxazosin Mesylate 2 Mg Tablet) 4 mg PO DAILY [facility]; Protocol Last Admin: 06/08/22 10:58 Dose: 4 mg Documented By: STEVEN Fluticasone/Vilanterol (Fluticasone/Vilanterol 100/25 Blst.W.Dev) 1 puff INHALE RDAILY [facility] Last Admin: 06/08/22 07:58 Dose: 1 puff Documented By: JOSE Gabapentin (Gabapentin 300 Mg Capsule) 300 mg PO TID [facility] Last Admin: 06/08/22 10:54 Dose: 300 mg Documented By: STEVEN Hydralazine HCl (Hydralazine Hcl 50 Mg Tablet) 100 mg PO TID [facility]; Protocol Last Admin: 06/08/22 10:57 Dose: 100 mg Documented By: STEVEN Hydromorphone HCl (Hydromorphone Hcl 2 Mg Tablet) 2 mg PO Q6H PRN PRN Reason: Pain, Severe (Pain Scale 7-10) Last Admin: 06/08/22 04:37 Dose: 2 mg Documented By: ALBERTO Dextrose (D10) 250 mls @ 750 mls/hr IV Q15M PRN PRN Reason: per Hypoglycemia Standing Ord. Last Infusion: 06/07/22 09:43 Dose: 0 mls/hr Documented By: ANNE Diltiazem HCl 125 mg/ Sodium (Chloride) 125 mls @ 0 mls/hr IVCONT .Q0M [facility]; Protocol Isosorbide Mononitrate (Isosorbide Mononitrate 30 Mg Tab.Er.24h) 90 mg PO DAILY [facility]; Protocol Last Admin: 06/08/22 10:56 Dose: 90 mg Documented By: STEVEN Lorazepam (Lorazepam 1 Mg Tablet) 1 mg PO Q6H PRN PRN Reason: Anxiety Last Admin: 06/08/22 11:06 Dose: 1 mg Documented By: STEVEN Melatonin (Melatonin 3 Mg Tablet) 6 mg PO BEDTIME PRN PRN Reason: Insomnia Nifedipine (Nifedipine Er 60 Mg Tab.Er.24) 60 mg PO DAILY [facility]; Protocol Last Admin: 06/08/22 10:59 Dose: 60 mg Documented By: STEVEN Ondansetron HCl (Ondansetron Hcl 4 Mg/2 Ml Vial) 4 mg IVPUSH Q8H PRN PRN Reason: Nausea and Vomiting Pharmacy Consult (Consult Rx Perform Med Rec) 1 each MISCELLANE ONCE PRN PRN Reason: Consult order Sevelamer Carbonate (Sevelamer Carbonate Tablet 800 Mg Tablet) 2,400 mg PO TID [facility] Last Admin: 06/08/22 10:54 Dose: 2,400 mg Documented By: STEVEN Sodium Chloride (0.9 % Sodium Chloride Flush 3 Ml Syringe) 3 ml IVFLUSH QSHIFT [facility] Last Admin: 06/08/22 10:53 Dose: 3 ml Documented By: STEVEN Labs 06/07/22 04:52 06/07/22 04:52 Labs: Laboratory Results - last 24 hr 06/07/22 06/07/22 06/08/22 16:02 19:22 08:38 POC Glucose 115 143 H 143 H Microbiology Microbiology Results: Microbiology 06/06/22 17:08 Blood Culture - Preliminary Blood - Venous No growth after 24 hours. 06/06/22 16:49 Blood Culture - Preliminary Blood - Venous No growth after 24 hours. Assessment and Plan (1) Atrial fibrillation with RVR: Status: Acute Plan 46-year-old male with pertinent history of ESRD on dialysis, (Friday/Friday/Friday/Friday), chronic diastolic congestive heart failure, cholecystitis status post cholecystostomy as patient is poor candidate for surgery, permanent atrial fibrillation on Eliquis, essential hypertension, mixed hyperlipidemia, chronic hypoxemic respiratory failure secondary to COPD who presents to the emergency department for evaluation of abdominal discomfort. #.? AFib/flutter with RVR: Rate controlled with IV diltiazem in the ER.? He was not taking meds at home continue home meds of Coreg, digoxin, and Apixiban for stroke prevention #.? Chronic abdominal pain due to history of cholecystitis now with C-tube:? Patient does have chronic abdominal pain the, apparently going on for months now.? [facility] surgery recommends drain to remain in place and no surgery planned as patient is poor candidate.? P.o. Dilaudid for pain, avoid IV medicines (as patient has pain seeking behavior) CT abdomen/pelvis no acute finding, gallbladder tube in place. Effort is being made to replace the cholecystoctomy bag which has hole in in it #.? Essential hypertension:? Continue Coreg, nifedipine and hydralazine #.? End-stage renal disease on hemodialysis:? Friday/Friday/Friday/Friday.? Will consult Nephrology #.? Chronic anemia of kidney disease:? Weekly Epogen as per nephro #.? Hyperkalemia:? Given temporizing measures in the ER. #.? Elevated troponin: Likely type 2 in the setting of increased demand #.? Chronic hypoxemic respiratory failure due to COPD.? Continue home inhaler and O2 DVT prophylaxis: apixiban, Home today or tomorrow if we are able to replace the tube as above Time Spent With Patient Time: Total time managing care of this patient today ____ minutes. Quality Stroke Does the patient have a stroke diagnosis?: No VTE Prior VTE?: No VTE Risk Level:: Medical - moderate - high VTE Device Contraindication: Treatment Not Indicated VTE Drug Contraindication: N/A - Med Ordered
--- NOTE | 2022-06-08 13:46 | PM.PNNEP ---
Subjective Subjective Date of Service: 06/08/22 Interval history: Events noted Had HD yesterday Physical Exam Vital Signs: Vital Signs: Last Vital Signs Temp 97.6 F 06/08/22 11:18 Pulse 113 H 06/08/22 11:18 Resp 20 06/08/22 11:18 BP 147/87 H 06/08/22 11:18 Pulse Ox 96 06/08/22 11:18 O2 Del Method Nasal Cannula 06/08/22 11:18 O2 Flow Rate 3 06/08/22 11:18 Oxygen Flow Rate 3 06/06/22 16:08 BMI result Body Mass Index 32.3 Const: Other: General: AO X 3, no acute distress Resp: CTA bilateral CVS: S1,S2,RRR, some swelling in legs GI: +BS, NT, no distention Skin: No rash Neuro: motor grossly intact Psych: appropriate affect Objective Data Labs 06/07/22 04:52 06/07/22 04:52 Labs: Laboratory Results - last 24 hr 06/07/22 06/07/22 06/08/22 16:02 19:22 08:38 POC Glucose 115 143 H 143 H Microbiology Microbiology Results: Microbiology 06/06/22 17:08 Blood - Venous Blood Culture - Preliminary No growth after 24 hours. 06/06/22 16:49 Blood - Venous Blood Culture - Preliminary No growth after 24 hours. Procedures Date of Service Date of Service: 06/08/22 Assessment & Plan Assessment and plan (1) ESRD (end stage renal disease) on dialysis: Status: Acute Plan ESRD with fluid overload. s/p HD We will keep on Friday schedule. Optimize blood pressure with fluid removal and current medications. Anemia due to CKD. Resume Epogen Concur with the medical management. Time Spent With Patient Time: Total time managing care of this patient today ____ minutes. Progress Note: Quality Stroke Does the patient have a stroke diagnosis?: No
[2022-06-08 15:45] LABS: Glucose, Whole Blood 126 mg/dL (60-115)
[2022-06-08 20:01] LABS: Glucose, Whole Blood 165 mg/dL (60-115)
[2022-06-09] VITALS (7 sets, daily range): BP systolic 125–170; BP diastolic 67–100; PULSE 93–113; RESP 17–20; TEMP 36–36.6; O2SAT 92–96
[2022-06-09] MEDS: HYDROmorphone HCl 2 MG TABLET PO ×3 (01:43→21:42)
[2022-06-09] MEDS: LORazepam 1 MG TABLET PO ×2 (02:35→11:18)
[2022-06-09] MEDS: diphenhydrAMINE HCL 50 MG/ML VIAL 25 MG IVPUSH ×3 (02:35→21:40)
[2022-06-09 08:00] LABS: Glucose, Whole Blood 170 mg/dL (60-115)
[2022-06-09] MEDS: Fluticasone/Vilanterol 100/25 BLST.W.DEV 1 PUFF INHALE (08:04)
[2022-06-09] MEDS: Digoxin 0.125 MG TABLET 0.0625 MG PO (09:35)
[2022-06-09] MEDS: Doxazosin Mesylate 2 MG TABLET 4 MG PO (09:36)
[2022-06-09] MEDS: amLODIPine Besylate 10 MG TABLET PO (09:40)
[2022-06-09] MEDS: Aspirin Enteric Coated 81 MG TABLET.DR PO (09:40)
[2022-06-09] MEDS: Apixaban 5 MG TABLET PO ×2 (09:40→21:43)
[2022-06-09] MEDS: Isosorbide Mononitrate 30 MG TAB.ER.24H 90 MG PO (09:40)
[2022-06-09] MEDS: Gabapentin 300 MG CAPSULE PO ×3 (09:40→21:42)
[2022-06-09] MEDS: hydrALAZINE HCl 50 MG TABLET 100 MG PO ×3 (09:40→21:41)
[2022-06-09] MEDS: Sevelamer Carbonate Tablet 800 MG TABLET 2400 MG PO ×3 (09:40→21:41)
[2022-06-09] MEDS: carvediloL 25 MG TABLET PO ×2 (09:41→21:42)
[2022-06-09] MEDS: Bumetanide 1 MG TABLET 5 MG PO ×2 (09:41→21:41)
[2022-06-09] MEDS: Atorvastatin Calcium 80 MG TABLET PO (09:41)
[2022-06-09] MEDS: 0.9 % Sodium Chloride Flush 3 ML SYRINGE IVFLUSH (09:45)
[2022-06-09] MEDS: NIFEdipine ER 60 MG TAB.ER.24 PO (09:47)
--- NOTE | 2022-06-09 11:26 | HO.PM.IMPN ---
Subjective Subjective Date of Service: 06/09/22 Interval History: Still complained of abdominal pain and difficulty breathing. Physical Exam Vital Signs: Vital Signs: Last Vital Signs Temp 96.8 F 06/09/22 08:00 Pulse 110 H 06/09/22 08:06 Resp 18 06/09/22 08:06 BP 170/100 H 06/09/22 08:00 Pulse Ox 96 06/09/22 08:00 O2 Del Method Nasal Cannula 06/09/22 08:00 O2 Flow Rate 2 06/09/22 08:00 Oxygen Flow Rate 3 06/06/22 16:08 BMI result Body Mass Index 32.3 Const: Other: General: AO X 3, no acute distress Resp: CTA bilateral CVS: S1,S2, due irregularly irregular, some swelling in legs GI: +BS, NT, no distention Skin: No rash Neuro: motor grossly intact Psych: appropriate affect Objective Data Active Medications Acetaminophen (Acetaminophen 325 Mg Tablet) 650 mg PO Q6H PRN PRN Reason: Pain, Mild (Pain Scale 1-3) Last Admin: 06/07/22 06:50 Dose: 650 mg Documented By: SALONI Acetaminophen (Acetaminophen 325 Mg Tablet) 975 mg PO TID [facility] Last Admin: 06/09/22 09:40 Dose: Not Given Documented By: JOSE MARIA Non-Admin Reason: Physician Held Med Amlodipine Besylate (Amlodipine Besylate 10 Mg Tablet) 10 mg PO DAILY [facility]; Protocol Last Admin: 06/09/22 09:40 Dose: 10 mg Documented By: JOSE MARIA Apixaban (Apixaban 5 Mg Tablet) 5 mg PO BID [facility] Last Admin: 06/09/22 09:40 Dose: 5 mg Documented By: JOSE MARIA Aspirin (Aspirin Enteric Coated 81 Mg Tablet.) 81 mg PO DAILY [facility] Last Admin: 06/09/22 09:40 Dose: 81 mg Documented By: JOSE MARIA Atorvastatin Calcium (Atorvastatin Calcium 80 Mg Tablet) 80 mg PO DAILY [facility] Last Admin: 06/09/22 09:41 Dose: 80 mg Documented By: JOSE MARIA Bumetanide (Bumetanide 1 Mg Tablet) 5 mg PO BID [facility]; Protocol Last Admin: 06/09/22 09:41 Dose: 5 mg Documented By: JOSE MARIA Carvedilol (Carvedilol 25 Mg Tablet) 25 mg PO BID [facility]; Protocol Last Admin: 06/09/22 09:41 Dose: 25 mg Documented By: JOSE MARIA Digoxin (Digoxin 0.125 Mg Tablet) 0.0625 mg PO DAILY [facility] Last Admin: 06/09/22 09:35 Dose: 0.0625 mg Documented By: JOSE MARIA Diphenhydramine HCl (Diphenhydramine Hcl 50 Mg/Ml Vial) 25 mg IVPUSH Q6H PRN PRN Reason: Itching Last Admin: 06/09/22 11:18 Dose: 25 mg Documented By: JOSE MARIA Doxazosin Mesylate (Doxazosin Mesylate 2 Mg Tablet) 4 mg PO DAILY [facility]; Protocol Last Admin: 06/09/22 09:36 Dose: 4 mg Documented By: JOSE MARIA Fluticasone/Vilanterol (Fluticasone/Vilanterol 100/25 Blst.W.Dev) 1 puff INHALE RDAILY [facility] Last Admin: 06/09/22 08:04 Dose: 1 puff Documented By: JOSE Gabapentin (Gabapentin 300 Mg Capsule) 300 mg PO TID [facility] Last Admin: 06/09/22 09:40 Dose: 300 mg Documented By: JOSE MARIA Hydralazine HCl (Hydralazine Hcl 50 Mg Tablet) 100 mg PO TID [facility]; Protocol Last Admin: 06/09/22 09:40 Dose: 100 mg Documented By: JOSE MARIA Hydromorphone HCl (Hydromorphone Hcl 2 Mg Tablet) 2 mg PO Q6H PRN PRN Reason: Pain, Severe (Pain Scale 7-10) Last Admin: 06/09/22 01:43 Dose: 2 mg Documented By: GHADA Dextrose (D10) 250 mls @ 750 mls/hr IV Q15M PRN PRN Reason: per Hypoglycemia Standing Ord. Last Infusion: 06/07/22 09:43 Dose: 0 mls/hr Documented By: ANNE Diltiazem HCl 125 mg/ Sodium (Chloride) 125 mls @ 0 mls/hr IVCONT .Q0M [facility]; Protocol Isosorbide Mononitrate (Isosorbide Mononitrate 30 Mg Tab.Er.24h) 90 mg PO DAILY [facility]; Protocol Last Admin: 06/09/22 09:40 Dose: 90 mg Documented By: JOSE MARIA Lorazepam (Lorazepam 1 Mg Tablet) 1 mg PO Q6H PRN PRN Reason: Anxiety Last Admin: 06/09/22 11:18 Dose: 1 mg Documented By: JOSE MARIA Melatonin (Melatonin 3 Mg Tablet) 6 mg PO BEDTIME PRN PRN Reason: Insomnia Nifedipine (Nifedipine Er 60 Mg Tab.Er.24) 60 mg PO DAILY [facility]; Protocol Last Admin: 06/09/22 09:47 Dose: 60 mg Documented By: JOSE MARIA Ondansetron HCl (Ondansetron Hcl 4 Mg/2 Ml Vial) 4 mg IVPUSH Q8H PRN PRN Reason: Nausea and Vomiting Pharmacy Consult (Consult Rx Perform Med Rec) 1 each MISCELLANE ONCE PRN PRN Reason: Consult order Sevelamer Carbonate (Sevelamer Carbonate Tablet 800 Mg Tablet) 2,400 mg PO TID [facility] Last Admin: 06/09/22 09:40 Dose: 2,400 mg Documented By: JOSE MARIA Sodium Chloride (0.9 % Sodium Chloride Flush 3 Ml Syringe) 3 ml IVFLUSH QSHIFT [facility] Last Admin: 06/09/22 09:45 Dose: 3 ml Documented By: JOSE MARIA Labs 06/07/22 04:52 06/07/22 04:52 Labs: Laboratory Results - last 24 hr 06/08/22 06/08/22 06/09/22 15:38 19:56 07:54 POC Glucose 126 H 165 H 170 H Microbiology Microbiology Results: Microbiology 06/06/22 17:08 Blood Culture - Preliminary Blood - Venous No growth after 48 hours. 06/06/22 16:49 Blood Culture - Preliminary Blood - Venous No growth after 48 hours. Assessment and Plan (1) Atrial fibrillation with RVR: Status: Acute Plan 46-year-old male with pertinent history of ESRD on dialysis, (Friday/Friday/Friday/Friday), chronic diastolic congestive heart failure, cholecystitis status post cholecystostomy as patient is poor candidate for surgery, permanent atrial fibrillation on Eliquis, essential hypertension, mixed hyperlipidemia, chronic hypoxemic respiratory failure secondary to COPD who presents to the emergency department for evaluation of abdominal discomfort. #.? AFib/flutter with RVR: Rate controlled with IV diltiazem in the ER.? He was not taking meds at home continue home meds of Coreg, digoxin, and Apixiban for stroke prevention #.? Chronic abdominal pain due to history of cholecystitis now with C-tube:? Patient does have chronic abdominal pain the, apparently going on for months now.? [facility] surgery recommends drain to remain in place and no surgery planned as patient is poor candidate.? P.o. Dilaudid for pain, avoid IV medicines (as patient has pain seeking behavior) CT abdomen/pelvis no acute finding, gallbladder tube in place. Bag replaced #.? Essential hypertension:? Continue Coreg, nifedipine and hydralazine, norvasc #.? End-stage renal disease on hemodialysis:? Friday/Friday/Friday/Friday.? Will consult Nephrology #.? Chronic anemia of kidney disease:? Weekly Epogen as per nephro #.? Hyperkalemia:? Given temporizing measures in the ER. #.? Elevated troponin: Likely type 2 in the setting of increased demand #.? Chronic hypoxemic respiratory failure due to COPD.? Continue home inhaler and O2 DVT prophylaxis: apixiban, Home today or tomorrow after dialysis Time Spent With Patient Time: Total time managing care of this patient today ____ minutes. Quality Stroke Does the patient have a stroke diagnosis?: No VTE Prior VTE?: No VTE Risk Level:: Medical - moderate - high VTE Device Contraindication: Treatment Not Indicated VTE Drug Contraindication: N/A - Med Ordered
[2022-06-09 15:48] LABS: Glucose, Whole Blood 158 mg/dL (60-115)
[2022-06-09] MEDS: Acetaminophen 325 MG TABLET 975 MG PO ×2 (15:51→21:42)
--- NOTE | 2022-06-09 19:21 | PM.PNNEP ---
Subjective Subjective Date of Service: 06/09/22 Interval history: Still complained of abdominal pain and difficulty breathing. Physical Exam Vital Signs: Vital Signs: Last Vital Signs Temp 97.4 F 06/09/22 15:33 Pulse 112 H 06/09/22 15:33 Resp 17 06/09/22 15:33 BP 125/67 06/09/22 15:33 Pulse Ox 93 06/09/22 15:33 O2 Del Method Nasal Cannula 06/09/22 15:33 O2 Flow Rate 2 06/09/22 08:00 Oxygen Flow Rate 3 06/06/22 16:08 BMI result Body Mass Index 32.3 Const: Other: General: AO X 3, no acute distress Resp: CTA bilateral CVS: S1,S2,RRR, some swelling in legs GI: +BS, NT, no distention Skin: No rash Neuro: motor grossly intact Psych: appropriate affect Objective Data Labs 06/07/22 04:52 06/07/22 04:52 Labs: Laboratory Results - last 24 hr 06/08/22 06/09/22 06/09/22 19:56 07:54 15:42 POC Glucose 165 H 170 H 158 H Microbiology Microbiology Results: Microbiology 06/06/22 17:08 Blood - Venous Blood Culture - Preliminary No growth after 48 hours. 06/06/22 16:49 Blood - Venous Blood Culture - Preliminary No growth after 48 hours. Procedures Date of Service Date of Service: 06/09/22 Assessment & Plan Assessment and plan (1) ESRD (end stage renal disease) on dialysis: Status: Acute Plan ESRD with fluid overload. s/p HD We will keep on Friday schedule. Optimize blood pressure with fluid removal and current medications. Anemia due to CKD. Resume Epogen Concur with the medical management. Time Spent With Patient Time: Total time managing care of this patient today ____ minutes. Progress Note: Quality Stroke Does the patient have a stroke diagnosis?: No
[2022-06-10] MEDS: 0.9 % Sodium Chloride Flush 3 ML SYRINGE IVFLUSH ×3 (00:41→20:03)
[2022-06-10] MEDS: LORazepam 1 MG TABLET PO ×3 (00:41→18:15)
[2022-06-10 04:00] VITALS: BP 132/72; PULSE 108; RESP 20; TEMP 36.3; O2SAT 94
[2022-06-10] MEDS: HYDROmorphone HCl 2 MG TABLET PO ×3 (05:07→19:42)
[2022-06-10 07:44] VITALS: BP 128/77; PULSE 100; RESP 22; TEMP 36.5; O2SAT 95
[2022-06-10 07:44] LABS: Glucose, Whole Blood 127 mg/dL (60-115)
[2022-06-10] MEDS: Fluticasone/Vilanterol 100/25 BLST.W.DEV 1 PUFF INHALE (07:54)
[2022-06-10 07:55] VITALS: RESP 18; O2SAT 95
[2022-06-10] MEDS: Acetaminophen 325 MG TABLET 975 MG PO ×3 (08:18→19:56)
[2022-06-10] MEDS: Aspirin Enteric Coated 81 MG TABLET.DR PO (08:18)
[2022-06-10] MEDS: hydrALAZINE HCl 50 MG TABLET 100 MG PO ×3 (08:18→19:59)
[2022-06-10] MEDS: Gabapentin 300 MG CAPSULE PO ×3 (08:19→19:58)
[2022-06-10] MEDS: Bumetanide 1 MG TABLET 5 MG PO ×2 (08:19→20:01)
[2022-06-10] MEDS: Doxazosin Mesylate 2 MG TABLET 4 MG PO (08:19)
[2022-06-10] MEDS: carvediloL 25 MG TABLET PO ×2 (08:19→19:58)
[2022-06-10] MEDS: Isosorbide Mononitrate 30 MG TAB.ER.24H 90 MG PO (08:19)
[2022-06-10] MEDS: Sevelamer Carbonate Tablet 800 MG TABLET 2400 MG PO ×3 (08:19→20:01)
[2022-06-10] MEDS: Atorvastatin Calcium 80 MG TABLET PO (08:20)
[2022-06-10] MEDS: Digoxin 0.125 MG TABLET 0.0625 MG PO (08:20)
[2022-06-10] MEDS: amLODIPine Besylate 10 MG TABLET PO (08:20)
[2022-06-10] MEDS: Apixaban 5 MG TABLET PO ×2 (08:20→20:02)
[2022-06-10] MEDS: NIFEdipine ER 60 MG TAB.ER.24 PO (08:33)
--- NOTE | 2022-06-10 10:38 | P.PNIM_ITS ---
Subjective Subjective Date of Service: 06/10/22 Interval History: Shortness of breath is better, c/o pain and swelling in his feet Physical Exam Vital Signs: Vital Signs: Last Vital Signs Temp 97.7 F 06/10/22 07:44 Pulse 100 06/10/22 07:44 Resp 18 06/10/22 07:55 BP 128/77 06/10/22 07:44 Pulse Ox 95 06/10/22 07:44 O2 Del Method Nasal Cannula 06/10/22 07:44 O2 Flow Rate 3 06/10/22 07:44 Oxygen Flow Rate 3 06/06/22 16:08 BMI result Body Mass Index 32.3 Const: Other: General: AO X 3, no acute distress Resp: CTA bilateral CVS: S1,S2,RRR, some swelling in legs and tender GI: +BS, NT, no distention Skin: No rash Neuro: motor grossly intact Psych: appropriate affect Objective Data Active Medications Acetaminophen (Acetaminophen 325 Mg Tablet) 650 mg PO Q6H PRN PRN Reason: Pain, Mild (Pain Scale 1-3) Last Admin: 06/07/22 06:50 Dose: 650 mg Documented By: SALONI Acetaminophen (Acetaminophen 325 Mg Tablet) 975 mg PO TID [facility] Last Admin: 06/10/22 08:18 Dose: 975 mg Documented By: KINDRA Amlodipine Besylate (Amlodipine Besylate 10 Mg Tablet) 10 mg PO DAILY [facility]; Protocol Last Admin: 06/10/22 08:20 Dose: 10 mg Documented By: KINDRA Apixaban (Apixaban 5 Mg Tablet) 5 mg PO BID [facility] Last Admin: 06/10/22 08:20 Dose: 5 mg Documented By: KINDRA Aspirin (Aspirin Enteric Coated 81 Mg Tablet.) 81 mg PO DAILY [facility] Last Admin: 06/10/22 08:18 Dose: 81 mg Documented By: KINDRA Atorvastatin Calcium (Atorvastatin Calcium 80 Mg Tablet) 80 mg PO DAILY [facility] Last Admin: 06/10/22 08:20 Dose: 80 mg Documented By: KINDRA Bumetanide (Bumetanide 1 Mg Tablet) 5 mg PO BID [facility]; Protocol Last Admin: 06/10/22 08:19 Dose: 5 mg Documented By: KINDRA Carvedilol (Carvedilol 25 Mg Tablet) 25 mg PO BID [facility]; Protocol Last Admin: 06/10/22 08:19 Dose: 25 mg Documented By: KINDRA Digoxin (Digoxin 0.125 Mg Tablet) 0.0625 mg PO DAILY [facility] Last Admin: 06/10/22 08:20 Dose: 0.0625 mg Documented By: KINDRA Diphenhydramine HCl (Diphenhydramine Hcl 50 Mg/Ml Vial) 25 mg IVPUSH Q6H PRN PRN Reason: Itching Last Admin: 06/09/22 21:40 Dose: 25 mg Documented By: MARK Doxazosin Mesylate (Doxazosin Mesylate 2 Mg Tablet) 4 mg PO DAILY [facility]; Protocol Last Admin: 06/10/22 08:19 Dose: 4 mg Documented By: KINDRA Fluticasone/Vilanterol (Fluticasone/Vilanterol 100/25 Blst.W.Dev) 1 puff INHALE RDAILY [facility] Last Admin: 06/10/22 07:54 Dose: 1 puff Documented By: JEN Gabapentin (Gabapentin 300 Mg Capsule) 300 mg PO TID [facility] Last Admin: 06/10/22 08:19 Dose: 300 mg Documented By: KINDRA Hydralazine HCl (Hydralazine Hcl 50 Mg Tablet) 100 mg PO TID [facility]; Protocol Last Admin: 06/10/22 08:18 Dose: 100 mg Documented By: KINDRA Hydromorphone HCl (Hydromorphone Hcl 2 Mg Tablet) 2 mg PO Q6H PRN PRN Reason: Pain, Severe (Pain Scale 7-10) Last Admin: 06/10/22 05:07 Dose: 2 mg Documented By: ANTOIC Dextrose (D10) 250 mls @ 750 mls/hr IV Q15M PRN PRN Reason: per Hypoglycemia Standing Ord. Last Infusion: 06/07/22 09:43 Dose: 0 mls/hr Documented By: ANNE Diltiazem HCl 125 mg/ Sodium (Chloride) 125 mls @ 0 mls/hr IVCONT .Q0M [facility]; Protocol Isosorbide Mononitrate (Isosorbide Mononitrate 30 Mg Tab.Er.24h) 90 mg PO DAILY [facility]; Protocol Last Admin: 06/10/22 08:19 Dose: 90 mg Documented By: KINDRA Lorazepam (Lorazepam 1 Mg Tablet) 1 mg PO Q6H PRN PRN Reason: Anxiety Last Admin: 06/10/22 08:23 Dose: 1 mg Documented By: KINDRA Melatonin (Melatonin 3 Mg Tablet) 6 mg PO BEDTIME PRN PRN Reason: Insomnia Nifedipine (Nifedipine Er 60 Mg Tab.Er.24) 60 mg PO DAILY [facility]; Protocol Last Admin: 06/10/22 08:33 Dose: 60 mg Documented By: KINDRA Ondansetron HCl (Ondansetron Hcl 4 Mg/2 Ml Vial) 4 mg IVPUSH Q8H PRN PRN Reason: Nausea and Vomiting Pharmacy Consult (Consult Rx Perform Med Rec) 1 each MISCELLANE ONCE PRN PRN Reason: Consult order Sevelamer Carbonate (Sevelamer Carbonate Tablet 800 Mg Tablet) 2,400 mg PO TID [facility] Last Admin: 06/10/22 08:19 Dose: 2,400 mg Documented By: KINDRA Sodium Chloride (0.9 % Sodium Chloride Flush 3 Ml Syringe) 3 ml IVFLUSH QSHIFT [facility] Last Admin: 06/10/22 08:21 Dose: 3 ml Documented By: KINDRA Labs 06/07/22 04:52 06/07/22 04:52 Labs: Laboratory Results - last 24 hr 06/09/22 06/10/22 15:42 07:21 POC Glucose 158 H 127 H Assessment and Plan (1) Atrial fibrillation with RVR: Status: Acute Plan 46-year-old male with pertinent history of ESRD on dialysis, (Friday/Friday/Friday/Friday), chronic diastolic congestive heart failure, cholecystitis status post cholecystostomy as patient is poor candidate for surgery, permanent atrial fibrillation on Eliquis, essential hypertension, mixed hyperlipidemia, chronic hypoxemic respiratory failure secondary to COPD who presents to the emergency department for evaluation of abdominal discomfort. #.? AFib/flutter with RVR: received IV cardizem at the [facility].? He was not taking meds at home continue home meds of Coreg, digoxin, and Apixiban for stroke prevention #.? Chronic abdominal pain due to history of cholecystitis now with C-tube placed at [facility]:? Patient does have chronic abdominal pain the, apparently going on for months now.? [facility] surgery recommends drain to remain in place and no surgery planned as patient is poor candidate.? P.o. Dilaudid for pain, avoid IV medicines (as patient has pain seeking behavior) CT abdomen/pelvis no acute finding, gallbladder tube in place. Bag replaced #Bilateral leg pain and swelling, US to rule out DVT #.? Essential hypertension:? Continue Coreg, nifedipine and hydralazine, norvasc #.? End-stage renal disease on hemodialysis:? Friday/Friday/Friday/Friday.? Will consult Nephrology #.? Chronic anemia of kidney disease:? Weekly Epogen as per nephro #.? Hyperkalemia:? Given temporizing measures in the ER. #.? Elevated troponin: Likely type 2 in the setting of increased demand #.? Chronic hypoxemic respiratory failure due to COPD.? Continue home inhaler and O2 DVT prophylaxis: apixiban, Need for inaptient: SOB, need for dialyisis, leg pain and swelling and need for further testing Time Spent With Patient Time: Total time managing care of this patient today ____ minutes. Quality Stroke Does the patient have a stroke diagnosis?: No VTE Prior VTE?: No VTE Risk Level:: Medical - moderate - high VTE Device Contraindication: Treatment Not Indicated VTE Drug Contraindication: N/A - Med Ordered
--- NOTE | 2022-06-10 10:44 | W.PM.DNNEP ---
Subjective Subjective This patient was seen during dialysis. Interval history: Shortness of breath is better, c/o pain and swelling in his feet Physical Exam Vital Signs: Vital Signs: Last Vital Signs Temp 97.7 F 06/10/22 07:44 Pulse 100 06/10/22 07:44 Resp 18 06/10/22 07:55 BP 128/77 06/10/22 07:44 Pulse Ox 95 06/10/22 07:44 O2 Del Method Nasal Cannula 06/10/22 07:44 O2 Flow Rate 3 06/10/22 07:44 Oxygen Flow Rate 3 06/06/22 16:08 BMI result Body Mass Index 32.3 Const: Other: General: AO X 3, no acute distress Resp: CTA bilateral CVS: S1,S2,RRR, some swelling in legs GI: +BS, NT, no distention Skin: No rash Neuro: motor grossly intact Psych: appropriate affect Assessment & Plan Assessment and plan (1) ESRD (end stage renal disease) on dialysis: Status: Acute Plan ESRD with fluid overload. s/p HD We will keep on Friday schedule. Optimize blood pressure with fluid removal and current medications. Anemia due to CKD. Resume Epogen Concur with the medical management. Time Spent With Patient Time: Total time managing care of this patient today ____ minutes. Procedures Date of Service Date of Service: 06/10/22
[2022-06-10] MEDS: diphenhydrAMINE HCL 50 MG/ML VIAL 25 MG IVPUSH ×2 (13:10→20:03)
[2022-06-10 13:38] VITALS: BP 151/92; PULSE 114; RESP 20; TEMP 36.8; O2SAT 93
[2022-06-10 16:00] VITALS: BP 144/89; PULSE 98; RESP 18; TEMP 36.9; O2SAT 98
[2022-06-10 19:35] VITALS: BP 135/87; PULSE 113; RESP 20; TEMP 36.9; O2SAT 95
[2022-06-11] VITALS (8 sets, daily range): BP systolic 133–159; BP diastolic 73–94; PULSE 84–110; RESP 16–22; TEMP 36.4–37.4; O2SAT 93–99
[2022-06-11] MEDS: LORazepam 1 MG TABLET PO ×4 (01:53→23:22)
[2022-06-11] MEDS: HYDROmorphone HCl 2 MG TABLET PO ×4 (01:53→23:22)
[2022-06-11] MEDS: diphenhydrAMINE HCL 50 MG/ML VIAL 25 MG IVPUSH ×3 (01:54→23:30)
[2022-06-11] MEDS: Acetaminophen 325 MG TABLET 650 MG PO (05:52)
[2022-06-11] MEDS: Fluticasone/Vilanterol 100/25 BLST.W.DEV 1 PUFF INHALE (08:00)
[2022-06-11 08:02] LABS: Glucose, Whole Blood 113 mg/dL (60-115)
[2022-06-11] MEDS: Isosorbide Mononitrate 30 MG TAB.ER.24H 90 MG PO (09:44)
[2022-06-11] MEDS: Doxazosin Mesylate 2 MG TABLET 4 MG PO (09:44)
[2022-06-11] MEDS: Bumetanide 1 MG TABLET 5 MG PO ×2 (09:44→21:02)
[2022-06-11] MEDS: Gabapentin 300 MG CAPSULE PO ×3 (09:44→21:01)
[2022-06-11] MEDS: hydrALAZINE HCl 50 MG TABLET 100 MG PO ×3 (09:44→21:02)
[2022-06-11] MEDS: Sevelamer Carbonate Tablet 800 MG TABLET 2400 MG PO ×3 (09:44→21:00)
[2022-06-11] MEDS: amLODIPine Besylate 10 MG TABLET PO (09:45)
[2022-06-11] MEDS: carvediloL 25 MG TABLET PO ×2 (09:45→21:01)
[2022-06-11] MEDS: Atorvastatin Calcium 80 MG TABLET PO (09:45)
[2022-06-11] MEDS: Aspirin Enteric Coated 81 MG TABLET.DR PO (09:45)
[2022-06-11] MEDS: Digoxin 0.125 MG TABLET 0.0625 MG PO (09:45)
[2022-06-11] MEDS: Acetaminophen 325 MG TABLET 975 MG PO ×2 (09:45→14:15)
[2022-06-11] MEDS: NIFEdipine ER 60 MG TAB.ER.24 PO (09:46)
[2022-06-11] MEDS: Apixaban 5 MG TABLET PO ×2 (09:46→21:01)
[2022-06-11] MEDS: 0.9 % Sodium Chloride Flush 3 ML SYRINGE IVFLUSH ×2 (09:52→14:19)
--- NOTE | 2022-06-11 10:42 | PM.PNNEP ---
Subjective Subjective Date of Service: 06/12/22 Interval history: Shortness of breath is better, c/o pain and swelling in his feet Physical Exam Vital Signs: Vital Signs: Last Vital Signs Temp 97.6 F 06/11/22 07:35 Pulse 109 H 06/11/22 08:02 Resp 16 06/11/22 08:02 BP 144/73 H 06/11/22 07:35 Pulse Ox 94 06/11/22 07:35 O2 Del Method Nasal Cannula 06/11/22 07:35 O2 Flow Rate 3 06/11/22 07:35 Oxygen Flow Rate 3 06/06/22 16:08 BMI result Body Mass Index 32.3 Const: Other: General: AO X 3, no acute distress Resp: CTA bilateral CVS: S1,S2,RRR, some swelling in legs GI: +BS, NT, no distention Skin: No rash Neuro: motor grossly intact Psych: appropriate affect Objective Data Labs 06/07/22 04:52 06/07/22 04:52 Labs: Laboratory Results - last 24 hr 06/11/22 07:43 POC Glucose 113 Microbiology Microbiology Results: Microbiology 06/06/22 17:08 Blood - Venous Blood Culture - Preliminary No growth after 48 hours. 06/06/22 16:49 Blood - Venous Blood Culture - Preliminary No growth after 48 hours. Procedures Date of Service Date of Service: 06/11/22 Assessment & Plan Assessment and plan (1) ESRD (end stage renal disease) on dialysis: Status: Acute Plan ESRD with fluid overload. s/p HD We will keep on Friday schedule. Optimize blood pressure with fluid removal and current medications. Anemia due to CKD. Resume Epogen Concur with the medical management. Time Spent With Patient Time: Total time managing care of this patient today ____ minutes. Progress Note: Quality Stroke Does the patient have a stroke diagnosis?: No
[2022-06-11 11:09] LABS: Glucose, Whole Blood 182 mg/dL (60-115)
--- NOTE | 2022-06-11 14:17 | PM.EVENT ---
Event Note Date of Service: 06/11/22 Event Note: 46-year-old gentleman well known to me with femoral pseudoaneurysm. He has multiple medical issues and this time was admitted with AFib with RVR. He was admitted for cardiac evaluation. In addition he has been treated for cholecystitis with a cholecystostomy tube. At the current time would like medical issues to resolve and patient can see me as an outpatient. Of note the patient was contacted multiple times and has failed to show up to outpatient office visit. Happy to see him in the office as an outpatient once discharged. Time Spent With Patient Time: Total time managing care of this patient today ____ minutes.
[2022-06-11 15:48] LABS: Glucose, Whole Blood 133 mg/dL (60-115)
--- NOTE | 2022-06-11 17:52 | HO.PM.IMPN ---
Subjective Subjective Date of Service: 06/11/22 Interval History: Shortness of breath is better, Review of Systems seems improvin Physical Exam Vital Signs: Vital Signs: Last Vital Signs Temp 98.0 F 06/11/22 15:26 Pulse 106 H 06/11/22 15:26 Resp 19 06/11/22 15:26 BP 159/94 H 06/11/22 15:26 Pulse Ox 97 06/11/22 15:26 O2 Del Method Nasal Cannula 06/11/22 15:26 O2 Flow Rate 2 06/11/22 15:26 Oxygen Flow Rate 3 06/06/22 16:08 BMI result Body Mass Index 32.3 General: AO X 3, no acute distress Resp:? CTA bilateral CVS: S1,S2,RRR, some swelling in legs and tender GI: +BS, NT, no distention Skin: No rash Neuro:? motor grossly intact Psych: appropriate affect Objective Data Active Medications Acetaminophen (Acetaminophen 325 Mg Tablet) 650 mg PO Q6H PRN PRN Reason: Pain, Mild (Pain Scale 1-3) Last Admin: 06/11/22 05:52 Dose: 650 mg Documented By: DELMA Acetaminophen (Acetaminophen 325 Mg Tablet) 975 mg PO TID [facility] Last Admin: 06/11/22 14:15 Dose: 975 mg Documented By: TRUPTI Amlodipine Besylate (Amlodipine Besylate 10 Mg Tablet) 10 mg PO DAILY [facility]; Protocol Last Admin: 06/11/22 09:45 Dose: 10 mg Documented By: TRUPTI Apixaban (Apixaban 5 Mg Tablet) 5 mg PO BID [facility] Last Admin: 06/11/22 09:46 Dose: 5 mg Documented By: TRUPTI Aspirin (Aspirin Enteric Coated 81 Mg Tablet.) 81 mg PO DAILY [facility] Last Admin: 06/11/22 09:45 Dose: 81 mg Documented By: TRUPTI Atorvastatin Calcium (Atorvastatin Calcium 80 Mg Tablet) 80 mg PO DAILY [facility] Last Admin: 06/11/22 09:45 Dose: 80 mg Documented By: TRUPTI Bumetanide (Bumetanide 1 Mg Tablet) 5 mg PO BID [facility]; Protocol Last Admin: 06/11/22 09:44 Dose: 5 mg Documented By: TRUPTI Carvedilol (Carvedilol 25 Mg Tablet) 25 mg PO BID [facility]; Protocol Last Admin: 06/11/22 09:45 Dose: 25 mg Documented By: TRUPTI Digoxin (Digoxin 0.125 Mg Tablet) 0.0625 mg PO DAILY [facility] Last Admin: 06/11/22 09:45 Dose: 0.0625 mg Documented By: TRUPTI Diphenhydramine HCl (Diphenhydramine Hcl 50 Mg/Ml Vial) 25 mg IVPUSH Q6H PRN PRN Reason: Itching Last Admin: 06/11/22 14:14 Dose: 25 mg Documented By: TRUPTI Doxazosin Mesylate (Doxazosin Mesylate 2 Mg Tablet) 4 mg PO DAILY [facility]; Protocol Last Admin: 06/11/22 09:44 Dose: 4 mg Documented By: TRUPTI Fluticasone/Vilanterol (Fluticasone/Vilanterol 100/25 Blst.W.Dev) 1 puff INHALE RDAILY [facility] Last Admin: 06/11/22 08:00 Dose: 1 puff Documented By: KEVIN Gabapentin (Gabapentin 300 Mg Capsule) 300 mg PO TID [facility] Last Admin: 06/11/22 14:14 Dose: 300 mg Documented By: TRUPTI Glucose (Glucose Gel 15 Gm Gel..Gram.) 15 gm PO Q15M PRN; Protocol PRN Reason: per Hypoglycemia Standing Ord. Hydralazine HCl (Hydralazine Hcl 50 Mg Tablet) 100 mg PO TID [facility]; Protocol Last Admin: 06/11/22 14:13 Dose: 100 mg Documented By: TRUPTI Hydromorphone HCl (Hydromorphone Hcl 2 Mg Tablet) 2 mg PO Q6H PRN PRN Reason: Pain, Severe (Pain Scale 7-10) Last Admin: 06/11/22 15:51 Dose: 2 mg Documented By: TRUPTI Dextrose (D10) 250 mls @ 750 mls/hr IV Q15M PRN PRN Reason: per Hypoglycemia Standing Ord. Last Infusion: 06/07/22 09:43 Dose: 0 mls/hr Documented By: ANNE Diltiazem HCl 125 mg/ Sodium (Chloride) 125 mls @ 0 mls/hr IVCONT .Q0M [facility]; Protocol Dextrose (D10) 250 mls @ 750 mls/hr IV Q15M PRN; Protocol PRN Reason: per Hypoglycemia Standing Ord. Insulin Human Lispro (Insulin Lispro 100 Unit/Ml 3 Ml Vial) 0 unit SUBCUT QIDACHS [facility]; Protocol Last Admin: 06/11/22 15:53 Dose: Not Given Documented By: TRUPTI Non-Admin Reason: No Insulin Coverage Isosorbide Mononitrate (Isosorbide Mononitrate 30 Mg Tab.Er.24h) 90 mg PO DAILY [facility]; Protocol Last Admin: 06/11/22 09:44 Dose: 90 mg Documented By: TRUPTI Lorazepam (Lorazepam 1 Mg Tablet) 1 mg PO Q6H PRN PRN Reason: Anxiety Last Admin: 06/11/22 15:51 Dose: 1 mg Documented By: TRUPTI Melatonin (Melatonin 3 Mg Tablet) 6 mg PO BEDTIME PRN PRN Reason: Insomnia Nifedipine (Nifedipine Er 60 Mg Tab.Er.24) 60 mg PO DAILY [facility]; Protocol Last Admin: 06/11/22 09:46 Dose: 60 mg Documented By: TRUPTI Ondansetron HCl (Ondansetron Hcl 4 Mg/2 Ml Vial) 4 mg IVPUSH Q8H PRN PRN Reason: Nausea and Vomiting Pharmacy Consult (Consult Rx Perform Med Rec) 1 each MISCELLANE ONCE PRN PRN Reason: Consult order Sevelamer Carbonate (Sevelamer Carbonate Tablet 800 Mg Tablet) 2,400 mg PO TID [facility] Last Admin: 06/11/22 14:13 Dose: 2,400 mg Documented By: TRUPTI Sodium Chloride (0.9 % Sodium Chloride Flush 3 Ml Syringe) 3 ml IVFLUSH QSHIFT [facility] Last Admin: 06/11/22 14:19 Dose: 3 ml Documented By: TRUPTI Labs 06/07/22 04:52 06/07/22 04:52 Labs: Laboratory Results - last 24 hr 06/11/22 06/11/22 06/11/22 07:43 10:57 15:44 POC Glucose 113 182 H 133 H Assessment and Plan (1) Atrial fibrillation with RVR: Status: Acute Plan 46-year-old male with pertinent history of ESRD on dialysis, (Friday/Friday/Friday/Friday), chronic diastolic congestive heart failure, cholecystitis status post cholecystostomy as patient is poor candidate for surgery, permanent atrial fibrillation on Eliquis, essential hypertension, mixed hyperlipidemia, chronic hypoxemic respiratory failure secondary to COPD who presents to the emergency department for evaluation of abdominal discomfort. ? AFib/flutter with RVR: received IV cardizem at [facility].? He was not taking meds at home continue home meds of Coreg, digoxin, and Apixiban for stroke prevention Chronic abdominal pain due to history of cholecystitis now with C-tube placed at [facility]:? Patient does have chronic abdominal pain the, apparently going on for months now.? [facility] surgery recommends drain to remain in place and no surgery planned as patient is poor candidate.? P.o. Dilaudid for pain, avoid IV medicines (as patient has pain seeking behavior) CT abdomen/pelvis no acute finding, gallbladder tube in place. Bag replaced Bilateral leg pain and swelling, US to rule out DVT Essential hypertension:? Continue Coreg, nifedipine and hydralazine, norvasc End-stage renal disease on hemodialysis:? Friday/Friday/Friday/Friday.? Will consult Nephrology ? Chronic anemia of kidney disease:? Weekly Epogen as per nephro Hyperkalemia:? Given temporizing measures in the ER. ? Elevated troponin: Likely type 2 in the setting of increased demand ? Chronic hypoxemic respiratory failure due to COPD.? Continue home inhaler and O2 DVT prophylaxis: apixiban, Need for inaptient: SOB, need for dialyisis, leg pain and swelling doppler/vascular input Time Spent With Patient Time: Total time managing care of this patient today ____ minutes. Quality Stroke Does the patient have a stroke diagnosis?: No VTE Prior VTE?: No VTE Risk Level:: Medical - moderate - high VTE Device Contraindication: Treatment Not Indicated VTE Drug Contraindication: N/A - Med Ordered
[2022-06-11 20:08] LABS: Glucose, Whole Blood 132 mg/dL (60-115)
[2022-06-12] MEDS: 0.9 % Sodium Chloride Flush 3 ML SYRINGE IVFLUSH ×3 (00:56→20:05)
[2022-06-12] MEDS: Acetaminophen 325 MG TABLET 650 MG PO (01:24)
[2022-06-12 03:12] VITALS: BP 132/83; PULSE 62; RESP 20; TEMP 36.2; O2SAT 95
[2022-06-12] MEDS: HYDROmorphone HCl 2 MG TABLET PO ×3 (05:21→20:04)
[2022-06-12] MEDS: diphenhydrAMINE HCL 50 MG/ML VIAL 25 MG IVPUSH ×3 (05:26→19:38)
[2022-06-12] MEDS: LORazepam 1 MG TABLET PO ×3 (05:26→20:45)
[2022-06-12] MEDS: Gabapentin 300 MG CAPSULE PO ×3 (09:32→20:04)
[2022-06-12] MEDS: Acetaminophen 325 MG TABLET 975 MG PO ×3 (09:33→20:03)
--- NOTE | 2022-06-12 10:25 | W.PM.DNNEP ---
Subjective Subjective This patient was seen during dialysis. Interval history: Shortness of breath is better, Physical Exam Vital Signs: Vital Signs: Last Vital Signs Temp 97.2 F 06/12/22 03:12 Pulse 62 06/12/22 03:12 Resp 20 06/12/22 03:12 BP 132/83 06/12/22 03:12 Pulse Ox 95 06/12/22 03:12 O2 Del Method Nasal Cannula 06/12/22 03:12 O2 Flow Rate 3 06/12/22 03:12 Oxygen Flow Rate 3 06/06/22 16:08 BMI result Body Mass Index 32.3 Const: Other: General: AO X 3, no acute distress Resp: CTA bilateral CVS: S1,S2,RRR, some swelling in legs GI: +BS, NT, no distention Skin: No rash Neuro: motor grossly intact Psych: appropriate affect Assessment & Plan Assessment and plan (1) ESRD (end stage renal disease) on dialysis: Status: Acute Plan ESRD with fluid overload. s/p HD We will keep on Friday schedule. Optimize blood pressure with fluid removal and current medications. Anemia due to CKD. Resume Epogen Concur with the medical management. DC planning I will arrange for outpatient dialysis if discharged. Time Spent With Patient Time: Total time managing care of this patient today ____ minutes. Procedures Date of Service Date of Service: 06/12/22
[2022-06-12 11:07] VITALS: BP 143/90; PULSE 112; RESP 22; TEMP 36.8; O2SAT 94
[2022-06-12 11:34] LABS: Glucose, Whole Blood 145 mg/dL (60-115)
--- NOTE | 2022-06-12 12:45 | MHC.CM.PN ---
Per MD's request, CM spoke with Patient at bedside regarding dc planning. Patient appeared out of breath and struggling just to sit up in bed. Patient explained that he is always , wiped out after HD. Cm relayed these observations and patient's statements to MD, who will order a PT eval. Target dc date is tomorrow. CM will follow.
[2022-06-12 13:15] VITALS: BP 143/90; PULSE 112; O2SAT 94
[2022-06-12] MEDS: Sevelamer Carbonate Tablet 800 MG TABLET 2400 MG PO ×2 (14:03→20:03)
[2022-06-12] MEDS: hydrALAZINE HCl 50 MG TABLET 100 MG PO ×2 (14:04→20:03)
--- NOTE | 2022-06-12 14:36 | HO.PM.IMPN ---
Subjective Subjective Date of Service: 06/12/22 Interval History: esrd on hd Review of Systems Shortness of breath is similar to before Physical Exam Vital Signs: Vital Signs: Last Vital Signs Temp 98.3 F 06/12/22 11:07 Pulse 112 H 06/12/22 13:15 Resp 22 H 06/12/22 11:07 BP 143/90 H 06/12/22 13:15 Pulse Ox 94 06/12/22 13:15 O2 Del Method Nasal Cannula 06/12/22 11:07 O2 Flow Rate 2 06/12/22 11:07 Oxygen Flow Rate 3 06/06/22 16:08 BMI result Body Mass Index 32.3 General: AO X 3, no acute distress Resp:? CTA bilateral CVS: S1,S2,RRR, some swelling in legs and tender GI: +BS, NT, no distention Skin: No rash Neuro:? motor grossly intact Psych: appropriate affect Objective Data Active Medications Acetaminophen (Acetaminophen 325 Mg Tablet) 650 mg PO Q6H PRN PRN Reason: Pain, Mild (Pain Scale 1-3) Last Admin: 06/12/22 01:24 Dose: 650 mg Documented By: ANNELISE Acetaminophen (Acetaminophen 325 Mg Tablet) 975 mg PO TID [facility] Last Admin: 06/12/22 14:04 Dose: 975 mg Documented By: JOANN Amlodipine Besylate (Amlodipine Besylate 10 Mg Tablet) 10 mg PO DAILY [facility]; Protocol Last Admin: 06/12/22 09:24 Dose: Not Given Documented By: JOANN Non-Admin Reason: Off unit: Dialysis Apixaban (Apixaban 5 Mg Tablet) 5 mg PO BID [facility] Last Admin: 06/12/22 09:24 Dose: Not Given Documented By: JOANN Non-Admin Reason: Off unit: Dialysis Aspirin (Aspirin Enteric Coated 81 Mg Tablet.) 81 mg PO DAILY [facility] Last Admin: 06/12/22 09:24 Dose: Not Given Documented By: JOANN Non-Admin Reason: Off unit: Dialysis Atorvastatin Calcium (Atorvastatin Calcium 80 Mg Tablet) 80 mg PO DAILY [facility] Last Admin: 06/12/22 09:24 Dose: Not Given Documented By: JOANN Non-Admin Reason: Off unit: Dialysis Bumetanide (Bumetanide 1 Mg Tablet) 5 mg PO BID [facility]; Protocol Last Admin: 06/12/22 09:24 Dose: Not Given Documented By: JOANN Non-Admin Reason: Off unit: Dialysis Carvedilol (Carvedilol 25 Mg Tablet) 25 mg PO BID [facility]; Protocol Last Admin: 06/12/22 09:25 Dose: Not Given Documented By: JOANN Non-Admin Reason: Off unit: Dialysis Digoxin (Digoxin 0.125 Mg Tablet) 0.0625 mg PO DAILY [facility] Last Admin: 06/12/22 09:25 Dose: Not Given Documented By: JOANN Non-Admin Reason: Off unit: Dialysis Diphenhydramine HCl (Diphenhydramine Hcl 50 Mg/Ml Vial) 25 mg IVPUSH Q6H PRN PRN Reason: Itching Last Admin: 06/12/22 13:28 Dose: 25 mg Documented By: JOANN Doxazosin Mesylate (Doxazosin Mesylate 2 Mg Tablet) 4 mg PO DAILY [facility]; Protocol Last Admin: 06/12/22 09:25 Dose: Not Given Documented By: JOANN Non-Admin Reason: Off unit: Dialysis Fluticasone/Vilanterol (Fluticasone/Vilanterol 100/25 Blst.W.Dev) 1 puff INHALE RDAILY [facility] Last Admin: 06/12/22 07:55 Dose: Not Given Documented By: JEN Non-Admin Reason: pt off unit Gabapentin (Gabapentin 300 Mg Capsule) 300 mg PO TID [facility] Last Admin: 06/12/22 14:03 Dose: 300 mg Documented By: JOANN Glucose (Glucose Gel 15 Gm Gel..Gram.) 15 gm PO Q15M PRN; Protocol PRN Reason: per Hypoglycemia Standing Ord. Hydralazine HCl (Hydralazine Hcl 50 Mg Tablet) 100 mg PO TID [facility]; Protocol Last Admin: 06/12/22 14:04 Dose: 100 mg Documented By: JOANN Hydromorphone HCl (Hydromorphone Hcl 2 Mg Tablet) 2 mg PO Q8H PRN PRN Reason: Pain, Mild (Pain Scale 1-3) Dextrose (D10) 250 mls @ 750 mls/hr IV Q15M PRN PRN Reason: per Hypoglycemia Standing Ord. Last Infusion: 06/07/22 09:43 Dose: 0 mls/hr Documented By: ANNE Dextrose (D10) 250 mls @ 750 mls/hr IV Q15M PRN; Protocol PRN Reason: per Hypoglycemia Standing Ord. Insulin Human Lispro (Insulin Lispro 100 Unit/Ml 3 Ml Vial) 0 unit SUBCUT QIDACHS [facility]; Protocol Last Admin: 06/12/22 11:46 Dose: Not Given Documented By: JOANN Non-Admin Reason: No Insulin Coverage Isosorbide Mononitrate (Isosorbide Mononitrate 30 Mg Tab.Er.24h) 90 mg PO DAILY [facility]; Protocol Last Admin: 06/12/22 09:25 Dose: Not Given Documented By: JOANN Non-Admin Reason: Off unit: Dialysis Lorazepam (Lorazepam 1 Mg Tablet) 1 mg PO BID PRN PRN Reason: Anxiety Last Admin: 06/12/22 14:04 Dose: 1 mg Documented By: JOANN Melatonin (Melatonin 3 Mg Tablet) 6 mg PO BEDTIME PRN PRN Reason: Insomnia Nifedipine (Nifedipine Er 60 Mg Tab.Er.24) 60 mg PO DAILY [facility]; Protocol Last Admin: 06/12/22 09:25 Dose: Not Given Documented By: JOANN Non-Admin Reason: Off unit: Dialysis Ondansetron HCl (Ondansetron Hcl 4 Mg/2 Ml Vial) 4 mg IVPUSH Q8H PRN PRN Reason: Nausea and Vomiting Pharmacy Consult (Consult Rx Perform Med Rec) 1 each MISCELLANE ONCE PRN PRN Reason: Consult order Sevelamer Carbonate (Sevelamer Carbonate Tablet 800 Mg Tablet) 2,400 mg PO TID [facility] Last Admin: 06/12/22 14:03 Dose: 2,400 mg Documented By: JOANN Sodium Chloride (0.9 % Sodium Chloride Flush 3 Ml Syringe) 3 ml IVFLUSH QSHIFT [facility] Last Admin: 06/12/22 09:24 Dose: Not Given Documented By: JOANN Non-Admin Reason: Off unit: Dialysis Labs 06/07/22 04:52 06/07/22 04:52 Labs: Laboratory Results - last 24 hr 06/11/22 06/11/22 06/12/22 15:44 20:05 11:10 POC Glucose 133 H 132 H 145 H Microbiology Microbiology Results: Microbiology 06/06/22 17:08 Blood Culture - Final Blood - Venous No growth after 5 days. 06/06/22 16:49 Blood Culture - Final Blood - Venous No growth after 5 days. Assessment and Plan (1) Atrial fibrillation with RVR: Status: Acute Plan 46-year-old male with pertinent history of ESRD on dialysis, (Friday/Friday/Friday/Friday), chronic diastolic congestive heart failure, cholecystitis status post cholecystostomy as patient is poor candidate for surgery, permanent atrial fibrillation on Eliquis, essential hypertension, mixed hyperlipidemia, chronic hypoxemic respiratory failure secondary to COPD who presents to the emergency department for evaluation of abdominal discomfort. ? AFib/flutter with RVR: received IV cardizem at the [facility].? He was not taking meds at home continue home meds of Coreg, digoxin, and Apixiban for stroke prevention Chronic abdominal pain due to history of cholecystitis now with C-tube placed at [facility]:? Patient does have chronic abdominal pain the, apparently going on for months now.? [facility] surgery recommends drain to remain in place and no surgery planned as patient is poor candidate.? P.o. Dilaudid for pain, avoid IV medicines (as patient has pain seeking behavior) CT abdomen/pelvis no acute finding, gallbladder tube in place. Bag replaced Bilateral leg pain and swelling, US to rule out DVT Essential hypertension:? Continue Coreg, nifedipine and hydralazine, norvasc End-stage renal disease on hemodialysis:? Friday/Friday/Friday/Friday.? Will consult Nephrology ? Chronic anemia of kidney disease:? Weekly Epogen as per nephro Hyperkalemia:? Given temporizing measures in the ER. ? Elevated troponin: Likely type 2 in the setting of increased demand ? Chronic hypoxemic respiratory failure due to COPD.? Continue home inhaler and O2 leg aneurism -arterial dupplex reviewed ,d/w vascular -ch findings ,follow up outpatient. DVT prophylaxis: apixiban, Need for inaptient: SOB, need for dialyisis. Time Spent With Patient Time: Total time managing care of this patient today ____ minutes. Quality Stroke Does the patient have a stroke diagnosis?: No VTE Prior VTE?: No VTE Risk Level:: Medical - moderate - high VTE Device Contraindication: Treatment Not Indicated VTE Drug Contraindication: N/A - Med Ordered
--- NOTE | 2022-06-12 14:42 | PC.NURSE ---
Drained 30cc from T tube, yellow color, patient states he also empties himself.
[2022-06-12 16:39] LABS: Glucose, Whole Blood 101 mg/dL (60-115)
[2022-06-12 19:36] VITALS: BP 186/96; PULSE 89; RESP 20; TEMP 37.1; O2SAT 98
[2022-06-12] MEDS: Apixaban 5 MG TABLET PO (20:04)
[2022-06-12] MEDS: Bumetanide 1 MG TABLET 5 MG PO (20:04)
[2022-06-12] MEDS: carvediloL 25 MG TABLET PO (20:04)
[2022-06-12 20:27] LABS: Glucose, Whole Blood 112 mg/dL (60-115)
[2022-06-12 22:55] VITALS: BP 192/103; PULSE 126
[2022-06-12] MEDS: Labetalol HCL 100 MG/20 ML VIAL 10 MG IVPUSH (22:56)
[2022-06-12 23:18] VITALS: BP 150/110; PULSE 112; RESP 18; TEMP 37.1; O2SAT 97
[2022-06-12] MEDS: oxyCODONE HCl Immed Release 5 MG TABLET PO (23:35)
[2022-06-12 23:40] LABS: Anion Gap 17 (12-20); Blood Urea Nitrogen 40 mg/dL (9-16); Calcium 9.1 mg/dL (8.4-10.2); Carbon Dioxide 25 mmol/L (22-29); Chloride 96 mmol/L (96-108); Creatinine Clr Calc Pharmacy 20.2; Estimated Glomerular Filt Rate 10; Glucose Random 131 mg/dL (60-115); Magnesium 2.2 mg/dL (1.6-2.6); Sodium 133 mmol/L (135-145)
--- NOTE | 2022-06-12 23:47 | PC.NURSE ---
2239 pt had 5 beats of v-tach b/p 192/103 heart rate 126. notified.labetalol 10mg IV ordered and bmp and magnesium level ordered.repeat b/p 15 minutes after IV labetalol 150/110 heart rate 112. notified.magnesium level was 2.2.
[2022-06-13 03:00] VITALS: BP 163/89; PULSE 114; RESP 20; TEMP 37.1; O2SAT 96
[2022-06-13] MEDS: diphenhydrAMINE HCL 50 MG/ML VIAL 25 MG IVPUSH ×2 (03:32→09:36)
[2022-06-13] MEDS: HYDROmorphone HCl 2 MG TABLET PO ×2 (04:05→12:14)
[2022-06-13 07:45] LABS: Glucose, Whole Blood 127 mg/dL (60-115)
[2022-06-13 08:00] VITALS: BP 172/108; PULSE 118; RESP 20; TEMP 37.2; O2SAT 93
[2022-06-13] MEDS: Isosorbide Mononitrate 30 MG TAB.ER.24H 90 MG PO (08:12)
[2022-06-13] MEDS: Doxazosin Mesylate 2 MG TABLET 4 MG PO (08:12)
[2022-06-13] MEDS: Apixaban 5 MG TABLET PO (08:12)
[2022-06-13] MEDS: Digoxin 0.125 MG TABLET 0.0625 MG PO (08:12)
[2022-06-13] MEDS: Aspirin Enteric Coated 81 MG TABLET.DR PO (08:12)
[2022-06-13] MEDS: Sevelamer Carbonate Tablet 800 MG TABLET 2400 MG PO ×2 (08:12→14:19)
[2022-06-13] MEDS: Acetaminophen 325 MG TABLET 975 MG PO ×2 (08:14→14:19)
[2022-06-13] MEDS: Atorvastatin Calcium 80 MG TABLET PO (08:15)
[2022-06-13] MEDS: carvediloL 25 MG TABLET PO (08:15)
[2022-06-13] MEDS: amLODIPine Besylate 10 MG TABLET PO (08:15)
[2022-06-13] MEDS: LORazepam 1 MG TABLET PO (08:15)
[2022-06-13] MEDS: hydrALAZINE HCl 50 MG TABLET 100 MG PO ×2 (08:15→14:19)
[2022-06-13] MEDS: Gabapentin 300 MG CAPSULE PO ×2 (08:15→14:19)
[2022-06-13] MEDS: Bumetanide 1 MG TABLET 5 MG PO (08:16)
[2022-06-13] MEDS: NIFEdipine ER 60 MG TAB.ER.24 PO (08:16)
[2022-06-13] MEDS: 0.9 % Sodium Chloride Flush 3 ML SYRINGE IVFLUSH (08:19)
[2022-06-13] MEDS: Fluticasone/Vilanterol 100/25 BLST.W.DEV 1 PUFF INHALE (08:22)
[2022-06-13 08:23] VITALS: PULSE 109; RESP 20; O2SAT 96
--- NOTE | 2022-06-13 11:04 | PM.PNNEP ---
Subjective Subjective Date of Service: 06/24/22 Interval history: Events noted esrd on hd Physical Exam Vital Signs: Vital Signs: Last Vital Signs Temp 98.9 F 06/13/22 08:00 Pulse 109 H 06/13/22 08:23 Resp 20 06/13/22 08:23 BP 172/108 H 06/13/22 08:00 Pulse Ox 93 06/13/22 08:00 O2 Del Method Nasal Cannula 06/13/22 08:00 O2 Flow Rate 3 06/13/22 08:00 Oxygen Flow Rate 3 06/06/22 16:08 BMI result Body Mass Index 32.3 Const: Other: General: AO X 3, no acute distress Resp: CTA bilateral CVS: S1,S2,RRR, some swelling in legs GI: +BS, NT, no distention Skin: No rash Neuro: motor grossly intact Psych: appropriate affect Objective Data Labs 06/07/22 04:52 06/12/22 23:03 Labs: Laboratory Results - last 24 hr 06/12/22 06/12/22 06/12/22 11:10 16:33 19:33 Sodium Potassium Chloride Carbon Dioxide Anion Gap BUN Creatinine Estim Creat Clear Calc Estimated GFR POC Glucose 145 H 101 112 Random Glucose Calcium Magnesium 06/12/22 06/13/22 23:03 07:41 Sodium 133 L Potassium 5.0 Chloride 96 Carbon Dioxide 25 Anion Gap 17 BUN 40 H Creatinine 6.22 H* Estim Creat Clear Calc 20.2 Estimated GFR 10 POC Glucose 127 H Random Glucose 131 H Calcium 9.1 Magnesium 2.2 Microbiology Microbiology Results: Microbiology 06/06/22 17:08 Blood - Venous Blood Culture - Final No growth after 5 days. 06/06/22 16:49 Blood - Venous Blood Culture - Final No growth after 5 days. Procedures Date of Service Date of Service: 06/13/22 Assessment & Plan Assessment and plan (1) ESRD (end stage renal disease) on dialysis: Status: Acute (2) Hyperglycemia: Status: Acute (3) Atrial fibrillation with RVR: Status: Acute Plan ESRD with fluid overload. s/p HD We will keep on Friday schedule. Optimize blood pressure with fluid removal and current medications. Anemia due to CKD. Resume Epogen Concur with the medical management. DC planning outpatient dialysis if discharged. Time Spent With Patient Time: Total time managing care of this patient today ____ minutes. Progress Note: Quality Stroke Does the patient have a stroke diagnosis?: No
[2022-06-13 11:29] LABS: Glucose, Whole Blood 103 mg/dL (60-115)
[2022-06-13 12:00] VITALS: BP 153/87; PULSE 108; TEMP 36.1; O2SAT 93
[2022-06-13 13:15] VITALS: BP 153/87; PULSE 108; O2SAT 93
--- NOTE | 2022-06-13 13:41 | MHC.CM.PN ---
PT recommends STR; if Patient refuses (which he is refusing to go to STR) home with PT is the recommendation. [employer] has accepted Patient and they have been made aware of today's dc via [employer]. Patient will dc to home today at 3PM via [facility] [employer], with a portable O2 tank, supplied by [facility]. IMM addressed with Patient at bedside and the original was given to him and a copy has been placed on the chart.
--- NOTE | 2022-06-13 14:21 | MHC.CM.PN ---
KARSTEN spoke with [employer] [facility](Marketing Budget Analyst/Zach @ [phone]), to be sure that [facility] is aware of Patient's dc today. Zach indicated that [facility] will be tomorrow.
--- NOTE | 2022-06-13 14:27 | PM.DS ---
DS: Providers Provider Date of Service: 06/13/22 Date of admission: 06/07/22 10:44 Date of discharge: 06/13/22 Primary care physician: Christen Menjivar MD Consults: 06/06/22 20:21 Consult to Nephrology Routine Consulting Provider: Juventino Winter Reason for consultation: ESRD 06/11/22 09:52 Consult to Vascular Surgery Routine Consulting Provider: [facility] Reason for consultation: leg pain/swelling-femoral atery aneurism on US. DS: Diagnosis Discharge Diagnosis (1) ESRD (end stage renal disease) on dialysis: Status: Acute (2) Atrial fibrillation with RVR: Status: Acute (3) Hyperglycemia: Status: Acute DS: Summary Hospital Course Hospital Course: 46-year-old male with pertinent history of ESRD on dialysis, (Friday/Friday/Friday/Friday), chronic diastolic congestive heart failure, cholecystitis status post cholecystostomy as patient is poor candidate for surgery, permanent atrial fibrillation on Eliquis, essential hypertension, mixed hyperlipidemia, chronic hypoxemic respiratory failure secondary to COPD who presents to the emergency department for evaluation of abdominal discomfort.? Patient states left-sided abdominal discomfort started 1 day prior to presentation.? It has been constant, nonradiating and without any relieving factors.? Also has been having associated nausea.? Patient denies fever, chills, chest discomfort, palpitations, shortness of breath, changes in urinary or bowel habits. In the emergency department, patient was found to be in AFib with RVR. Hospital course: Patient was admitted for AFib with RVR-treated with Cardizem drip seems to be improved, patient is noncompliant to his medications -he was advised strongly to continue his p.o. medication including Cardizem digoxin apixaban. Chronic abdominal pain due to history of cholecystitis now with C-tube placed at [facility]:? Patient does have chronic abdominal pain the, apparently going on for months now.? [facility] surgery recommends drain to remain in place and no surgery planned as patient is poor candidate.? P.o. Dilaudid for pain, avoid IV medicines (as patient has pain seeking behavior) CT abdomen/pelvis no acute finding, gallbladder tube in place. Bag replaced, follow up outpatiently.given limited dilaudid for pain given. esrd with hyperkalemia - improved with HD . leg right femoral aneurism -arterial dupplex reviewed ,d/w vascular -ch findings ,follow up outpatient. intermittent mild hyperglycemia : currently on dm diet , no hx of dm , please check Hba1c levels outpatient . plan: Patient was strongly advised to follow-up outpatient with PCP, strongly advised to compliance with medications and dialysis. 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 Discharge coordination time: Greater than 30 minutes Quality: Safe Use of Opioids Does Pt have an Active Cancer Diagnosis on the Problem List?: No Quality: Stroke Does the patient have a stroke diagnosis?: No Physical Exam Vital Signs: Vital Signs: Last Vital Signs Temp 97.0 F 06/13/22 12:00 Pulse 108 H 06/13/22 13:15 Resp 20 06/13/22 08:23 BP 153/87 H 06/13/22 13:15 Pulse Ox 93 06/13/22 13:15 O2 Del Method Nasal Cannula 06/13/22 08:00 O2 Flow Rate 3 06/13/22 08:00 Oxygen Flow Rate 3 06/06/22 16:08 BMI result Body Mass Index 32.3 General: AO X 3, no acute distress Resp:? CTA bilateral CVS: S1,S2,RRR GI: +BS, NT, no distention, has laura bag -site is clean,no erythema Skin: No rash Neuro:? motor grossly intact Psych: appropriate affect DS: Data Data Completed and Pending Completed studies during hospitalization [Text1]: Procedures Assistance with Respiratory Ventilation, Less than 24 Consecutive Hours, Continuous Positive Airway Pressure (05/11/22) Packing of Nasal Region using Packing Material (05/11/22) Performance of Urinary Filtration, Intermittent, Less than 6 Hours Per Day (05/11/22) Labs on day of discharge: Laboratory Results - last 24 hr 06/12/22 06/12/22 06/12/22 16:33 19:33 23:03 Sodium 133 L Potassium 5.0 Chloride 96 Carbon Dioxide 25 Anion Gap 17 BUN 40 H Creatinine 6.22 H* Estim Creat Clear Calc 20.2 Estimated GFR 10 POC Glucose 101 112 Random Glucose 131 H Calcium 9.1 Magnesium 2.2 06/13/22 06/13/22 07:41 11:22 Sodium Potassium Chloride Carbon Dioxide Anion Gap BUN Creatinine Estim Creat Clear Calc Estimated GFR POC Glucose 127 H 103 Random Glucose Calcium Magnesium Imaging Chest x-ray: Radiologist's impression: ITS Impressions Chest X-Ray 06/06/22 17:25 IMPRESSION: Cardiomegaly with mild CHF. Abdomen/Pelvis CT 06/06/22 17:49 IMPRESSION: 1. Hepatosplenomegaly. 2. Pigtail drainage catheter in place within the gallbladder. There is underlying anasarca and small volume perihepatic and pelvic ascites. Small volume fluid within the gallbladder fossa is nonspecific in the setting of ascites; however, it be difficult to fully exclude biliary leak if there is clinical suspicion. 3. Cardiomegaly. The blood pool demonstrates decreased attenuation relative to the myocardium consistent with a degree of underlying anemia. 4. 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 Venous Duplex 06/10/22 15:20 IMPRESSION: No DVT demonstrated in the bilateral lower extremity. 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 Dedicated CTA or right leg arterial ultrasound and vascular surgery consultation recommended. Findings will be communicated by the [place] work flow engineering test mechanic. Duplex Scan Lower Extremity Artery 06/11/22 13:28 IMPRESSION: Redemonstration of a right common femoral pseudoaneurysm with increase in the size of the aneurysm sac as well as the size of the neck, though much of the lumen is thrombosed. There is a partially thrombosed aneurysm/pseudoaneurysm of the mid superficial femoral artery as well which was not visualized on the prior study. Discharge Plan Discharge Anticipated Discharge Date/Time: 06/13/22 13:58 Patient Disposition: Home Health Service Discharge Diagnosis: esrd,afib with rvr Referrals: [facility] [Other] - 1 Week Christen Menjivar MD [Primary Care Provider] - 1 Week Discharge Medications: Continued bumetanide 2 mg tablet 2.5 tab PO BID isosorbide mononitrate 30 mg tablet extended release 24 hr 3 tab PO QAM gabapentin 300 mg capsule 1 cap PO TID budesonide-formoterol [Symbicort] 80-4.5 mcg/actuation HFA aerosol inhaler 2 puff inhalation BID Eliquis 5 mg tablet 1 tab PO BID digoxin 125 mcg (0.125 mg) tablet 0.5 tab PO DAILY sevelamer carbonate 800 mg tablet 3 tab PO TID atorvastatin 80 mg tablet 80 mg PO DAILY acetaminophen 325 mg tablet 975 mg PO TID aspirin 81 mg Tablet,Delayed Release (Dr/Ec) 81 mg PO DAILY carvedilol 25 mg tablet 25 mg PO BID hydralazine 25 mg tablet 100 mg PO TID nifedipine 60 mg tablet extended release 24hr 60 mg PO DAILY doxazosin 2 mg tablet 4 mg PO DAILY amlodipine 10 mg tablet 10 mg PO DAILY hydromorphone 2 mg Tablet 2 mg PO Q6H PRN (Reason: Pain, Severe (Pain Scale 7-10)) Qty: 10 0RF Rx Instructions: Partial Fill upon patient request. Discharge Orders: Discharge Order (Routine); Ordered 06/13/22 Ordered By: Patricia Whelan Diet: Diabetic diet Activity on Discharge: As tolerated Stand Alone Forms: Patient Portal Discharge page Other Ambulatory Orders: Basic Metabolic Panel (Routine) Timeframe: 1 Week Facility: [facility] - Location: Laboratory Ordered By: Patricia Whelan Digoxin (Routine) Timeframe: 1 Week Facility: [facility] - Location: Laboratory Ordered By: Patricia Whelan Hemoglobin A1c (Routine) Timeframe: 1 Week Facility: [facility] - Location: Laboratory Ordered By: Patricia Whelan Care Plan Goals: Patient was admitted for AFib with RVR-treated with Cardizem drip seems to be improved, patient is noncompliant to his medications -he was advised strongly to continue his p.o. medication including Cardizem digoxin apixaban. Chronic abdominal pain due to history of cholecystitis now with C-tube placed at [facility]:? Patient does have chronic abdominal pain the, apparently going on for months now.? [facility] surgery recommends drain to remain in place and no surgery planned as patient is poor candidate.? P.o. Dilaudid for pain, avoid IV medicines (as patient has pain seeking behavior) CT abdomen/pelvis no acute finding, gallbladder tube in place. Bag replaced, follow up outpatiently.given limited dilaudid for pain given. esrd with hyperkalemia - improved with HD . leg aneurism -arterial dupplex reviewed ,d/w vascular -ch findings ,follow up outpatient. intermittent mild hyperglycemia : currently on dm diet , no hx of dm , please check Hba1c levels outpatient . Health Concerns: as above. Plan of Treatment: as above. Assessment: as above. Patient Instructions: A-fib (Atrial Fibrillation) (DC)
--- NOTE | 2022-06-13 14:35 | W.MHC.F2F ---
Service Date Service Date: 06/13/22 Encounter Date of encounter: 06/13/22 Encounter: esrd,afib rvr,hyperglycemia Reasons for Services Signs and symptoms assessed: Monitor shortness of breath, fever, monitor fingersticks Reason for half-way: monitoring of unstable blood sugar, medication management, medication treatment and teach disease management Reason for physical therapy: home safety and mobility, therapeutic exercises, restore joint function, gait/transfer training, assess need for DME, ADL training, energy conservation and other MD Overseeing Care: Christen Menjivar Homebound: Leaving the home is medically contraindicated at this time without the asist of a device and/or another person due th the listed conditions above and below. Reason homebound: weakness related to hospital stay Homebound supporting statement: Patient has multiple comorbidities including end-stage renal disease, AFib with RVR , status post cholecystostomy in [facility], patient generalized weak post hospitalization need help with appointments, blood draws, PT Certification: Based on the above findings, I certify that this patient is confined to the home and needs intermittent half-way care, physical therapy and/or speech therapy, or continues to need occupational therapy. The patient is under my care, and I have initiated the establishment of the plan of care. The patient will be followed by a physician who will periodically review the plan of care. Time Spent With Patient Time: Total time managing care of this patient today ____ minutes.
--- NOTE | 2022-06-13 14:41 | MHC.CM.PN ---
DC Summary and face to face have been sent to [facility] via [employer].
== END 2022-06-13 14:44 | disposition home health service (06) | DRG 201 ==
LOC: HO.ED 20:25 → HO.EDOVER 20:29 → HO.IMC 06-07 07:40
PROVIDERS: Internal Medicine; Admitting Provider Student in an Organized Health Care Education/Training Program; Emergency Provider Emergency Medicine; PCP Student in an Organized Health Care Education/Training Program; Visit Provider Internal Medicine
DX: I48.21 Permanent atrial fibrillation (principal); I13.2 Hypertensive heart and chronic kidney disease with heart failure and with stage 5 chronic kidney disease, or end stage renal disease; J96.11 Chronic respiratory failure with hypoxia; N18.6 End stage renal disease; D63.1 Anemia in chronic kidney disease; E87.70 Fluid overload, unspecified; E11.22 Type 2 diabetes mellitus with diabetic chronic kidney disease; Z99.2 Dependence on renal dialysis; E87.5 Hyperkalemia; I50.32 Chronic diastolic (congestive) heart failure; F17.210 Nicotine dependence, cigarettes, uncomplicated; J44.9 Chronic obstructive pulmonary disease, unspecified; E78.2 Mixed hyperlipidemia; I72.4 Aneurysm of artery of lower extremity; Z93.8 Other artificial opening status; Z20.822 Contact with and (suspected) exposure to COVID-19; Z91.148 Patient's other noncompliance with medication regimen for other reason; Z71.6 Tobacco abuse counseling; Z88.2 Allergy status to sulfonamides; Z88.8 Allergy status to other drugs, medicaments and biological substances; Z79.01 Long term (current) use of anticoagulants; Z79.82 Long term (current) use of aspirin; Z79.899 Other long term (current) drug therapy
CPT/HCPCS: 36415; 71045; 74176; 80048; 80076; 82803; 82947; 83605; 83690; 83735; 83880; 84443; 84484; 85025; 85610; 87040; 87635; 90999; 93005; 93926; 93970; 94640; 97116; 97162; 99285; J0613; J1170; J1200; J2060; J2270